=== PATIENT | male | born 1975 | race Caucasian/White ===

== ENCOUNTER 2016-12-13 15:08 | Emergency (ER) | payer OTHER ==
[~2016-12-13] VITALS: Ht 190.5 cm; Wt 86.2 kg
[~2016-12-13 15:08] MED LIST: ABILIFY20 MG; ADVIL200 MG PO; ALLOPURINOL100 MG PO; AMOXICILLIN 50500 MG PO; BACTRIM DS 8001 TA1 PO; COLCHICINE 0.60.6 MG PO; DOXYCYCLINE HY100 M4 PO; FIORICET1 CAP PO; FLEXERIL10 MG PO; GABAPENTIN 600600 MG PO; IBUPROFEN400 MG PO; INDOMETHACIN50 MG PO; KEFLEX 500MG.500 MG PO; LORTAB 5/500 501 TAB PO; MINOCYCLINE 10100 MG PO; MOTRIN400 MG PO; Mobic7.5 MG PO; NAPROSYN 500MG500 MG PO; NOMEDS; NOMEDS XX; NORCO 325 MG-51 TAB PO; PHENERGAN25 M3 PO; PREDNISONE 20MG20 MG PO; PREDNISONE20 MG PO; ROBAXIN-750750 MG PO; ULTRAM50 MG PO; ZITHROMAX TRI-500 M1 PO; ZOFRAN ODT4 MG PO; ZOFRAN4 MG PO
--- NOTE | 2016-12-13 15:54 | RADIOLOGY REPORT PS360 ---
KNEE-3 VIEWS-LT COMPARISON: Left knee 10/29/2012 HISTORY: Left knee pain and swelling TECHNIQUE: AP lateral and oblique views FINDINGS: The medial lateral joint space appear normal. There is minimal spurring the tibial spines. There is no fracture or loose body. There is no definite effusion. IMPRESSION: Negative for acute fracture
[2016-12-13] MEDS ORDERED: IBUPROFEN800 MG PO (16:04)
--- NOTE | 2016-12-13 16:04 | Urgent Treatment Center Report ---
History of Present Issue Date/Time Seen by Provider 12/13/16 1530 Visit Reason Pt arrived:Walked Presenting Problem:LT KNEE PAIN THATS BEEN ONGOING AND TODAY HAS SWELLING TODAY. DENIES INJURY. PT STATES HIS BP IS ALWAYS ELEVATED. Location if Accident: Onset of symptoms date/time:/ or onset unknown for:MEDICAL HX UNKNOWN Have you (or family members/close friends) recently traveled outside the [place]? N If Yes, where/when: Have you had exposure to infectious disease within the past month? TB? Other? Specify: Patient states that he has been having pain and swelling in his left knee now for several days. State that today he woke up and it was swollen again. States that he decided to come in and get it checked out and try to get an xray to see if something may have been broken ALLERGIES Coded Allergies: No Known Allergies (08/24/16) History Medical History General CAD? No Angina: No SC: No Hypertension? Yes Hyperlipidemia? No CHF? No DVT? No PE? No COPD? Yes Asthma? No Anemia? No GERD? No Gastric ulcers? No GI Bleed? No Hernia? No Thyroid Problems? No Hypothyroidism? No CVA? No Seizures? No Diabetes? No Renal Insuffiency? No UTI? No Stones? No BPH? No GB Disease: No Nephritic Syndrome? No Asplenia? No Hepatitis? No Sickle Cell Disease? No Arthritis? No Migraines? No Cataracts? No Glaucoma? No MRSA? No HIV? No TB? No Anxiety? No Depression? No Cancer? No Immunization HX DT/Tetanus 12/06/13 Surgical Hx Previous Surgery?Y SINUS Social History Smoking Hx Smoker: Current Every Day Smoker Tobacco: Yes Type Cigarettes Packs/day 1 1/2 - 2 Packs Alcohol Alcohol: No Review of Systems All Other Systems Reviewed and Negative Comment Pain and swelling in left knee no known injury Physical Exam Vital Signs Vital Signs Date Time Temp Pulse Resp B/P Pulse O2 O2 Flow FiO2 Ox Delivery Rate 12/13 1519 98.1 63 18 157/103 97 General Appearance normal appearance, WD/WN, no apparent distress Respiratory Status Yes: trachea midline, chest symmetrical, non tender chest. No: respiratory distress. Cardiovascular normal exam, regular rate/rhythm, no peripheral edema Extremities swelling, Pain and mild swelling in left knee with no known injury Neurologic alert, normal exam, oriented x 3 Medical Decision Making LABS/Meds/Orders Pt receiving controlled substance in ED? No Departure Departure Time of Disposition 1602 Disposition DC Home or Self Care(routine) Clinical Impression Primary Impression: Knee sprain Qualifiers: Encounter type: initial encounter Involved ligament of knee: unspecified ligament Laterality: left Qualified Code: S83.92XA - Sprain of unspecified site of left knee, initial encounter Condition STABLE Referrals LAURENCE MEJIA, GUSTAVO YANEZ if pain and swelling persists Patient Instructions DI for Knee Sprain, How To Perform RICE (Rest, Ice, Compress, Elevate), Knee Sprain Additional Instructions *weight bearing as tolerated *RICE, Rest the extremity, Ice 15-20 minutes 3-4 times daily, Compress- wear the eladio wrap as discussed as much as possible to help reduce swelling and pain, Elevate the extremity when at rest *Eladio wrap is for support and help control swelling, use it except in the shower. Be sure that is not to tight but not to loose either *Elevate when resting *Ibuprofen 600-800mg every 6-8 hours as needed for pain an inflammation. If need something more can take Tylenol in between doses of Ibuprofen to help Immediately follow up for new or worsening of symptoms, or no noticeable improvement over the next 3-5 days Discharge Counseling Counseled pt/family regarding diagnosis, test results, medications/RX, home care, follow up needs Prescriptions Current Visit Scripts Ibuprofen (Ibuprofen 800MG) 800 MG PO QIDP PRN pAIN #30 TAB at 1617
[2016-12-13 16:11] VITALS: BP 157/103
--- OUTSIDE RECORDS SUMMARY | 2016-12-16 12:26 | External Medical Summary Rpt | CCD ---
Author Author , ASHWIN Organization ASHWIN Address Unknown Phone [email or web address] Providers Care Microfilmer Name Role Phone AYOS, EMELITA A, Unavailable Unavailable AYOS, EMELITA A Rick Villaseñor MD, Unavailable Unavailable AL Freeman MD Unavailable Unavailable BEINEKE FANNIE, BEINEKE Unavailable Unavailable FANNIE KESHIA TRINIDAD, KESHIA Unavailable Unavailable TRINIDAD GIMENEZ WENDY, GIMENEZ Unavailable Unavailable WENDY NANCIE G, NANCIE Unavailable Unavailable G NANCIE G, NANCIE Unavailable Unavailable G NANCIE, G E, Unavailable Unavailable NANCIE, G E CHANDARANA JYO, Unavailable Unavailable CHANDARANA JYO [facility], Unavailable Unavailable [facility] MAURILIO PINA, Unavailable Unavailable MAURILIO PINA, Unavailable Unavailable [facility] Unavailable Unavailable [facility] [place] GRANT NASSAR Unavailable Unavailable LEO PABLO SRIRAM, PABLO Unavailable Unavailable SRIRAM JIMENEZ III VALERIE, JIMENEZ Unavailable Unavailable III [facility] Un[facility] Un[facility], [facility] Unavailable Unavailable SRV AR, [facility] SRV AR [facility], Unavailable [facility]available [facility] Unavailable Unavailable [place], [facility] # Unavailable [facility]available 007, [facility] # 007 [facility] Unavailable Unavailable [facility], [facility] MAURILIO I JIMENEZ III [facility] Unavailable Unavailable N0 3, MAURILIO I JIMENEZ III [facility] N0 3 PETRONA LUNA Unavailable Unavailable KAMALA MADRIGAL, Unavailable Unavailable KAMALA RUSS [facility] Unavailable Unavailable IM[facility]ING [facility], [facility] Unavailable Unavailable LLC, [facility] Ivis Parra MD, Unavailable Unavailable Ivis Parra MD [place] [facility] [place] [facility] [facility], Unavailable Unavailable ATTN: [place], [facility] [facility], ATTN: [place] NATHEN PAB, NATHEN Unavailable Unavailable PAB [facility] Unavailable Unavailable ACTION P, [facility] MURAD ASM, MURAD ASM Unavailable Unavailable MURAD LORENA, MURAD LORENA Unavailable Unavailable [facility], [facility] RICH NATALIIA, RICH NATALIIA Unavailable Unavailable RICH, ARIF M, RICH, Unavailable Unavailable ARIF M MARLEN ABDULLAHI, Unavailable Unavailable MARLEN ABDULLAHI [facility], Unavailable Unavailable [facility], [facility] JOHNSON A, JOHNSON A Unavailable Unavailable [facility], Unavailable [facility]available [facility] REFFLIANNE JEAN BAPTISTE, Unavailable Unavailable REFFNERLIANNE [facility] Unavailable Unavailable [id number] # [id number], [facility] [id number] # [id number] SAKOW NOL, SAKOW NOL Unavailable Unavailable SARTAWI TAR, SARTAWI Unavailable Unavailable TAR RENO COTE, Unavailable Unavailable RENO COTE MARINELLI, III ROSA MARIA, Unavailable Unavailable MARINELLI, III ROSA MARIA SOTINGEANU FANNIE, Unavailable Unavailable SOTINGEANU FANNIE [facility] Unavailable Unavailable [facility] Unavailable Unavailable [facility] MARA SHARMA, Unavailable Unavailable MARA SHARMA [facility] # Unavailable Unavailable [id number], [facility] # [id number] NISHI COCHRAN, NISHI Unavailable Unavailable LAR KING[place]ON JAYESH, Unavailable Unavailable [place] JAYESH Purpose Continuity of Care Document - 05-25-2009 through 2016 Problems Code Diagnosis DOS Provider Status K922 GASTROINTES 04-02-2015 [facility] HEMORRHAGE GROUP UNSPECIFIED I10 ESSENTIAL 03-09-2015 [facility] HYPERTENSIO INC N J0100 ACUTE 03-09-2015 [facility] SINUSITIS PLLC UNSPECIFIED J449 CHRONIC 03-09-2015 [facility] PULMONARY INC DISEASE UNS K5289 OTH SPEC 03-09-2015 [facility] NONINFECTIV [facility], E PLLC GASTROENTER ITIS & COLITIS K529 NONINFECTIV 03-09-2015 [facility] GASTROENTER INC ITIS & COLITIS UNS Z720 TOBACCO USE 03-09-2015 [facility] B349 VIRAL 02-21-2015 [facility] INFECTION [facility], UNSPECIFIED [facility] R1111 VOMITING 02-21-2015 [facility] WITHOUT [facility]YS[facility], NAUSEA [facility] R197 DIARRHEA 02-21-2015 [facility] UNSPECIFIED PH[facility]ICIANS, [facility] 7231 CERVICALGIA 09-20-2014 [facility] 16565 INJURY OF 09-20-2014 [facility] OTHER [facility] AND UNSPECIFIED 7245 UNSPECIFIED 07-04-2014 [facility] 74051 OSTEOARTHRO 07-01-2014 [place] [facility] UNSPEC MEDICAL WHETHER IMAGING ASS GEN/LOC SHLDR REGION 34366 PAIN IN 07-01-2014 [place] [facility], MEDICAL SHOULDER IMAGING ASS REGION 7241 PAIN IN 07-01-2014 [facility] THORACIC PHYSICIANS SPINE GROUP 7248 OTHER 07-01-2014 [facility] SYMPTOMS PHYSICIANS REFERABLE GROUP TO BACK 4739 UNSPECIFIED 03-30-2014 [facility] SINUSITIS PHYSICIANS GROUP 4659 ACUTE URIS 02-27-2014 [place] [facility] SITE 4871 INFLUENZA 02-27-2014 [place] [facility] MANIFESTATI ONS 496 CHRONIC 02-27-2014 [facility] [facility] OBSTRUCTION [facility] NEC 12844 SHORTNESS 02-27-2014 [place] [facility] 7862 COUGH 02-27-2014 [facility] 305.1 305.1 10-29-2012 [place] TOBACCO USE [facility] DISORDER Hospital 401.9 401.9 [facility]-29[facility]2012 [facility] N NOS [facility] 719.46 719.46 10-29-2012 [place] JOINT [facility] PAIN-L/LEG Hospital 465.9 465.9 ACUTE 09-08-2012 [place] URI NOS [facility] 14729 CIRCADIAN 02-12-2011 NANCIE G RHYTHM SLEEP DISORDER UNSPECIFIED 21013 UNSPECIFIED 02-12-2011 [facility], CONJUNCTIVI ATTN: DENE TIS 4019 UNSPECIFIED 02-12-2011 [place] [facility], HYPERTENSIO ATTN: [place] N 22349 LOC 02-07-2011 [place] [facility] OSTEOARTHRO [facility], S NOT SPEC ATTN: [facility] PRIM/SEC SHLDR REGION 8409 SPRAIN&STRA 02-07-2011 [place] [facility] UNSPEC [facility], SITE ATTN: [facility]E SHOULDER&UP PER ARM 35995 UNSPECIFIED 01-26-2011 [place] [facility] CELLULITIS [facility], AND ATTN: [facility]E ABSCESS OF FINGER 6824 CELLULITIS& 01-26-2011 N[place]CIE G ABSCESS [place] [address] OTHER 01-10-2011 [facility] CHRONIC MED CTR, PAIN ATTN: DENE 7242 LUMBAGO 01-10-2011 [facility] MED [facility], ATTN: DENE 2724 OTHER AND 12-26-2010 [place] UNSPECIFIED [facility]IN[facility] HYPERLIPIDE MARCOS 4011 ESSENTIAL 12-26-2010 [facility] HYPERTENSIO [facility]INIC N, BENIGN 60200 PAIN IN 11-24-2010 [place] JOINT, CLINIC ANKLE AND FOOT V5869 LONG-TERM 11-24-2010 [facility] (CURRENT) CLINIC USE OF OTHER MEDICATIONS 60673 SPRAIN AND 11-19-2010 [place] [facility] STR[facility] OF [facility], UNSPECIFIED ATTN: [facility]E SITE OF FOOT V1581 PERS HX 11-19-2010 [facility] NONCOMPLIAN MED CTR, CE W/MED TX ATTN: [facility] PRS HAZARDS HLTH 7295 PAIN IN 11-16-2010 [place] [facility] TISSUES OF [facility] LIMB 9597 INJURY 11-16-2010 [place] OTHER&UNSPE [facility] CIFIED [facility] LEG ANKLE&FOOT 12018 PAIN IN 10-30-2010 [facility] JOINT MED CTR, PELVIC ATTN: [facility]E REGION AND THIGH 8439 SPRAIN&STRA 10-22-2010 [facility] IN OF MED CTR, UNSPECIFIED ATTN: [facility]E SITE OF HIP&THIGH 5259 UNSPECIFIED 10-17-2010 [facility] DISORDER MED CTR, TEETH&SUPPO ATTN: [facility]E RTING STRUCTURES 3551 MERALGIA 10-13-2010 [facility] [place] 8488 OTHER 10-09-2010 [facility] SPECIFIED MED CTR, SITES OF ATTN: DENE SPRAINS AND STRAINS 7831 ABNORMAL 10-07-2010 [facility] 10891 OTHER ACUTE 10-02-2010 [facility] MED CTR, POSTOPERATI ATTN: DENE VE PAIN 08274 HYPOCALCEMI 09-23-2010 [facility] 59104 UNSPECIFIED 09-17-2010 [facility] INFECTIVE MED CTR, OTITIS ATTN: DENE EXTERNA 3829 UNSPECIFIED 09-17-2010 [facility] OTITIS MED CTR, MEDIA ATTN: DENE 2749 GOUT, 08-27-2010 [facility] UNSPECIFIED MED CTR, ATTN: DENE 81766 ASTHMA, 08-27-2010 [facility] UNSPECIFIED MED CTR, , ATTN: [facility] UNSPECIFIED STATUS 54335 OTHER ACUTE 08-24-2010 [facility] EXTERNA 3804 IMPACTED 08-24-2010 [facility] 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 5220 PULPITIS 08-05-2010 MAURILIO I JIMENEZ III P[facility] N0 3 490 BRONCHITIS 07-27-2010 [facility] NOT MED CTR, SPECIFIED ATTN: DENE ACUTE OR CHRONIC 92213 PAINFUL 07-27-2010 [facility] RESPIRATION MED CTR, ATTN: DENEber 2761 HYPOSMOLALI 07-05-2010 [facility] AND/OR [facility]INIC HYPONATREMI A 99256 OSTEOARTHRO 07-02-2010 [facility] S UNSPEC MED CTR, WHETHER ATTN: DENEber GEN/LOC UNSPEC SITE 90521 UNSPECIFIED 07-02-2010 [facility] MED CTR, ARTHROPATHY ATTN: DENE SITE UNSPECIFIED 23859 OTHER 07-02-2010 [facility] MALAISE AND MED CTR, FATIGUE ATTN: DOUGIE 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 LUMBOSACRAL 06-06-2010 [facility] SPONDYLOSIS WITHOUT MYELOPATHY 94787 SPINAL STEN 06-06-2010 [facility]B 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 N 49298 OTHER 05-28-2010 [facility] INJURY OF MED CTR, OTHER SITES ATTN: DENE OF TRUNK 8472 LUMBAR 05-21-2010 [facility] SPRAIN AND MED CTR, STRAIN ATTN: DENEber 514 PULMONARY 03-13-2010 [facility] [facility] HYPOSTASIS 90449 CHEST PAIN 02-22-2010 [place] [facility]PEC[facility]IED [facility] 96368 ABDOMINAL 02-22-2010 [place] PAIN, [facility] SITE 9592 INJURY 02-22-2010 [facility] OTHER&UNSPE AMBULANCESV CIFIED C SHOULDER&UP PER ARM 9598 INJURY 02-22-2010 [place] [facility] OTH&UNSPEC [facility], OTH SPEC ATTN: DENEber SITES INCL MULTIPLE 9599 INJURY 02-22-2010 [place] OTHER [facility] UNSPECIFIED SITE E8889 UNSPECIFIED 02-22-2010 [place] [facility] 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 44366 UNSPECIFIED 01-01-2010 [facility] INFECTION IN CCE & UNS SITE 9983 DISRUPTION 12-14-2009 MAURILIO JIMENEZ OF WOUND III PSC N0 3 462 ACUTE 10-10-2009 [facility] PHARYNGITIS [facility] 8471 THORACIC 07-19-2009 [facility] E9278 OTH 07-19-2009 [facility] OVEREXERT&S MEDICAL TRENUOUS&RE PARTNERS PETITIVE LLC MVMNTS/LOAD S 5210 DENTAL 05-28-2009 MAURILIO JIMENEZ CARIES III [facility] N0 3 Allergies, Adverse Reactions, Alerts Type Drug Allergy Adverse Reaction to Substance Substance Reaction Severity NO KNOWN DRUG Unknown Unknown ALLERGIES Medications Na ND Rx Da Fi Fi Am Da Di Ph RX Ph St me C No te ll ll ou ys ag ar # ys at rm s nt no ma ic us Or Da si cy ia de te s n re d BU 10 01 01 0 30 30 HO 60 GH Ac CA 37 -1 -1 0. ME 35 AN ti OP 00 3- 3- 00 TO 17 TA ve IO 10 20 20 0 WN 6 N 10 15 15 RA HC 3 PH ME L AR SH XL MA CY 15 0 OF MG CY TA NT BL HI ET AN A BU 00 01 01 0 90 30 HO 60 GH Ac SP 59 -1 -1 0. ME 35 AN ti IR 10 3- 3- 00 TO 17 TA ve ON 65 20 20 0 WN 5 E 81 15 15 RA HC 0 PH ME L AR SH 10 MA CY MG OF TA BL CY ET NT HI AN A GA 53 01 01 0 90 30 HO 60 GH Ac BA 74 -1 -1 0. ME 35 AN ti PE 60 3- 3- 00 TO 17 TA ve NT 10 20 20 0 WN 2 IN 20 15 15 RA 5 PH ME 30 AR SH 0 MA MG CY CA OF PS UL CY E NT HI AN A PA 00 01 01 0 30 30 HO 60 GH Ac NT 00 -1 -1 0. ME 35 AN ti OP 80 3- 3- 00 TO 17 TA ve RA 60 20 20 0 WN 8 ZO 70 15 15 RA LE 1 PH ME AR SH SO MA D CY DR OF 40 CY MG NT HI TA AN B A HY [address] 40 -2 OM 91 7- Lo OR 31 20 ng PH 23 13 er ON 0 E Ac 2 ti MG ve /M L CA RP UJ CT CA 00 08 0 No OM 64 -2 ET 11 7- Lo RESENDIZ 49 20 ng ZI 53 13 er NE 5 Ac 25 ti ve MG /M L AM PU L IP 00 07 0 No RA 48 -0 T- 70 7- Lo AL 20 20 ng BU 10 13 er T 1 0. Ac 5- ti 3( ve 2. 5) MG /3 ML CA 00 07 0 No ED 05 -0 NI 40 7- Lo SO 01 20 ng NE 82 13 er 0 20 Ac ti MG ve TA BL ET VE 00 07 0 No NT 17 -0 OL 30 7- Lo IN 68 20 ng 22 13 er HF 4 A Ac 90 ti ve MC G IN RESENDIZ LE R ME 00 10 10 0 60 30 JA 57 MU Ac TO 09 -2 -2 .0 CK 68 RA ti CA 30 4- 4- 00 SO 54 D ve OL 73 20 20 N UM OL 31 11 11 AP AR 0 OT M TA HE RT CA RA RY TE # 50 00 7 MG TA B VE 00 10 10 0 36 30 JA 57 MU Ac NT 17 -2 -2 .0 CK 68 RA ti OL 30 4- 4- 00 SO 55 D ve IN 68 20 20 N UM 22 11 11 AP AR HF 0 OT M A HE 90 CA RY MC # G IN 00 RESENDIZ 7 LE R AM 65 10 10 0 30 30 JA 57 MU Ac LO 16 -2 -2 .0 CK 68 RA ti DI 20 4- 4- 00 SO 56 D ve PI 00 20 20 N UM NE 85 11 11 AP AR 0 OT M BE HE SY CA LA RY TE # 10 00 7 MG TA B CL 00 10 10 0 90 30 JA 57 MU Ac ON 37 -2 -2 .0 CK 68 RA ti ID 80 4- 4- 00 SO 57 D ve IN 15 20 20 N UM E 21 11 11 AP AR HC 0 OT M L HE 0. CA 1 RY MG # TA 00 BL 7 ET LI 00 10 10 0 30 30 JA 57 MU Ac SI 17 -2 -2 .0 CK 68 RA ti NO 23 4- 4- 00 SO 58 D ve CA 76 20 20 N UM IL 17 11 11 AP AR 0 OT M 40 HE CA MG RY # TA BL 00 ET 7 00 09 09 10 3 RI 89 NHAN Ac 40 -1 -1 .0 TE 78 HN ti 60 4- 4- 00 04 SO ve 35 20 20 AI N 80 11 11 D AA 1 PH RO AR N MA W CY 03 21 6 # 03 21 LI 00 07 09 0 30 30 JA 56 MU Ac SI 17 -0 -1 .0 CK 92 RA ti NO 23 8- 3- 00 SO 20 D ve CA 76 20 20 N UM IL 17 11 11 AP AR 0 OT M 40 HE CA MG RY # TA BL 00 ET 7 CY 00 08 08 15 5 RI 89 MARIAELENA Ac CL 37 -2 -2 .0 TE 58 WM ti OB 80 9- 9- 00 97 AN ve EN 75 20 20 AI ZA 11 11 11 D KE CA 0 PH NN IN AR Y E MA L 10 CY MG 03 21 TA 6 BL # ET 03 21 00 08 08 0 10 3 FA 41 NHAN Ac 40 -1 -1 .0 FL 83 HN ti 60 5- 5- 00 LY 12 SO ve 35 20 20 1 N 80 11 11 PH AA 5 AR RO MA N CY W OF JA CK SO N CL 53 08 08 60 30 RI 89 MU Ac ON 48 -0 -0 .0 TE 33 RA ti ID 90 5- 8- 00 62 D ve IN 21 20 20 AI E 51 11 11 D MA HC 0 PH H L AR 0. MA 1 CY MG 03 TA 21 BL 6 ET # 03 21 ME 00 08 08 0 30 5 WA 72 BU Ac TH 60 -0 -0 .0 L- 19 RN ti OC 34 7- 7- 00 MA 28 ET ve AR 48 20 20 RT 9 TE BA 62 11 11 MO 8 PH GE L AR OR 75 MA GE 0 CY E MG # TA 10 BL 06 ET 93 00 07 07 12 3 RI 89 CA Ac 60 -2 -2 .0 TE 23 MP ti 33 8- 8- 00 29 BE ve 88 20 20 AI LL 12 11 11 D 8 PH RO AR GE MA R CY D 03 21 6 # 03 21 00 07 07 12 3 RI 89 CA Ac 60 -2 -2 .0 TE 23 MP ti 33 8- 8- 00 29 BE ve 88 20 20 AI LL 12 11 11 D 8 PH RO AR GE MA R CY D 03 21 6 # 03 21 LI 00 07 07 1 30 30 RI 89 MU Ac SI 59 -2 -2 .0 TE 18 RA ti NO 10 2- 4- 00 17 D ve CA 40 20 20 AI IL 90 11 11 D MA 1 PH H 40 AR MA MG CY TA 03 BL 21 ET 6 # 03 21 AM 00 07 07 1 30 30 RI 89 MU Ac LO 05 -2 -2 .0 TE 18 RA ti DI 40 2- 4- 00 20 D ve PI 10 20 20 AI NE 12 11 11 D MA 2 PH H BE AR SY MA LA CY TE 5 03 21 MG 6 # TA 03 B 21 CI 55 07 07 0 14 7 FA 67 BU Ac CA 11 -1 -1 .0 FL 89 RN ti OF 10 6- 6- 00 LY 74 ET ve LO 12 20 20 9 TE XA 70 11 11 PH CI 1 AR GE N MA OR HC CY GE L E 50 OF 0 MG JA CK TA SO B N NE 61 07 07 0 10 10 FA 67 BU Ac OM 31 -1 -1 .0 FL 89 RN ti YC 40 6- 6- 00 LY 75 ET ve IN 64 20 20 0 TE -P 51 11 11 PH OL 1 AR GE YM MA OR YX CY GE IN E -H OF [facility] JA R CK HER[place] SO SP N ME 00 07 07 0 60 30 JA 56 MU Ac TO 09 -0 -0 .0 CK 92 RA ti CA 30 8- 8- 00 SO 19 D ve OL 73 20 20 N UM OL 31 11 11 AP AR 0 OT M TA HE RT CA RA RY TE # 50 00 7 MG TA B LO 45 07 07 0 30 30 JA 56 MU Ac RA 80 -0 -0 .0 CK 92 RA ti TA 20 8- 8- 00 SO 21 D ve DI 65 20 20 N UM NE 08 11 11 AP AR 7 OT M 10 HE CA MG RY # TA BL 00 ET 7 LI 68 06 06 1 30 30 RI 88 MU Ac SI 18 -1 -2 .0 TE 87 RA ti NO 00 7- 6- 00 95 D ve CA 51 20 20 AI IL 70 11 11 D MA 1 PH H 40 AR MA MG CY TA 03 BL 21 ET 6 # 03 21 00 06 06 0 20 5 FA 41 BU Ac 59 -2 -2 .0 FL 80 RN ti 10 5- 5- 00 LY 55 ET ve 50 20 20 4 TE 20 11 11 PH 5 AR GE MA OR CY GE E OF JA CK SO N NE 61 06 06 0 10 3 FA 67 BU Ac OM 31 -2 -2 .0 FL 85 RN ti YC 40 5- 5- 00 LY 88 ET ve IN 64 20 20 5 TE -P 51 11 11 PH OL 1 AR GE YM MA OR YX CY GE IN E -H OF [facility] JA R CK HER[place] SO SP N CI 55 06 06 0 10 5 FA 67 BU Ac CA 11 -2 -2 .0 FL 85 RN ti OF 10 5- 5- 00 LY 88 ET ve LO 12 20 20 6 TE XA 70 11 11 PH CI 1 AR GE N MA OR HC CY GE L E 50 OF 0 MG JA CK TA SO B N IB 53 06 06 30 7 RI 88 GR Ac UP 74 -1 -1 .0 TE 75 AY ti RO 60 4- 4- 00 78 , ve FE 46 20 20 AI II N 40 11 11 D I 40 5 PH NHAN 0 AR HN MG MA I CY TA BL 03 ET 21 6 # 03 21 CE 00 06 06 28 7 RI 88 GR Ac PH 14 -1 -1 .0 TE 77 AY ti AL 39 4- 4- 00 11 , ve EX 89 20 20 AI II IN 70 11 11 D I 1 PH NHAN 50 AR HN 0 MA I MG CY CA 03 PS 21 UL 6 E # 03 21 LI 68 06 06 30 30 RI 88 MU Ac SI 18 -0 -0 .0 TE 69 RA ti NO 00 60 D ve CA 51 20 20 AI IL 50 11 11 D MA 1 PH H 20 AR MA MG CY TA 03 BL 21 ET 6 # 03 21 00 06 06 0 24 5 FA 41 GR Ac 59 -0 -0 .0 FL 79 AY ti 10 3- 3- 00 LY 39 , ve 54 20 20 0 II 00 11 11 PH I 5 AR NHAN MA HN CY I OF JA CK SO N 00 06 06 0 24 5 FA 41 GR Ac 59 -0 -0 .0 FL 79 AY ti 10 3- 3- 00 LY 39 ve 54 20 20 0 II 00 11 11 PH I 5 AR NHAN MA HN CY I OF JA CK SO N IB 55 06 06 0 30 6 FA 67 GR Ac UP 11 -0 -0 .0 FL 81 AY ti RO 10 3- 3- 00 LY 44 , ve FE 68 20 20 0 II N 20 11 11 PH I 40 5 AR NHAN 0 MA HN MG CY I TA OF BL ET JA CK SO N LI 00 05 05 0 30 30 JA 56 MU Ac SI 59 -3 -3 .0 CK 68 RA ti NO 10 1- - 00 SO 08 D ve CA 40 20 20 N UM IL 71 11 11 AP AR 0 OT M 10 HE CA MG RY # TA BL 00 ET 7 00 05 05 0 12 4 FA 41 CA Ac 59 -2 -2 .0 FL 79 MP ti 10 LY 09 BE ve 34 20 20 6 LL 90 11 11 PH 5 AR RO MA GE CY R D OF JA CK SO N 00 05 05 0 12 4 FA 41 CA Ac 59 -2 -2 .0 FL 79 MP ti 10 LY 09 BE ve 34 20 20 6 LL 90 11 11 PH 5 AR RO MA GE CY R D OF JA CK SO N AM 00 05 05 0 30 10 FA 67 CA Ac OX 78 -2 -2 .0 FL 80 MP ti IC 12 LY 30 BE ve IL 61 20 20 6 LL LI 30 11 11 PH N 5 AR RO 50 MA GE 0 CY R MG D OF CA PS JA UL CK E SO N BE 57 05 05 0 30 10 FA 67 WA Ac NZ 66 -2 -2 .0 FL 80 RR ti ON 40 LY 13 EN ve AT 13 20 20 4 AT 48 11 11 PH LA E 8 AR RR 20 MA Y 0 CY E MG OF CA PS JA UL CK E SO N AZ 00 05 05 0 6. 5 FA 67 WA Ac IT 78 -2 -2 00 FL 80 RR ti HR 11 6- 6- 0 LY 13 EN ve OM 49 20 20 5 YC 66 11 11 PH LA IN 8 AR RR MA Y 25 CY E 0 MG OF TA JA BL CK ET SO N LO 45 05 05 12 30 30 FA 67 MU Ac RA 80 -0 -0 .0 FL 75 RA ti TA 20 3- 3- 00 LY 02 D ve DI 65 20 20 4 NE 08 11 11 PH MA 7 AR H 10 MA CY MG OF TA BL JA ET CK SO N LI 00 04 04 0 30 30 FA 67 MU Ac SI 18 -1 -1 .0 FL 71 RA ti NO 55 9- 9 LY 92 D ve CA 40 20 20 7 UM IL 00 11 11 PH AR 5 1 AR M MA MG CY TA OF BL ET JA CK SO N TI 00 03 03 0 60 30 JA 56 MU Ac ZA 18 -2 -2 .0 CK 23 RA ti NI 54 8- 8- 00 SO 80 D ve DI 40 20 20 N UM NE 01 11 11 AP AR 0 OT M HC HE L CA 4 RY MG # TA 00 BL 7 ET OX 00 03 03 16 4 RI 87 PA Ac YC 60 -2 -2 .0 TE 80 LL ti OD 34 0- 0- 00 01 AD ve ON 99 20 20 AI IN E- 82 11 11 D O AC 1 PH DA ET AR RR AM MA EL IN CY L OP HE 03 N 21 5- 6 32 # 5 03 21 CY 00 02 02 30 10 RI 87 NHAN Ac CL 37 -2 -2 .0 TE 55 HN ti OB 80 8- 8- 00 89 SO ve EN 75 20 20 AI N ZA 11 11 11 D AA CA 0 PH RO IN AR N E MA W 10 CY MG 03 21 TA 6 BL # ET 03 21 NA 00 02 02 30 15 RI 87 NHAN Ac CA 09 -2 -2 .0 TE 55 HN ti OX 30 8- 8- 00 90 SO ve EN 14 20 20 AI N 90 11 11 D AA 50 1 PH RO 0 AR N MG MA W CY TA BL 03 ET 21 6 # 03 21 CI 00 01 01 1 7. 10 FA 67 SA Ac CA 06 -2 -2 50 FL 51 RT ti OD 58 8- 8- 0 LY 78 AW ve EX 53 20 20 9 I 30 11 11 PH TA OT 2 AR RI IC MA Q CY HERNDON SP OF EN SI JA ON CK SO N AZ 00 01 01 6. 5 RI 86 BU Ac IT 78 -0 -0 00 TE 98 RN ti HR 11 9- 9- 0 80 ET ve OM 49 20 20 AI TE YC 66 11 11 D IN 8 PH GE AR OR 25 MA GE 0 CY E MG 03 TA 21 BL 6 ET # 03 21 66 01 01 14 7 RI 86 BU Ac 99 -0 -0 .0 TE 98 RN ti 30 9- 9- 00 81 ET ve 53 20 20 AI TE 40 11 11 D 2 PH GE AR OR MA GE CY E 03 21 6 # 03 21 IB 53 01 01 30 10 RI 86 BU Ac UP 74 -0 -0 .0 TE 98 RN ti RO 60 9- 9- 00 83 ET ve FE 46 20 20 AI TE N 60 11 11 D 80 5 PH GE 0 AR OR MG MA GE CY E TA BL 03 ET 21 6 # 03 21 ME 00 12 12 0 30 10 FA 67 BU Ac TH 60 -2 -2 .0 FL 43 RN ti OC 34 1- 1- 00 LY 54 ET ve AR 48 20 20 3 TE BA 62 10 10 PH MO 8 AR GE L MA OR 75 CY GE 0 E MG OF TA JA BL CK ET SO N AZ 59 12 12 0 6. 5 FA 67 SA Ac IT 76 -0 -0 00 FL 40 RT ti HR 23 8- 8- 0 LY 79 AW ve OM 06 20 20 0 I YC 00 10 10 PH TA IN 1 AR RI MA Q 25 CY 0 MG OF TA JA BL CK ET SO N MU 45 11 11 0 22 14 FA 67 SA Ac PI 80 -0 -0 .0 FL 32 RT ti RO 20 2- 2- 00 LY 33 AW ve CI 11 20 20 6 I N 22 10 10 PH TA 2% 2 AR RI MA Q OI CY NT ME OF NT JA CK SO N 59 11 11 0 14 7 FA 67 SA Ac 76 -0 -0 .0 FL 32 RT ti 22 2- 2- 00 LY 33 AW ve 18 20 20 7 I 00 10 10 PH TA 1 AR RI MA Q CY OF JA CK SO N CI 16 10 10 0 10 5 FA 67 BU Ac CA 25 -3 -3 .0 FL 31 RN ti OF 20 0- 0- 00 LY 71 ET ve LO 51 20 20 7 TE XA 50 10 10 PH CI 1 AR GE N MA OR HC CY GE L E 50 OF 0 MG JA CK TA SO B N CA 10 10 10 0 10 2 FA 67 BU Ac OM 70 -3 -3 .0 FL 31 RN ti ET 20 0- 0- 00 LY 71 ET ve RESENDIZ 00 20 20 8 TE ZI 31 10 10 PH NE 0 AR GE MA OR 25 CY GE E MG OF TA JA BL CK ET SO N CI 65 10 10 14 7 RI 86 BU Ac CA 86 -1 -1 .0 TE 15 RN ti OF 20 7- 7- 00 09 ET ve LO 07 20 20 AI TE XA 70 10 10 D CI 1 PH GE N AR OR HC MA GE L CY E 50 0 03 MG 21 6 TA # B 03 21 CI 00 09 09 0 14 7 WA 71 BU Ac CA 37 -2 -2 .0 L- 67 RN ti OF 87 5- 5- 00 MA 63 ET ve LO 09 20 20 RT 7 TE XA 80 10 10 CI 1 PH GE N AR OR HC MA GE L CY E 50 # 0 MG 10 06 TA 93 B GE 61 09 09 0 5. 12 WA 71 BU Ac NT 31 -2 -2 00 L- 67 RN ti AM 40 5- 5- 0 MA 63 ET ve IC 63 20 20 RT 8 TE IN 30 10 10 3 5 PH GE AR OR MG MA GE /M CY E L # EY E 10 DR 06 OP 93 S 00 09 09 0 24 5 FA 41 GR Ac 59 -1 -1 .0 FL 65 AY ti 10 7- 7 00 LY 56 , ve 54 20 20 8 II 00 10 10 PH I 5 AR NHAN MA HN CY I OF CK SO N 00 09 09 0 24 5 FA 41 GR Ac 59 -1 -1 .0 FL 65 AY ti 10 7- 7- 00 LY 56 ve 54 20 20 8 II 00 10 10 PH I 5 AR NHAN MA HN CY I OF [facility] SO N IB 55 09 09 0 30 6 FA 67 GR Ac UP 11 -1 -1 .0 FL 22 AY ti RO 10 7- 00 LY 08 , ve FE 68 20 20 9 II N 20 10 10 PH I 40 5 AR NHAN 0 MA HN MG CY I TA OF BL ET CK SO N 00 09 09 0 10 2 FA 41 CA Ac 59 -1 -1 .0 FL 65 MP ti 10 4- 4- 00 LY 38 BE ve 34 20 20 1 LL 90 10 10 PH 5 AR RO MA GE CY R D OF [facility] SO N 00 09 09 0 10 2 FA 41 CA Ac 59 -1 -1 .0 FL 65 MP ti 10 4- 4- 00 LY 38 BE ve 34 20 20 1 LL 90 10 10 PH 5 AR RO MA GE CY R D OF [facility] SO N 00 09 09 20 3 RI 85 BU Ac 60 -0 -0 .0 TE 71 RN ti 33 5- 5- 00 50 ET ve 88 20 20 AI TE 42 10 10 D 1 PH GE AR OR MA GE CY E 03 21 6 # 03 21 CI 65 09 09 14 7 RI 85 BU Ac CA 86 -0 -0 .0 TE 71 RN ti OF 20 5- 5- 00 52 ET ve LO 07 20 20 AI TE XA 70 10 10 D CI 1 PH GE N AR OR HC MA GE L CY E 50 0 03 MG 21 6 TA # B 03 21 00 08 08 0 21 3 WA 44 BU Ac 40 -0 -0 .0 L- 84 RN ti 60 8- 8- 00 MA 61 ET ve 35 20 20 RT 0 TE 90 10 10 1 PH GE AR OR MA GE CY E # 10 06 93 NE 61 08 08 0 10 24 WA 71 BU Ac OM 31 -0 -0 .0 L- 60 RN ti YC 40 8- 8- 00 MA 23 ET ve IN 64 20 20 RT 7 TE -P 51 10 10 OL 1 PH GE YM AR OR YX MA GE IN CY E -H # C EA 10 R 06 [place] 93 SP CI 00 08 08 0 14 7 WA 71 BU Ac CA 37 -0 -0 .0 L- 60 RN ti OF 87 00 MA 23 ET ve LO 09 20 20 RT 8 TE XA 80 10 10 CI 1 PH GE N AR OR HC MA GE L CY E 50 # 0 MG 10 06 TA 93 B 00 05 05 20 5 RI 84 BU Ac 40 -2 -2 .0 TE 79 RN ti 60 9 9 00 08 ET ve 35 20 20 AI TE 90 10 10 D 1 PH GE AR OR MA GE CY E 03 21 6 # 03 21 00 04 04 0 10 2 JA 53 CR Ac 59 -0 -0 .0 CK 77 AM ti 10 SO 34 ER ve 38 20 20 N 50 10 10 AP NHAN 5 OT HN HE R CA RY # 00 7 00 04 04 0 10 2 JA 53 CR Ac 59 -0 -0 .0 CK 77 AM ti 10 SO 34 ER ve 38 20 20 N 50 10 10 AP NHAN 5 OT HN HE R CA RY # 00 7 00 03 03 0 24 6 JA 53 GR Ac 59 -2 -2 .0 CK 73 AY ti 10 6- 6- 00 SO 69 , ve 54 20 20 N II 00 10 10 AP I 5 OT NHAN HE HN CA I RY # 00 7 00 03 03 0 24 6 JA 53 GR Ac 59 -2 -2 .0 CK 73 AY ti 10 6- 6- 00 SO 69 ve 54 20 20 N II 00 10 10 AP I 5 OT NHAN HE HN CA I RY # 00 7 49 03 03 0 30 8 JA 53 GR Ac 88 -2 -2 .0 CK 73 AY ti 40 6- 6- 00 SO 70 , ve 77 20 20 N II 70 10 10 AP I 5 OT NHAN HE HN CA I RY # 00 7 49 03 03 0 30 8 JA 53 GR Ac 88 -2 -2 .0 CK 73 AY ti 40 6- 6- 00 SO 70 ve 77 20 20 N II 70 10 10 AP I 5 OT NHAN HE HN CA I RY # 00 7 CY 00 03 03 9. 3 RI 84 LE Ac CL 37 -2 -2 00 TE 10 E ti OB 80 3- 3- 0 45 GR ve EN 75 20 20 AI EG ZA 11 10 10 D OR CA 0 PH Y IN AR J E MA 10 CY MG 03 21 TA 6 BL # ET 03 21 00 03 03 10 3 RI 84 LE Ac 40 -2 -2 .0 TE 10 E ti 60 3- 3- 00 46 GR ve 35 20 20 AI EG 70 10 10 D OR 5 PH Y AR J MA CY 03 21 6 # 03 21 Vital Signs 10-29-2012 14:45 Name Value Interpretat Reference Comment ion Range Body 98.4 [degF] Temperature BP 87 mm[Hg] Diastolic BP Systolic 150 mm[Hg] Heart 64 /min Rate/Pulse O2% 99 % Respiratory 20 /min Rate 10-29-2012 14:43 Name Value Interpretat Reference Comment ion Range BP 87 mm[Hg] Diastolic BP Systolic 150 mm[Hg] Heart 64 /min Rate/Pulse O2% 99 % Respiratory 20 /min Rate 09-08-2012 12:10 Name Value Interpretat Reference Comment ion Range Body 98.0 [degF] Temperature BP 96 mm[Hg] Diastolic BP Systolic 146 mm[Hg] Heart 67 /min Rate/Pulse O2% 95 % Respiratory 20 /min Rate 09-08-2012 12:07 Name Value Interpretat Reference Comment ion Range Body 98.0 [degF] Temperature BP 96 mm[Hg] Diastolic BP Systolic 146 mm[Hg] Heart 67 /min Rate/Pulse Respiratory 20 /min Rate 09-08-2012 10:38 Name Value Interpretat Reference Comment ion Range O2% 97 % Results Labs Lab Lab Date Result Refere Interp Status Commen Order Detail nces retati t Range on URIC ACID (10-29-2012 14:50) URIC 10.1 2.6-7.2 complet ACID 013 mg/dL ed 14:50 Procedures Procedure DOS Code Location Performer Comment THERAPEUT 40165 [facility] IC [facility] PROPHYLAC INC INC TIC/DX INJECTION SUBQ/[place] [address] [facility] SPINE W/O IMAGING CONTRAST ASS MATERIAL RADEX 42752 [facility] SPINE 5 MEDICAL FANNIE CERVICAL IMAGING 4 OR 5 ASS VIEWS RADEX 41993 [facility] SPINE 5 MEDICAL FANNIE THORACIC IMAGING 2 VIEWS ASS RADEX 34026 [facility] SPINE 5 MEDICAL [place] LUMBOSACR IMAGING AL ASS MINIMUM 4 VIEWS RADEX 15233 [place] DEXTER SHOULDER 5 MEDICAL [place] COMPLETE IMAGING MINIMUM 2 ASS VIEWS RADIOLOGI 87497 [place] KESHIA C 4 RIVER HBP TRINIDAD EXAMINATI LLC ON CHEST SINGLE VIEW FRONTAL RADEX 58602 [facility] SHOULDER 1 MED CTR, MED CTR, COMPLETE ATTN: ATTN: MINIMUM 2 DENE DENE VIEWS IM ADM 16886 [facility] PRQ ID 1 MED CTR, MED CTR, SUBQ/IM ATTN: ATTN: NJXS 1 DENE DENE VACCINE NONEMERG A0120 [facility] TRNSPRT: 1 [facility] Trigemina [facility] MTN ACTION P AREA/OTH SYS THERAPEUT 24542 [facility] IC 1 MED CTR, MED CTR, PROPHYLAC ATTN: ATTN: TIC/DX DENE DENE INJECTION SUBQ/IM RADIOLOGI 03730 [facility] C 1 MED CTR, MED CTR, EXAMINATI ATTN: ATTN: ON FOOT 2 DENE DENE VIEWS RADEX HIP 94138 [facility] 1 MED CTR, MED CTR, UNILATERA ATTN: ATTN: L DENE DENE COMPLETE MINIMUM 2 VIEWS NONEMERG A0120 [facility] TRNSPRT: 1 [facility] Trigemina [facility] MTN ACTION P AREA/OTH SYS NONEMERG A0120 [facility] TRNSPRT: 1 [facility] Club [employer] [facility] MTN ACTION P AREA/OTH SYS INJECTION J0735 CHRISTOPHERLENARDRossy DAPHNEYERNESTO ASM 1 CLINIC CLONIDINE HYDROCHLO RIDE 1 MG NONEMERG A0120 [facility] TRNSPRT: 1 [facility] [employer] [facility] MTN ACTION P AREA/OTH SYS NONEMERG A0120 [facility] TRNSPRT: 1 [facility] MTN ACTION P AREA/OTH SYS NONEMERG A0120 [facility] TRNSPRT: 1 [facility] [employer] [facility] MTN ACTION P AREA/OTH SYS NONEMERG A0120 [facility] TRNSPRT: 1 [employer] MTN ACTION P AREA/OTH SYS RADEX 98799 MEDICAL JOHNSON A HIPS 1 MALL BILATERAL IMAGING 2 VIEWS CENTER ANTEROPOS T PELVIS NONEMERG A0120 [facility] TRNSPRT: 1 [facility] [employer] [facility] MTN ACTION P AREA/OTH SYS NONEMERG A0120 [facility] TRNSPRT: 1 [facility] [employer] [facility] MTN ACTION P AREA/OTH SYS NONEMERG A0120 [facility] TRNSPRT: 1 [employer]! [facility] MTN ACTION P AREA/OTH SYS NONEMERG A0120 [facility] TRNSPRT: 1 [employer] MTN ACTION P AREA/OTH SYS COLLECTIO 13971 [place] N VENOUS 1 MED CTR, MED CTR, BLOOD ATTN: ATTN: VENIPUNCT DOUGIE CONSTANTINO URE CREATINE 02248 [place] KINASE MB 1 MED CTR, MED CTR, FRACTION ATTN: ATTN: ONLY PATRICIAE DENE BASIC 80172 [place] METABOLIC 1 MED CTR, MED CTR, PANEL ATTN: ATTN: CALCIUM PATRICIAE DENE TOTAL NATRIURET 29933 [place] IC 1 MED CTR, MED CTR, PEPTIDE ATTN: ATTN: [place] [address] [place] TROPONIN 1 MED CTR, MED CTR, QUANTITAT ATTN: ATTN: BLANQUITA DENE DENE BLOOD 43795 [place] COUNT 1 MED CTR, MED CTR, COMPLETE ATTN: ATTN: AUTO&AUTO DENE DENE DIFRNTL WBC CREATINE 61154 [place] KINASE 1 MED CTR, MED CTR, TOTAL ATTN: ATTN: [place] [address] [place] MAGNESIUM 1 MED CTR, MED CTR, ATTN: ATTN: DENE DENE CULTURE 36285 [place] BACTERIAL 1 MED CTR, MED CTR, BLOOD ATTN: ATTN: AEROBIC DENE DENE W/ID ISOLATES RADIOLOGI 48954 [place] C EXAM 1 MED CTR, MED CTR, CHEST 2 ATTN: ATTN: VIEWS DENE DENE FRONTAL&L ATERAL ECG 75784 [place] ROUTINE 1 MED CTR, MED CTR, ECG ATTN: ATTN: W/LEAST DENE DENE 12 LDS TRCG ONLY W/O I&R NONEMERG A0120 [facility] [place] TRNSPRT: 1 [facility] MTN ACTION P AREA/OTH SYS BASIC 00312 [place] METABOLIC 1 MED CTR, MED CTR, PANEL ATTN: ATTN: CALCIUM DENE DENE TOTAL ANTINUCLE 66205 [place] AR 1 MED CTR, MED CTR, ANTIBODIE ATTN: ATTN: S YOHAN DENE DENE RHEUMATOI 32817 [place] FACTOR 1 MED CTR, MED CTR, QUALITATI ATTN: ATTN: VE DENE DENE LIPID 04447 [place] PANEL 1 MED CTR, MED CTR, ATTN: ATTN: [place] [address] [place] THYROID 1 MED CTR, MED CTR, STIMULATI ATTN: ATTN: [place] [address] [place] BLOOD/URI 1 MED CTR, MED CTR, C ACID ATTN: ATTN: DENE DENE COLLECTIO 72958 [place] N VENOUS 1 MED CTR, MED CTR, BLOOD ATTN: ATTN: VENIPUNCT DENE DENE URE C-REACTIV 69663 [place] E PROTEIN 1 MED CTR, MED CTR, ATTN: ATTN: DENE DENE HLA 05004 [place] TYPING 1 MED CTR, MED CTR, A/B/C ATTN: ATTN: SINGLE DENE DENE ANTIGEN SEDIMENTA 38327 [place] TION RATE 1 MED CTR, MED CTR, RBC ATTN: ATTN: NON-AUTOM DENE DENE ATED COMPLEMEN 87028 [place] T ANTIGEN 1 MED CTR, MED CTR, EACH ATTN: ATTN: COMPONENT DENE DENE CYCLIC 61431 [place] CITRULLIN 1 MED CTR, MED CTR, ATED ATTN: ATTN: PEPTIDE DENE DENE ANTIBODY BLOOD 12818 [place] COUNT 1 MED CTR, MED CTR, COMPLETE ATTN: ATTN: AUTO&AUTO DENE DENE DIFRNTL WBC NONEMERG A0120 [facility] [place] TRNSPRT: 1 [facility] Trigemina [facility] MTN ACTION P AREA/OTH SYS MRI 56788 MEDICAL JOHNSON A SPINAL 1 MALL CANAL IMAGING LUMBAR CENTER W/O CONTRAST MATERIAL NONEMERG A0120 [facility] TRNSPRT: 1 [facility] Trigemina [facility] MTN ACTION P AREA/OTH SYS RADEX 70571 [place] SPINE 1 MED CTR, MED CTR, LUMBOSACR ATTN: ATTN: AL 2/3 DENE DENEber VIEWS REMOVAL 22297 [facility] 1 ENT TAR CERUMEN CLINIC INSTRUMEN PSC TATION UNILAT RADIOLOGI 35423 [facility] NOL C EXAM 1 RIVER HBP CHEST 2 LLC VIEWS FRONTAL&L ATERAL [place]ADI [place] [address] [place] 1 MED CTR, MED CTR, OTHERWISE ATTN: ATTN: DENE DENE SPECIFIED EACH ORGANISM IAADIADOO 18867 [place] 1 MED CTR, MED CTR, STREPTOCO ATTN: ATTN: CCUS DENE DENE GROUP A BLOOD 00846 [place] COUNT 1 MED CTR, MED CTR, COMPLETE ATTN: ATTN: AUTO&AUTO DENE DENE DIFRNTL WBC COLLECTIO 29878 [place] N 1 MED CTR, MED CTR, CAPILLARY ATTN: ATTN: BLOOD DENE DENE SPECIMEN GROUND A0425 TRANS TRANS MILEAGE 0 STAR STAR PER AMBULANCE AMBULANCE STATUTE [facility] MILE AMB A0427 TRANS TRANS SERVICE 0 STAR STAR ALS AMBULANCE AMBULANCE EMERGENCY [facility] TRANSPORT LEVEL 1 RADEX 46804 [facility] SHOULDER 0 MED CTR, MED CTR, COMPLETE ATTN: ATTN: MINIMUM 2 DENE DENE VIEWS RADIOLOGI 73116 [facility] C EXAM 0 MED CTR, MED CTR, CHEST 2 ATTN: ATTN: VIEWS DENE DENE FRONTAL&L ATERAL RADIOLOGI 00047 [facility] C 0 MED CTR, MED CTR, EXAMINATI ATTN: ATTN: ON PELVIS DENE DENE 1/2 VIEWS REMOVAL 07325 KJ MARIN IMPACTED 0 ENT TAR CERUMEN CLINIC INSTRUMEN PSC TATION UNILAT INCISION 17992 MAURILIO I JIMENEZ III & 0 JIMENEZ III VALERIE DRAINAGE PSC N0 3 COMPLEX PO WOUND INFECTION NONEMERG A0120 [facility] TRNSPRT: 0 [facility] [employer] [facility] MTN ACTION P AREA/OTH SYS NONEMERG A0120 [facility] TRNSPRT: 0 [facility] [employer] [facility] MTN ACTION P AREA/OTH SYS NONEMERG A0120 [facility] TRNSPRT: 0 [facility] Trigemina [facility] MTN ACTION P AREA/OTH SYS DEEP D9220 MAURILIO I JIMENEZ III SEDATION/ 0 JIMENEZ III VALERIE GENERAL PSC N0 3 ANESTHESI A-1ST 30 MINUTES COLLECTIO 85901 [facility] N VENOUS 0 MED CTR MED CTR BLOOD VENIPUNCT URE IAADIADOO 85825 [facility] 0 MED CTR MED CTR STREPTOCO CCUS GROUP A BLOOD 11175 [facility] R[facility] COUNT 0 MED CTR MED CTR COMPLETE AUTO&AUTO DIFRNTL WBC RADEX 26294 BREATHIT AYOS, SPINE 0 [facility] L[facility] CENTER MINIMUM 4 VIEWS RADEX 05076 RADIOLOGY ZACHARY, SPINE 0 SERVICES MARA C LUMBOSACR AL MINIMUM 4 VIEWS RADEX 02197 RADIOLOGY ZACHARY, SPINE 0 SERVICES MARA C THORACIC 3 VIEWS RADEX 41888 [facility] SPINE 0 MED CTR MED CTR THORACIC 3 VIEWS ORTHOPANT 40983 MAURILIO PINA OGAMINTA 0 JIMENEZ III MAURILIO R PSC N0 3 DEEP D9220 MAURILIO PINA, SEDATION/ 0 JIMENEZ III MAURILIO Hough GENERAL PSC N0 3 ANESTHESI A-1ST 30 MINUTES Encounters Encounter Start End Date Code Location Performer Type Date OFFICE 62958 [facility] PABLO OUTPATIEN 6 6 PHYSICIAN SRIRAM T VISIT S GROUP 15 MINUTES HOSPITAL STEVEN - 6 6 [facility] OUTPATIEN INC T EMERGENCY 44533 ADELA COLLADO 6 6 PHYSICIAN U FANNIE [facility] T VISIT HIGH/URGE NT SEVERITY EMERGENCY 37700 STEVEN 6 6 [facility] T VISIT LOW/MODER SEVERITY EMERGENCY 25388 STEVEN 5 5 [facility] T VISIT LOW/MODER SEVERITY [facility]OSPITAL STEVEN - 5 5 [facility] OUTPATIEN INC T EMERGENCY 21179 ADELA ONOFRE 5 5 PHYSICIAN JAYESH [facility] T VISIT MODERATE SEVERITY EMERGENCY 65472 GRANT BURNS 5 5 LEO LEO DEPARTMEN T VISIT HIGH/URGE NT SEVERITY OFFICE 76136 [facility] PABLO OUTPATIEN 5 5 PHYSICIAN SRIRAM T VISIT S GROUP 25 MINUTES OFFICE 88095 [facility] PABLO OUTPATIEN 5 5 PHYSICIAN SRIRAM T VISIT S GROUP 15 MINUTES EMERGENCY 55366 KASIE MARINELLI, 4 4 RIVER HBP III ROSA MARIA [facility] T VISIT MODERATE SEVERITY Emergency JENNIFER Villaseñor MD (ER) 3 14:19 3 14:45 [facility] Emergency JENNIFER Parra MD (ER) 3 10:46 3 12:10 [facility] EMERGENCY 31052 NANCIE NANCIE 1 1 G G DEPARTMEN T VISIT MODERATE SEVERITY [facility]OSP[facility] [place] - 1 1 MED CTR, OUTPATIEN ATTN: T DENE EMERGENCY 93658 [place] 1 1 MED CTR, DEPARTMEN ATTN: T VISIT DENE LOW/MODER SEVERITY EMERGENCY 72593 [place] 1 1 MED CTR, DEPARTMEN ATTN: T VISIT DENE MODERATE SEVERITY HOSPITAL [place] - 1 1 MED CTR, OUTPATIEN ATTN: T DENE EMERGENCY 87442 [place] 1 1 MED CTR, DEPARTMEN ATTN: T VISIT DENE MODERATE SEVERITY EMERGENCY 68806 NANCIE NANCIE 1 1 G G DEPARTMEN T VISIT LIMITED/M INOR PROB [facility]OSPITAL [place] - 1 1 MED CTR, OUTPATIEN ATTN: T DENE EMERGENCY 83050 NANCIE NANCIE 1 1 G G DEPARTMEN T VISIT LOW/MODER SEVERITY [facility]OSPITAL [place] - 1 1 MED CTR, OUTPATIEN ATTN: T DENE EMERGENCY 67344 [place] 1 1 MED CTR, DEPARTMEN ATTN: T VISIT DENE MODERATE SEVERITY EMERGENCY 68268 NANCIE NANCIE 1 1 G G DEPARTMEN T VISIT MODERATE SEVERITY [facility]OSPITAL [place] - 1 1 MED CTR, OUTPATIEN ATTN: T DENE OFFICE 77380 CHRISTOPHERKERLINE PEREZ LORENA OUTPATIEN 1 1 CLINIC T VISIT 25 MINUTES OFFICE 14459 CHRISTOPHERLENARDS MURAD ASM OUTPATIEN 1 1 CLINIC T VISIT 15 MINUTES [facility]ITAL [facility] - 1 1 MED CTR, OUTPATIEN ATTN: T DENE EMERGENCY 50437 [facility] 1 1 RIVER HBP III ROSA MARIA [facility] T VISIT LOW/MODER SEVERITY EMERGENCY 56120 [facility] 1 1 MED CTR, DEPARTMEN ATTN: T VISIT DENE MODERATE SEVERITY EMERGENCY 29806 KASIE RUSS 1 1 RIVER HBP AAR [facility] T VISIT HIGH/URGE NT SEVERITY EMERGENCY 51046 [facility] 1 1 MED CTR, DEPARTMEN ATTN: T VISIT DENE MODERATE SEVERITY HOSPITAL [place] - 1 1 MED CTR, OUTPATIEN ATTN: T DENE EMERGENCY 41512 KASIE GIMENEZ 1 1 RIVER HBP WENDY [facility] T VISIT LOW/MODER SEVERITY [facility]OSPITAL [place] - 1 1 MED CTR, OUTPATIEN ATTN: T DENE EMERGENCY 87361 [facility] 1 1 MED CTR, DEPARTMEN ATTN: T VISIT DENE MODERATE SEVERITY EMERGENCY 81285 [facility] 1 1 MED CTR, DEPARTMEN ATTN: T VISIT DENE MODERATE SEVERITY HOSPITAL [facility] - 1 1 MED CTR, OUTPATIEN ATTN: T DENE OFFICE 76988 CHAVIES MURAD ASM OUTPATIEN 1 1 CLINIC T VISIT 15 MINUTES [facility] 80522 [facility] 1 1 RIVER HBP AAR [facility] T VISIT MODERATE SEVERITY HOSPITAL [facility] - 1 1 MED CTR, OUTPATIEN ATTN: T DENE OFFICE 31606 [facility] CONSULTAT 1 1 FAMILY A [facility] NEW/ESTAB SRV AR PATIENT 40 MIN [facility]OSPITAL [place] - 1 1 MED CTR, OUTPATIEN ATTN: T DENE EMERGENCY 88765 [place] 1 1 MED CTR, DEPARTMEN ATTN: T VISIT DENE MODERATE SEVERITY OFFICE 47177 CHAVIES [facility]URAD ASM OUTPATIEN 1 1 CLINIC T VISIT 15 MINUTES EMERGENCY 42911 KASIE CANADA 1 1 RIVER HBP G [facility] T VISIT LOW/MODER SEVERITY EMERGENCY 83347 [place] 1 1 MED CTR, DEPARTMEN ATTN: T VISIT DENE MODERATE SEVERITY [facility]OSPITAL [place] - 1 1 MED CTR, OUTPATIEN ATTN: T DENE OFFICE 27665 CAS PEREZ ASM OUTPATIEN 1 1 CLINIC T VISIT 15 MINUTES OFFICE 26288 CAS PEREZ ASM OUTPATIEN 1 1 CLINIC T VISIT 15 MINUTES [facility]OSPITAL [place] - 1 1 MED CTR, OUTPATIEN ATTN: T DENE EMERGENCY 38502 [facility] 1 1 RIVER HBP LAR [facility] T VISIT LOW/MODER SEVERITY EMERGENCY 13350 [place] 1 1 MED CTR, DEPARTMEN ATTN: T VISIT DENE MODERATE SEVERITY EMERGENCY 49117 [place] 1 1 MED CTR, DEPARTMEN ATTN: T VISIT DENE MODERATE SEVERITY [facility]OSPITAL [place] - 1 1 MED CTR, OUTPATIEN ATTN: T DENE OFFICE 46769 CAS PEREZ LORENA OUTPATIEN 1 1 CLINIC T VISIT 15 MINUTES [facility]OSPITAL [place] - 1 1 MED CTR, OUTPATIEN ATTN: T DENE EMERGENCY 45439 [place] 1 1 MED CTR, DEPARTMEN ATTN: T VISIT DENE MODERATE SEVERITY EMERGENCY 14726 [facility] 1 1 RIVER HBP G [facility] T VISIT LOW/MODER SEVERITY OFFICE 64131 KJ LEIVATARI OUTPATIEN 1 1 ENT TAR T VISIT CLINIC 25 PSC MINUTES EMERGENCY 94103 [place] NATALIIA 1 1 RIVER HBP [facility] T VISIT LOW/MODER SEVERITY [facility]OSPITAL [place] - 1 1 MED CTR, OUTPATIEN ATTN: T DENE EMERGENCY 68452 [place] 1 1 MED CTR, DEPARTMEN ATTN: T VISIT DENE MODERATE SEVERITY OFFICE 90492 MAURILIO I JIMENEZ III OUTPATIEN 1 1 JIMENEZ III VALERIE T VISIT PSC N0 3 10 MINUTES [facility]OSPITAL [place] - 1 1 MED CTR, OUTPATIEN ATTN: T DENE EMERGENCY 09700 KASIE GIMENEZ 1 1 RIVER HBP [facility] T VISIT MODERATE SEVERITY EMERGENCY 83781 [place] 1 1 MED CTR, DEPARTMEN ATTN: T VISIT DENE HIGH/URGE NT SEVERITY OFFICE 77014 CHAVIES MURAD LORENA OUTPATIEN 1 1 CLINIC T VISIT 25 MINUTES [facility]OSPITAL [place] - 1 1 MED CTR, OUTPATIEN ATTN: T DENE [facility] [place] - 1 1 MED CTR, OUTPATIEN ATTN: T DENE EMERGENCY 12672 [place] 1 1 MED CTR, DEPARTMEN ATTN: T VISIT DENE LIMITED/M INOR PROB OFFICE 39746 [facility] MELENDEZ J CONSULTAT 1 1 ICAL ION ASSOCIATE NEW/ESTAB S PATIENT 40 MIN OFFICE 42859 CHALENARDS MURAD LORENA OUTPATIEN 1 1 CLINIC T VISIT 15 MINUTES OFFICE 93938 CHALENARDS [facility]URAD LORENA OUTPATIEN 1 1 CLINIC T VISIT 15 MINUTES [facility]OSPITAL [place] 1 1 MED CTR, OUTPATIEN ATTN: T DENE OFFICE 37481 CHALENARDS MURAD LORENA OUTPATIEN 1 1 CLINIC T NEW 45 MINUTES EMERGENCY 77406 [place] 1 1 MED CTR, DEPARTMEN ATTN: T VISIT DENE MODERATE SEVERITY [facility]OSP[facility] [place] - 1 1 MED CTR, OUTPATIEN ATTN: T DENE EMERGENCY 77993 KASIE HAINESADINO 1 1 RIVER HBP ABDULLAHI [facility] T VISIT LOW/MODER SEVERITY [facility] [place] - 1 1 MED CTR, OUTPATIEN ATTN: T DENE EMERGENCY 71844 [place] 1 1 MED CTR, DEPARTMEN ATTN: T VISIT DENE MODERATE SEVERITY OFFICE 85449 KJ MARIN OUTPATIEN 1 1 ENT TAR T VISIT CLINIC 15 PSC MINUTES OFFICE 37035 KJ LEIVATARI OUTPATIEN 1 1 ENT TAR T VISIT CLINIC 25 PSC MINUTES [facility]OSPITAL [place] - 1 1 MED CTR, OUTPATIEN ATTN: T DENE EMERGENCY 17092 [place] 1 1 RIVER HBP G [facility] T VISIT LOW/MODER SEVERITY EMERGENCY 69526 [place] 1 1 MED CTR, DEPARTMEN ATTN: T VISIT DENE MODERATE SEVERITY EMERGENCY 61079 [place] 0 0 RIVER HBP G [facility] T VISIT LOW/MODER SEVERITY EMERGENCY 22937 [place] 0 0 MED CTR, DEPARTMEN ATTN: T VISIT DENE MODERATE SEVERITY [facility] [place] - 0 0 MED CTR, OUTPATIEN ATTN: T DENE OFFICE 95149 KJ MARIN OUTPATIEN 0 0 ENT TAR T VISIT CLINIC 25 PSC MINUTES OFFICE 57354 KJ MARIN CONSULTAT 0 0 ENT TAR ION CLINIC NEW/ESTAB PSC PATIENT 60 MIN EMERGENCY 35778 [place] 0 0 MED CTR DEPARTMEN T VISIT HIGH/URGE NT SEVERITY EMERGENCY 15199 [place] 0 0 RIVER HBP G [facility] T VISIT LOW/MODER SEVERITY [facility]OSPITAL [place] - 0 0 MED CTR OUTPATIEN T EMERGENCY 01339 [place] 0 0 RIVER HBP G [facility] T VISIT LOW/MODER SEVERITY EMERGENCY 25522 [place] 0 0 MED CTR DEPARTMEN T VISIT MODERATE SEVERITY [facility]OSP[facility] [place] 0 0 MED CTR OUTPATIEN T [facility] [place] - 0 0 MED CTR OUTPATIEN T EMERGENCY 94567 [place] 0 0 MED CTR DEPARTMEN T VISIT MODERATE SEVERITY [facility] [place] 0 0 MED CTR OUTPATIEN T EMERGENCY 67425 [facility] NANCIE 0 0 RIVER HBP G [facility] T VISIT LOW/MODER SEVERITY EMERGENCY 03178 [place] 0 0 MED CTR DEPARTMEN T VISIT MODERATE SEVERITY [facility] [place] - 0 0 MED CTR OUTPATIEN T EMERGENCY 25741 [facility] NANCIE 0 0 RIVER HBP G [facility] T VISIT LOW/MODER SEVERITY EMERGENCY 21953 [place] 0 0 MED CTR DEPARTMEN T VISIT MODERATE SEVERITY EMERGENCY 92968 [place] 0 0 MED CTR DEPARTMEN T VISIT MODERATE SEVERITY EMERGENCY 91157 [facility] HBP ARIF M [facility] T VISIT LOW/MODER SEVERITY [facility] [place] - 0 0 MED CTR OUTPATIEN T EMERGENCY 73341 [place] 0 0 MED CTR DEPARTMEN T VISIT MODERATE SEVERITY [facility] [place] - 0 0 MED CTR OUTPATIEN T EMERGENCY 72454 [facility] RUSS, 0 0 RIVER HBP KAMALA W [facility] T VISIT LOW/MODER SEVERITY EMERGENCY 66276 [facility] NANCIE, 0 0 RIVER HBP G E [facility] T VISIT LOW/MODER SEVERITY EMERGENCY 28966 [place] 0 0 MED CTR DEPARTMEN T VISIT MODERATE SEVERITY [facility]OSP[facility] [place] 0 0 MED CTR OUTPATIEN T EMERGENCY 92836 [facility], 0 0 MEDICAL SUNILELENIT DEPARTMEN PARTNERS T VISIT LLC HIGH/URGE NT SEVERITY OFFICE 53000 [facility]. MAURILIO SENA OUTPATIEN 0 0 ANTONY PAB T VISIT EXTENDED 15 H MINUTES EMERGENCY 91720 [place] REFFNER, 0 0 RIVER HBP LIANNE S [facility] T VISIT LOW/MODER SEVERITY [facility]OSP[facility] [place] - 0 0 MED CTR OUTPATIEN T EMERGENCY 66748 [place] 0 0 MED CTR DEPARTMEN T VISIT MODERATE SEVERITY OFFICE 16689 MAURILIO PINA, OUTPATIEN 0 0 JIMENEZ III MAURILIO Hough T VISIT PSC N0 3 10 MINUTES [facility]OSPITAL [place] - 0 0 MED CTR OUTPATIEN T EMERGENCY 32379 [place] 0 0 MED CTR DEPARTMEN T VISIT MODERATE SEVERITY
--- OUTSIDE RECORDS SUMMARY | 2016-12-16 12:26 | External Medical Summary Rpt | CCD ---
Author Author , ASHWIN Organization ASHWIN Address Unknown Phone [email or web address] Care Team Providers Care Recreational Specialist Name Role Phone AYOS, EMELITA A, Unavailable [...] E CHANDARANA JYO, Unavailable Unavailable CHANDARANA JYO [facility], Unavailable Unavailable [facility] MAURILIO PINA, Unavailable Unavailable MAURILIO PINA, Unavailable Unavailable [facility] Unavailable Unavailable [facility] [place] GRANT NASSAR Unavailable Unavailable LEO PABLO SRIRAM, PABLO Unavailable Unavailable SRIRAM JIMENEZ III VALERIE, JIMENEZ Unavailable Unavailable III VALER[facility] Un[facility] Un[facility], [facility] Unavailable Unavailable [facility] [place], [facility], Unavailable Unavailable [facility] Unavailable Unavailable [place], [facility] [facility] # Unavailable Unavailable 007, [facility] 007 [facility] Unavailable Unavailable [facility], [facility] MAURILIO I JIMENEZ III [facility] Unavailable Unavailable N0 3, MAURILIO I JIMENEZ III [facility] N0 3 PETRONA LUNA Unavailable Unavailable KAMALA MADRIGAL, Unavailable Unavailable KAMALA RUSS [facility] Unavailable Unavailable IMAGING [facility], [facility], [facility] Ivis Parra MD, Unavailable Unavailable Ivis Parra MD [facility] [place] [facility], Unavailable Unavailable ATTN: [place], [place] [facility], ATTN: [facility]IE NATHEN PAB, NATHEN Unavailable Unavailable PAB [facility] Unavailable Unavailable ACTION P, [facility] MURAD ASM, MURAD ASM [...] Unavailable REFFNERLIANNE [facility] Unavailable Unavailable [id number] # [id number], [facility] [id number] # [id number] SAKOW NOL, SAKOW NOL Unavailable Unavailable SARTAWI TAR, SARTAWI Unavailable Unavailable TAR RENO COTE, Unavailable Unavailable RENO COTE MARINELLI, III ROSA MARIA, Unavailable Unavailable MARINELLI, III ROSA MARIA SOTINGEANU FANNIE, Unavailable Unavailable SOTINGEANU FANNIE [facility] Unavailable Unavailable [facility] Unavailable [facility]available [facility] MARA SHARMA, Unavailable Unavailable MARA SHARMA [facility] # Unavailable Unavailable [id number], [facility] # [id number] NISHI OCCHRAN, NISHI Unavailable Unavailable LAR [place] JAYESH, Unavailable Unavailable [place] JAYESH Purpose Continuity of Care Document - 05-25-2009 through 2016 Problems Code Diagnosis DOS Provider Status K922 GASTROINTES 04-02-2015 [facility] TINAL [facility]YSICIANS HEMORRHAGE GROUP UNSPECIFIED I10 ESSENTIAL 03-09-2015 [facility] HYPERTENSIO INC N J0100 ACUTE 03-09-2015 [facility]ARY [facility], SINUSITIS PLLC UNSPECIFIED 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 CHRONIC 03-09-2015 [facility]CTIVE [facility] PULMONARY INC DISEASE UNS K5289 OTH SPEC 03-09-2015 [facility] NONINFECTIV PHYSICIANS, E PLLC GASTROENTER ITIS & COLITIS K529 NONINFECTIV 03-09-2015 [facility] GASTROENTER INC ITIS & COLITIS UNS Z720 TOBACCO USE 03-09-2015 [facility] INC B349 VIRAL 02-21-2015 [facility] INFECTION PHYSICIANS, UNSPECIFIED [facility] R1111 VOMITING 02-21-2015 [facility] WITHOUT PHYSICIANS, NAUSEA [facility] R197 DIARRHEA 02-21-2015 [facility] UNSPECIFIED PHYSICIANS, [facility] 7231 CERVICALGIA 09-20-2014 [facility] 86382 INJURY OF 09-20-2014 [place] [facility] OTHER IMAGING ASS AND UNSPECIFIED 7245 UNSPECIFIED 07-04-2014 [place] [facility]HE [facility] 72616 OSTEOARTHRO 07-01-2014 [place] S UNSPEC MEDICAL WHETHER IMAGING ASS GEN/LOC SHLDR REGION 38373 PAIN IN 07-01-2014 [place] JOINT, MEDICAL SHOULDER IMAGING ASS REGION 7241 PAIN IN 07-01-2014 [facility] THORACIC PHYSICIANS SPINE GROUP 7248 OTHER 07-01-2014 [facility] SYMPTOMS PHYSICIANS REFERABLE GROUP TO BACK 4739 UNSPECIFIED 03-30-2014 [facility] SINUSITIS PHYSICIANS GROUP 4659 ACUTE URIS 02-27-2014 [place] [facility] UNSPECIFIED LLC SITE 4871 INFLUENZA 02-27-2014 [place] WITH OTHER [facility] RESPIRATORY LLC MANIFESTATI ONS 496 CHRONIC 02-27-2014 [place] [facility]AY [facility] OBSTRUCTION LLC NEC 56924 SHORTNESS 02-27-2014 [place] OF [facility] 7862 COUGH 02-27-2014 [place] [facility] 305.1 305.1 10-29-2012 [place] TOBACCO USE [facility] DISORDER Hospital 401.9 401.9 10-29-2012 [facility] N NOS [facility] 719.46 719.46 10-29-2012 [place] JOINT [facility] PAIN-L/LEG Hospital 465.9 465.9 ACUTE 09-08-2012 [place] URI NOS [facility] 81243 CIRCADIAN 02-12-2011 N[facility] G RHYTHM SLEEP DISORDER UNSPECIFIED 39507 UNSPECIFIED 02-12-2011 [facility], CONJUNCTIVI ATTN: DENE TIS 4019 UNSPECIFIED 02-12-2011 [place] [facility], HYPERTENSIO ATTN: DOUGIE N 66930 LOC 02-07-2011 [place] [facility] OSTEO[facility], S NOT SPEC ATTN: DENE PRIM/SEC SHLDR REGION 8409 SPRAIN&STRA 02-07-2011 [place] [facility] [place] UNSPEC MED [facility], SITE ATTN: DENE SHOULDER&UP PER ARM 44452 UNSPECIFIED 01-26-2011 [place] [facility] CELLULITIS [facility], AND ATTN: DENE ABSCESS OF FINGER 6824 CELLULITIS& 01-26-2011 [facility] [place] ABSCESS [place] HAND EX[place] FING[place] [address] OTHER 01-10-2011 [facility] CHRONIC MED CTR, PAIN ATTN: DENE 7242 LUMBAGO 01-10-2011 [facility] MED CTR, ATTN: DENE 2724 OTHER AND 12-26-2010 [place] UNSPECIFIED CLINIC HYPERLIPIDE MARCOS 4011 ESSENTIAL 12-26-2010 [place] HYPERTENSIO CLINIC N, BENIGN 64542 PAIN IN 11-24-2010 [place] JOINT, CLINIC ANKLE AND FOOT V5869 LONG-TERM 11-24-2010 [place] (CURRENT) CLINIC USE OF OTHER MEDICATIONS 19963 SPRAIN AND 11-19-2010 [place] [facility] STRAIN OF MED CTR, UNSPECIFIED ATTN: DENE SITE OF FOOT V1581 PERS HX 11-19-2010 [facility] NONCOMPLIAN MED CTR, CE W/MED TX ATTN: DENE PRS HAZARDS HLTH 7295 PAIN IN 11-16-2010 [place] [facility] TISSUES OF LLC LIMB 9597 INJURY 11-16-2010 [place] OTHER&UNSPE [facility] CIFIED [employer] LEG ANKLE&FOOT 34591 PAIN IN 10-30-2010 [facility] JOINT MED CTR, PELVIC ATTN: DENE REGION AND THIGH 8439 SPRAIN&STRA 10-22-2010 [facility] IN OF MED CTR, UNSPECIFIED ATTN: DENE SITE OF HIP&THIGH 5259 UNSPECIFIED 10-17-2010 [facility] DISORDER MED CTR, TEETH&SUPPO ATTN: DENE RTING STRUCTURES 3551 MERALGIA 10-13-2010 [facility] [place] 8488 OTHER 10-09-2010 [facility] SPECIFIED MED CTR, SITES OF ATTN: DENE SPRAINS AND STRAINS 7831 ABNORMAL 10-07-2010 [facility] 24189 OTHER ACUTE 10-02-2010 [facility] MED CTR, POSTOPERATI ATTN: DENE VE PAIN 04911 HYPOCALCEMI 09-23-2010 [facility] 75341 UNSPECIFIED 09-17-2010 [facility] INFECTIVE MED CTR, OTITIS ATTN: DENE EXTERNA 3829 UNSPECIFIED 09-17-2010 [facility] OTITIS MED CTR, MEDIA ATTN: DENE 2749 GOUT, 08-27-2010 [facility] UNSPECIFIED MED CTR, ATTN: DENE 87298 ASTHMA, 08-27-2010 [facility] UNSPECIFIED MED CTR, , ATTN: DENE UNSPECIFIED STATUS 91180 OTHER ACUTE 08-24-2010 [facility] EXTERNA 3804 IMPACTED 08-24-2010 [facility] 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 [facility] 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 5220 PULPITIS 08-05-2010 MAURILIO I JIMENEZ III PSC N0 3 490 BRONCHITIS 07-27-2010 [facility] NOT MED CTR, SPECIFIED ATTN: DENE ACUTE OR CHRONIC 77731 PAINFUL 07-27-2010 [facility] RESPIRATION MED CTR, ATTN: DENEber 2761 HYPOSMOLALI 07-05-2010 [facility] AND/OR CLINIC HYPONATREMI A 00490 OSTEOARTHRO 07-02-2010 [facility] S UNSPEC MED CTR, WHETHER ATTN: DENEber GEN/LOC UNSPEC SITE 63098 UNSPECIFIED 07-02-2010 [facility] MED CTR, ARTHROPATHY ATTN: DENE SITE UNSPECIFIED 19388 OTHER 07-02-2010 [facility] MALAISE AND MED CTR, FATIGUE ATTN: DOUGIE 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 61471 SPINAL STEN 06-06-2010 [facility] 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 N 56395 OTHER 05-28-2010 [facility] INJURY OF MED CTR, OTHER SITES ATTN: DENE OF TRUNK 8472 LUMBAR 05-21-2010 [facility] SPRAIN AND MED CTR, STRAIN ATTN: DENEber 514 PULMONARY 03-13-2010 [place] [facility] HYPOSTASIS 93809 CHEST PAIN 02-22-2010 [place] [facility]PEC[facility]IED [facility] 17915 ABDOMINAL 02-22-2010 [place] PAIN, [facility] UNSPECIFIED LLC SITE 9592 INJURY 02-22-2010 [facility] OTHER&UNSPE AMBULANCESV CIFIED C SHOULDER&UP PER ARM 9598 INJURY 02-22-2010 [facility] OTH&UNSPEC MED CTR, OTH SPEC ATTN: DENEber SITES INCL MULTIPLE 9599 INJURY 02-22-2010 [place] OTHER AND [facility] UNSPECIFIED LLC UNSPECIFIED SITE E8889 UNSPECIFIED 02-22-2010 [place] [facility] 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 ME 35 AN [...] ve /M L CA RP UJ CT [place] 00 08 0 No OM 64 -2 [...] 3( ve 2. 5) MG /3 ML [place] 00 07 0 No ED 05 -0 [...] -2 -2 .0 CK 68 RA ti AZ 30 4- 4- 00 SO 54 D [...] 4- 4- 00 SO 58 D ve AZ 76 20 20 N UM IL 17 [...] 8- 3- 00 SO 20 D ve AZ 76 20 20 N UM IL 17 11 11 AP AR 0 OT M 40 HE CA MG RY # TA BL 00 ET 7 CY 00 08 08 15 5 RI 89 MARIAELENA Ac CL 37 -2 -2 .0 TE 58 WM ti OB 80 9- 9- 00 97 AN ve EN 75 20 20 AI ZA 11 11 11 D KE AZ 0 PH NN IN AR Y E MA L 10 CY MG 03 21 TA 6 BL # ET 03 21 00 08 08 0 10 3 FA 41 NHAN Ac 40 -1 -1 .0 AR 83 HN ti 60 5- 5- 00 [...] 10 2- 4- 00 17 D ve AZ 40 20 20 AI IL 90 11 [...] 0 14 7 FA 67 BU Ac AZ 11 -1 -1 .0 AR 89 RN ti OF 10 6- 6- 00 LY 74 ET ve LO 12 20 20 9 TE XA 70 11 11 PH CI 1 AR GE N MA OR HC CY GE L E 50 OF 0 MG JA CK TA SO B N NE 61 07 07 0 10 10 FA 67 BU Ac OM 31 -1 -1 .0 AR 89 RN ti YC 40 6- 6- 00 LY 75 ET ve IN 64 20 20 0 TE -P 51 11 11 PH OL 1 AR GE YM MA OR YX CY GE IN E -H OF [facility] JA R CK HER[place] SO SP N ME 00 07 07 0 60 30 JA 56 MU Ac TO 09 -0 -0 .0 CK 92 RA ti AZ 30 8- 8- 00 SO 19 D [...] 00 7- 6- 00 95 D ve AZ 51 20 20 AI IL 70 11 11 D MA 1 PH H 40 AR MA MG CY TA 03 BL 21 ET 6 # 03 21 00 06 06 0 20 5 FA 41 BU Ac 59 -2 -2 .0 AR 80 RN ti 10 5- 5- 00 LY 55 ET ve 50 20 20 4 TE 20 11 11 PH 5 AR GE MA OR CY GE E OF JA CK SO N NE 61 06 06 0 10 3 FA 67 BU Ac OM 31 -2 -2 .0 AR 85 RN ti YC 40 5- 5- 00 LY 88 ET ve IN 64 20 20 5 TE -P 51 11 11 PH OL 1 AR GE YM MA OR YX CY GE IN E -H OF [facility] JA R CK [place] SO SP N CI 55 06 06 0 10 5 FA 67 BU Ac AZ 11 -2 -2 .0 AR 85 RN ti OF 10 5- 5- [...] RA ti NO 00 60 D ve AZ 51 20 20 AI IL 50 11 11 D MA 1 PH H 20 AR MA MG CY TA 03 BL 21 ET 6 # 03 21 00 06 06 0 24 5 FA 41 GR Ac 59 -0 -0 .0 AR 79 AY ti 10 3- 3- 00 LY 39 , ve 54 20 20 0 II 00 11 11 PH I 5 AR NHAN MA HN CY I OF JA CK SO N 00 06 06 0 24 5 FA 41 GR Ac 59 -0 -0 .0 AR 79 AY ti 10 3- 3- 00 LY 39 ve 54 20 20 0 II 00 11 11 PH I 5 AR NHAN MA HN CY I OF JA CK SO N IB 55 06 06 0 30 6 FA 67 GR Ac UP 11 -0 -0 .0 AR 81 AY ti RO 10 3- 3- [...] 1- - 00 SO 08 D ve AZ 40 20 20 N UM IL 71 11 11 AP AR 0 OT M 10 HE CA MG RY # TA BL 00 ET 7 00 05 05 0 12 4 FA 41 CA Ac 59 -2 -2 .0 AR 79 MP ti 10 LY 09 BE ve 34 20 20 6 LL 90 11 11 PH 5 AR RO MA GE CY R D OF JA CK SO N 00 05 05 0 12 4 FA 41 CA Ac 59 -2 -2 .0 AR 79 MP ti 10 LY 09 BE ve 34 20 20 6 LL 90 11 11 PH 5 AR RO MA GE CY R D OF JA CK SO N AM 00 05 05 0 30 10 FA 67 CA Ac OX 78 -2 -2 .0 AR 80 MP ti IC 12 LY 30 BE ve IL 61 20 20 6 LL LI 30 11 11 PH N 5 AR RO 50 MA GE 0 CY R MG D OF CA PS JA UL CK E SO N BE 57 05 05 0 30 10 FA 67 WA Ac NZ 66 -2 -2 .0 AR 80 RR ti ON 40 LY 13 EN ve AT 13 20 20 4 AT 48 11 11 PH LA E 8 AR RR 20 MA Y 0 CY E MG OF CA PS JA UL CK E SO N AZ 00 05 05 0 6. 5 FA 67 WA Ac IT 78 -2 -2 00 AR 80 RR ti HR 11 6- 6- 0 LY 13 EN ve OM 49 20 20 5 YC 66 11 11 PH LA IN 8 AR RR MA Y 25 CY E 0 MG OF TA JA BL CK ET SO N LO 45 05 05 12 30 30 FA 67 MU Ac RA 80 -0 -0 .0 AR 75 RA ti TA 20 3- 3- 00 LY 02 D ve DI 65 20 20 4 NE 08 11 11 PH MA 7 AR H 10 MA CY MG OF TA BL JA ET CK SO N LI 00 04 04 0 30 30 FA 67 MU Ac SI 18 -1 -1 .0 AR 71 RA ti NO 55 9- 9 LY 92 D ve AZ 40 20 20 7 UM IL 00 [...] N ZA 11 11 11 D AA AZ 0 PH RO IN AR N E MA W 10 CY MG 03 21 TA 6 BL # ET 03 21 NA 00 02 02 30 15 RI 87 NHAN Ac AZ 09 -2 -2 .0 TE 55 HN ti OX 30 8- 8- 00 90 SO ve EN 14 20 20 AI N 90 11 11 D AA 50 1 PH RO 0 AR N MG MA W CY TA BL 03 ET 21 6 # 03 21 CI 00 01 01 1 7. 10 FA 67 SA Ac AZ 06 -2 -2 50 AR 51 RT ti OD 58 8- 8- [...] BU Ac TH 60 -2 -2 .0 AR 43 RN ti OC 34 1- 1- 00 LY 54 ET ve AR 48 20 20 3 TE BA 62 10 10 PH MO 8 AR GE L MA OR 75 CY GE 0 E MG OF TA JA BL CK ET SO N AZ 59 12 12 0 6. 5 FA 67 SA Ac IT 76 -0 -0 00 AR 40 RT ti HR 23 8- 8- 0 LY 79 AW ve OM 06 20 20 0 I YC 00 10 10 PH TA IN 1 AR RI MA Q 25 CY 0 MG OF TA JA BL CK ET SO N MU 45 11 11 0 22 14 FA 67 SA Ac PI 80 -0 -0 .0 AR 32 RT ti RO 20 2- 2- 00 LY 33 AW ve CI 11 20 20 6 I N 22 10 10 PH TA 2% 2 AR RI MA Q OI CY NT ME OF NT JA CK SO N 59 11 11 0 14 7 FA 67 SA Ac 76 -0 -0 .0 AR 32 RT ti 22 2- 2- 00 LY 33 AW ve 18 20 20 7 I 00 10 10 PH TA 1 AR RI MA Q CY OF JA CK SO N CI 16 10 10 0 10 5 FA 67 BU Ac AZ 25 -3 -3 .0 AR 31 RN ti OF 20 0- 0- 00 LY 71 ET ve LO 51 20 20 7 TE XA 50 10 10 PH CI 1 AR GE N MA OR HC CY GE L E 50 OF 0 MG JA CK TA SO B N AZ 10 10 10 0 10 2 FA 67 BU Ac OM 70 -3 -3 .0 AR 31 RN ti ET 20 0- 0- 00 LY 71 ET ve RESENDIZ 00 20 20 8 TE ZI 31 10 10 PH NE 0 AR GE MA OR 25 CY GE E MG OF TA JA BL CK ET SO N CI 65 10 10 14 7 RI 86 BU Ac AZ 86 -1 -1 .0 TE 15 RN ti OF 20 7- 7- 00 09 ET ve LO 07 20 20 AI TE XA 70 10 10 D CI 1 PH GE N AR OR HC MA GE L CY E 50 0 03 MG 21 6 TA # B 03 21 CI 00 09 09 0 14 7 WA 71 BU Ac AZ 37 -2 -2 .0 L- 67 RN [...] 41 GR Ac 59 -1 -1 .0 AR 65 AY ti 10 7- 7 00 LY 56 , ve 54 20 20 8 II 00 10 10 PH I 5 AR NHAN MA HN CY I OF CK SO N 00 09 09 0 24 5 FA 41 GR Ac 59 -1 -1 .0 AR 65 AY ti 10 7- 7- 00 LY 56 ve 54 20 20 8 II 00 10 10 PH I 5 AR NHAN MA HN CY I OF [facility] SO N IB 55 09 09 0 30 6 FA 67 GR Ac UP 11 -1 -1 .0 AR 22 AY ti RO 10 7- 00 LY 08 , ve FE 68 20 20 9 II N 20 10 10 PH I 40 5 AR NHAN 0 MA HN MG CY I TA OF BL ET CK SO N 00 09 09 0 10 2 FA 41 CA Ac 59 -1 -1 .0 AR 65 MP ti 10 4- 4- 00 LY 38 BE ve 34 20 20 1 LL 90 10 10 PH 5 AR RO MA GE CY R D OF [facility] SO N 00 09 09 0 10 2 FA 41 CA Ac 59 -1 -1 .0 AR 65 MP ti 10 4- 4- 00 LY 38 BE ve 34 20 20 1 LL 90 10 10 PH 5 AR RO MA GE CY R D OF [facility] SO N 00 09 09 20 3 RI 85 BU Ac 60 -0 -0 .0 TE 71 RN ti 33 5- 5- 00 50 ET ve 88 20 20 AI TE 42 10 10 D 1 PH GE AR OR MA GE CY E 03 21 6 # 03 21 CI 65 09 09 14 7 RI 85 BU Ac AZ 86 -0 -0 .0 TE 71 RN [...] 0 14 7 WA 71 BU Ac AZ 37 -0 -0 .0 L- 60 RN [...] EG ZA 11 10 10 D OR AZ 0 PH Y IN AR J E [...] Procedure DOS Code Location Performer Comment THERAPEUT 43887 [facility] IC 6 [facility] PROPHYLAC INC INC TIC/DX INJECTION SUBQ/[place] [address] [facility] 5 MEDICAL [place] SPINE W/O IMAGING CONTRAST ASS MATERIAL RADEX 46673 [facility] SPINE 5 MEDICAL FANNIE CERVICAL IMAGING 4 OR 5 ASS VIEWS RADEX 17438 [facility] SPINE 5 MEDICAL FANNIE THORACIC IMAGING 2 VIEWS ASS RADEX 42942 [facility] SPINE 5 MEDICAL ALVINA LUMBOSACR IMAGING AL ASS MINIMUM 4 VIEWS RADEX 44843 [place] [facility] SH[facility]ER 5 MEDICAL [place] COMPLETE IMAGING MINIMUM 2 ASS VIEWS RADIOLOGI 89902 [place] [facility] C 4 [facility] ON CHEST SINGLE VIEW FRONTAL RADEX 65174 [facility] SHOULDER 1 MED CTR, MED CTR, COMPLETE ATTN: ATTN: MINIMUM 2 DENE DENE VIEWS IM ADM 14368 [facility] PRQ ID 1 MED CTR, MED CTR, SUBQ/IM ATTN: ATTN: NJXS 1 DENE DENE VACCINE NONEMERG A0120 [facility] TRNSPRT: 1 REPLACED BY [facility] RF Code [facility] MTN ACTION P AREA/OTH SYS THERAPEUT 72924 [facility] RIVER IC 1 MED CTR, MED CTR, PROPHYLAC ATTN: ATTN: TIC/DX DENE DENE INJECTION SUBQ/IM RADIOLOGI 69321 [facility] RIVER C 1 MED CTR, MED CTR, EXAMINATI ATTN: ATTN: ON FOOT 2 DENE DENE VIEWS RADEX HIP 46929 [facility] RIVER 1 MED CTR, MED CTR, UNILATERA ATTN: ATTN: L DENE DENE COMPLETE MINIMUM 2 VIEWS NONEMERG A0120 [facility] TRNSPRT: 1 REPLACED BY [facility] RF Code [facility] MTN ACTION P AREA/OTH SYS NONEMERG A0120 [facility] TRNSPRT: 1 REPLACED BY [facility] [employer] [facility] MTN ACTION P AREA/OTH SYS INJECTION J0735 CHRISTOPHERLENARDRossy DAPHNEYERNESTO ASM 1 CLINIC CLONIDINE HYDROCHLO RIDE 1 MG NONEMERG A0120 [facility] TRNSPRT: 1 REPLACED BY [facility] [employer] [facility] MTN ACTION P AREA/OTH SYS NONEMERG A0120 [facility] TRNSPRT: 1 [facility] MTN ACTION P AREA/OTH SYS NONEMERG A0120 [facility] TRNSPRT: 1 REPLACED BY [facility] [employer] [facility] MTN ACTION P AREA/OTH SYS NONEMERG A0120 [facility] TRNSPRT: 1 [employer] MTN ACTION P AREA/OTH SYS RADEX 59213 [facility] [place] A HIPS 1 MALL BILATERAL IMAGING 2 VIEWS CENTER ANTEROPOS T PELVIS NONEMERG A0120 [facility] TRNSPRT: 1 REPLACED BY [facility] [employer] Work Study REPLACED BY [facility] MTN ACTION P AREA/OTH SYS NONEMERG A0120 [facility] TRNSPRT: 1 REPLACED BY [facility] [employer] Work Study REPLACED BY [facility] MTN ACTION P AREA/OTH SYS NONEMERG A0120 [facility] TRNSPRT: 1 [employer] REPLACED BY [facility] MTN ACTION P AREA/OTH SYS NONEMERG A0120 [facility] TRNSPRT: 1 [employer]. MTN ACTION P AREA/OTH SYS COLLECTIO 42206 [place] VENOUS 1 MED CTR, MED CTR, BLOOD ATTN: ATTN: VENIPUNCT DOUGIE CONSTANTINO URE CREATINE 22821 [place] KINASE MB 1 MED CTR, MED CTR, FRACTION ATTN: ATTN: ONLY PATRICIAE [place] BASIC 60138 [place] METABOLIC 1 MED CTR, MED CTR, PANEL ATTN: ATTN: CALCIUM PATRICIAE DEN[place] TOTAL NATRIURET 62352 [place] [place] IC 1 MED CTR, MED CTR, PEPTIDE ATTN: ATTN: [place] [address] [place] TROPONIN 1 MED CTR, MED CTR, QUANTITAT ATTN: ATTN: BLANQUITA [place] BLOOD 72939 [place] COUNT 1 MED CTR, MED CTR, COMPLETE ATTN: ATTN: AUTO&AUTO DENE DENE DIFRNTL WBC CREATINE 86691 [place] KINASE 1 MED CTR, MED CTR, TOTAL ATTN: ATTN: [place] [address] [place] MAGNESIUM 1 MED CTR, MED CTR, ATTN: ATTN: [place]E [place] CULTURE 87372 [place] BACTERIAL 1 MED CTR, MED CTR, BLOOD ATTN: ATTN: AEROBIC DENE DENE W/ID ISOLATES RADIOLOGI 55020 [place] C EXAM 1 MED CTR, MED CTR, CHEST 2 ATTN: ATTN: VIEWS DENE DENE FRONTAL&L ATERAL ECG 12313 [place] ROUTINE 1 MED CTR, MED CTR, ECG ATTN: ATTN: W/LEAST DENE DENE 12 LDS TRCG ONLY W/O I&R NONEMERG A0120 [facility] [place] TRNSPRT: 1 COMMUNITY [facility]I-[facility] ACTION COMMUNITY MTN ACTION P AREA/OTH SYS BASIC 24973 [place] METABOLIC 1 MED CTR, MED CTR, PANEL ATTN: ATTN: CALCIUM [place]E DEN[place] TOTAL ANTINUCLE 84804 [place] AR 1 MED CTR, MED CTR, ANTIBODIE ATTN: ATTN: S YOHAN [place]E [place] RHEUMATOI 48738 [place] D FACTOR 1 MED CTR, MED CTR, QUALITATI ATTN: ATTN: VE [place] LIPID 56701 [place] PANEL 1 MED CTR, MED CTR, ATTN: ATTN: [place] [address] [place] THYROID 1 MED CTR, MED CTR, STIMULATI ATTN: ATTN: [place] [address] [place] BLOOD/URI 1 MED CTR, MED CTR, C ACID ATTN: ATTN: [place]E [place] COLLECTIO 55842 [place] VENOUS 1 MED CTR, MED CTR, BLOOD ATTN: ATTN: VENIPUNCT DENE DENE URE C-REACTIV 65473 [place] E PROTEIN 1 [facility], MED CTR, ATTN: ATTN: [place] HLA [address] [place] TYPING 1 [facility], MED CTR, A/B/C ATTN: ATTN: SINGLE DENE DEN[place] ANTIGEN SEDIMENTA 27302 [place] TION RATE 1 MED CTR, MED CTR, RBC ATTN: ATTN: NON-AUTOM [place]E [place] ATED COMPLEMEN 29355 [place] T ANTIGEN 1 MED CTR, MED CTR, EACH ATTN: ATTN: COMPONENT DENE [place] CYCLIC 84764 [place] CITRULLIN 1 MED CTR, MED CTR, ATED ATTN: ATTN: PEPTIDE DENE [place] ANTIBODY BLOOD 58990 [place] COUNT 1 [facility], MED CTR, COMPLETE ATTN: ATTN: AUTO&AUTO DENE DENE DIFRNTL WBC NONEMERG A0120 [facility] [place] TRNSPRT: 1 REPLACED BY [facility] RF Code [facility] MTN ACTION P AREA/OTH SYS MRI 23457 MEDICAL [place] A SPINAL 1 MALL CANAL IMAGING LUMBAR CENTER W/O CONTRAST MATERIAL NONEMERG A0120 [facility] TRNSPRT: 1 REPLACED BY [facility] RF Code [facility] MTN ACTION P AREA/OTH SYS RADEX 56247 [place] SPINE 1 MED CTR, MED CTR, LUMBOSACR ATTN: ATTN: AL 2/3 DENE DENEber VIEWS REMOVAL 61319 [facility] 1 ENT TAR CERUMEN CLINIC INSTRUMEN PSC TATION UNILAT RADIOLOGI 77938 [facility] NOL C EXAM 1 RIVER HBP CHEST 2 LLC VIEWS FRONTAL&L [place]TERAL [place]ADI [place] [address] [place] 1 MED CTR, MED CTR, OTHERWISE ATTN: ATTN: DENE DENE SPECIFIED EACH ORGANISM IAADIADOO 34669 [place] 1 MED CTR, MED CTR, STREPTOCO ATTN: ATTN: CCUS DENE DENE GROUP A BLOOD 80074 [place] COUNT 1 [facility] CTR, MED CTR, COMPLETE ATTN: ATTN: AUTO&AUTO DENE DENE DIFRNTL WBC COLLECTIO 14138 [place] N 1 MED CTR, MED CTR, CAPILLARY ATTN: ATTN: BLOOD DENE DENE SPECIMEN GROUND A0425 TRANS TRANS MILEAGE 0 STAR STAR PER AMBULANCE AMBULANCE STATUTE [facility] MILE AMB A0427 TRANS TRANS SERVICE 0 STAR STAR ALS AMBULANCE AMBULANCE EMERGENCY [facility] TRANSPORT LEVEL 1 RADEX 67984 [facility] SHOULDER 0 MED CTR, MED CTR, COMPLETE ATTN: ATTN: MINIMUM 2 DENE DENE VIEWS RADIOLOGI 57036 [facility] C EXAM 0 MED CTR, MED CTR, CHEST 2 ATTN: ATTN: VIEWS DENE DENE FRONTAL&L ATERAL RADIOLOGI 58033 [facility] C 0 MED CTR, MED CTR, EXAMINATI ATTN: ATTN: ON PELVIS DENE DENE 1/2 VIEWS REMOVAL 15544 KJ MARIN IMPACTED 0 ENT TAR CERUMEN CLINIC INSTRUMEN PSC TATION UNILAT INCISION 64600 MAURILIO I JIMENEZ III & 0 JIMENEZ III VALERIE DRAINAGE PSC N0 3 COMPLEX PO WOUND INFECTION NONEMERG A0120 [facility] TRNSPRT: 0 REPLACED BY [facility] [place] Work Study REPLACED BY [facility] MTN ACTION P AREA/OTH SYS NONEMERG A0120 [facility] TRNSPRT: 0 REPLACED BY [facility] [place] Work Study REPLACED BY [facility] MTN ACTION P AREA/OTH SYS NONEMERG [id number] [facility] TRNSPRT: 0 REPLACED BY [facility] RF Code [facility] MTN ACTION P AREA/OTH SYS DEEP [id number] MAURILIO I JIMENEZ III SEDATION/ 0 JIMENEZ III VALERIE GENERAL PSC N0 3 ANESTHESI A-1ST 30 MINUTES COLLECTIO 43477 [facility] N VENOUS 0 MED CTR MED CTR BLOOD VENIPUNCT URE IAADIADOO 21621 [facility] 0 MED CTR MED CTR STREPTOCO CCUS GROUP A BLOOD 12139 [facility] RIVER COUNT 0 MED CTR MED CTR COMPLETE AUTO&AUTO DIFRNTL WBC RADEX 00380 BREATHIT AYOS, SPINE 0 [facility] A [facility]OS[facility]CR [facility] MINIMUM 4 VIEWS RADEX 81292 RADIOLOGY ZACHARY, SPINE 0 SERVICES MARA C LUMBOSACR AL MINIMUM 4 VIEWS RADEX 70098 RADIOLOGY ZACHARY, SPINE 0 SERVICES MARA C THORACIC 3 VIEWS RADEX 41901 [facility] RIVER SPINE 0 MED CTR MED CTR THORACIC 3 VIEWS ORTHOPANT 99146 MAURILIO PINA OGAMINTA 0 JIMENEZ III MAURILIO R PSC N0 3 DEEP D9220 MAURILIO PINA, SEDATION/ 0 JIMENEZ III MAURILIO Hough GENERAL PSC N0 3 ANESTHESI A-1ST 30 MINUTES Encounters Encounter Start End Date Code Location Performer Type Date OFFICE 01496 [facility] PABLO OUTPATIEN 6 6 PHYSICIAN SRIRAM T VISIT S GROUP 15 MINUTES HOSPITAL STEVEN - 6 6 [facility] INC T EMERGENCY 54582 ADELA COLLADO 6 6 PHYSICIAN U FANNIE [facility] T VISIT HIGH/URGE NT SEVERITY EMERGENCY 86770 STEVEN 6 6 [facility] T VISIT LOW/MODER SEVERITY EMERGENCY 09183 STEVEN 5 5 [facility] T VISIT LOW/MODER SEVERITY HOSPITAL STEVEN - 5 5 [facility] OUT[facility]EN INC T EMERGENCY 70695 ADELA ONOFRE 5 5 PHYSICIAN JAYESH [facility] T VISIT MODERATE SEVERITY EMERGENCY 15458 GRANT BURNS 5 5 LEO LEO DEPARTMEN T VISIT HIGH/URGE NT SEVERITY OFFICE 06277 [facility] PABLO OUTPATIEN 5 5 PHYSICIAN SRIRAM T VISIT S GROUP 25 MINUTES OFFICE 74099 [facility] PABLO OUTPATIEN 5 5 PHYSICIAN SRIRAM T VISIT S GROUP 15 MINUTES EMERGENCY 10550 KASIE MARINELLI, 4 4 RIVER HBP III [facility] T VISIT MODERATE SEVERITY Emergency JENNIFER Villaseñor MD (ER) 3 14:19 3 14:45 [facility] Emergency JENNIFER Parra MD (ER) 3 10:46 3 12:10 [facility] EMERGENCY 74044 NANCIE NANCIE 1 1 G G DEPARTMEN T VISIT MODERATE SEVERITY [facility] [place] [facility] 1 [facility] CTR, OUTPATIEN ATTN: T [place] EMERGENCY 37080 [place] 1 1 [facility] CTR, DEPARTMEN ATTN: T VISIT DENE LOW/MODER SEVERITY EMERGENCY 96168 [place] 1 1 [facility] CTR, DEPARTMEN ATTN: T VISIT DEN[place] MODERATE SEVERITY [facility]PITAL [place] - 1 1 [facility] CTR, OUTPATIEN ATTN: T [place] EM[place]ENCY 54546 [place] 1 1 [facility], DEPARTMEN ATTN: T VISIT DENE MODERATE SEVERITY EMERGENCY 56422 NANCIE NANCIE 1 1 G G DEPARTMEN T VISIT LIMITED/M INOR PROB [facility]OSPITAL [place] - 1 1 MED CTR, OUTPATIEN ATTN: T DENE EMERGENCY 56870 NANCIE NANCIE 1 1 G G DEPARTMEN T VISIT LOW/MODER SEVERITY [facility]OSPITAL [place] - 1 1 MED CTR, OUTPATIEN ATTN: T [place]E EMERGENCY 31388 [place] 1 1 [facility] CTR, DEPARTMEN ATTN: T VISIT DENE MODERATE SEVERITY EMERGENCY 34599 NANCIE NANCIE 1 1 G G DEPARTMEN T VISIT MODERATE SEVERITY [facility]OSPITAL [place] - 1 1 [facility] CTR, OUTPATIEN ATTN: T DENE OFFICE 39673 CHRISTOPHERKERLINE PEREZ LORENA OUTPATIEN 1 1 CLINIC T VISIT 25 MINUTES OFFICE 71503 CHRISTOPHERLENARDS [facility] OUTPATIEN 1 1 CLINIC T VISIT 15 MINUTES [facility]OS[facility] - 1 1 MED CTR, OUTPATIEN ATTN: T DENE EMERGENCY 43347 [facility] 1 R[facility] HBP III [facility] T VISIT LOW/MODER SEVERITY EMERGENCY 84456 [facility] 1 1 MED CTR, DEPARTMEN ATTN: T VISIT DENE MODERATE SEVERITY EMERGENCY 59261 KASIE RUSS 1 1 RIVER HBP A[facility] T VISIT HIGH/URGE NT SEVERITY EMERGENCY 77554 [facility] 1 1 MED CTR, DEPARTMEN ATTN: T VISIT DENE MODERATE SEVERITY [facility]PITAL [place] 1 1 MED CTR, OUTPATIEN ATTN: T DENE EMERGENCY 78758 KASIE GIMENEZ 1 1 RIVER HBP WENDY [facility] T VISIT LOW/MODER SEVERITY [facility]OSPITAL [place] - 1 1 MED CTR, OUTPATIEN ATTN: T DENE EMERGENCY 21935 [facility] 1 1 MED CTR, DEPARTMEN ATTN: T VISIT DENE MODERATE SEVERITY EMERGENCY 47042 [facility] 1 1 MED CTR, DEPARTMEN ATTN: T VISIT DENE MODERATE SEVERITY HOSPITAL [facility] - 1 1 MED CTR, OUTPATIEN ATTN: T DENE OFFICE 16088 CHAVIES [facility] OUTPATIEN 1 1 CLINIC T VISIT 15 MINUTES EMERGENCY 43066 [facility] 1 [facility] T VISIT MODERATE SEVERITY HOSPITAL [facility] - 1 1 MED CTR, OUTPATIEN ATTN: T DENE OFFICE 79658 [facility] CONSULTAT 1 1 FAMILY [address] [facility] NEW/ESTAB SRV AR PATIENT 40 MIN HOSPITAL [place] - 1 1 MED CTR, OUTPATIEN ATTN: T DENE EMERGENCY 66182 [place] 1 1 MED CTR, DEPARTMEN ATTN: T VISIT DENE MODERATE SEVERITY OFFICE 63011 CHAVIES [facility] OUTPATIEN 1 1 CLINIC T VISIT 15 MINUTES EMERGENCY 04206 KASIE CANADA 1 1 RIVER HBP G [facility] T VISIT LOW/MODER SEVERITY EMERGENCY 41383 [place] 1 1 [place] CTR, DEPARTMEN ATTN: T VISIT DENE MODERATE SEVERITY [facility] [place] [facility] 1 [facility] CTR, OUTPATIEN ATTN: T DENE OFFICE 34705 CAS PEREZ ASM OUTPATIEN 1 1 CLINIC T VISIT 15 MINUTES OFFICE 58655 CAS PEREZ ASM OUTPATIEN 1 1 CLINIC T VISIT 15 MINUTES [facility] [place] [facility] 1 [facility] CTR, OUTPATIEN ATTN: T DENE EMERGENCY 50513 [facility] 1 R[facility] H[facility] LAR [facility] T VISIT LOW/MODER SEVERITY EMERGENCY 43104 [place] 1 1 [facility] CTR, DEPARTMEN ATTN: T VISIT DENE MODERATE SEVERITY EMERGENCY 40271 [place] 1 1 [facility], DEPARTMEN ATTN: T VISIT DENE MODERATE SEVERITY [facility] [place] [facility] 1 [facility] CTR, OUTPATIEN ATTN: T DENE OFFICE 97138 CAS PEREZ LORENA OUTPATIEN 1 1 CLINIC T VISIT 15 MINUTES [facility] [place] [facility] 1 [facility] CTR, OUTPATIEN ATTN: T DENE EMERGENCY 83423 [place] 1 1 [facility], DEPARTMEN ATTN: T VISIT DENE MODERATE SEVERITY EMERGENCY 51452 [facility] 1 1 RIVER HBP G [facility] T VISIT LOW/MODER SEVERITY OFFICE 27199 KJ LEIVATAIN OUTPATIEN 1 1 ENT TAR T VISIT CLINIC 25 PSC MINUTES EMERGENCY 27994 [place] R[place] NATALIIA 1 1 RIVER HBP [facility] T VISIT LOW/MODER SEVERITY [facility] [place] [facility] 1 [facility] CTR, OUTPATIEN ATTN: T DENE EMERGENCY 74740 [place] 1 1 [facility], DEPARTMEN ATTN: T VISIT DENE MODERATE SEVERITY OFFICE 61776 MAURILIO I JIMENEZ III OUTPATIEN 1 1 JIMENEZ III VALERIE T VISIT PSC N0 3 10 MINUTES [facility]OSP[facility] [place] [facility] 1 [facility], OUTPATIEN ATTN: T DENE EMERGENCY 32896 KASIE GIMENEZ 1 1 RIVER HBP [facility]ENDY [facility] T VISIT MODERATE SEVERITY EMERGENCY 10653 [place] 1 1 [facility] CTR, DEPARTMEN ATTN: T VISIT DENE HIGH/URGE NT SEVERITY OFFICE 00346 CHAVIES [facility] LORENA OUTPATIEN 1 1 CLINIC T VISIT 25 MINUTES [facility] [place] 1 1 [facility] CTR, OUTPATIEN ATTN: T DENE [facility] [place] - 1 1 [facility] CTR, OUTPATIEN ATTN: T DENE EMERGENCY 63118 [place] 1 1 [facility] CTR, DEPARTMEN ATTN: T VISIT DENE LIMITED/M INOR PROB OFFICE 45210 [facility] MELENDE[facility] J CONSULTAT 1 1 ICAL ION ASSOCIATE NEW/ESTAB S PATIENT 40 MIN OFFICE 65594 CHALENARDS [facility] [place] OUTPATIEN 1 1 CLINIC T VISIT 15 MINUTES OFFICE 42341 CHALENARDS [facility] [place] OUTPATIEN 1 1 CLINIC T VISIT 15 MINUTES [facility] [place] 1 1 [facility] CTR, OUTPATIEN ATTN: T DENE OFFICE 62157 CHALENARDS [facility] [place]ORENA OUTPATIEN 1 1 CLINIC T NEW 45 MINUTES EMERGENCY 04244 [place] 1 1 [facility], DEPARTMEN ATTN: T VISIT DENE MODERATE SEVERITY [facility] [place] [facility] 1 [facility], OUTPATIEN ATTN: T DENE EMERGENCY 94155 KASIE HAINESADINO 1 1 RIVER HBP ABDULLAHI [facility] T VISIT LOW/MODER SEVERITY [facility] [place] [facility] 1 [facility], OUTPATIEN ATTN: T DENE EMERGENCY 05978 [place] 1 1 [facility], DEPARTMEN ATTN: T VISIT DENE MODERATE SEVERITY OFFICE 93503 KJ MARIN OUTPATIEN 1 1 ENT TAR T VISIT CLINIC 15 PSC MINUTES OFFICE 13592 KJ LEIVATAIN OUTPATIEN 1 1 ENT TAR T VISIT CLINIC 25 PSC MINUTES [facility]OSP[facility] [place] [facility] 1 [facility] CTR, OUTPATIEN ATTN: T DENE EMERGENCY 07539 [place] NANCI[place] 1 1 RIVER HBP G [facility] T VISIT LOW/MODER SEVERITY EMERGENCY 77877 [place] 1 1 [facility] CTR, DEPARTMEN ATTN: T VISIT DENE MODERATE SEVERITY EMERGENCY 88494 [place] N[place]CI[place] 0 0 RIVER HBP G [facility] T VISIT LOW/MODER SEVERITY EMERGENCY 93499 [place] 0 0 [facility], DEPARTMEN ATTN: T VISIT DENE MODERATE SEVERITY [facility] [place] [facility], OUTPATIEN ATTN: T DENE OFFICE 81976 KJ MARIN OUTPATIEN 0 0 ENT TAR T VISIT CLINIC 25 PSC MINUTES OFFICE 84317 KJ MARIN CONSULTAT 0 0 ENT TAR ION CLINIC NEW/ESTAB PSC PATIENT 60 MIN EMERGENCY 08914 [place] 0 0 [facility] CTR DEPARTMEN T VISIT HIGH/URGE NT SEVERITY EMERGENCY 23711 [place] 0 0 RIVER HBP G [facility] T VISIT LOW/MODER SEVERITY [facility] [place] 0 0 MED CTR OUTPATIEN T EMERGENCY 08524 [place] 0 0 RIVER HBP G [facility] T VISIT LOW/MODER SEVERITY EMERGENCY 87439 [place] 0 0 MED CTR DEPARTMEN T VISIT MODERATE SEVERITY [facility] [place] [facility] CTR OUTPATIEN T [facility] [place] [facility] 0 [facility] CTR OUTPATIEN T EMERGENCY 03271 [place] 0 0 [facility] CTR DEPARTMEN T VISIT MODERATE SEVERITY [facility] [place] [facility] CTR OUTPATIEN T EMERGENCY 71829 [facility] 0 0 RIVER HBP G [facility] T VISIT LOW/MODER SEVERITY EMERGENCY 83093 [place] 0 0 MED CTR DEPARTMEN T VISIT MODERATE SEVERITY [facility] [place] [facility] 0 [facility] CTR OUTPATIEN T EMERGENCY 09980 [facility] 0 0 R[facility] HBP G [facility] T VISIT LOW/MODER SEVERITY EMERGENCY 23291 [place] 0 0 MED CTR DEPARTMEN T VISIT MODERATE SEVERITY EMERGENCY 16918 [place] 0 0 [facility] CTR DEPARTMEN T VISIT MODERATE SEVERITY EMERGENCY 52899 [facility] 0 0 RIVER HBP ARIF M [facility] T VISIT LOW/MODER SEVERITY [facility] [place] 0 0 MED CTR OUTPATIEN T EMERGENCY 17141 [place] 0 0 MED CTR DEPARTMEN T VISIT MODERATE SEVERITY [facility] [place] [facility] 0 [facility] CTR OUTPATIEN T EMERGENCY 12133 [facility], 0 0 RIVER HBP KAMALA W [facility] T VISIT LOW/MODER SEVERITY EMERGENCY 65970 [facility] [place], 0 0 RIVER HBP G E [facility] T VISIT LOW/MODER SEVERITY EMERGENCY 92508 [place] 0 0 MED CTR DEPARTMEN T VISIT MODERATE SEVERITY [facility] [place] 0 0 MED CTR OUTPATIEN T EMERGENCY 73503 ASTON COTE, 0 0 MEDICAL SUNILELENIT [facility]PART[facility] PART[facility]ERS T VISIT LLC HIGH/URGE NT SEVERITY OFFICE 67248 [facility]. MAURILIO SENA OUTPATIEN 0 0 ANTONY PAB T VISIT EXTENDED 15 H MINUTES EMERGENCY 17373 [place] REFFNER, 0 0 RIVER HBP LIANNE S [facility] T VISIT LOW/MODER SEVERITY [facility] [place] 0 0 MED CTR OUTPATIEN T EMERGENCY 99311 [place] 0 0 MED CTR DEPARTMEN T VISIT MODERATE SEVERITY OFFICE 99360 MAURILIO PINA, OUTPATIEN 0 0 JIMENEZ III MAURILIO Hough T VISIT PSC N0 3 10 MINUTES [facility] [place] [facility] 0 [facility] CTR OUTPATIEN T EMERGENCY 04337 [place] 0 0 [facility] CTR DEPARTMEN T VISIT MODERATE SEVERITY
--- OUTSIDE RECORDS SUMMARY | 2016-12-16 12:31 | External Medical Summary Rpt | CCD ---
Author Author , ASHWIN Organization ASHWIN Address Unknown Phone [email or web address] Team Providers Care Players Assistant Name Role Phone AYOS, EMELITA A, Unavailable Unavailable AYOS, EMELITA A MELENDEZ J, MELENDEZ J Unavailable Unavailable BEINEKE FANNIE, BEINEKE Unavailable Unavailable FANNIE KESHIA TRINIDAD, KESHIA Unavailable Unavailable TRINIDAD GIMENEZ WENDY, GIMENEZ Unavailable Unavailable WENDY NANCIE G, NANCIE Unavailable Unavailable G NANCIE G, NANCIE Unavailable Unavailable G NANCIE, G E, Unavailable Unavailable NANCIE, G E CHANDARANA JYO, Unavailable Unavailable CHANDARANA JYO [facility], Unavailable Unavailable [facility] MAURILIO PINA, Unavailable Unavailable MAURILIO PINA DOU, Unavailable Unavailable [facility] Unavailable Unavailable [facility] Unavailable Unavailable LEO PABLO SRIRAM, PABLO Unavailable Unavailable SRIRAM JIMENEZ III VALERIE, JIMENEZ Unavailable Unavailable III VALERIE [facility] Un[facility] Un[facility], [facility] Unavailable Unavailable SRV AR, [facility] SRV AR [facility], Unavailable Unavailable [facility] Unavailable Unavailable [place], [facility] # Unavailable Unavailable 007, [facility] Unavailable Unavailable [facility], [facility] MAURILIO I TONY III [facility] Unavailable Unavailable N0 3, MAURILIO I JIMENEZ III [facility] N0 3 PETRONA GAR, PETRONA Unavailable Unavailable KAMALA MADRIGAL, Unavailable Unavailable KAMALA [facility] Unavailable Unavailable IMAGING ASS, [facility] Unavailable Unavailable LLC, [facility] [place] Un[facility] Un[facility], Unavailable Unavailable ATTN: DOUGIE, IRINEO [facility], ATTN: SAMANTHA ANTONIO LEE, Unavailable Unavailable SAMANTHA SENA PAB, NATHEN Unavailable Unavailable PAB [facility] Unavailable Unavailable ACTION P, [facility] MURAD ASM, MURAD ASM Unavailable Unavailable MURAD LORENA, MURAD LORENA Unavailable Unavailable [facility]available [facility], [facility] RICH NATALIIA, RICH NATALIIA Unavailable Unavailable RICH, ARIF M, RICH, Unavailable Unavailable ARIF M MARLEN ABDULLAHI, Unavailable Unavailable MARLEN ABDULLAHI [facility], Unavailable Unavailable [facility], [facility] JOHNSON A, JOHNSON A Unavailable Unavailable [facility], Unavailable Unavailable [facility], Unavailable Unavailable [facility] REFFNER, LIANNE S, Unavailable Unavailable REFFNER, LIANNE S [facility] Unavailable Unavailable [id number] # [id number], [facility] [id number] # [id number] SAKOW NOL, SAKOW NOL Unavailable Unavailable SAKOW, YANETH K, Unavailable Unavailable SAKOW, YANETH K SARTAWI TAR, SARTAWI Unavailable Unavailable TAR [facility], Unavailable Unavailable [facility] MARINELLI, III ROSA MARIA, Unavailable Unavailable MARINELLI, III ROSA MARIA SOTINGEANU FANNIE, Unavailable Unavailable SOTINGEANU FANNIE [facility] Unavailable [facility]available [facility] Unavailable Unavailable [facility] ZACHARY MARA C, Unavailable Unavailable ZACHARY MARA C [facility] # Unavailable Unavailable [id number], [facility] # [id number] NISHI COCHRAN, NISHI Unavailable Unavailable LAR KINGSTON MCCONNELL, Unavailable Unavailable KINGSTON JAYESH Purpose Continuity of Care Document - 05-25-2009 through 2016 Problems Code Diagnosis DOS Provider Status K922 GASTROINTES 04-02-2015 [facility] HEMORRHAGE GROUP UNSPECIFIED I10 ESSENTIAL 03-09-2015 [facility] HYPERTENSIO INC N J0100 ACUTE 03-09-2015 [facility]ARY [facility] SINUSITIS PLLC UNSPECIFIED J449 CHRONIC 03-09-2015 [facility] PULMONARY INC DISEASE UNS K5289 OTH SPEC 03-09-2015 [facility] NONINFECTIV PHYSICIANS, E PLLC GASTROENTER ITIS & COLITIS K529 NONINFECTIV 03-09-2015 [place] GASTROENTER INC ITIS & COLITIS UNS Z720 TOBACCO USE 03-09-2015 [facility] B349 VIRAL 02-21-2015 [facility] INFECTION PHYSIC[facility]ANS, UNSPECIFIED PLLC R1111 VOMITING 02-21-2015 [facility] WITHOUT PHYSICIANS, NAUSEA PLLC R197 DIARRHEA 02-21-2015 [facility] UNSPECIFIED PHYSICIANS, PLLC 7231 CERVICALGIA 07-19-2015 [place] [facility] 94089 INJURY OF 09-20-2014 [place] FACE AND MEDICAL NECK OTHER IMAGING ASS AND UNSPECIFIED 7245 UNSPECIFIED 07-04-2014 [place] BACKACHE [facility] 90269 OSTEOARTHRO 07-01-2014 [place] S UNSPEC MEDICAL WHETHER IMAGING ASS GEN/LOC SHLDR REGION 66561 PAIN IN 07-01-2014 [place] JOINT, MEDICAL SHOULDER IMAGING ASS REGION 7241 PAIN IN 07-01-2014 [facility] THORACIC PHYSICIANS SPINE GROUP 7248 OTHER 07-01-2014 [facility] SYMPTOMS PHYSICIANS REFERABLE GROUP TO BACK 6712 UNSPECIFIED 03-30-2014 [facility] SINUSITIS PHYSICIANS GROUP 4659 ACUTE URIS 02-27-2014 [place] [facility] UNSPECIFIED LLC SITE 4871 INFLUENZA 02-27-2014 [place] WITH OTHER [facility] RESPIRATORY LLC MANIFESTATI ONS 496 CHRONIC 02-27-2014 [place] AIRWAY [facility] OBSTRUCTION LLC NEC 54469 SHORTNESS 02-27-2014 [place] OF BREATH [facility] 7862 COUGH 02-27-2014 [facility] 23422 CIRCADIAN 02-12-2011 NANCIE G RHYTHM SLEEP DISORDER UNSPECIFIED 96685 UNSPECIFIED 02-12-2011 [facility], CONJUNCTIVI ATTN: DOUGIE TIS 4019 UNSPECIFIED 02-12-2011 [place] [facility]ENTIAL [facility], HYPERTENSIO ATTN: DOUGIE N 39585 LOC 02-07-2011 [place] [facility] OSTEOARTHRO [facility], S NOT SPEC ATTN: DENE PRIM/SEC SHLDR REGION 8409 SPRAIN&STRA 02-07-2011 [facility] UNSPEC [facility], SITE ATTN: DOUGIE SHOULDER&UP PER ARM 97690 UNSPECIFIED 01-26-2011 [place] [facility] CELLULITIS [facility], AND ATTN: DOUGIE ABSCESS OF FINGER 6824 CELLULITIS& 01-26-2011 NANCIE G ABSCESS OF HAND EXCEPT FINGERS&[place] [address] OTHER 01-10-2011 [facility] CH[facility], PAIN ATTN: PATRICIAE 7242 LUMBAGO 01-10-2011 [place] [facility], ATTN: DOUGIE 2724 OTHER AND 12-26-2010 [facility] UNSPECIFIED CLINIC HYPERLIPIDE MARCOS 4011 ESSENTIAL 12-26-2010 [facility] HYPERTENSIO CLINIC N, BENIGN 03354 PAIN IN 11-24-2010 [facility] JOINT, CLINIC ANKLE AND FOOT V5869 LONG-TERM 11-24-2010 [facility] (CURRENT) CLINIC USE OF OTHER MEDICATIONS 67036 SPRAIN AND 11-19-2010 [place] [facility] STRAIN OF [facility], UNSPECIFIED ATTN: DENE SITE OF FOOT V1581 PERS HX 11-19-2010 [facility] NONCOMPLIAN MED CTR, CE W/MED TX ATTN: DENE PRS HAZARDS HLTH 7295 PAIN IN 11-16-2010 [place] SOFT [facility] TISSUES OF LLC LIMB 9597 INJURY 11-16-2010 [place] OTHER&UNSPE [facility] CIFIED [facility] LLC LEG ANKLE&FOOT 85877 PAIN IN 10-30-2010 [facility] JOINT MED CTR, PELVIC ATTN: DENE REGION AND THIGH 8439 SPRAIN&STRA 10-22-2010 [place] [facility] IN OF MED CTR, UNSPECIFIED ATTN: DENE SITE OF HIP&THIGH 5259 UNSPECIFIED 10-17-2010 [facility] DISORDER MED CTR, TEETH&SUPPO ATTN: DENE RTING STRUCTURES 3551 MERALGIA 10-13-2010 [facility] [place] [place] 8488 OTHER 10-09-2010 [facility] SPECIFIED MED CTR, SITES OF ATTN: DENE SPRAINS AND STRAINS 7831 ABNORMAL 10-07-2010 [facility] 26155 OTHER ACUTE 10-02-2010 [facility] MED CTR, POSTOPERATI ATTN: DENE VE PAIN 80187 HYPOCALCEMI 09-23-2010 [facility] 49325 UNSPECIFIED 09-17-2010 [facility] INFECTIVE MED CTR, OTITIS ATTN: DENE EXTERNA 3829 UNSPECIFIED 09-17-2010 [facility] OTITIS MED CTR, MEDIA ATTN: DENE 2749 GOUT, 08-27-2010 [facility] UNSPECIFIED MED CTR, ATTN: DENE 31850 ASTHMA, 08-27-2010 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 12618 SPINAL STEN 06-06-2010 [facility] L[facility]B 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 N 33229 OTHER 05-28-2010 [place] [facility] INJURY OF [facility], OTHER SITES ATTN: DENE OF TRUNK 8472 LUMBAR 05-21-2010 [place] [facility], STRAIN ATTN: DENEber 514 PULMONARY 03-13-2010 [place] [facility] HYPOSTASIS 57521 CHEST PAIN 02-22-2010 [place] UNSPECIFIED [facility] 85602 ABDOMINAL 02-22-2010 [place] PAIN, [facility] UNSPECIFIED LLC SITE 9592 INJURY 02-22-2010 [facility] OTHER&UNSPE AMBULANCESV CIFIED C SHOULDER&UP PER ARM 9598 INJURY 02-22-2010 [place] [facility] OTH&UNSPEC [facility], OTH SPEC ATTN: DENE SITES INCL MULTIPLE 9599 INJURY 02-22-2010 [place] OTHER AND [facility] UNSPECIFIED LLC UNSPECIFIED SITE E8889 UNSPECIFIED 02-22-2010 [place] FALL [facility] 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 30483 UNSPECIFIED 01-01-2010 [place] [facility] VIRAL [facility] INFECTION IN CCE & UNS SITE 9983 DISRUPTION 12-14-2009 MAURILIO JIMENEZ OF WOUND III PSC N0 3 462 ACUTE 10-10-2009 [place] [facility] PHARYNGITIS [facility] 8471 THORACIC 07-19-2009 [facility] E9278 OTH 07-19-2009 [facility] OVEREXERT&S MEDICAL TRENUOUS&RE PARTNERS PETITIVE LLC MVMNTS/LOAD S 5210 DENTAL 05-28-2009 MAURILIO I JIMENEZ CARIES III PSC N0 3 Medications Na ND Rx Da Fi Fi Am Da Di Ph RX Ph St me C No te ll ll ou ys ag ar # ys at rm s nt no ma ic us Or Da si cy ia de te s n re d BU 10 01 01 0 30 30 HO 60 GH Ac DE 37 -1 -1 0. ME 35 AN [...] MG NT HI TA AN B A ME 00 10 10 0 60 30 JA 57 MU Ac TO 09 -2 -2 .0 CK 68 RA ti DE 30 4- 4- 00 SO 54 D [...] 4- 4- 00 SO 58 D ve DE 76 20 20 N UM IL 17 [...] 8- 3- 00 SO 20 D ve DE 76 20 20 N UM IL 17 11 11 AP AR 0 OT M 40 HE CA MG RY # TA BL 00 ET 7 CY 00 08 08 15 5 RI 89 MARIAELENA Ac CL 37 -2 -2 .0 TE 58 WM ti OB 80 9- 9- 00 97 AN ve EN 75 20 20 AI ZA 11 11 11 D KE DE 0 PH NN IN AR Y E MA L 10 CY MG 03 21 TA 6 BL # ET 03 21 00 08 08 0 10 3 FA 41 NHAN Ac 40 -1 -1 .0 ND 83 HN ti 60 5- 5- 00 [...] 10 2- 4- 00 17 D ve DE 40 20 20 AI IL 90 11 [...] 0 14 7 FA 67 BU Ac DE 11 -1 -1 .0 ND 89 RN ti OF 10 6- 6- 00 LY 74 ET ve LO 12 20 20 9 TE XA 70 11 11 PH CI 1 AR GE N MA OR HC CY GE L E 50 OF 0 MG JA CK TA SO B N NE 61 07 07 0 10 10 FA 67 BU Ac OM 31 -1 -1 .0 ND 89 RN ti YC 40 6- 6- 00 LY 75 ET ve IN 64 20 20 0 TE -P 51 11 11 PH OL 1 AR GE YM MA OR YX CY GE IN E -H OF C EA JA R CK HERNDON SO SP N ME 00 07 07 0 60 30 JA 56 MU Ac TO 09 -0 -0 .0 CK 92 RA ti DE 30 8- 8- 00 SO 19 D [...] 00 7- 6- 00 95 D ve DE 51 20 20 AI IL 70 11 11 D MA 1 PH H 40 AR MA MG CY TA 03 BL 21 ET 6 # 03 21 00 06 06 0 20 5 FA 41 BU Ac 59 -2 -2 .0 ND 80 RN ti 10 5- 5- 00 LY 55 ET ve 50 20 20 4 TE 20 11 11 PH 5 AR GE MA OR CY GE E OF JA CK SO N NE 61 06 06 0 10 3 FA 67 BU Ac OM 31 -2 -2 .0 ND 85 RN ti YC 40 5- 5- 00 LY 88 ET ve IN 64 20 20 5 TE -P 51 11 11 PH OL 1 AR GE YM MA OR YX CY GE IN E -H OF C EA JA R CK HERNDON SO SP N CI 55 06 06 0 10 5 FA 67 BU Ac DE 11 -2 -2 .0 ND 85 RN ti OF 10 5- 5- [...] .0 TE 69 RA ti NO 00 9- 9- 00 60 D ve DE 51 20 20 AI IL 50 11 11 D MA 1 PH H 20 AR MA MG CY TA 03 BL 21 ET 6 # 03 21 00 06 06 0 24 5 FA 41 GR Ac 59 -0 -0 .0 ND 79 AY ti 10 3- 3- 00 LY 39 , ve 54 20 20 0 II 00 11 11 PH I 5 AR NHAN MA HN CY I OF JA CK SO N 00 06 06 0 24 5 FA 41 GR Ac 59 -0 -0 .0 ND 79 AY ti 10 3- 3- 00 LY 39 ve 54 20 20 0 II 00 11 11 PH I 5 AR NHAN MA HN CY I OF JA CK SO N IB 55 06 06 0 30 6 FA 67 GR Ac UP 11 -0 -0 .0 ND 81 AY ti RO 10 3- 3- [...] .0 CK 68 RA ti NO 10 SO 08 D ve DE 40 20 20 N UM IL 71 11 11 AP AR 0 OT M 10 HE CA MG RY # TA BL 00 ET 7 00 05 05 0 12 4 FA 41 CA Ac 59 -2 -2 .0 ND 79 MP ti 10 7- 7- 00 LY 09 BE ve 34 20 20 6 LL 90 11 11 PH 5 AR RO MA GE CY R D OF JA CK SO N 00 05 05 0 12 4 FA 41 CA Ac 59 -2 -2 .0 ND 79 MP ti 10 7 7- 00 LY 09 BE ve 34 20 20 6 LL 90 11 11 PH 5 AR RO MA GE CY R D OF JA CK SO N AM 00 05 05 0 30 10 FA 67 CA Ac OX 78 -2 -2 .0 ND 80 MP ti IC 12 7- 7- 00 LY 30 BE ve IL 61 20 20 6 LL LI 30 11 11 PH N 5 AR RO 50 MA GE 0 CY R MG D OF CA PS JA UL CK E SO N BE 57 05 05 0 30 10 FA 67 WA Ac NZ 66 -2 -2 .0 ND 80 RR ti ON 40 6- 6- 00 LY 13 EN ve AT 13 20 20 4 AT 48 11 11 PH LA E 8 AR RR 20 MA Y 0 CY E MG OF CA PS JA UL CK E SO N AZ 00 05 05 0 6. 5 FA 67 WA Ac IT 78 -2 -2 00 ND 80 RR ti HR 11 6- 6- 0 LY 13 EN ve OM 49 20 20 5 YC 66 11 11 PH LA IN 8 AR RR MA Y 25 CY E 0 MG OF TA JA BL CK ET SO N LO 45 05 05 12 30 30 FA 67 MU Ac RA 80 -0 -0 .0 ND 75 RA ti TA 20 3- 3- 00 LY 02 D ve DI 65 20 20 4 NE 08 11 11 PH MA 7 AR H 10 MA CY MG OF TA BL JA ET CK SO N LI 00 04 04 0 30 30 FA 67 MU Ac SI 18 -1 -1 .0 ND 71 RA ti NO 55 9- 9- 00 LY 92 D ve DE 40 20 20 7 UM IL 00 [...] N ZA 11 11 11 D AA DE 0 PH RO IN AR N E MA W 10 CY MG 03 21 TA 6 BL # ET 03 21 NA 00 02 02 30 15 RI 87 NHAN Ac DE 09 -2 -2 .0 TE 55 HN ti OX 30 8- 8- 00 90 SO ve EN 14 20 20 AI N 90 11 11 D AA 50 1 PH RO 0 AR N MG MA W CY TA BL 03 ET 21 6 # 03 21 CI 00 01 01 1 7. 10 FA 67 SA Ac DE 06 -2 -2 50 ND 51 RT ti OD 58 8- 8- [...] BU Ac TH 60 -2 -2 .0 ND 43 RN ti OC 34 1- 1- 00 LY 54 ET ve AR 48 20 20 3 TE BA 62 10 10 PH MO 8 AR GE L MA OR 75 CY GE 0 E MG OF TA JA BL CK ET SO N AZ 59 12 12 0 6. 5 FA 67 SA Ac IT 76 -0 -0 00 ND 40 RT ti HR 23 8- 8- 0 LY 79 AW ve OM 06 20 20 0 I YC 00 10 10 PH TA IN 1 AR RI MA Q 25 CY 0 MG OF TA JA BL CK ET SO N MU 45 11 11 0 22 14 FA 67 SA Ac PI 80 -0 -0 .0 ND 32 RT ti RO 20 2- 2- 00 LY 33 AW ve CI 11 20 20 6 I N 22 10 10 PH TA 2% 2 AR RI MA Q OI CY NT ME OF NT JA CK SO N 59 11 11 0 14 7 FA 67 SA Ac 76 -0 -0 .0 ND 32 RT ti 22 2- 2- 00 LY 33 AW ve 18 20 20 7 I 00 10 10 PH TA 1 AR RI MA Q CY OF JA CK SO N CI 16 10 10 0 10 5 FA 67 BU Ac DE 25 -3 -3 .0 ND 31 RN ti OF 20 0- 0- 00 LY 71 ET ve LO 51 20 20 7 TE XA 50 10 10 PH CI 1 AR GE N MA OR HC CY GE L E 50 OF 0 MG JA CK TA SO B N DE 10 10 10 0 10 2 FA 67 BU Ac OM 70 -3 -3 .0 ND 31 RN ti ET 20 0- 0- 00 LY 71 ET ve RESENDIZ 00 20 20 8 TE ZI 31 10 10 PH NE 0 AR GE MA OR 25 CY GE E MG OF TA JA BL CK ET SO N CI 65 10 10 14 7 RI 86 BU Ac DE 86 -1 -1 .0 TE 15 RN ti OF 20 7- 7- 00 09 ET ve LO 07 20 20 AI TE XA 70 10 10 D CI 1 PH GE N AR OR HC MA GE L CY E 50 0 03 MG 21 6 TA # B 03 21 CI 00 09 09 0 14 7 WA 71 BU Ac DE 37 -2 -2 .0 L- 67 RN [...] E 10 DR 06 OP 93 S IB 55 09 09 0 30 6 FA 67 GR Ac UP 11 -1 -1 .0 ND 22 AY ti RO 10 7- 7- 00 LY 08 , ve FE 68 20 20 9 II N 20 10 10 PH I 40 5 AR NHAN 0 MA HN MG CY I TA OF BL ET CK SO N 00 09 09 0 24 5 FA 41 GR Ac 59 -1 -1 .0 ND 65 AY ti 10 7- 7- 00 LY 56 , ve 54 20 20 8 II 00 10 10 PH I 5 AR NHAN MA HN CY I OF CK SO N 00 09 09 0 24 5 FA 41 GR Ac 59 -1 -1 .0 ND 65 AY ti 10 7- 7- 00 LY 56 ve 54 20 20 8 II 00 10 10 PH I 5 AR NHAN MA HN CY I OF CK SO N 00 09 09 0 10 2 FA 41 CA Ac 59 -1 -1 .0 ND 65 MP ti 10 4- 4- 00 LY 38 BE ve 34 20 20 1 LL 90 10 10 PH 5 AR RO MA GE CY R D OF CK SO N 00 09 09 0 10 2 FA 41 CA Ac 59 -1 -1 .0 ND 65 MP ti 10 4- 4- 00 LY 38 BE ve 34 20 20 1 LL 90 10 10 PH 5 AR RO MA GE CY R D OF CK SO N 00 09 09 20 3 RI 85 BU Ac 60 -0 -0 .0 TE 71 RN ti 33 5- 5- 00 50 ET ve 88 20 20 AI TE 42 10 10 D 1 PH GE AR OR MA GE CY E 03 21 6 # 03 21 CI 65 09 09 14 7 RI 85 BU Ac DE 86 -0 -0 .0 TE 71 RN [...] 0 14 7 WA 71 BU Ac DE 37 -0 -0 .0 L- 60 RN ti OF 87 8- 8- 00 MA 23 ET ve LO 09 20 20 RT 8 TE XA 80 10 10 CI 1 PH GE N AR OR HC MA GE L CY E 50 # 0 MG 10 06 TA 93 B 00 05 05 20 5 RI 84 BU Ac 40 -2 -2 .0 TE 79 RN ti 60 9 9- 00 08 ET ve 35 20 20 [...] -2 .0 CK 73 AY ti 10 SO 69 , ve 54 20 20 [...] EG ZA 11 10 10 D OR DE 0 PH Y IN AR J E [...] CY 03 21 6 # 03 21 Procedures Procedure DOS Code Location Performer Comment THERAPEUT 53033 [facility] PROPHYLAC INC INC TIC/DX INJECTION SUBQ/[place] [address] [place] [facility]TER CERVICAL 5 MEDICAL ALVINA SPINE W/O IMAGING CONTRAST ASS MATERIAL RADEX 09086 [facility] SPINE 5 MEDICAL FANNIE THORACIC IMAGING 2 VIEWS ASS RADEX 21793 [facility] SPINE 5 MEDICAL FANNIE CERVICAL IMAGING 4 OR 5 ASS VIEWS RADEX 14435 [place] D[facility] SHOULDER 5 MEDICAL [place] COMPLETE IMAGING MINIMUM 2 ASS VIEWS RADEX 19639 [place] DEXTER SPINE 5 MEDICAL ALVINA LUMBOSACR IMAGING AL ASS MINIMUM 4 VIEWS RADIOLOGI 39320 [place] [facility] C 4 [facility] TRINIDAD EXAMINATI LLC ON CHEST SINGLE VIEW FRONTAL RADEX 43606 [facility] SHOULDER 1 TRINIDAD TRINIDAD COMPLETE MINIMUM 2 VIEWS IM ADM 04725 [place] [facility] [place] [facility] PRQ ID 1 [facility] CTR, MED CTR, SUBQ/IM ATTN: ATTN: NJXS 1 [facility] VACCINE NONEMERG A0120 [facility] TRNSPRT: 1 [facility] [employer] [facility] ACTION P AREA/OTH SYS THERAPEUT 73072 [facility] IC 1 MED CTR, MED CTR, PROPHYLAC ATTN: ATTN: TIC/DX [facility]E [facility] INJECTION SUBQ/IM RADIOLOGI 40044 [facility] C 1 [facility] N NOR EXAMINATI LLC ON FOOT 2 VIEWS RADEX HIP 12401 [place] 1 MED CTR, MED CTR, UNILATERA ATTN: ATTN: L DENE [facility] COMPLETE MINIMUM 2 VIEWS NONEMERG A0120 [facility] TRNSPRT: 1 [facility] [employer] [facility] MTN ACTION P AREA/OTH SYS NONEMERG A0120 [facility] TRNSPRT: 1 [facility] [employer] [facility] MTN ACTION P AREA/OTH SYS NONEMERG A0120 [facility] TRNSPRT: 1 [facility] [employer] [facility] ACTION P AREA/OTH SYS INJECTION J0735 [facility]EREZ ASM 1 CLINIC CLONIDINE HYDROCHLO RIDE 1 MG NONEMERG A0120 [facility] TRNSPRT: 1 [facility] [employer] [facility] ACTION P AREA/OTH SYS NONEMERG A0120 [facility] TRNSPRT: 1 [facility] [employer] [facility] ACTION P AREA/OTH SYS NONEMERG A0120 [facility] TRNSPRT: 1 [facility] [employer] [facility] MTN ACTION P AREA/OTH SYS RADEX 93357 [facility] [place] A HIPS 1 MALL BILATERAL IMAGING 2 VIEWS CENTER ANTEROPOS T PELVIS NONEMERG A0120 [facility] TRNSPRT: 1 [facility] [employer] [facility] MTN ACTION P AREA/OTH SYS NONEMERG A0120 [facility] TRNSPRT: 1 [facility] [employer] [facility] MTN ACTION P AREA/OTH SYS NONEMERG A0120 [facility] TRNSPRT: 1 [facility] [employer] [facility]OTH SYS NONEMERG A0120 [facility] TRNSPRT: 1 [facility] Stream Pay[facility] AREA/OTH SYS CULTURE 99546 [place] BACTERIAL 1 MED CTR, MED CTR, BLOOD ATTN: ATTN: AEROBIC PATRICIAE PATRICIAE W/ID ISOLATES COLLECTIO 60210 [place] N VENOUS 1 MED CTR, MED CTR, BLOOD ATTN: ATTN: VENIPUNCT DOUGIE CONSTANTINO URE CREATINE 32020 [place] KINASE MB 1 MED CTR, MED CTR, FRACTION ATTN: ATTN: ONLY PATRICIAE PATRICIAE BASIC 33001 [place] METABOLIC 1 MED CTR, MED CTR, PANEL ATTN: ATTN: CALCIUM [place] TOTAL NATRIURET 28922 [place] IC 1 [facility] CTR, MED CTR, PEPTIDE ATTN: ATTN: [place] [address] [place] TROPONIN 1 MED CTR, MED CTR, QUANTITAT ATTN: ATTN: BLANQUITA PATRICIAE [place] BLOOD 64602 [place] COUNT 1 [facility] CTR, MED CTR, COMPLETE ATTN: ATTN: AUTO&AUTO [place] DIFRNTL WBC CREATINE 80223 [place] KINASE 1 MED CTR, MED CTR, TOTAL ATTN: ATTN: [place] [address] [place] MAGNESIUM 1 MED CTR, MED CTR, ATTN: ATTN: [place]E [place] ECG 05950 [place] ROUTINE 1 MED CTR, MED CTR, ECG ATTN: ATTN: W/LEAST [place] DENE 12 LDS TRCG ONLY W/O I&R RADIOLOGI 19917 [place] KESHIA C EXAM 1 [facility] TRINIDAD CHEST 2 LLC VIEWS FRONTAL&L ATERAL NONEMERG A0120 [facility] TRNSPRT: 1 [facility] [employer] [facility] AREA/OTH SYS HLA 25073 [place] TYPING 1 MED CTR, MED CTR, A/B/C ATTN: ATTN: [place] [address] [place] THYROID 1 [facility], MED CTR, STIMULATI ATTN: ATTN: NG DENE DENE HORMONE TSH C-REACTIV 66301 [place] E PROTEIN 1 MED CTR, MED CTR, ATTN: ATTN: DENE DENE RHEUMATOI 71754 [place] D FACTOR 1 MED CTR, MED CTR, QUALITATI ATTN: ATTN: VE DENE DENE SEDIMENTA [address]16 [place] TION RATE 1 MED CTR, MED CTR, RBC ATTN: ATTN: NON-AUTOM DENE DENE ATED COMPLEMEN [address]777 [place] T ANTIGEN 1 MED CTR, MED CTR, EACH ATTN: ATTN: COMPONENT DENE [place] CYCLIC [address] [place] CITRULLIN 1 MED CTR, MED CTR, ATED ATTN: ATTN: PEPTIDE DENE DENE ANTIBODY BASIC 55899 [place] METABOLIC 1 MED CTR, MED CTR, PANEL ATTN: ATTN: [place] [address] [place] BLOOD/URI 1 MED CTR, MED CTR, C ACID ATTN: ATTN: DENE DEN[place] COLLECTIO 54925 [place] N VENOUS 1 MED CTR, MED CTR, BLOOD ATTN: ATTN: VENIPUNCT DENE DENE URE ANTINUCLE 57015 [place] 1 [facility] CTR, MED CTR, ANTIBODIE ATTN: ATTN: S YOHAN DENE DEN[place] LIPID 59160 [place] PANEL 1 [facility] CTR, MED CTR, ATTN: ATTN: DENE DENE BLOOD 59751 [place] COUNT 1 [facility] CTR, MED CTR, COMPLETE ATTN: ATTN: AUTO&AUTO DENE DENE DIFRNTL WBC NONEMERG A0120 [facility] [place] TRNSPRT: 1 [facility] [employer] ACTION [facility] MTN ACTION P AREA/OTH SYS MRI 85670 RADIOLOGY [place] A SPINAL 1 SERVICES CANAL LUMBAR W/O CONTRAST MATERIAL NONEMERG A0120 [facility] TRNSPRT: 1 [employer] ACTION [facility] MTN ACTION P AREA/OTH SYS [facility]EX 23582 [facility] [place] SPINE 1 RIVER HBP TRINID[facility] LUMBOSACR LLC AL 2/3 VIEWS REMOVAL 58628 KJ LEIVATAWI IMPACTED 1 ENT TAR CERUMEN CLINIC INSTRUMEN PSC TATION UNILAT RADIOLOGI 06754 [facility] [place] NOL C EXAM 1 RIVER HBP CHEST 2 LLC VIEWS FRONTAL&L ATERAL BLOOD 29165 IRINE[facility] [place] R[place] COUNT 1 MED CTR, MED CTR, COMPLETE ATTN: ATTN: AUTO&AUTO DENE DENE DIFRNTL WBC IAADI NOT 52696 [facility] [place] RIVER 1 MED CTR, MED CTR, OTHERWISE ATTN: ATTN: DENE DENE SPECIFIED EACH ORGANISM COLLECTIO 85746 IR[facility] [place] RIVER N 1 MED CTR, MED CTR, CAPILLARY ATTN: ATTN: BLOOD DENE DENE SPECIMEN IAADIADOO 70319 IRINEO T[place] RIVER 1 MED CTR, MED CTR, STREPTOCO ATTN: ATTN: CCUS DOUGIE DENE GROUP A GROUND A0425 TRANS TRANS MILEAGE 0 STAR STAR PER AMBULANCE AMBULANCE STATUTE SVC SVC MILE AMB A0427 TRANS TRANS SERVICE 0 STAR STAR ALS AMBULANCE AMBULANCE EMERGENCY SVC SVC TRANSPORT LEVEL 1 [facility] 08959 [facility] C EXAM 0 RIVER HBP TRINID[facility] CHEST 2 LLC VIEWS FRONTAL&L ATERAL RADIOLOGI 32505 [facility] [place] C 0 RIVER HBP TRIN[facility] EXAMINATI LLC ON PELVIS 1/2 VIEWS RADEX 20364 [facility] [place] SHOULDER 0 RIVER HBP TRINID[facility] COMPLETE LLC MINIMUM 2 VIEWS REMOVAL 76635 KJ MARIN IMPACTED 0 ENT TAR CERUMEN CLINIC INSTRUMEN PSC TATION UNILAT INCISION 66570 MAURILIO I JIMENEZ III & 0 JIMENEZ III VALERIE DRAINAGE PSC N0 3 COMPLEX PO WOUND INFECTION NONEMERG A0120 [facility] TRNSPRT: 0 [employer] ACTION [facility] MTN ACTION P AREA/OTH SYS NONEMERG A0120 [facility] [place] TRNSPRT[facility] 0 [facility] [place] ACTION [facility] MT[facility] ACTION P AREA/OTH SYS NONEMERG A0120 [facility] [place] TRNSPRT: 0 [facility] ACTION [facility] MTN ACTION P AREA/OTH SYS DEEP D9220 MAURILIO JIMENEZ III SEDATION/ 0 JIMENEZ III VALERIE GENERAL PSC N0 3 ANESTHESI A- 30 MINUTES IAADIADOO 54616 [facility] 0 [facility] CTR MED CTR STREPTOCO CCUS GROUP A COLLECTIO 59184 [facility] N VENOUS 0 MED CTR MED CTR BLOOD VENIPUNCT URE BLOOD 83293 [facility] COUNT 0 MED CTR MED CTR COMPLETE AUTO&AUTO DIFRNTL WBC RADEX 99248 BREATHIT AYOS, SPINE 0 [facility] A [facility] MINIMUM 4 VIEWS RADEX 26681 RADIOLOGY ZACHARY, SPINE 0 SERVICES MARA C LUMBOSACR AL MINIMUM 4 VIEWS RADEX 91053 RADIOLOGY ZACHARY, SPINE 0 SERVICES MARA C THORACIC 3 VIEWS RADEX 86331 [facility], SPINE 0 [facility]IVER [facility] YANETH [facility] 3 VIEWS DEEP D9220 MAURILIO PINA SEDATION/ 0 JIMENEZ III MAURILIO Hough GENERAL PSC N0 3 ANESTHESI A- 30 MINUTES ORTHOPANT 68850 MAURILIO PINA OGRAM 0 JIMENEZ III MAURILIO Hough PSC N0 3 Encounters Encounter Start End Date Code Location Performer Type Date OFFICE 60083 [facility] PABLO OUTPATIEN 6 6 PHYSICIAN SRIRAM T VISIT S GROUP 15 MINUTES HOSPITAL STEVEN - 6 6 [facility] T EMERGENCY 27003 STEVEN 6 6 [facility] T VISIT LOW/MODER SEVERITY EMERGENCY 97184 ADELA COLLADO 6 6 PHYSICIAN U FANNIE [facility] PLL[facility] T VISIT HIGH/URGE NT SEVERITY HOSPITAL STEVEN - 5 5 [facility] OUT[facility]EN INC T EMERGENCY 65323 STEVEN 5 5 [facility] T VISIT LOW/MODER SEVERITY EMERGENCY 39807 ADELA ONOFRE 5 5 PHYSICIAN JAYESH DEPARTMEN S, [facility] T VISIT MODERATE SEVERITY EMERGENCY 72068 [facility] BURNS 5 5 LEO LEO DEPARTMEN T VISIT HIGH/URGE NT SEVERITY OFFICE 24838 [facility] PABLO OUTPATIEN 5 5 PHYSICIAN SRIRAM T VISIT S GROUP 25 MINUTES OFFICE 59536 [facility] PABLO OUTPATIEN 5 5 PHYSICIAN SRIRAM T VISIT S GROUP 15 MINUTES EMERGENCY 60243 KASIE MARINELLI, 4 4 RIVER HBP III [facility] T VISIT MODERATE SEVERITY EMERGENCY [address]141 [place] 1 1 MED CTR, DEPARTMEN ATTN: T VISIT DENE LOW/MODER SEVERITY [facility] - 1 1 MED CTR, OUTPATIEN ATTN: T DENE EMERGENCY 42739 NANCIE NANCIE 1 1 G G DEPARTMEN T VISIT MODERATE SEVERITY EMERGENCY 66962 [place] 1 1 [facility], DEPARTMEN ATTN: T VISIT DENE MODERATE SEVERITY [facility] - 1 1 MED CTR, OUTPATIEN ATTN: T [place] EM[place]ENCY 03729 [place] 1 1 [facility], DEPARTMEN ATTN: T VISIT DENE MODERATE SEVERITY EMERGENCY 47269 NANCIE NANCIE 1 1 G G DEPARTMEN T VISIT LIMITED/M INOR PROB [facility] [place] - 1 1 [facility] CTR, OUTPATIEN ATTN: T DENE EMERGENCY 84643 [place] 1 1 [facility], DEPARTMEN ATTN: T VISIT DENE MODERATE SEVERITY EMERGENCY 32351 NANCIE NANCIE 1 1 G G DEPARTMEN T VISIT LOW/MODER SEVERITY [facility] [place] [facility] 1 [facility], OUTPATIEN ATTN: T [facility] [place] [facility] 1 [facility], OUTPATIEN ATTN: T [place] EM[place]ENCY 24709 [place] 1 1 [facility], DEPARTMEN ATTN: T VISIT DENE MODERATE SEVERITY OFFICE 05001 [facility] PEREZ LORENA OUTPATIEN 1 1 CLINIC T VISIT 25 MINUTES OFFICE 33914 [facility] PEREZ ASM OUTPATIEN 1 1 CLINIC T VISIT 15 MINUTES EMERGENCY 51238 [place] 1 1 [facility], DEPARTMEN ATTN: T VISIT DENE MODERATE SEVERITY [facility] - 1 1 MED CTR, OUTPATIEN ATTN: T DENE EMERGENCY 22513 [facility] 1 1 [facility] III [facility] LOW/MODER SEVERITY [facility] - 1 1 MED CTR, OUTPATIEN ATTN: T DENE EMERGENCY 23056 [facility] R[facility] 1 1 [facility] T VISIT HIGH/URGE NT SEVERITY EMERGENCY 19657 [facility] 1 1 MED CTR, DEPARTMEN ATTN: T VISIT DENE MODERATE SEVERITY EMERGENCY 45376 [facility] 1 1 RIVER [facility] T VISIT LOW/MODER SEVERITY [facility] [place] [facility] 1 [facility] CTR, OUTPATIEN ATTN: T DENE EMERGENCY 64174 [place] 1 1 [facility] CTR, DEPARTMEN ATTN: T VISIT DENE MODERATE SEVERITY EMERGENCY 54180 [place] 1 1 [facility], DEPARTMEN ATTN: T VISIT DENE MODERATE SEVERITY [facility] [place] 1 1 [facility] CTR, OUTPATIEN ATTN: T DENE OFFICE 07154 KARYNS MURAD ASM OUTPATIEN 1 1 CLINIC T VISIT 15 MINUTES [facility] [place] [facility], OUTPATIEN ATTN: T DENE EM[place]ENCY 41104 [place] 1 1 [facility], DEPARTMEN ATTN: T VISIT DENE MODERATE SEVERITY OFFICE 98212 [facility] CH[facility]ARAN [facility] 1 1 FAMILY A [facility] NEW/ESTAB SRV AR PATIENT 40 MIN [facility] [place] [facility] 1 [facility], OUTPATIEN ATTN: T DENE EMERGENCY 60423 [place] 1 1 [facility], DEPARTMEN ATTN: T VISIT DENE MODERATE SEVERITY OFFICE 98073 KARYNS DAPHNEYAD ASM OUTPATIEN 1 1 CLINIC T VISIT 15 MINUTES EMERGENCY 75575 [facility] N[facility] 1 1 RIVER [facility] G [facility] T VISIT LOW/MODER SEVERITY EMERGENCY 65365 [place] 1 1 [facility] CTR, DEPARTMEN ATTN: T VISIT DENE MODERATE SEVERITY [facility] [place] [facility] 1 [facility], OUTPATIEN ATTN: T DENE OFFICE 21566 CHALENARDS MURAD ASM OUTPATIEN 1 1 CLINIC T VISIT 15 MINUTES OFFICE 06545 CHAVIES MURAD ASM OUTPATIEN 1 1 CLINIC T VISIT 15 MINUTES [facility] [place] [facility], OUTPATIEN ATTN: T DENE EMER[place]ENCY 51769 [place] 1 1 [place] [facility], DEPARTMEN ATTN: T VISIT DENE MODERATE SEVERITY EMERGENCY 98015 [facility] NISHI 1 1 RIVER [facility] LAR [facility] T VISIT LOW/MODER SEVERITY EMERGENCY 86324 [facility] NANCIE 1 1 RIVER H[facility] G [facility] T VISIT MODERATE SEVERITY [facility] [place] [facility] 1 [facility], OUTPATIEN ATTN: T DENE OFFICE 27229 [facility] CARRILLO OUTPATIEN 1 1 CLINIC T VISIT [address] [facility] - 1 1 MED CTR, OUTPATIEN ATTN: T DENE EMERGENCY 00886 [facility] NANCIE 1 1 RIVER HBP G [facility] T VISIT LOW/MODER SEVERITY EMERGENCY 32874 [facility] 1 1 MED CTR, DEPARTMEN ATTN: T VISIT DENE MODERATE SEVERITY OFFICE 28788 KJ MARIN OUTPATIEN 1 1 ENT TAR T VISIT CLINIC 25 PSC MINUTES EMERGENCY 04209 [facility] 1 1 MED CTR, DEPARTMEN ATTN: T VISIT DENE MODERATE SEVERITY EMERGENCY 72134 [place] NATALIIA 1 1 RIVER HBP [facility] T VISIT LOW/MODER SEVERITY [facility] - 1 1 MED CTR, OUTPATIEN ATTN: T DENE OFFICE 26389 MAURILIO I JIMENEZ III OUTPATIEN 1 1 JIMENEZ III VALERIE T VISIT PSC N0 3 [address] [facility] 1 1 MED CTR, DEPARTMEN ATTN: T VISIT DENE HIGH/URGE NT SEVERITY [facility] - 1 1 MED CTR, OUTPATIEN ATTN: T DENE EMERGENCY 71797 [facility] GIMENEZ 1 1 RIVER HBP WENDY [facility] T VISIT MODERATE SEVERITY OFFICE 84363 [facility] CARRILLO OUTPATIEN 1 1 CLINIC T VISIT [address] [facility] - 1 1 MED CTR, OUTPATIEN ATTN: T DENE [facility] - 1 1 MED CTR, OUTPATIEN ATTN: T DENE EM[place]ENCY 95921 [place] 1 1 [facility], DEPARTMEN ATTN: T VISIT DENE LIMITED/M INOR PROB OFFICE 33017 [facility] MELENDEZ J CONSULTAT 1 1 ICAL ION ASSOCIATE NEW/ESTAB S PATIENT 40 MIN OFFICE 20128 [facility] LORENZANAA OUTPATIEN 1 1 CLINIC T VISIT 15 MINUTES OFFICE 82047 CAS LORENZANAA OUTPATIEN 1 1 CLINIC T VISIT 15 MINUTES [facility] [place] [facility], OUTPATIEN ATTN: T DENE OFFICE 94813 CAS PEREZ LORENA OUTPATIEN 1 1 CLINIC T NEW 45 MINUTES [facility] [place] [facility], OUTPATIEN ATTN: T DENE EMER[place]ENCY 00312 [place] 1 1 [facility], DEPARTMEN ATTN: T VISIT DENE MODERATE SEVERITY EMERGENCY 51802 KASIE MARLEN 1 1 RIVER HBP ABDULLAHI [facility] T VISIT LOW/MODER SEVERITY [facility] [place] [facility] 1 [facility], OUTPATIEN ATTN: T DENE EMERGENCY 30959 KASIE PETRONA 1 1 RIVER HBP AAR [facility] T VISIT MODERATE SEVERITY OFFICE 10844 KJ LEIVATAWV OUTPATIEN 1 1 ENT TAR T VISIT CLINIC 15 PSC MINUTES OFFICE 30812 KJ LEIVATAWV OUTPATIEN 1 1 ENT TAR T VISIT CLINIC 25 PSC MINUTES EMERGENCY 11841 [place] 1 1 [facility], DEPARTMEN ATTN: T VISIT DENE MODERATE SEVERITY [facility] [place] [facility], OUTPATIEN ATTN: T DENE EMERGENCY 55100 KASIE NANCIE 1 1 RIVER HBP G [facility] T VISIT LOW/MODER SEVERITY EMERGENCY 59184 [place] 0 0 [facility], DEPARTMEN ATTN: T VISIT DENE MODERATE SEVERITY [facility] [place] [facility], OUTPATIEN ATTN: T DENE EMERGENCY 27012 [place] 0 0 RIVER HBP G [facility] T VISIT LOW/MODER SEVERITY OFFICE 92843 KJ MARIN OUTPATIEN 0 0 ENT TAR T VISIT CLINIC 25 PSC MINUTES OFFICE 34597 KJ MARIN CONSULTAT 0 0 ENT TAR ION CLINIC NEW/ESTAB PSC PATIENT 60 MIN EMERGENCY 03250 [place] 0 0 [facility] CTR DEPARTMEN T VISIT HIGH/URGE NT SEVERITY [facility] [place] [facility] OUTPATIEN T EMERGENCY 98359 [place] 0 0 R[facility] G [facility] T VISIT LOW/MODER SEVERITY [facility] [place] [facility] 0 [facility] CTR OUTPATIEN T EMERGENCY 95302 [place] 0 0 R[facility] G [facility] T VISIT LOW/MODER SEVERITY EMERGENCY 06266 [place] 0 0 [facility] CTR DEPARTMEN T VISIT MODERATE SEVERITY [facility] [place] [facility] OUTPATIEN T EMERGENCY 02108 [place] 0 0 [facility] CTR DEPARTMEN T VISIT MODERATE SEVERITY EMERGENCY 32990 [place] 0 0 RIVER HBP G [facility] T VISIT LOW/MODER SEVERITY EMERGENCY 63285 [place] 0 0 [facility] DEPARTMEN T VISIT MODERATE SEVERITY [facility] [place] [facility] 0 [facility] OUT[facility]EN T [facility] [place] [facility] 0 [facility] CTR OUTPATIEN T EMERGENCY 17364 [place] 0 0 RIVER HBP G [facility] T VISIT LOW/MODER SEVERITY EMERGENCY 12446 [place] 0 0 [facility] CTR DEPARTMEN T VISIT MODERATE SEVERITY EMERGENCY 99296 [facility], 0 0 RIVER H[facility] ARIF M [facility] T VISIT LOW/MODER SEVERITY EMERGENCY 71725 [place] 0 0 [facility] CTR DEPARTMEN T VISIT MODERATE SEVERITY [facility] [place] [facility] 0 [facility] CTR OUTPATIEN T EMERGENCY 75535 [place] 0 0 [facility] DEPARTMEN T VISIT MODERATE [facility]VERITY [facility] [place] [facility] 0 [facility] CTR OUTPATIEN T EMERGENCY 46883 KASIE PETRONA, 0 0 RIVER HBP KAMALA W [facility] T VISIT LOW/MODER SEVERITY EMERGENCY 49760 [facility] [place], 0 0 RIVER HBP G E [facility] T VISIT LOW/MODER SEVERITY EMERGENCY 69024 [place] 0 0 [facility] CTR DEPARTMEN T VISIT MODERATE SEVERITY [facility] [place] [facility] 0 [facility] CTR OUTPATIEN T EMERGENCY 65996 [place], 0 0 MEDICAL SUNILJIT DEPARTMEN PARTNERS T VISIT LLC HIGH/URGE NT SEVERITY OFFICE 31112 ELENA HENDLEY OUTPATIEN 0 0 NEUMANNS PAB T VISIT EXTENDED 15 H MINUTES [facility] [place] [facility] 0 [facility] OUTPATIEN T EMERGENCY 32047 [facility] [place], 0 0 RIVER H[facility] LIANNE S [facility] T VISIT LOW/MODER SEVERITY EMERGENCY 68228 [place] 0 0 [facility] CTR DEPARTMEN T VISIT MODERATE SEVERITY OFFICE 90146 MAURILIO PINA, OUTPATIEN 0 0 JIMENEZ III MAURILIO R T VISIT PSC N0 3 10 MINUTES [facility] [place] [facility] 0 [facility] CTR OUTPATIEN T EMERGENCY 80560 KASIE TAYLER, 0 0 RIVER HBP SAMANTHA J [facility] T VISIT MODERATE SEVERITY
--- OUTSIDE RECORDS SUMMARY | 2016-12-16 12:31 | External Medical Summary Rpt | CCD ---
Author Author , ASHWIN Organization ASHWIN Address Unknown Phone [email or web address] Care Team Providers Care Electrical Accessories I Assembler Name Role Phone AYOS, EMELITA A, Unavailable Unavailable AYOS, EMELITA A MELENDEZ J, MELENDEZ J Unavailable Unavailable BEINEKE FANNIE, BEINEKE Unavailable Unavailable FANNIE KESHIA TRINIDAD, KESHIA Unavailable Unavailable TRINIDAD GIMENEZ WENDY, GIMENEZ Unavailable Unavailable WENDY NANCIE G, NANCIE Unavailable Unavailable G NANCIE G, NANCIE Unavailable Unavailable G NANCIE, G E, Unavailable Unavailable NANCIE, G E CHANDARANA JYO, Unavailable Unavailable CHANDARANA JYO [facility], Unavailable Unavailable [facility] MAURILIO PINA, Unavailable Unavailable MAURILIO PINA DOU, Unavailable Unavailable [facility] Unavailable Unavailable [facility] [place] GRANT NASSAR Unavailable Unavailable LEO PABLO SRIRAM, PABLO Unavailable Unavailable SRIRAM JIMENEZ III VALERIE, JIMENEZ Unavailable Unavailable III VALER[facility] Un[facility] Un[facility], [facility] Unavailable Unavailable [place]V [place], [facility] SR[facility] [place] [facility], Unavailable Unavailable [facility] Unavailable Unavailable [place], [facility] [place] # Unavailable Unavailable 007, [facility] Unavailable Unavailable [facility], [facility] MAURILIO I TONY III [facility] Unavailable Unavailable N0 3, MAURILIO I JIMENEZ III [facility] N0 3 PETRONA GAR, PETRONA Unavailable Unavailable KAMALA MADRIGAL, Unavailable Unavailable KAMALA [facility] Unavailable Unavailable IMAGING ASS, [facility] Unavailable Unavailable LLC, [facility] [place] Unavailable Unavailable [facility], Unavailable Unavailable ATTN: DOUGIE, IRINEO [facility], ATTN: SAMANTHA ANTONIO LEE, Unavailable Unavailable SAMANTHA SENA PAB, NATHEN Unavailable Unavailable PAB [facility] Unavailable Unavailable ACTION P, [facility] MURAD ASM, MURAD ASM [...] LIANNE S [facility] Unavailable Unavailable [id number] # [id number], [facility] [id number] # [phone] SAKOW NOL, SAKOW NOL Unavailable [...] MARA C, Unavailable Unavailable ZACHARY MARA C [facility] # Unavailable Unavailable [id number], [facility] # [id number] NISHI COCHRAN, NISHI Unavailable Unavailable LAR KINGSTON MCCONNELL, Unavailable Unavailable KINGSTON JAYESH Purpose Continuity of Care Document - 05-25-2009 through 2016 Problems Code Diagnosis DOS Provider Status K922 GASTROINTES 04-02-2015 [facility] TINAL PHYSICIANS HEMORRHAGE GROUP UNSPECIFIED I10 ESSENTIAL 03-09-2015 [facility] HYPERTENSIO INC N J0100 ACUTE 03-09-2015 [facility] MAX[facility]ARY [facility], SINUSITIS PLLC UNSPECIFIED J449 CHRONIC 03-09-2015 [facility] PULMONARY INC DISEASE UNS K5289 OTH SPEC 03-09-2015 [facility] NONINFECTIV PHYSICIANS, E PLLC GASTROENTER ITIS & COLITIS K529 NONINFECTIV 03-09-2015 [facility] GASTROENTER INC ITIS & COLITIS UNS Z720 TOBACCO USE 03-09-2015 [facility] INC B349 VIRAL 02-21-2015 [facility] INFECTION PHYSICIANS, UNSPECIFIED PLLC R1111 VOMITING 02-21-2015 [facility] WITHOUT PHYSICIANS, NAUSEA PLLC R197 DIARRHEA 02-21-2015 [facility] UNSPECIFIED PHYSICIANS, PLLC 7231 CERVICALGIA 07-19-2015 [facility] 87945 INJURY OF 09-20-2014 [place] FACE AND MEDICAL NECK OTHER IMAGING ASS AND UNSPECIFIED 7245 UNSPECIFIED 07-04-2014 [place] BACKACHE [facility]ICAL [facility] 04849 OSTEOARTHRO 07-01-2014 [place] S UNSPEC MEDICAL WHETHER IMAGING ASS GEN/LOC SHLDR REGION 07107 PAIN IN 07-01-2014 [place] JOINT, MEDICAL SHOULDER IMAGING ASS REGION 7241 PAIN IN 07-01-2014 [facility] THORACIC PHYSICIANS SPINE GROUP 7248 OTHER 07-01-2014 [facility] SYMPTOMS PHYSICIANS REFERABLE GROUP TO BACK 8885 UNSPECIFIED 03-30-2014 [facility] SINUSITIS PHYSICIANS GROUP 4659 ACUTE URIS 02-27-2014 [place] OF [facility]IVER [facility] UNSPECIFIED LLC SITE 4871 INFLUENZA 02-27-2014 [place] WITH OTHER [facility] RESPIRATORY LLC MANIFESTATI ONS 496 CHRONIC 02-27-2014 [place] AIRWAY [facility] OBSTRUCTION LLC NEC 08197 SHORTNESS 02-27-2014 [place] OF BREATH [facility] LLC 7862 COUGH 02-27-2014 [facility] 87616 CIRCADIAN 02-12-2011 NANCIE G RHYTHM SLEEP DISORDER UNSPECIFIED 58433 UNSPECIFIED 02-12-2011 [facility], CONJUNCTIVI ATTN: DOUGIE TIS 4019 UNSPECIFIED 02-12-2011 [place] E[facility]ENTIAL [facility], HYPERTENSIO ATTN: DOUGIE N 64630 LOC 02-07-2011 [place] OSTEOARTHRO [facility], S NOT SPEC ATTN: DEN[place] PRIM/SEC SHLDR REGION 8409 SPRAIN&STRA 02-07-2011 [facility] [place] IN UNSPEC MED CTR, SITE ATTN: DOUGIE SHOULDER&UP PER ARM 57086 UNSPECIFIED 01-26-2011 [place] [facility] CELLULITIS [facility], AND ATTN: DOUGIE ABSCESS OF FINGER 6824 CELLULITIS& 01-26-2011 NANCIE G ABSCESS [place] HAND [place] F[place] [address] OTHER 01-10-2011 [facility] CHRON[facility], PAIN ATTN: PARTICIAE 7242 LUMBAGO 01-10-2011 [place] [facility], ATTN: DOUGIE 2724 OTHER AND 12-26-2010 [place] UNSPECIFIED CLINIC HYPERLIPIDE MARCOS 4011 ESSENTIAL 12-26-2010 [facility] [place] HYPERTENSIO CLINIC N, BENIGN 15119 PAIN IN 11-24-2010 [place] JOINT, CLINIC ANKLE AND FOOT V5869 LONG-TERM 11-24-2010 [facility] [place] (CURRENT) CLINIC USE OF OTHER MEDICATIONS 79395 SPRAIN AND 11-19-2010 [facility] STRAIN OF MED [facility], UNSPECIFIED ATTN: DENE SITE OF FOOT V1581 PERS HX 11-19-2010 [facility] NONCOMPLIAN MED CTR, CE W/MED TX ATTN: DENE PRS HAZARDS HLTH 7295 PAIN IN 11-16-2010 [place] SOFT [facility] TISSUES OF LLC LIMB 9597 INJURY 11-16-2010 [place] OTHER&UNSPE [facility] CIFIED [facility] LEG ANKLE&FOOT 97817 PAIN IN 10-30-2010 [facility] JOINT MED CTR, PELVIC ATTN: DENE REGION AND THIGH 8439 SPRAIN&STRA 10-22-2010 [facility] IN OF MED CTR, UNSPECIFIED ATTN: DENE SITE OF HIP&THIGH 5259 UNSPECIFIED 10-17-2010 [facility] DISORDER MED CTR, TEETH&SUPPO ATTN: DENE RTING STRUCTURES 3551 MERALGIA 10-13-2010 [facility] [place] 8488 OTHER 10-09-2010 [facility] SPECIFIED MED CTR, SITES OF ATTN: DENE SPRAINS AND STRAINS 7831 ABNORMAL 10-07-2010 [facility] 00433 OTHER ACUTE 10-02-2010 [facility] MED [facility], POSTOPERATI ATTN: DENE VE PAIN 69649 HYPOCALCEMI 09-23-2010 [facility] 83273 UNSPECIFIED 09-17-2010 [facility] INFECTIVE MED CTR, OTITIS ATTN: DENE EXTERNA 3829 UNSPECIFIED 09-17-2010 [facility] OTITIS MED CTR, MEDIA ATTN: DENE 2749 GOUT, 08-27-2010 [facility] UNSPECIFIED MED CTR, ATTN: DENE 05261 ASTHMA, 08-27-2010 [facility] UNSPECIFIED MED CTR, , ATTN: DENE UNSPECIFIED STATUS 69925 OTHER ACUTE 08-24-2010 [facility] EXTERNA 3804 IMPACTED 08-24-2010 [facility] 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 08-24-2010 [facility] 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 5220 PULPITIS 08-05-2010 MAURILIO I JIMENEZ III PSC N0 3 490 BRONCHITIS 07-27-2010 [facility] NOT MED CTR, SPECIFIED ATTN: DENE ACUTE OR CHRONIC 32407 PAINFUL 07-27-2010 [place] [facility], ATTN: DENE 2761 HYPOSMOLALI 07-05-2010 [facility] AND/OR CLINIC HYPONATREMI A 58223 OSTEOARTHRO 07-02-2010 [place] [facility] [place] UNSPEC [facility], WHETHER ATTN: DOUGIE GEN/LOC UNSPEC SITE 44723 UNSPECIFIED 07-02-2010 [place] [facility], ARTHROPATHY ATTN: DENE SITE UNSPECIFIED 48195 OTHER 07-02-2010 [place] [facility] MALAISE [facility], FATIGUE ATTN: DENE 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 12990 SPINAL STEN 06-06-2010 [facility] LUMB 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 N 72563 OTHER 05-28-2010 [place] [facility] INJURY OF [facility], OTHER SITES ATTN: DENE OF TRUNK 8472 LUMBAR 05-21-2010 [place] [facility] SPR[facility], STRAIN ATTN: DENEber 514 PULMONARY 03-13-2010 [place] [facility] HYPOSTASIS 83385 CHEST PAIN 02-22-2010 [place] UNSPECIFIED [facility] 80084 ABDOMINAL 02-22-2010 [place] PAIN, [facility] UNSPECIFIED LLC SITE 9592 INJURY 02-22-2010 [facility] OTHER&UNSPE AMBULANCESV CIFIED C SHOULDER&UP PER ARM 9598 INJURY 02-22-2010 [place] [facility] OTH&UNSPEC MED CTR, OTH SPEC ATTN: DENE SITES INCL MULTIPLE 9599 INJURY 02-22-2010 [place] OTHER AND [facility] UNSPECIFIED LLC UNSPECIFIED SITE E8889 UNSPECIFIED 02-22-2010 [place] FALL [facility] 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 ME 35 AN [...] -2 -2 .0 CK 68 RA ti VT 30 4- 4- 00 SO 54 D [...] 4- 4- 00 SO 58 D ve VT 76 20 20 N UM IL 17 [...] 8- 3- 00 SO 20 D ve VT 76 20 20 N UM IL 17 11 11 AP AR 0 OT M 40 HE CA MG RY # TA BL 00 ET 7 CY 00 08 08 15 5 RI 89 MARIAELENA Ac CL 37 -2 -2 .0 TE 58 WM ti OB 80 9- 9- 00 97 AN ve EN 75 20 20 AI ZA 11 11 11 D KE VT 0 PH NN IN AR Y E MA L 10 CY MG 03 21 TA 6 BL # ET 03 21 00 08 08 0 10 3 FA 41 NHAN Ac 40 -1 -1 .0 [place] 83 HN ti 60 5- 5- 00 [...] 10 2- 4- 00 17 D ve VT 40 20 20 AI IL 90 11 [...] 0 14 7 FA 67 BU Ac VT 11 -1 -1 .0 [place] 89 RN ti OF 10 6- 6- 00 LY 74 ET ve LO 12 20 20 9 TE XA 70 11 11 PH CI 1 AR GE N MA OR HC CY GE L E 50 OF 0 MG JA CK TA SO B N NE 61 07 07 0 10 10 FA 67 BU Ac OM 31 -1 -1 .0 [place] 89 RN ti YC 40 6- 6- [...] -0 -0 .0 CK 92 RA ti VT 30 8- 8- 00 SO 19 D [...] 00 7- 6- 00 95 D ve VT 51 20 20 AI IL 70 11 11 D MA 1 PH H 40 AR MA MG CY TA 03 BL 21 ET 6 # 03 21 00 06 06 0 20 5 FA 41 BU Ac 59 -2 -2 .0 [place] 80 RN ti 10 5- 5- 00 LY 55 ET ve 50 20 20 4 TE 20 11 11 PH 5 AR GE MA OR CY GE E OF JA CK SO N NE 61 06 06 0 10 3 FA 67 BU Ac OM 31 -2 -2 .0 [place] 85 RN ti YC 40 5- 5- 00 LY 88 ET ve IN 64 20 20 5 TE -P 51 11 11 PH OL 1 AR GE YM MA OR YX CY GE IN E -H OF C EA JA R CK HERNDON SO SP N CI 55 06 06 0 10 5 FA 67 BU Ac VT 11 -2 -2 .0 [place] 85 RN ti OF 10 5- 5- [...] 00 9- 9- 00 60 D ve VT 51 20 20 AI IL 50 11 11 D MA 1 PH H 20 AR MA MG CY TA 03 BL 21 ET 6 # 03 21 00 06 06 0 24 5 FA 41 GR Ac 59 -0 -0 .0 [place] 79 AY ti 10 3- 3- 00 LY 39 , ve 54 20 20 0 II 00 11 11 PH I 5 AR NHAN MA HN CY I OF JA CK SO N 00 06 06 0 24 5 FA 41 GR Ac 59 -0 -0 .0 [place] 79 AY ti 10 3- 3- 00 LY 39 ve 54 20 20 0 II 00 11 11 PH I 5 AR NHAN MA HN CY I OF JA CK SO N IB 55 06 06 0 30 6 FA 67 GR Ac UP 11 -0 -0 .0 [place] 81 AY ti RO 10 3- 3- [...] ti NO 10 SO 08 D ve VT 40 20 20 N UM IL 71 11 11 AP AR 0 OT M 10 HE CA MG RY # TA BL 00 ET 7 00 05 05 0 12 4 FA 41 CA Ac 59 -2 -2 .0 [place] 79 MP ti 10 7- 7- 00 LY 09 BE ve 34 20 20 6 LL 90 11 11 PH 5 AR RO MA GE CY R D OF JA CK SO N 00 05 05 0 12 4 FA 41 CA Ac 59 -2 -2 .0 [place] 79 MP ti 10 7 7- 00 LY 09 BE ve 34 20 20 6 LL 90 11 11 PH 5 AR RO MA GE CY R D OF JA CK SO N AM 00 05 05 0 30 10 FA 67 CA Ac OX 78 -2 -2 .0 [place] 80 MP ti IC 12 7- 7- 00 LY 30 BE ve IL 61 20 20 6 LL LI 30 11 11 PH N 5 AR RO 50 MA GE 0 CY R MG D OF CA PS JA UL CK E SO N BE 57 05 05 0 30 10 FA 67 WA Ac NZ 66 -2 -2 .0 [place] 80 RR ti ON 40 6- 6- 00 LY 13 EN ve AT 13 20 20 4 AT 48 11 11 PH LA E 8 AR RR 20 MA Y 0 CY E MG OF CA PS JA UL CK E SO N AZ 00 05 05 0 6. 5 FA 67 WA Ac IT 78 -2 -2 00 [place] 80 RR ti HR 11 6- 6- 0 LY 13 EN ve OM 49 20 20 5 YC 66 11 11 PH LA IN 8 AR RR MA Y 25 CY E 0 MG OF TA JA BL CK ET SO N LO 45 05 05 12 30 30 FA 67 MU Ac RA 80 -0 -0 .0 [place] 75 RA ti TA 20 3- 3- 00 LY 02 D ve DI 65 20 20 4 NE 08 11 11 PH MA 7 AR H 10 MA CY MG OF TA BL JA ET CK SO N LI 00 04 04 0 30 30 FA 67 MU Ac SI 18 -1 -1 .0 [place] 71 RA ti NO 55 9- 9- 00 LY 92 D ve VT 40 20 20 7 UM IL 00 [...] N ZA 11 11 11 D AA VT 0 PH RO IN AR N E MA W 10 CY MG 03 21 TA 6 BL # ET 03 21 NA 00 02 02 30 15 RI 87 NHAN Ac VT 09 -2 -2 .0 TE 55 HN ti OX 30 8- 8- 00 90 SO ve EN 14 20 20 AI N 90 11 11 D AA 50 1 PH RO 0 AR N MG MA W CY TA BL 03 ET 21 6 # 03 21 CI 00 01 01 1 7. 10 FA 67 SA Ac VT 06 -2 -2 50 [place] 51 RT ti OD 58 8- 8- [...] BU Ac TH 60 -2 -2 .0 [place] 43 RN ti OC 34 1- 1- 00 LY 54 ET ve AR 48 20 20 3 TE BA 62 10 10 PH MO 8 AR GE L MA OR 75 CY GE 0 E MG OF TA JA BL CK ET SO N AZ 59 12 12 0 6. 5 FA 67 SA Ac IT 76 -0 -0 00 [place] 40 RT ti HR 23 8- 8- 0 LY 79 AW ve OM 06 20 20 0 I YC 00 10 10 PH TA IN 1 AR RI MA Q 25 CY 0 MG OF TA JA BL CK ET SO N MU 45 11 11 0 22 14 FA 67 SA Ac PI 80 -0 -0 .0 KY 32 RT ti RO 20 2- 2- 00 LY 33 AW ve CI 11 20 20 6 I N 22 10 10 PH TA 2% 2 AR RI MA Q OI CY NT ME OF NT JA CK SO N 59 11 11 0 14 7 FA 67 SA Ac 76 -0 -0 .0 KY 32 RT ti 22 2- 2- 00 LY 33 AW ve 18 20 20 7 I 00 10 10 PH TA 1 AR RI MA Q CY OF JA CK SO N CI 16 10 10 0 10 5 FA 67 BU Ac VT 25 -3 -3 .0 KY 31 RN ti OF 20 0- 0- 00 LY 71 ET ve LO 51 20 20 7 TE XA 50 10 10 PH CI 1 AR GE N MA OR HC CY GE L E 50 OF 0 MG JA CK TA SO B N VT 10 10 10 0 10 2 FA 67 BU Ac OM 70 -3 -3 .0 [place] 31 RN ti ET 20 0- 0- 00 LY 71 ET ve RESENDIZ 00 20 20 8 TE ZI 31 10 10 PH NE 0 AR GE MA OR 25 CY GE E MG OF TA JA BL CK ET SO N CI 65 10 10 14 7 RI 86 BU Ac VT 86 -1 -1 .0 TE 15 RN ti OF 20 7- 7- 00 09 ET ve LO 07 20 20 AI TE XA 70 10 10 D CI 1 PH GE N AR OR HC MA GE L CY E 50 0 03 MG 21 6 TA # B 03 21 CI 00 09 09 0 14 7 WA 71 BU Ac VT 37 -2 -2 .0 L- 67 RN [...] GR Ac UP 11 -1 -1 .0 [place] 22 AY ti RO 10 7- 7- 00 LY 08 , ve FE 68 20 20 9 II N 20 10 10 PH I 40 5 AR NHAN 0 MA HN MG CY I TA OF BL ET CK SO N 00 09 09 0 24 5 FA 41 GR Ac 59 -1 -1 .0 [place] 65 AY ti 10 7- 7- 00 LY 56 , ve 54 20 20 8 II 00 10 10 PH I 5 AR NHAN MA HN CY I OF CK SO N 00 09 09 0 24 5 FA 41 GR Ac 59 -1 -1 .0 [place] 65 AY ti 10 7- 7- 00 LY 56 ve 54 20 20 8 II 00 10 10 PH I 5 AR NHAN MA HN CY I OF CK SO N 00 09 09 0 10 2 FA 41 CA Ac 59 -1 -1 .0 [place] 65 MP ti 10 4- 4- 00 LY 38 BE ve 34 20 20 1 LL 90 10 10 PH 5 AR RO MA GE CY R D OF CK SO N 00 09 09 0 10 2 FA 41 CA Ac 59 -1 -1 .0 [place] 65 MP ti 10 4- 4- 00 [...] 09 14 7 RI 85 BU Ac VT 86 -0 -0 .0 TE 71 RN [...] 0 14 7 WA 71 BU Ac VT 37 -0 -0 .0 L- 60 RN [...] EG ZA 11 10 10 D OR VT 0 PH Y IN AR J E [...] Procedure DOS Code Location Performer Comment THERAPEUT 69356 [facility] IC [facility] PROPHYLAC INC INC TIC/DX INJECTION SUBQ/[place] [address] [place] DEXTER CERVICAL 5 MEDICAL ALVINA SPINE W/O IMAGING CONTRAST ASS MATERIAL RADEX 15384 [facility] SPINE 5 MEDICAL FANNIE THORACIC IMAGING 2 VIEWS ASS RADEX 94966 [facility] SPINE 5 MEDICAL FANNIE CERVICAL IMAGING 4 OR 5 ASS VIEWS RADEX 00730 [place] DEXTER SHOULDER 5 MEDICAL [place] COMPLETE IMAGING MINIMUM 2 ASS VIEWS RADEX 58332 [place] DEXTER SPINE 5 MEDICAL ALVINA LUMBOSACR IMAGING AL ASS MINIMUM 4 VIEWS RADIOLOGI 72298 [place] KESHIA C 4 RIVER [facility] TRINIDAD EXAMINATI LLC ON CHEST SINGLE VIEW FRONTAL RADEX 62483 KESHIA KESHIA SHOULDER 1 TRINIDAD TRINIDAD COMPLETE MINIMUM 2 VIEWS IM ADM 38592 [place] [facility] [place] [facility] PRQ ID 1 [facility] CTR, MED CTR, SUBQ/IM ATTN: ATTN: NJXS 1 [facility]E DEN[place] VACCINE NONEMERG A0120 [facility] TRNSPRT: 1 REPLACED BY [facility] [employer] [facility] MTN ACTION P AREA/OTH SYS THERAPEUT 30916 [facility] R[facility] IC 1 MED CTR, MED CTR, PROPHYLAC ATTN: ATTN: TIC/DX DENE DEN[place] INJECTION SUBQ/IM RADIOLOGI 08884 [facility] C 1 RIVER HBP N NOR EXAMINATI LLC ON FOOT 2 VIEWS RADEX HIP [address] [place] 1 MED CTR, MED CTR, UNILATERA ATTN: ATTN: L DENE DEN[place] COMPLETE MINIMUM 2 VIEWS NONEMERG A0120 [facility] TRNSPRT: 1 REPLACED BY [facility] [employer] REPLACED BY [facility] MTN ACTION P AREA/OTH SYS NONEMERG A0120 [facility] TRNSPRT: 1 REPLACED BY [facility] [employer] REPLACED BY [facility] MTN ACTION P AREA/OTH SYS NONEMERG A0120 [facility] TRNSPRT: 1 REPLACED BY [facility] [employer] [facility] MTN ACTION P AREA/OTH SYS INJECTION J0735 [facility] ASM 1 CLINIC CLONIDINE HYDROCHLO RIDE 1 MG NONEMERG A0120 [facility] TRNSPRT: 1 REPLACED BY [facility] [employer] [facility] MTN ACTION P AREA/OTH SYS NONEMERG A0120 [facility] TRNSPRT: 1 REPLACED BY [facility] [employer] [facility] MTN ACTION P AREA/OTH SYS NONEMERG A0120 [facility] TRNSPRT: 1 REPLACED BY [facility] [employer] REPLACED BY [facility] MTN ACTION P AREA/OTH SYS RADEX 48742 MEDICAL [facility] A HIPS 1 MALL BILATERAL IMAGING 2 VIEWS CENTER ANTEROPOS T PELVIS NONEMERG A0120 [facility] TRNSPRT: 1 REPLACED BY [facility] [employer] REPLACED BY [facility] MTN ACTION P AREA/OTH SYS NONEMERG A0120 [facility] TRNSPRT: 1 REPLACED BY [facility] [employer] REPLACED BY [facility] MTN ACTION P AREA/OTH SYS NONEMERG A0120 [facility] TRNSPRT: 1 REPLACED BY [facility] AREA/OTH SYS NONEMERG A0120 [facility] TRNSPRT: 1 [facility] [employer] ACTION P AREA/OTH SYS CULTURE 57964 [place] BACTERIAL 1 MED CTR, MED CTR, BLOOD ATTN: ATTN: AEROBIC PATRICIAE PATRICIAE W/ID ISOLATES COLLECTIO 06769 [place] VENOUS 1 MED CTR, MED CTR, BLOOD ATTN: ATTN: VENIPUNCT DOUGIE CONSTANTINO URE CREATINE 18803 [place] KINASE MB 1 MED CTR, MED CTR, FRACTION ATTN: ATTN: ONLY PATRICIAE PATRICIAE BASIC 35568 [place] METABOLIC 1 MED CTR, MED CTR, PANEL ATTN: ATTN: CALCIUM [place] DEN[place] TOTAL NATRIURET 59921 [place] IC 1 [facility] CTR, MED CTR, PEPTIDE ATTN: ATTN: [place] [address] [place] TROPONIN 1 MED CTR, MED CTR, QUANTITAT ATTN: ATTN: BLANQUITA PATRICIAE [place] BLOOD 10923 [place] COUNT 1 [facility] CTR, MED CTR, COMPLETE ATTN: ATTN: AUTO&AUTO [place] DEN[place] DIFRNTL WBC CREATINE 28653 [place] KINASE 1 MED CTR, MED CTR, TOTAL ATTN: ATTN: [place] [address] [place] MAGNESIUM 1 MED CTR, MED CTR, ATTN: ATTN: DENE [place] ECG 00654 [place] ROUTINE 1 MED CTR, MED CTR, ECG ATTN: ATTN: W/LEAST DENE DENE 12 LDS TRCG ONLY W/O I&R RADIOLOGI 76955 [place] KESHIA C EXAM 1 RIVER HBP TRINIDAD CHEST 2 LLC VIEWS FRONTAL&L ATERAL NONEMERG A0120 [facility] TRNSPRT: 1 REPLACED BY [facility] ACTION [facility] AREA/OTH SYS HLA 65677 [place] TYPING 1 MED CTR, MED CTR, A/B/C ATTN: ATTN: [place] [address] [place] THYROID 1 MED CTR, MED CTR, STIMULATI ATTN: ATTN: NG [place]E [place] HORMONE TSH C-REACTIV 46278 [place] E PROTEIN 1 MED CTR, MED CTR, ATTN: ATTN: DENE [place] RHEUMATOI 92745 [place] D FACTOR 1 MED CTR, MED CTR, QUALITATI ATTN: ATTN: VE [place] SEDIMENTA 13054 [place] TION RATE 1 MED CTR, MED CTR, RBC ATTN: ATTN: NON-AUTOM [place] ATED COMPLEMEN 11538 [place] T ANTIGEN 1 MED CTR, MED CTR, EACH ATTN: ATTN: COMPONENT [place] CYCLIC [address] [place] [address] [place] CITRULLIN 1 MED CTR, MED CTR, ATED ATTN: ATTN: PEPTIDE DENE [place] ANTIBODY BASIC 17207 [place] METABOLIC 1 MED CTR, MED CTR, PANEL ATTN: ATTN: [place] [address] [place] [address] BLOOD/URI 1 MED CTR, MED CTR, C ACID ATTN: ATTN: DENE [place] COLLECTIO 72146 [place] VENOUS 1 MED CTR, MED CTR, BLOOD ATTN: ATTN: VENIPUNCT DENE DENE URE ANTINUCLE [address] [place] [address] [address] [place] AR 1 MED CTR, MED CTR, ANTIBODIE ATTN: ATTN: S YOHAN [place] LIPID 10689 [place] PANEL 1 MED CTR, MED CTR, ATTN: ATTN: DENE [place] BLOOD 36330 [place] COUNT 1 [facility] CTR, MED CTR, COMPLETE ATTN: ATTN: AUTO&AUTO DENE DENE DIFRNTL WBC NONEMERG A0120 [facility] [place] TRNSPRT: 1 COMMUNITY [facility] ACTION COMMUNITY MTN ACTION P AREA/OTH SYS MRI 22192 RADIOLOGY JOHNSNO A SPINAL 1 SERVICES CANAL LUMBAR W/O CONTRAST MATERIAL NONEMERG A0120 [facility] TRNSPRT: 1 [employer] ACTION REPLACED BY [facility] MTN ACTION P AREA/OTH SYS RADEX 28405 [facility] SPINE 1 RIVER [facility] TRINIDAD LUMBOSACR LLC AL 2/3 VIEWS REMOVAL 34584 KJ LEIVATAWI IMPACTED 1 ENT TAR CERUMEN CLINIC INSTRUMEN PSC TATION UNILAT RADIOLOGI 99392 [facility] [place] SAKOW NOL C EXAM 1 RIVER HBP CHEST 2 LLC VIEWS FRONTAL&L ATERAL BLOOD 21301 [place] [place] COUNT 1 MED CTR, MED CTR, COMPLETE ATTN: ATTN: AUTO&AUTO DENE [place] [address] [place] [place] [facility] 1 MED CTR, MED CTR, OTHERWISE ATTN: ATTN: DENE DENE SPECIFIED EACH ORGANISM COLLECTIO 43890 [place] [place] N 1 MED CTR, MED CTR, CAPILLARY ATTN: ATTN: BLOOD DENE DENE SPECIMEN IAADIADOO 44573 [place] [facility] 1 MED CTR, MED CTR, STREPTOCO ATTN: ATTN: CCUS DOUGIE DENE GROUP A GROUND A0425 TRANS TRANS MILEAGE 0 STAR STAR PER AMBULANCE AMBULANCE STATUTE SVC SVC MILE AMB A0427 TRANS TRANS SERVICE 0 STAR STAR ALS AMBULANCE AMBULANCE EMERGENCY SVC SVC TRANSPORT LEVEL 1 RADIOLOGI 13014 [facility] [place] KESHIA C EXAM 0 RIVER HBP TRINIDAD CHEST 2 LLC VIEWS FRONTAL&L ATERAL RADIOLOGI 77565 [facility] [place] C 0 RIVER HBP TRINIDAD EXAMINATI LLC ON PELVIS 1/2 VIEWS RADEX 77164 [facility] [place] KESHIA SHOULDER 0 RIVER HBP TRINIDAD COMPLETE LLC MINIMUM 2 VIEWS REMOVAL 73548 KJ MARIN IMPACTED 0 ENT TAR CERUMEN CLINIC INSTRUMEN PSC TATION UNILAT INCISION 29420 MAURILIO I JIMENEZ III & 0 JIMENEZ III VALERIE DRAINAGE PSC N0 3 COMPLEX PO WOUND INFECTION NONEMERG A0120 [facility] TRNSPRT: 0 Car Rent[employer] Market ACTION REPLACED BY [facility] MTN ACTION P AREA/OTH SYS NONEMERG A0120 [facility] [place] TRNSPRT: 0 REPLACED BY [facility] [place] ACTION REPLACED BY [facility] MTN ACTION P AREA/OTH SYS NONEMERG A0120 [facility] [place] TRNSPRT: 0 REPLACED BY [facility] [place] ACTION REPLACED BY [facility] MTN ACTION P AREA/OTH SYS DEEP D9220 MAURILIO JIMENEZ III SEDATION/ 0 JIMENEZ III VALERIE GENERAL PSC N0 3 ANESTHESI A- 30 MINUTES IAADIADOO 46977 [facility] 0 MED CTR MED CTR STREPTOCO CCUS GROUP A COLLECTIO 26074 [facility] N VENOUS 0 MED CTR MED CTR BLOOD VENIPUNCT URE BLOOD 54138 [facility] COUNT 0 MED CTR MED CTR COMPLETE AUTO&AUTO DIFRNTL WBC RADEX 27178 [facility]OS, SPINE 0 [facility] A LUM[facility]OS[facility]CR IMAG[facility] CENTER MINIMUM 4 VIEWS RADEX 84666 [facility], SPINE 0 SERVICES MARA C LUMBOSACR AL MINIMUM 4 VIEWS RADEX 98737 RADIOLOG[facility]ACH[facility], SPINE 0 SERVICES MARA C THORACIC 3 VIEWS RADEX 93552 [facility], SPINE 0 RIVER HBP YANETH K THORACIC LLC 3 VIEWS DEEP D9220 MAURILIO PINA SEDATION/ 0 JIMENEZ III MAURILIO Houhg GENERAL PSC N0 3 ANESTHESI A- 30 MINUTES ORTHOPANT 28717 MAURILIO PINA OGRAM 0 JIMENEZ III MAURILIO Hough PSC N0 3 Encounters Encounter Start End Date Code Location Performer Type Date OFFICE [id number] [facility] PABLO OUTPATIEN 6 6 PHYSICIAN SRIRAM T VISIT S GROUP 15 MINUTES HOSPITAL STEVEN - 6 6 [facility] T EMERGENCY 43649 STEVEN 6 6 [facility] T VISIT LOW/MODER SEVERITY EMERGENCY 10492 ADELA COLLADO 6 6 PHYSICIAN U FANNIE [facility] T VISIT HIGH/URGE NT SEVERITY HOSPITAL STEVEN - 5 5 [facility] T EMERGENCY 58735 STEVEN 5 5 [facility] T VISIT LOW/MODER SEVERITY EMERGENCY 60629 ADELA ONOFRE 5 5 PHYSICIAN JAYESH DEPARTMEN S, [facility] T VISIT MODERATE SEVERITY EMERGENCY 85386 GRANT BURNS 5 5 LEO LEO DEPARTMEN T VISIT HIGH/URGE NT SEVERITY OFFICE 19811 [facility] PABLO OUTPATIEN 5 5 PHYSICIAN SRIRAM T VISIT S GROUP 25 MINUTES OFFICE 15352 [facility] PABLO OUTPATIEN 5 5 PHYSICIAN SRIRAM T VISIT S GROUP 15 MINUTES EMERGENCY 79167 KASIE MARINELLI, 4 4 [facility]IVER [facility] III [facility] T VISIT MODERATE SEVERITY EMERGENCY [address] [place] [facility], DEPARTMEN ATTN: T VISIT DENE LOW/MODER SEVERITY [facility] 1 1 MED CTR, OUTPATIEN ATTN: T DENE EMERGENCY 56088 NANCIE NANCIE 1 1 G G DEPARTMEN T VISIT MODERATE SEVERITY EMERGENCY 91373 [place] 1 1 [facility], DEPARTMEN ATTN: T VISIT DENE MODERATE SEVERITY [facility]OSPITAL [facility] - 1 1 MED CTR, OUTPATIEN ATTN: T DENE EMERGENCY [address]84 [place] 1 1 [facility], DEPARTMEN ATTN: T VISIT DENE MODERATE SEVERITY EMERGENCY 06922 NANCIE NANCIE 1 1 G G DEPARTMEN T VISIT LIMITED/M INOR PROB [facility]OSPITAL [place] 1 1 [facility], OUTPATIEN ATTN: T DENE EMERGENCY [address]015 [place] 1 1 [facility], DEPARTMEN ATTN: T VISIT DENE MODERATE SEVERITY EMERGENCY 95991 NANCIE NANCIE 1 1 G G DEPARTMEN T VISIT LOW/MODER SEVERITY [facility] [place] [facility] 1 [facility], OUTPATIEN ATTN: T [facility] [place] [facility], OUTPATIEN ATTN: T DENE EMERGENCY [address]15 [place] 1 1 [facility], DEPARTMEN ATTN: T VISIT DENE MODERATE SEVERITY OFFICE 45616 [facility] PEREZ LORENA OUTPATIEN 1 1 CLINIC T VISIT 25 MINUTES OFFICE 74480 [facility] PEREZ ASM OUTPATIEN 1 1 CLINIC T VISIT 15 MINUTES EMERGENCY [address]9310 [place] 1 1 [facility], DEPARTMEN ATTN: T VISIT DENE MODERATE SEVERITY [facility] - 1 1 MED CTR, OUTPATIEN ATTN: T DENE EMERGENCY 35050 [facility] 1 1 [facility] III [facility] LOW/MODER SEVERITY [facility] - 1 1 MED CTR, OUTPATIEN ATTN: T DENE EMERGENCY 33636 [facility] RUSS 1 1 [facility] T [facility]ISIT HIGH/URGE NT SEVERITY EMERGENCY 49927 [facility] 1 1 MED CTR, DEPARTMEN ATTN: T VISIT DENE MODERATE SEVERITY EMERGENCY 95996 [facility] 1 1 [facility] T VISIT LOW/MODER SEVERITY [facility] [place] [facility] 1 [facility], OUTPATIEN ATTN: T DENE EMERGENCY [address]1566 [place] 1 1 [facility], DEPARTMEN ATTN: T VISIT DENE MODERATE SEVERITY EMERGENCY 73357 [place] 1 1 [facility], DEPARTMEN ATTN: T VISIT DENE MODERATE SEVERITY [facility]PITAL [place] [facility] 1 [facility], OUTPATIEN ATTN: T DENE OFFICE 54067 KARYNS MURAD [facility] OUTPATIEN 1 1 CLINIC T VISIT 15 MINUTES [facility] [place] [facility], OUTPATIEN ATTN: T DENE [place]ENCY 22827 [place] 1 [place] [facility], DEPARTMEN ATTN: T VISIT DENE MODERATE SEVERITY OFFICE 55242 [facility] 1 1 FAMILY A [facility] NEW/ESTAB SRV AR PATIENT 40 MIN [facility]OSPITAL [place] [facility], OUTPATIEN ATTN: T DENE EMERGENCY 04903 [place] 1 1 [facility], DEPARTMEN ATTN: T VISIT DENE MODERATE SEVERITY OFFICE 27169 KARYNS DAPHNEYAD ASM OUTPATIEN 1 1 CLINIC T VISIT 15 MINUTES EMERGENCY 15034 [facility] 1 [facility] G [facility] T VISIT LOW/MODER SEVERITY EMERGENCY 60711 [place] 1 1 [facility], DEPARTMEN ATTN: T VISIT DENE MODERATE SEVERITY [facility] [place] [facility], OUTPATIEN ATTN: T DENE OFFICE 04001 CHALENARDS MURAD ASM OUTPATIEN 1 1 CLINIC T VISIT 15 MINUTES OFFICE 81770 CHAVIES MURAD ASM OUTPATIEN 1 1 CLINIC T VISIT 15 MINUTES [facility] [place] [facility], OUTPATIEN ATTN: T DENE EMER[place]ENCY [address]8540 [place] 1 1 [facility], DEPARTMEN ATTN: T VISIT DENE MODERATE SEVERITY EMERGENCY 09090 [facility] NISHI [facility] 1 [facility] LAR [facility] T VISIT LOW/MODER SEVERITY EMERGENCY 29190 [facility] 1 1 [facility] G [facility] T VISIT MODERATE SEVERITY [facility] [place] [facility], OUTPATIEN ATTN: T DENE OFFICE 56098 [facility] CARRILLO OUTPATIEN 1 1 CLINIC T VISIT 15 MINUTES [facility]OSPITAL [facility] - 1 1 MED CTR, OUTPATIEN ATTN: T DENE EMERGENCY 81051 [facility] NANCI[place] 1 1 [facility] G [facility] T VISIT LOW/MODER SEVERITY EMERGENCY 14182 [facility] 1 1 MED CTR, DEPARTMEN ATTN: T VISIT DENE MODERATE SEVERITY OFFICE 02916 KJ MARIN OUTPATIEN 1 1 ENT TAR T VISIT CLINIC 25 PSC MINUTES EMERGENCY 22773 [facility] 1 1 MED CTR, DEPARTMEN ATTN: T VISIT DENE MODERATE SEVERITY EMERGENCY 73548 [place] RICH NATALIIA 1 1 RIVER [facility] T VISIT LOW/MODER SEVERITY [facility] - 1 1 MED CTR, OUTPATIEN ATTN: T DENE OFFICE 42455 MAURILIO I JIMENEZ III OUTPATIEN 1 1 JIMENEZ III VALERIE T VISIT PSC N0 3 10 MINUTES EMERGENCY 04689 [facility] 1 1 MED CTR, DEPARTMEN ATTN: T VISIT DENE HIGH/URGE NT SEVERITY [facility] - 1 1 MED CTR, OUTPATIEN ATTN: T DENE [facility]ERGENCY 92282 [facility] WENDY [facility] T VISIT MODERATE SEVERITY OFFICE 30406 [facility] CARRILLO OUTPATIEN 1 1 CLINIC T VISIT 25 MINUTES [facility] - 1 1 MED CTR, OUTPATIEN ATTN: T DENE [facility] - 1 1 MED CTR, OUTPATIEN ATTN: T DENE EMERGENCY 70663 [place] 1 1 [facility], DEPARTMEN ATTN: T VISIT DENE LIMITED/M INOR PROB OFFICE 01542 [facility] MELENDEZ J CONSULTAT 1 1 ICAL ION ASSOCIATE NEW/ESTAB S PATIENT 40 MIN OFFICE 16080 [facility] LORENZANAA OUTPATIEN 1 1 CLINIC T VISIT 15 MINUTES OFFICE 14256 [facility] LORENZANAA OUTPATIEN 1 1 CLINIC T VISIT 15 MINUTES [facility] [place] [facility], OUTPATIEN ATTN: T DENE OFFICE 29042 CAS PEREZ LORENA OUTPATIEN 1 1 CLINIC T NEW 45 MINUTES [facility] [place] [facility], OUTPATIEN ATTN: T [place]E EM[place]ENCY 34304 [place] [facility] [place] [facility], DEPARTMEN ATTN: T VISIT DENE MODERATE SEVERITY EMERGENCY 63659 KASIE MARLEN 1 1 RIVER HBP ABDULLAHI [facility] T VISIT LOW/MODER SEVERITY [facility] [place] [facility], OUTPATIEN ATTN: T DENE EMERGENCY 78307 KASIE PETRONA 1 1 RIVER HBP AAR [facility] T VISIT MODERATE SEVERITY OFFICE 49053 KJ LEIVATAMO OUTPATIEN 1 1 ENT TAR T VISIT CLINIC 15 PSC MINUTES OFFICE 84107 KJ LEIVATAMO OUTPATIEN 1 1 ENT TAR T VISIT CLINIC 25 PSC MINUTES EMERGENCY [address]3691 [place] [facility] [place] [facility], DEPARTMEN ATTN: T VISIT DENE MODERATE SEVERITY [facility] [place] [facility], OUTPATIEN ATTN: T DENE EMERGENCY 86484 KASIE NANCIE 1 1 R[facility] HBP G [facility] T VISIT LOW/MODER SEVERITY EM[place] [address]25 [place] 0 [place] [facility], DEPARTMEN ATTN: T VISIT DENE MODERATE SEVERITY [facility] [place] [facility], OUTPATIEN ATTN: T DENE EMERGENCY 29788 [place] 0 0 R[facility] HBP G [facility] T VISIT LOW/MODER SEVERITY OFFICE 86269 KJ MARIN OUTPATIEN 0 0 ENT TAR T VISIT CLINIC 25 PSC MINUTES OFFICE 09504 KJ MARIN CONSULTAT 0 0 ENT TAR ION CLINIC NEW/ESTAB PSC PATIENT 60 MIN EMERGENCY [address]92 [place] [facility] DEPARTMEN T VISIT HIGH/URGE NT SEVERITY [facility] [place] [facility] OUTPATIEN T EMERGENCY 42595 [place] 0 0 [facility] G [facility] T VISIT LOW/MODER SEVERITY [facility] [place] [facility] OUTPATIEN T EMERGENCY 42391 [place] 0 0 [facility] HBP G [facility] T VISIT LOW/MODER SEVERITY EMERGENCY 19082 [place] [facility] DEPARTMEN T VISIT MODERATE SEVERITY [facility] [place] [facility] OUTPATIEN T EMERGENCY 43216 [place] 0 [facility] DEPARTMEN T VISIT MODERATE SEVERITY EMERGENCY 64935 [place] 0 0 R[facility] HBP G [facility] T VISIT LOW/MODER SEVERITY EMERGENCY 43451 [place] [facility] DEPARTMEN T VISIT MODERATE SEVERITY [facility] [place] [facility] [place] [facility] OUTPATIEN T EMERGENCY 93969 [place] 0 0 R[facility] HBP [facility] T VISIT LOW/MODER SEVERITY EMERGENCY 08080 [place] 0 [facility] DEPARTMEN T VISIT MODERATE SEVERITY EMERGENCY 98627 [facility] R[place], 0 0 R[facility] H[facility] ARIF M [facility] T VISIT LOW/MODER SEVERITY EMERGENCY 79957 [place] 0 [facility] DEPARTMEN T VISIT MODERATE SEVERITY [facility] [place] [facility] OUTPAT[facility]EN T EMERGENCY 12282 [place] [facility] DE[facility]MEN T VISIT MODERATE SEVERITY [facility] [place] [facility] OUTPATIEN T EMERGENCY 08151 KASIE PETRONA, 0 0 RIVER HBP KAMALA W [facility] T VISIT LOW/MODER SEVERITY EMERGENCY 41055 [facility] [place] [place], 0 0 R[facility] HBP G E [facility] T VISIT LOW/MODER SEVERITY EM[place]GENC[place] 52774 [place] 0 0 [facility] DEPARTMEN T VISIT MODERATE SEVERITY [facility] [place] [facility] OUTPATIEN T EMERGENCY 04693 [place], 0 0 [facility] T VISIT LLC HIGH/URGE NT SEVERITY OFFICE 06908 ELENA JEMISON OUTPATIEN 0 0 NEUMANNS PAB T VISIT EXTENDED 15 H MINUTES [facility] [place] [facility] OUTPATIEN T EMERGENCY 03480 [facility] REFFNER, 0 0 R[facility] H[facility] LIANNE S [facility] T VISIT LOW/MODER SEVERITY EMERGENCY 88421 [place] 0 0 [facility] DEPARTMEN T VISIT MODERATE SEVERITY OFFICE 84449 MAURILIO PINA, OUTPATIEN 0 0 JIMENEZ III MAURILIO R T VISIT PSC N0 3 10 MINUTES [facility] [place] [facility] OUTPATIEN T EMERGENCY 95115 KASIE TAYLER, 0 0 RIVER HBP SAMANTHA J [facility] T VISIT MODERATE SEVERITY
--- OUTSIDE RECORDS SUMMARY | 2016-12-16 12:32 | External Medical Summary Rpt | CCD ---
Demographics Preferred Language Persian Marital Status Unknown Tenriism Affiliation Unknown Race Unknown Ethnic Group Unknown Author Author , ASHWIN CHRISTOPHER Address Unknown Phone Immunization No patient found.
--- OUTSIDE RECORDS SUMMARY | 2016-12-16 12:32 | External Medical Summary Rpt ---
Author Author SANGITAJOSE CARLOS De La Cruz, [employer] Organization [employer] Address Unknown Phone Unavailable Results CBC W Auto Differential panel in Blood Observa Value Referen Units Interpr Notes Date tion ce etation Range Basophils 0 - 0.2 K/MM3 Normal No Aug 24 informati 2017 6:45 [#/volume on in AM ] in source Blood by data Automated count Basophils 0.1 - 2.0 % Normal No Aug 24 /100 informati 2017 6:45 leukocyte on in AM s in source Blood by data Automated count Eosinophi 0.0 - 0.4 K/mm3 Normal No Aug 24 ls informati 2017 6:45 [#/volume on in AM ] in source Blood by data Automated count Eosinophi 0.1 - % Normal No Aug 24 ls/100 12.0 informati 2017 6:45 leukocyte on in AM s in source Blood by data Automated count Granulocy 1.3 - 8.0 K/mm3 Normal No Aug 24 emir informati 2017 6:45 [#/volume on in AM ] in source Blood by data Automated count Granulocy 37.0 - % Normal No Aug 24 emir/100 80.0 informati 2017 6:45 leukocyte on in AM s in source Blood by data Automated count Hematocri 42.0 - % Normal No Aug 24 t [Volume 52.0 informati 2017 6:45 on in AM Fraction] source of Blood data Hemoglobi 14.1 - g/dL Normal No Aug 24 n 18.0 informati 2017 6:45 [Mass/vol on in AM ume] in source Blood data Lymphocyt 0.7 - 4.5 K/mm3 Normal No Aug 24 es informati 2017 6:45 [#/volume on in AM ] in source Unspecifi data ed specimen by Automated count Lymphocyt 10 - 50 % Normal No Aug 24 es informati 2017 6:45 [#/volume on in AM ] in source Unspecifi data ed specimen by Automated count Erythrocy 27 - 31.2 pg High No Aug 24 te mean informati 2017 6:45 corpuscul on in AM ar source hemoglobi data n [Entitic mass] Erythrocy 31.8 - g/dl Normal No Aug 24 te mean 35.4 informati 2017 6:45 corpuscul on in AM ar source hemoglobi data n concentra tion [Mass/vol ume] by Automated count Erythrocy 82.2 - fl Normal No Aug 24 te mean 97.8 informati 2017 6:45 corpuscul on in AM ar volume source [Entitic data volume] by Automated count Monocytes 0.1 - 1.0 K/mm3 Normal No Aug 24 informati 2017 6:45 [#/volume on in AM ] in source Blood by data Automated count Monocytes 1.7 - 9.3 % Normal No Aug 24 /100 informati 2017 6:45 leukocyte on in AM s in source Blood by data Automated count Platelet 7.4 - fl Normal No Aug 24 mean 10.4 informati 2017 6:45 volume on in AM [Entitic source volume] data in Blood by Automated count Platelets 142 - 424 K/mm3 Normal No Aug 24 informati 2017 6:45 [#/volume on in AM ] in source Blood data Erythrocy 4.6 - 6.2 M/mm3 Normal No Aug 24 emir informati 2017 6:45 [#/volume on in AM ] in source Amniotic data fluid Erythrocy 11.5 - % Normal No Aug 24 te 17.5 informati 2017 6:45 distribut on in AM ion width source [Entitic data volume] by Automated count Leukocyte 4.8 - K/MM3 Normal No Aug 24 s 10.8 informati 2017 6:45 [#/volume on in AM ] in source Blood data Comprehensive metabolic 2000 panel in Serum or Plasma Observa Value Referen Units Interpr Notes Date tion ce etation Range Albumin/G 1.1 - 1.8 No Normal No Aug 24 lobulin informati informati 2017 6:45 [Mass on in on in AM ratio] in source source Serum or data data Plasma Albumin 3.4 - 5.0 gm/dL Normal No Aug 24 [Mass/vol informati 2016 6:45 ume] in on in AM Serum or source Plasma data Alkaline 46 - 116 U/L Normal No Aug 24 phosphata informati 2017 6:45 se on in AM [Enzymati source c data activity/ volume] in Serum or Plasma Bilirubin 0.2 - 1.0 mg/dL Normal No Aug 24 .total informati 2017 6:45 [Mass/vol on in AM ume] in source Serum or data Plasma Urea 7 - 18 mg/dL Normal No Aug 24 nitrogen informati 2017 6:45 [Mass/vol on in AM ume] in source Serum or data Plasma Calcium 8.5 - mg/dL Normal No Aug 24 [Mass/vol 10.1 informati 2017 6:45 ume] in on in AM Serum or source Plasma data Chloride 98 - 107 mmoL/L Normal No Aug 24 [Moles/vo informati 2017 6:45 lume] in on in AM Serum or source Plasma data Carbon 21.0 - mmoL/L Normal No Aug 24 dioxide, 32.0 informati 2017 6:45 total on in AM [Moles/vo source lume] in data Serum or Plasma Creatinin 0.70 - mg/dL Normal No Aug 24 e 1.30 informati 2017 6:45 [Mass/vol on in AM ume] in source Serum or data Plasma Creatinin 50 - 200 ML/MIN Normal No Aug 24 e renal informati 2017 6:45 clearance on in AM source predicted data by Cockcroft -Gault formula Estimated >60 ML/MIN No REFERENCE Aug 24 informati RANGE: 2017 6:45 glomerula on in >60 AM r source ML/MIN/1. filtratio data 73 SQUARE n rate METERSIf (GF this patient is -A merican, then multiply theresult by 1.210. Globulin 1.3 - 3.2 gm/dL High No Aug 24 [Mass/vol informati 2016 6:45 ume] in on in AM Serum source data Glucose 74 - 106 mg/dL Normal No Aug 24 [Mass/vol informati 2017 6:45 ume] in on in AM Serum or source Plasma data Potassium 3.5 - 5.1 mmoL/L Normal No Aug 24 informati 2016 6:45 [Moles/vo on in AM lume] in source Serum or data Plasma Sodium 136 - 145 mmoL/L Normal No Aug 24 [Moles/vo informati 2017 6:45 lume] in on in AM Serum or source Plasma data Aspartate 15 - 37 U/L Normal No Aug 24 informati 2017 6:45 aminotran on in AM sferase source [Enzymati data c activity/ volume] in Serum or Plasma Alanine 12 - 78 U/L Normal No Aug 24 aminotran informati 2016 6:45 sferase on in AM [Enzymati source c data activity/ volume] in Serum or Plasma Protein 6.4 - 8.2 gm/dL Normal No Aug 24 [Mass/vol informati 2017 6:45 ume] in on in AM Serum or source Plasma data XR SHOULDER RIGHT 4 VIEWS Observa Value Referen Units Interpr Notes Date tion ce etation Range TEXT RIGHT No No No No Oct 24 DIAGNOS SHOULDE informa informa informa informa 2011 IS R, 5 tion in tion in tion in tion in 3:14 PM BATTERY VIEWS, source source source source 10/25/19 data data data data 12:HIST ORY: Pain. Fell.FI NDINGS: AC joint osteoar thritis within fairly project ing spur noted.T his is associa lisbeth withinc reased inciden ce of rotator cuff patholo gy, includi ng acute and chronic tears. [place] ohumera l joint and AC joint are otherwi se normal. IMPRESS ION: AC joint osteoar thritis . Negativ e study otherwi se. XR CERVICAL SPINE AP LATERAL ODONTOID AND OBLIQUE Observa Value Referen Units Interpr Notes Date tion ce etation Range TEXT XR No No No No Oct 24 DIAGNOS CERVICA informa informa informa informa 2011 IS L SPINE tion in tion in tion in tion in 3:13 PM BATTERY AP source source source source LATERAL data data data data ODONTOI D AND OBLIQUE Oct 25, 2011 03:14:1 2PMHIST ORY: TraumaS ix views were taken.A there is mild straigh tening the cervica l spine which may be positio nalor may be due tomuscl e spasm. No fractur e or other more signifi cant abnorma lity is seen.Th ere is no disc spacena rrowing . No signifi cant neural foramin al comprom ise is seen.IM PRESSIO N: Possibl e muscle spasm. No fractur e.
--- OUTSIDE RECORDS SUMMARY | 2016-12-16 12:32 | External Medical Summary Rpt | CCD ---
Demographics Preferred Language Luxembourgish Marital Status Unknown Nondenominational Affiliation Unknown Race Unknown Ethnic Group Unknown Author Author , ASHWIN CHRISTOPHER Address Unknown Phone Immunization No patient found.
== END 2016-12-13 16:11 | disposition home or self-care (01) ==
LOC: UTC 15:08
DX: S83.92XA Sprain of unspecified site of left knee, initial encounter (principal); I10 Essential (primary) hypertension; J44.9 Chronic obstructive pulmonary disease, unspecified; F17.210 Nicotine dependence, cigarettes, uncomplicated

== ENCOUNTER 2016-12-20 12:04 | Emergency (ER) | payer OTHER ==
[~2016-12-20] VITALS: Ht 190.5 cm; Wt 86.2 kg
[~2016-12-20 12:04] MED LIST changes: +IBUPROFEN800 MG PO
--- OUTSIDE RECORDS SUMMARY | 2016-12-20 12:17 | External Medical Summary Rpt | CCD ---
Author Author , ASHWIN Organization ASHWIN Address Unknown Phone [email or web address] Care Team Providers Care Grip Wrapper Name Role Phone AYOS, EMELITA A, Unavailable [...] E CHANDARANA JYO, Unavailable Unavailable CHANDARANA JYO [facility], Unavailable Unavailable [facility] MAURILIO PINA, Unavailable Unavailable MAURILIO PINA, Unavailable Unavailable DEXTER [facility] Unavailable Unavailable [facility] [place] [facility] NASSAR Unavailable Unavailable LEO PABLO SRIRAM, PABLO Unavailable Unavailable SRIRAM JIMENEZ III VALERIE, JIMENEZ Unavailable Unavailable III VALERIE [facility] Unavailable Unavailable INC, [facility] Unavailable Unavailable SRV AR, [facility] SRV AR [facility], Unavailable Unavailable [facility] Unavailable Unavailable [place], [facility] [place] [facility] # Unavailable Unavailable 007, [facility] 007 [facility] Unavailable Unavailable PSC, [facility] MAURILIO I JIMENEZ III [facility] Unavailable Unavailable N0 3, MAURILIO I JIMENEZ III [facility] N0 3 PETRONA LUNA Unavailable Unavailable KAMALA MADRIGAL, Unavailable Unavailable KAMALA RUSS [facility] Unavailable Unavailable IMAGING ASS, [facility] Unavailable Unavailable LLC, [facility] Ivis Parra MD, Unavailable Unavailable Ivis Parra MD [place] [facility] [place] [facility], Unavailable Unavailable ATTN: [place], [place] [facility], ATTN: [facility] NATHEN PAB, NATHEN Unavailable Unavailable PAB [facility] Unavailable Unavailable ACTION P, [facility] ACTION P [facility], [facility] [...] RADIOLOGY SERVICES REFFLIANNE JEAN BAPTISTE, Unavailable Unavailable REFFNER LIANNE S [facility] Unavailable Unavailable [id number] # [id number], [facility] [id number] # [id number] SAKOW NOL, SAKOW NOL Unavailable Unavailable SARTAWI TAR, SARTAWI Unavailable Unavailable TAR RENO COTE, Unavailable Unavailable RENO COTE MARINELLI, III ROSA MARIA, Unavailable Unavailable MARINELLI, III ROSA MARIA SOTINGEANU FANNIE, Unavailable Unavailable SOTINGEANU FANNIE [facility] Unavailable Unavailable [facility] Unavailable Unavailable [facility], [facility] MARA SHARMA, Unavailable Unavailable MARA SHARMA [facility] # Unavailable Unavailable [id number], [facility] # [id number] NISHI LINO Unavailable Unavailable SAMMIE MCCONNELL, Unavailable Unavailable [place] JAYESH Purpose Continuity of Care Document - 05-25-2009 through 2016 Problems Code Diagnosis DOS Provider Status K922 GASTROINTES 04-02-2015 [facility] TINAL PHYSICIANS HEMORRHAGE GROUP UNSPECIFIED I10 ESSENTIAL 03-09-2015 [facility] HYPERTENSIO INC N J0100 ACUTE 03-09-2015 [facility] MAX[facility]ARY [facility], SINUSITIS PLLC UNSPECIFIED 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 CHRONIC 03-09-2015 [facility]CTIVE [facility] PULMONARY INC DISEASE UNS K5289 OTH SPEC 03-09-2015 [facility] NONINFECTIV PHYSICIANS, E PLLC GASTROENTER ITIS & COLITIS K529 NONINFECTIV 03-09-2015 [facility] GASTROENTER INC ITIS & COLITIS UNS Z720 TOBACCO USE 03-09-2015 [facility] INC B349 VIRAL 02-21-2015 [facility] INFECTION PHYSICIANS, UNSPECIFIED PLLC R1111 VOMITING 02-21-2015 [facility] WITHOUT PHYSICIANS, NAUSEA PLL R197 DIARRHEA 02-21-2015 [facility] UNSPECIFIED PHYSICIANS, [facility] 7231 CERVICALGIA 09-20-2014 [place] [facility] 89116 INJURY OF 09-20-2014 [place] [facility] N[facility]K OTHER IMAGING ASS AND UNSPECIFIED 7245 UNSPECIFIED 07-04-2014 [place] BACK[facility]HE [facility] 98792 OSTEOARTHRO 07-01-2014 [place] S UNSPEC MEDICAL WHETHER IMAGING ASS GEN/LOC SHLDR REGION 89452 PAIN IN 07-01-2014 [place] JOINT, MEDICAL SHOULDER IMAGING ASS REGION 7241 PAIN IN 07-01-2014 [facility] THORACIC PHYSICIANS SPINE GROUP 7248 OTHER 07-01-2014 [facility] SYMPTOMS PHYSICIANS REFERABLE GROUP TO BACK 4739 UNSPECIFIED 03-30-2014 [facility] SINUSITIS PHYSICIANS GROUP 4659 ACUTE URIS 02-27-2014 [place] OF [facility]IVER [facility] UNSPECIFIED LLC SITE 4871 INFLUENZA 02-27-2014 [place] WITH OTHER [facility] RESPIRATORY LLC MANIFESTATI ONS 496 CHRONIC 02-27-2014 [place] AIRWAY [facility] OBSTRUCTION LLC NEC 95142 SHORTNESS 02-27-2014 [place] OF BREATH [facility] 7862 COUGH 02-27-2014 [facility] 305.1 305.1 10-29-2012 [place] TOBACCO USE [facility] DISORDER Hospital 401.9 401.9 10-29-2012 [facility] N NOS [facility] 719.46 719.46 10-29-2012 [place] JOINT [facility] PAIN-L/LEG Hospital 465.9 465.9 ACUTE 09-08-2012 [place] URI NOS [facility] [place] 11312 CIRCADIAN 02-12-2011 NAN[place]E G RHYTHM SLEEP DISORDER UNSPECIFIED 69131 UNSPECIFIED 02-12-2011 [place] [facility], CONJUNCTIVI ATTN: DENE TIS 4019 UNSPECIFIED 02-12-2011 [place] [facility], HYPERTENSIO ATTN: DOUGIE N 37982 LOC 02-07-2011 [place] [facility] OSTEO[facility], S NOT SPEC ATTN: DENE PRIM/SEC SHLDR REGION 8409 SPRAIN&STRA 02-07-2011 [place] [facility] IN UNSPEC MED [facility], SITE ATTN: DENE SHOULDER&UP PER ARM 20529 UNSPECIFIED 01-26-2011 [place] [facility] CELLULITIS [facility], AND ATTN: DENE ABSCESS OF FINGER 6824 CELLULITIS& 01-26-2011 [place] ABSCESS [place] HAND [place] [address] OTHER 01-10-2011 [facility] CHRONIC MED CTR, PAIN ATTN: DENE 7242 LUMBAGO 01-10-2011 [facility] MED CTR, ATTN: DENE 2724 OTHER AND 12-26-2010 [place] UNSPECIFIED CLINIC HYPERLIPIDE MARCOS 4011 ESSENTIAL 12-26-2010 [facility] HYPERTENSIO CLINIC N, BENIGN 07873 PAIN IN 11-24-2010 [place] JOINT, CLINIC ANKLE AND FOOT V5869 LONG-TERM 11-24-2010 [place] (CURRENT) CLINIC USE OF OTHER MEDICATIONS 34377 SPRAIN AND 11-19-2010 [place] STRAIN OF MED CTR, UNSPECIFIED ATTN: DENE SITE OF FOOT V1581 PERS HX 11-19-2010 [facility] NONCOMPLIAN MED CTR, CE W/MED TX ATTN: DENE PRS HAZARDS HLTH 7295 PAIN IN 11-16-2010 [place] SOFT [facility] TISSUES OF LLC LIMB 9597 INJURY 11-16-2010 [place] OTHER&UNSPE [facility] CIFIED [employer] LEG ANKLE&FOOT 20124 PAIN IN 10-30-2010 [facility] JOINT MED CTR, PELVIC ATTN: DENE REGION AND THIGH 8439 SPRAIN&STRA 10-22-2010 [facility] IN OF MED CTR, UNSPECIFIED ATTN: DENE SITE OF HIP&THIGH 5259 UNSPECIFIED 10-17-2010 [facility] DISORDER MED CTR, TEETH&SUPPO ATTN: DENE RTING STRUCTURES 3551 MERALGIA 10-13-2010 [facility] [place] 8488 OTHER 10-09-2010 [facility] SPECIFIED MED CTR, SITES OF ATTN: DENE SPRAINS AND STRAINS 7831 ABNORMAL 10-07-2010 [facility] 34744 OTHER ACUTE 10-02-2010 [facility] MED CTR, POSTOPERATI ATTN: DENE VE PAIN 33299 HYPOCALCEMI 09-23-2010 [facility] 25452 UNSPECIFIED 09-17-2010 [facility] INFECTIVE MED CTR, OTITIS ATTN: DENE EXTERNA 3829 UNSPECIFIED 09-17-2010 [facility] OTITIS MED CTR, MEDIA ATTN: DENE 2749 GOUT, 08-27-2010 [facility] UNSPECIFIED MED CTR, ATTN: DENE 41915 ASTHMA, 08-27-2010 [facility] UNSPECIFIED MED CTR, , ATTN: DENE UNSPECIFIED STATUS 45157 OTHER ACUTE 08-24-2010 [facility] EXTERNA 3804 IMPACTED 08-24-2010 [facility] 12957 OTOGENIC 08-24-2010 [facility] 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 5220 PULPITIS 08-05-2010 MAURILIO I JIMENEZ III P[facility] N0 3 490 BRONCHITIS 07-27-2010 [facility] NOT MED CTR, SPECIFIED ATTN: DENE ACUTE OR CHRONIC 44177 PAINFUL 07-27-2010 [facility] RESPIRATION MED CTR, ATTN: DENEber 2761 HYPOSMOLALI 07-05-2010 [facility] AND/OR CLINIC HYPONATREMI A 57001 OSTEOARTHRO 07-02-2010 [facility] S UNSPEC MED CTR, WHETHER ATTN: DENE GEN/LOC UNSPEC SITE 01516 UNSPECIFIED 07-02-2010 [facility] MED CTR, ARTHROPATHY ATTN: DENE SITE UNSPECIFIED 25508 OTHER 07-02-2010 [facility] MALAISE AND MED CTR, FATIGUE ATTN: DENEber 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 85117 SPINAL STEN 06-06-2010 [facility] LUMB 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 N 49138 OTHER 05-28-2010 [facility] INJURY OF MED CTR, OTHER SITES ATTN: DENE OF TRUNK 8472 LUMBAR 05-21-2010 [facility] SPRAIN AND MED CTR, STRAIN ATTN: DENEber 514 PULMONARY 03-13-2010 [place] [facility] HYPOSTASIS 38541 CHEST PAIN 02-22-2010 [place] UNSPECIFIED [facility] 20100 ABDOMINAL 02-22-2010 [place] PAIN, [facility] UNSPECIFIED LLC SITE 9592 INJURY 02-22-2010 [facility] OTHER&UNSPE AMBULANCESV CIFIED C SHOULDER&UP PER ARM 9598 INJURY 02-22-2010 [place] [facility] OTH&UNSPEC MED CTR, OTH SPEC ATTN: DENEber SITES INCL MULTIPLE 9599 INJURY 02-22-2010 [place] OTHER AND [facility] UNSPECIFIED LLC UNSPECIFIED SITE E8889 UNSPECIFIED 02-22-2010 [place] [facility] 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 ME 35 AN ti OP 80 3- 3- 00 TO 17 TA ve RA 60 20 20 0 WN 8 ZO 70 15 15 RA LE 1 PH ME AR SH SO MA D CY DR OF 40 CY MG NT HI TA AN B A GA 53 01 01 0 90 30 HO 60 GH Ac BA 74 -1 -1 0. ME 35 AN ti PE 60 3- 3- 00 TO 17 TA ve NT 10 20 20 0 WN 2 IN 20 15 15 RA 5 PH ME 30 AR SH 0 MA MG CY CA OF PS UL CY E NT HI AN A BU 00 01 01 0 90 30 HO 60 GH Ac SP 59 -1 -1 0. ME 35 AN ti IR 10 3- 3- 00 TO 17 TA ve ON 65 20 20 0 WN 5 E 81 15 15 RA HC 0 PH ME L AR SH 10 MA CY MG OF TA BL CY ET NT HI AN A BU 10 01 01 0 30 30 HO 60 GH Ac LA 37 -1 -1 0. ME 35 AN ti OP 00 3- 3- 00 TO 17 TA ve IO 10 20 20 0 WN 6 N 10 15 15 RA HC 3 PH ME L AR SH XL MA CY 15 0 OF MG CY TA NT BL HI ET AN A HY [address] 40 -2 OM 91 7- Lo OR 31 20 ng PH 23 13 er ON 0 E Ac 2 ti MG ve /M L CA RP UJ CT LA 00 08 0 No OM 64 -2 [...] 3( ve 2. 5) MG /3 ML LA 00 07 0 No ED 05 -0 [...] -2 -2 .0 CK 68 RA ti LA 30 4- 4- 00 SO 54 D [...] 4- 4- 00 SO 58 D ve LA 76 20 20 N UM IL 17 [...] 8- 3- 00 SO 20 D ve LA 76 20 20 N UM IL 17 11 11 AP AR 0 OT M 40 HE CA MG RY # TA BL 00 ET 7 CY 00 08 08 15 5 RI 89 MARIAELENA Ac CL 37 -2 -2 .0 TE 58 WM ti OB 80 9- 9- 00 97 AN ve EN 75 20 20 AI ZA 11 11 11 D KE LA 0 PH NN IN AR Y E MA L 10 CY MG 03 21 TA 6 BL # ET 03 21 00 08 08 0 10 3 FA 41 NHAN Ac 40 -1 -1 .0 PA 83 HN ti 60 5- 5- 00 [...] 10 2- 4- 00 17 D ve LA 40 20 20 AI IL 90 11 [...] 0 14 7 FA 67 BU Ac LA 11 -1 -1 .0 PA 89 RN ti OF 10 6- 6- 00 LY 74 ET ve LO 12 20 20 9 TE XA 70 11 11 PH CI 1 AR GE N MA OR HC CY GE L E 50 OF 0 MG JA CK TA SO B N NE 61 07 07 0 10 10 FA 67 BU Ac OM 31 -1 -1 .0 PA 89 RN ti YC 40 6- 6- [...] -0 -0 .0 CK 92 RA ti LA 30 8- 8- 00 SO 19 D [...] 00 7- 6- 00 95 D ve LA 51 20 20 AI IL 70 11 11 D MA 1 PH H 40 AR MA MG CY TA 03 BL 21 ET 6 # 03 21 00 06 06 0 20 5 FA 41 BU Ac 59 -2 -2 .0 PA 80 RN ti 10 5- 5- 00 LY 55 ET ve 50 20 20 4 TE 20 11 11 PH 5 AR GE MA OR CY GE E OF JA CK SO N NE 61 06 06 0 10 3 FA 67 BU Ac OM 31 -2 -2 .0 PA 85 RN ti YC 40 5- 5- 00 LY 88 ET ve IN 64 20 20 5 TE -P 51 11 11 PH OL 1 AR GE YM MA OR YX CY GE IN E -H OF C EA JA R CK HERNDON SO SP N CI 55 06 06 0 10 5 FA 67 BU Ac LA 11 -2 -2 .0 PA 85 RN ti OF 10 5- 5- [...] RA ti NO 00 60 D ve LA 51 20 20 AI IL 50 11 11 D MA 1 PH H 20 AR MA MG CY TA 03 BL 21 ET 6 # 03 21 00 06 06 0 24 5 FA 41 GR Ac 59 -0 -0 .0 PA 79 AY ti 10 3- 3- 00 LY 39 , ve 54 20 20 0 II 00 11 11 PH I 5 AR NHAN MA HN CY I OF JA CK SO N IB 55 06 06 0 30 6 FA 67 GR Ac UP 11 -0 -0 .0 PA 81 AY ti RO 10 3- 3- 00 LY 44 , ve FE 68 20 20 0 II N 20 11 11 PH I 40 5 AR NHAN 0 MA HN MG CY I TA OF BL ET JA CK SO N 00 06 06 0 24 5 FA 41 GR Ac 59 -0 -0 .0 PA 79 AY ti 10 3- 3- 00 LY 39 ve 54 20 20 0 II 00 11 11 PH I 5 AR NHAN MA HN CY I OF JA CK SO N LI 00 05 05 0 30 30 JA 56 MU Ac SI 59 -3 -3 .0 CK 68 RA ti NO 10 1- 1- 00 SO 08 D ve LA 40 20 20 N UM IL 71 11 11 AP AR 0 OT M 10 HE CA MG RY # TA BL 00 ET 7 00 05 05 0 12 4 FA 41 CA Ac 59 -2 -2 .0 PA 79 MP ti 10 LY 09 BE ve 34 20 20 6 LL 90 11 11 PH 5 AR RO MA GE CY R D OF JA CK SO N 00 05 05 0 12 4 FA 41 CA Ac 59 -2 -2 .0 PA 79 MP ti 10 7- 7 LY 09 BE ve 34 20 20 6 LL 90 11 11 PH 5 AR RO MA GE CY R D OF JA CK SO N AM 00 05 05 0 30 10 FA 67 CA Ac OX 78 -2 -2 .0 PA 80 MP ti IC 12 7 7 LY 30 BE ve IL 61 20 20 6 LL LI 30 11 11 PH N 5 AR RO 50 MA GE 0 CY R MG D OF CA PS JA UL CK E SO N BE 57 05 05 0 30 10 FA 67 WA Ac NZ 66 -2 -2 .0 PA 80 RR ti ON 40 6 LY 13 EN ve AT 13 20 20 4 AT 48 11 11 PH LA E 8 AR RR 20 MA Y 0 CY E MG OF CA PS JA UL CK E SO N AZ 00 05 05 0 6. 5 FA 67 WA Ac IT 78 -2 -2 00 PA 80 RR ti HR 11 6- 6- 0 LY 13 EN ve OM 49 20 20 5 YC 66 11 11 PH LA IN 8 AR RR MA Y 25 CY E 0 MG OF TA JA BL CK ET SO N LO 45 05 05 12 30 30 FA 67 MU Ac RA 80 -0 -0 .0 PA 75 RA ti TA 20 3- 3- 00 LY 02 D ve DI 65 20 20 4 NE 08 11 11 PH MA 7 AR H 10 MA CY MG OF TA BL JA ET CK SO N LI 00 04 04 0 30 30 FA 67 MU Ac SI 18 -1 -1 .0 PA 71 RA ti NO 55 9- 9- 00 LY 92 D ve LA 40 20 20 7 UM IL 00 [...] N ZA 11 11 11 D AA LA 0 PH RO IN AR N E MA W 10 CY MG 03 21 TA 6 BL # ET 03 21 NA 00 02 02 30 15 RI 87 NHAN Ac LA 09 -2 -2 .0 TE 55 HN ti OX 30 8- 8- 00 90 SO ve EN 14 20 20 AI N 90 11 11 D AA 50 1 PH RO 0 AR N MG MA W CY TA BL 03 ET 21 6 # 03 21 CI 00 01 01 1 7. 10 FA 67 SA Ac LA 06 -2 -2 50 PA 51 RT ti OD 58 8- 8- [...] BU Ac TH 60 -2 -2 .0 PA 43 RN ti OC 34 1- 1- 00 LY 54 ET ve AR 48 20 20 3 TE BA 62 10 10 PH MO 8 AR GE L MA OR 75 CY GE 0 E MG OF TA JA BL CK ET SO N AZ 59 12 12 0 6. 5 FA 67 SA Ac IT 76 -0 -0 00 PA 40 RT ti HR 23 8- 8- 0 LY 79 AW ve OM 06 20 20 0 I YC 00 10 10 PH TA IN 1 AR RI MA Q 25 CY 0 MG OF TA JA BL CK ET SO N MU 45 11 11 0 22 14 FA 67 SA Ac PI 80 -0 -0 .0 PA 32 RT ti RO 20 2- 2- 00 LY 33 AW ve CI 11 20 20 6 I N 22 10 10 PH TA 2% 2 AR RI MA Q OI CY NT ME OF NT JA CK SO N 59 11 11 0 14 7 FA 67 SA Ac 76 -0 -0 .0 PA 32 RT ti 22 2- 2- 00 LY 33 AW ve 18 20 20 7 I 00 10 10 PH TA 1 AR RI MA Q CY OF JA CK SO N CI 16 10 10 0 10 5 FA 67 BU Ac LA 25 -3 -3 .0 PA 31 RN ti OF 20 0- 0- 00 LY 71 ET ve LO 51 20 20 7 TE XA 50 10 10 PH CI 1 AR GE N MA OR HC CY GE L E 50 OF 0 MG JA CK TA SO B N LA 10 10 10 0 10 2 FA 67 BU Ac OM 70 -3 -3 .0 PA 31 RN ti ET 20 0- 0- 00 LY 71 ET ve RESENDIZ 00 20 20 8 TE ZI 31 10 10 PH NE 0 AR GE MA OR 25 CY GE E MG OF TA JA BL CK ET SO N CI 65 10 10 14 7 RI 86 BU Ac LA 86 -1 -1 .0 TE 15 RN ti OF 20 7- 7- 00 09 ET ve LO 07 20 20 AI TE XA 70 10 10 D CI 1 PH GE N AR OR HC MA GE L CY E 50 0 03 MG 21 6 TA # B 03 21 CI 00 09 09 0 14 7 WA 71 BU Ac LA 37 -2 -2 .0 L- 67 RN [...] 41 GR Ac 59 -1 -1 .0 PA 65 AY ti 10 7- 7- 00 LY 56 , ve 54 20 20 8 II 00 10 10 PH I 5 AR NHAN MA HN CY I OF CK SO N IB 55 09 09 0 30 6 FA 67 GR Ac UP 11 -1 -1 .0 PA 22 AY ti RO 10 7- 7- 00 LY 08 , ve FE 68 20 20 9 II N 20 10 10 PH I 40 5 AR NHAN 0 MA HN MG CY I TA OF BL ET CK SO N 00 09 09 0 24 5 FA 41 GR Ac 59 -1 -1 .0 PA 65 AY ti 10 7- 7- 00 LY 56 ve 54 20 20 8 II 00 10 10 PH I 5 AR NHAN MA HN CY I OF [facility] SO N 00 09 09 0 10 2 FA 41 CA Ac 59 -1 -1 .0 PA 65 MP ti 10 4- 4- 00 LY 38 BE ve 34 20 20 1 LL 90 10 10 PH 5 AR RO MA GE CY R D OF [facility] SO N 00 09 09 0 10 2 FA 41 CA Ac 59 -1 -1 .0 PA 65 MP ti 10 4- 4- 00 LY 38 BE ve 34 20 20 1 LL 90 10 10 PH 5 AR RO MA GE CY R D OF [facility] SO N 00 09 09 20 3 RI 85 BU Ac 60 -0 -0 .0 TE 71 RN ti 33 5- 5- 00 50 ET ve 88 20 20 AI TE 42 10 10 D 1 PH GE AR OR MA GE CY E 03 21 6 # 03 21 CI 65 09 09 14 7 RI 85 BU Ac LA 86 -0 -0 .0 TE 71 RN [...] 0 14 7 WA 71 BU Ac LA 37 -0 -0 .0 L- 60 RN [...] EG ZA 11 10 10 D OR LA 0 PH Y IN AR J E [...] Procedure DOS Code Location Performer Comment THERAPEUT 15719 [facility] IC [facility] PROPHYLAC INC INC TIC/DX INJECTION SUBQ/[place] [address] [place] DEXTER CERVICAL 5 MEDICAL ALVINA SPINE W/O IMAGING CONTRAST ASS MATERIAL RADEX 87469 [facility] SPINE 5 MEDICAL FANNIE CERVICAL IMAGING 4 OR 5 ASS VIEWS RADEX 68743 [facility] SPINE 5 MEDICAL FANNIE THORACIC IMAGING 2 VIEWS ASS RADEX 01115 [place] D[facility]TER SHOULDER 5 MEDICAL [place] COMPLETE IMAGING MINIMUM 2 ASS VIEWS RADEX 82760 [place] [facility]TER SPINE 5 MEDICAL [place] LUMBOSACR IMAGING AL ASS MINIMUM 4 VIEWS RADIOLOGI 89293 [place] KESHIA C 4 [facility]IVER [facility] ON CHEST SINGLE VIEW FRONTAL RADEX 38516 [facility] SHOULDER 1 MED CTR, MED CTR, COMPLETE ATTN: ATTN: MINIMUM 2 DENE DENE VIEWS IM ADM 83779 [facility] PRQ ID 1 MED CTR, MED CTR, SUBQ/IM ATTN: ATTN: NJXS 1 DENE DENE VACCINE NONEMERG A0120 [facility] TRNSPRT: 1 [facility] [employer] [facility] MTN ACTION P AREA/OTH SYS THERAPEUT 54465 [facility] IC 1 MED CTR, MED CTR, PROPHYLAC ATTN: ATTN: TIC/DX DENE DENE INJECTION SUBQ/IM RADIOLOGI 24930 [facility] C 1 MED CTR, MED CTR, EXAMINATI ATTN: ATTN: ON FOOT 2 DENE DENE VIEWS RADEX HIP 36265 [facility] 1 MED CTR, MED CTR, UNILATERA ATTN: ATTN: L DENE DENE COMPLETE MINIMUM 2 VIEWS NONEMERG A0120 [facility] TRNSPRT: 1 [facility] [employer] [facility] MTN ACTION P AREA/OTH SYS NONEMERG A0120 [facility] TRNSPRT: 1 [facility] MTN ACTION P AREA/OTH SYS NONEMERG A0120 [facility] TRNSPRT: 1 [facility] MTN ACTION P AREA/OTH SYS INJECTION J0735 [facility] PEREZ ASM 1 CLINIC CLONIDINE HYDROCHLO RIDE 1 MG NONEMERG A0120 [facility] TRNSPRT: 1 [facility] [employer] [facility] MTN ACTION P AREA/OTH SYS NONEMERG A0120 [facility] TRNSPRT: 1 [facility] MTN ACTION P AREA/OTH SYS NONEMERG A0120 [facility] TRNSPRT: 1 [facility] [employer] [facility] MTN ACTION P AREA/OTH SYS RADEX 93003 RADIOLOGY JOH[place]ON A HIPS 1 SERVICES BILATERAL 2 VIEWS ANTEROPOS T PELVIS NONEMERG A0120 [facility] TRNSPRT: 1 [facility] [employer] [facility] MTN ACTION P AREA/OTH SYS NONEMERG A0120 [facility] TRNSPRT: 1 [facility] [employer] [facility] MTN ACTION P AREA/OTH SYS NONEMERG A0120 [facility] TRNSPRT: 1 [facility] [employer] [facility] MTN ACTION P AREA/OTH SYS NONEMERG A0120 [facility] TRNSPRT: 1 [facility] [employer] [facility] MTN ACTION P AREA/OTH SYS COLLECTIO 56535 [facility] N VENOUS 1 MED CTR, MED CTR, BLOOD ATTN: ATTN: VENIPUNCT DOUGIE CONSTANTINO URE CULTURE 96672 [facility] BACTERIAL 1 MED CTR, MED CTR, BLOOD ATTN: ATTN: AEROBIC DOUGIE CONSTANTINO W/ID ISOLATES BASIC 12510 [facility] METABOLIC 1 MED CTR, MED CTR, PANEL ATTN: ATTN: CALCIUM DOUGIE CONSTANTINO TOTAL CREATINE 09475 [facility] KINASE MB 1 MED CTR, MED CTR, FRACTION ATTN: ATTN: ONLY DOUGIE DENE CREATINE 28052 [facility] KINASE 1 MED CTR, MED CTR, TOTAL ATTN: ATTN: [place] [address] [facility] MAGNESIUM 1 MED CTR, MED CTR, ATTN: ATTN: DOUGIE GOMEZE ECG 06162 [facility] ROUTINE 1 MED CTR, MED CTR, ECG ATTN: ATTN: W/LEAST DOUGIE CONSTANTINO 12 LDS TRCG ONLY W/O I&R RADIOLOGI 79274 [facility] C EXAM 1 MED CTR, MED CTR, CHEST 2 ATTN: ATTN: VIEWS DOUGIE CONSTANTINO FRONTAL&L ATERAL NATRIURET 02519 [place] IC 1 [facility], MED CTR, PEPTIDE ATTN: ATTN: [place] [address] [place] TROPONIN 1 [facility], MED CTR, QUANTITAT ATTN: ATTN: BLANQUITA DENE DEN[place] BLOOD 91239 [place] COUNT 1 [facility], MED CTR, COMPLETE ATTN: ATTN: AUTO&AUTO DENE DENE DIFRNTL WBC NONEMERG [id number] [facility] [place] TRNSPRT: 1 [facility] ACTION COMMUNITY MTN ACTION P AREA/OTH SYS COLLECTIO 50424 [place] N VENOUS 1 [facility], MED CTR, BLOOD ATTN: ATTN: VENIPUNCT DENE DENE URE C-REACTIV 82004 [place] E PROTEIN 1 [facility] CTR, MED CTR, ATTN: ATTN: DENE [place] BASIC 65940 [place] METABOLIC 1 MED CTR, MED CTR, PANEL ATTN: ATTN: CALCIUM DENE DEN[place] TOTAL ANTINUCLE 85193 [place] AR 1 [facility], MED CTR, ANTIBODIE ATTN: ATTN: S YOHAN DENE DENE RHEUMATOI 99204 [place] D FACTOR 1 [facility] CTR, MED CTR, QUALITATI ATTN: ATTN: VE DENE DENE SEDIMENTA 47972 [place] TION RATE 1 MED CTR, MED CTR, RBC ATTN: ATTN: NON-AUTOM DENE DEN[place] ATED COMPLEMEN 01539 [place] T ANTIGEN 1 MED CTR, MED CTR, EACH ATTN: ATTN: COMPONENT DENE [place] CYCLIC 55601 [place] CITRULLIN 1 MED CTR, MED CTR, ATED ATTN: ATTN: PEPTIDE DENE DENE ANTIBODY LIPID 19638 [place] PANEL 1 [facility], MED CTR, ATTN: ATTN: DENE DENE HLA 79836 [place] TYPING 1 [facility] CTR, MED CTR, A/B/C ATTN: ATTN: SINGLE DENE DENE ANTIGEN BLOOD 03736 [place] COUNT 1 [facility], MED CTR, COMPLETE ATTN: ATTN: AUTO&AUTO [place] [address] [facility] THYROID 1 MED CTR, MED CTR, STIMULATI ATTN: ATTN: NG DOU[place] [address] [facility] BLOOD/URI 1 MED CTR, MED CTR, C ACID ATTN: ATTN: PATRICIAE DENE NONEMERG A0120 [facility] TRNSPRT: 1 [facility] [employer] [facility] MTN ACTION P AREA/OTH SYS MRI 05805 [facility] A SPINAL 1 MALL CANAL IMAGING LUMBAR CENTER W/O CONTRAST MATERIAL NONEMERG A0120 [facility] TRNSPRT: 1 [facility] [employer] [facility] MTN ACTION P AREA/OTH SYS RADEX 23994 [facility] SPINE 1 MED CTR, MED CTR, LUMBOSACR ATTN: ATTN: AL 2/3 DOUGIE CONSTANTINO VIEWS REMOVAL 61881 [facility] 1 ENT TAR CERUMEN CLINIC INSTRUMEN PSC TATION UNILAT COLLECTIO 34291 [facility] N 1 MED CTR, MED CTR, CAPILLARY ATTN: ATTN: BLOOD DENE DENE SPECIMEN BLOOD 53844 [facility] COUNT 1 MED CTR, MED CTR, COMPLETE ATTN: ATTN: AUTO&AUTO DENE DENE DIFRNTL WBC RADIOLOGI 75092 [facility] C EXAM 1 RIVER HBP CHEST 2 LLC VIEWS FRONTAL&L ATERAL IAADI NOT 22852 [facility] RIVER 1 MED CTR, MED CTR, OTHERWISE ATTN: ATTN: DOUGIE CONSTANTINO SPECIFIED EACH ORGANISM IAADIADOO 98243 [facility] RIVER 1 MED CTR, MED CTR, STREPTOCO ATTN: ATTN: CCUS DOUGIE DENEber GROUP A AMB [id number] TRANS TRANS SERVICE 0 STAR STAR ALS AMBULANCE AMBULANCE EMERGENCY SVC SVC TRANSPORT LEVEL 1 RADIOLOGI 69865 [facility] C EXAM 0 MED CTR, MED CTR, CHEST 2 ATTN: ATTN: VIEWS DENE DENE FRONTAL&L ATERAL RADIOLOGI 19422 [facility] RIVER C 0 MED CTR, MED CTR, EXAMINATI ATTN: ATTN: ON PELVIS DENE DENE 1/2 VIEWS GROUND A0425 TRANS TRANS MILEAGE 0 STAR STAR PER AMBULANCE AMBULANCE STATUTE SVC SV MILE RADEX 03592 [facility] RIVER SHOULDER 0 MED CTR, MED CTR, COMPLETE ATTN: ATTN: MINIMUM 2 DENE DENE VIEWS REMOVAL 87742 KJ ABBIETAWI IMPACTED 0 ENT TAR CERUMEN CLINIC INSTRUMEN PSC TATION UNILAT INCISION 62076 MAURILIO I JIMENEZ III & 0 JIMENEZ III VALERIE DRAINAGE PSC N0 3 COMPLEX PO WOUND INFECTION NONEMERG A0120 [facility] TRNSPRT: 0 [facility] ProprietárioDireto [facility] MTN ACTION P AREA/OTH SYS NONEMERG A0120 [facility] TRNSPRT: 0 [facility] ProprietárioDireto [facility] MTN ACTION P AREA/OTH SYS NONEMERG A0120 [facility] TRNSPRT: 0 [facility] ProprietárioDireto [facility] MTN ACTION P AREA/OTH SYS DEEP D9220 MAURILIO I JIMENEZ III SEDATION/ 0 JIMENEZ III VALERIE GENERAL PSC N0 3 ANESTHESI A-1ST 30 MINUTES BLOOD 59201 [facility] COUNT 0 MED CTR MED CTR COMPLETE AUTO&AUTO DIFRNTL WBC COLLECTIO 33582 [facility] N VENOUS 0 MED CTR MED CTR BLOOD VENIPUNCT URE IAADIADOO 78837 [facility] RIVER 0 MED CTR MED CTR STREPTOCO CCUS GROUP A RADEX 42958 BREATHIT AYOS, SPINE 0 [facility] A LUMBOSACR IMAGING AL CENTER MINIMUM 4 VIEWS RADEX 88314 RADIOLOGY ZACHARY, SPINE 0 SERVICES MARA C LUMBOSACR AL MINIMUM 4 VIEWS RADEX 62730 RADIOLOGY ZACHARY, SPINE 0 SERVICES MARA C THORACIC 3 VIEWS RADEX 83108 [facility] RIVER SPINE 0 MED CTR MED CTR THORACIC 3 VIEWS ORTHOPANT 42827 MAURILIO PINA OGRAM 0 JIMENEZ III MAURILIO R PSC N0 3 DEEP D9220 MAURILIO PINA, SEDATION/ 0 JIMENEZ III MAURILIO R GENERAL PSC N0 3 ANESTHESI A-1ST 30 MINUTES Encounters Encounter Start End Date Code Location Performer Type Date OFFICE 15177 [facility] PABLO OUTPATIEN 6 6 PHYSICIAN SRIRAM T VISIT S GROUP 15 MINUTES EMERGENCY 91263 ADELA COLLADO 6 6 PHYSICIAN U FANNIE DEPARTMEN S, [facility] T VISIT HIGH/URGE NT SEVERITY HOSPITAL [facility] - 6 6 [facility] INC T EMERGENCY 57718 STEVEN 6 6 [facility] T VISIT LOW/MODER SEVERITY EMERGENCY 81013 ADELA ONOFRE 5 5 PHYSICIAN JAYESH DEPARTMEN S, [facility] T VISIT MODERATE SEVERITY EMERGENCY 35646 STEVEN 5 5 [facility] T VISIT LOW/MODER SEVERITY HOSPITAL STEVEN - 5 5 [facility] OUTPATIEN INC T EMERGENCY 49993 GRANT BURNS 5 5 LEO LEO DEPARTMEN T VISIT HIGH/URGE NT SEVERITY OFFICE 07413 [facility] PABLO OUTPATIEN 5 5 PHYSICIAN SRIRAM T VISIT S GROUP 25 MINUTES OFFICE 33613 [facility] PABLO OUTPATIEN 5 5 PHYSICIAN SRIRAM T VISIT S GROUP 15 MINUTES EMERGENCY 94537 KASIE MARINELLI, 4 4 RIVER HBP III [facility] T VISIT MODERATE SEVERITY Emergency JENNIFER Villaseñor MD (ER) 3 14:19 3 14:45 [facility] Emergency JENNIFER Parra MD (ER) 3 10:46 3 12:10 [facility] [place]Y [address]29 [place] 1 1 MED CTR, DEPARTMEN ATTN: T VISIT DENE LOW/MODER SEVERITY EMERGENCY 58788 NANCIE NANCIE 1 1 G G DEPARTMEN T VISIT MODERATE SEVERITY [facility]OSP[facility] [place] - 1 1 MED CTR, OUTPATIEN ATTN: T DENE [facility] [place] - 1 1 MED CTR, OUTPATIEN ATTN: T DENE EMERGENCY 78849 [place] 1 1 MED CTR, DEPARTMEN ATTN: T VISIT DENE MODERATE SEVERITY EMERGENCY 97724 [place] 1 1 [facility] CTR, DEPARTMEN ATTN: T VISIT DENE MODERATE SEVERITY EMERGENCY 20473 NANCIE NANCIE 1 1 G G DEPARTMEN T VISIT LIMITED/M [facility]OR PROB [facility] [place] - 1 1 MED CTR, OUTPATIEN ATTN: T DENE EMERGENCY 56662 NANCIE NANCIE 1 1 G G DEPARTMEN T VISIT LOW/MODER SEVERITY EMERGENCY 66863 [place] 1 1 MED CTR, DEPARTMEN ATTN: T VISIT DENE MODERATE SEVERITY [facility]OSP[facility] [place] - 1 1 MED CTR, OUTPATIEN ATTN: T DENE EMERGENCY 71407 NANCIE NANCIE 1 1 G G DEPARTMEN T VISIT MODERATE SEVERITY [facility]OSP[facility] [place] - 1 1 MED CTR, OUTPATIEN ATTN: T DENE OFFICE 79227 CHRISTOPHERKERLINE PEREZ LORENA OUTPATIEN 1 1 CLINIC T VISIT 25 MINUTES OFFICE 13792 CHAVIES MURAD ASM OUTPATIEN 1 1 CLINIC T VISIT 15 MINUTES EMERGENCY 27174 [place] 1 1 MED CTR, DEPARTMEN ATTN: T VISIT DENE MODERATE SEVERITY EMERGENCY 17724 KASIE MARINELLI, 1 1 RIVER HBP III [facility] T VISIT LOW/MODER SEVERITY [facility] [place] - 1 1 MED CTR, OUTPATIEN ATTN: T DENE EMERGENCY 79980 [place] 1 1 MED CTR, DEPARTMEN ATTN: T VISIT DENE MODERATE SEVERITY EMERGENCY 07418 KASIE RUSS 1 1 RIVER HBP AAR [facility] T VISIT HIGH/URGE NT SEVERITY [facility] - 1 1 MED CTR, OUTPATIEN ATTN: T DENE HOSP[facility] - 1 1 MED CTR, OUTPATIEN ATTN: T DENE EMERGENCY 66439 KASIE GIMENEZ 1 1 RIVER HBP WENDY [facility] T VISIT LOW/MODER SEVERITY EMERGENCY 44438 [facility] 1 1 MED CTR, DEPARTMEN ATTN: T VISIT DENE MODERATE SEVERITY EMERGENCY 86330 KASIE MARINELLI, 1 1 RIVER HBP III [facility] T VISIT MODERATE SEVERITY HOSPITAL [facility] - 1 1 MED CTR, OUTPATIEN ATTN: T DENE OFFICE 23876 CHAVIES MURAD ASM OUTPATIEN 1 1 CLINIC T VISIT 15 MINUTES [facility]OSPITAL [facility] - 1 1 MED CTR, OUTPATIEN ATTN: T DENE EMERGENCY 64997 KASIE RUSS 1 1 RIVER HBP [facility] T VISIT MODERATE SEVERITY OFFICE 01326 [facility] 1 FAMILY A [facility] NEW/ESTAB SRV AR PATIENT 40 MIN [facility] - 1 1 MED CTR, OUTPATIEN ATTN: T DENE EMERGENCY 13230 IRINEO [facility] 1 1 MED CTR, DEPARTMEN ATTN: T VISIT DENE MODERATE SEVERITY OFFICE 62029 [facility]AVIES [facility] OUTPATIEN 1 1 CLINIC T VISIT 15 MINUTES EMERGENCY 46747 KASIE CANADA 1 1 RIVER HBP G [facility] T VISIT LOW/MODER SEVERITY [facility]OSP[facility] - 1 1 MED CTR, OUTPATIEN ATTN: T DENE EMERGENCY 60173 [place] 1 1 MED CTR, DEPARTMEN ATTN: T VISIT DENE MODERATE SEVERITY OFFICE 31711 CAS PEREZ ASM OUTPATIEN 1 1 CLINIC T VISIT 15 MINUTES OFFICE 48523 CAS SHELLEYAD ASM OUTPATIEN 1 1 CLINIC T VISIT 15 MINUTES [facility] [place] 1 1 MED CTR, OUTPATIEN ATTN: T DENE EMERGENCY 00824 [place] 1 1 [facility] CTR, DEPARTMEN ATTN: T VISIT DENE MODERATE SEVERITY EMERGENCY 49924 [place] NISHI 1 RIVER HBP LAR [facility] T VISIT LOW/MODER SEVERITY EMERGENCY 13269 [place] 1 1 [facility] CTR, DEPARTMEN ATTN: T VISIT DENE MODERATE SEVERITY [facility] [place] - 1 1 MED CTR, OUTPATIEN ATTN: T DENE OFFICE 55590 CAS PEREZ LORENA OUTPATIEN 1 1 CLINIC T VISIT 15 MINUTES EMERGENCY 23750 [place] 1 1 MED CTR, DEPARTMEN ATTN: T VISIT DENE MODERATE SEVERITY [facility] [place] - 1 1 MED CTR, OUTPATIEN ATTN: T DENE EMERGENCY 14842 [place] NANCIE 1 RIVER HBP G [facility] T VISIT LOW/MODER SEVERITY OFFICE 60744 KJ LEIVATAWI OUTPATIEN 1 1 ENT TAR T VISIT CLINIC 25 PSC MINUTES EMERGENCY 05140 [place] RICH NATALIIA 1 RIVER HBP [facility] T VISIT LOW/MODER SEVERITY [facility] [place] - 1 1 MED CTR, OUTPATIEN ATTN: T DENE EMERGENCY 81773 [place] 1 1 MED CTR, DEPARTMEN ATTN: T VISIT DENE MODERATE SEVERITY OFFICE 25283 MAURILIO I JIMENEZ III OUTPATIEN 1 1 JIMENEZ III VALERIE T VISIT PSC N0 3 10 MINUTES EMERGENCY 78604 [facility] 1 1 MED CTR, DEPARTMEN ATTN: T VISIT DENE HIGH/URGE NT SEVERITY [facility]OSPITAL [facility] - 1 1 MED CTR, OUTPATIEN ATTN: T DENE EMERGENCY 94404 KASIE GIMENEZ 1 1 RIVER HBP [facility] T VISIT MODERATE SEVERITY OFFICE 78510 CHAVIES MURAD LORENA OUTPATIEN 1 1 CLINIC T VISIT 25 MINUTES [facility]OSPITAL [facility] - 1 1 MED CTR, OUTPATIEN ATTN: T DENE EMERGENCY 30013 [facility] 1 1 MED CTR, DEPARTMEN ATTN: T VISIT DENE LIMITED/M INOR PROB [facility]OSP[facility] - 1 1 MED CTR, OUTPATIEN ATTN: T DENE OFFICE 35756 [facility] MELENDE[facility] J CONSULTAT 1 1 ICAL ION ASSOCIATE NEW/ESTAB S PATIENT 40 MIN OFFICE 68677 CHALENARDS MURAD [facility]ORENA OUTPATIEN 1 1 CLINIC T VISIT 15 MINUTES OFFICE 14827 [facility] OUTPATIEN 1 1 CLINIC T VISIT 15 MINUTES [facility]OSPITAL [facility] - 1 1 MED CTR, OUTPATIEN ATTN: T DENE OFFICE 47832 CHALENARDS [facility] OUTPATIEN 1 1 CLINIC T NEW 45 MINUTES EMERGENCY 32425 KASIE HAINESADINO 1 1 RIVER HBP [facility] T VISIT LOW/MODER SEVERITY EMERGENCY 85770 [facility] 1 1 MED CTR, DEPARTMEN ATTN: T VISIT DENE MODERATE SEVERITY [facility]OSPITAL [facility] - 1 1 MED CTR, OUTPATIEN ATTN: T DENE EMERGENCY 84197 [place] 1 1 [facility] CTR, DEPARTMEN ATTN: T VISIT DENE MODERATE SEVERITY [facility] [place] - 1 1 MED CTR, OUTPATIEN ATTN: T DENE OFFICE 88861 KJ LEIVAMAYUR OUTPATIEN 1 1 ENT TAR T VISIT CLINIC 15 PSC MINUTES OFFICE 08632 [facility] OUT[facility]IEN 1 1 ENT TAR T VISIT CLINIC 25 PSC MINUTES EMERGENCY 61826 [place] N[place]CI[place] 1 1 RIVER HBP G [facility] T VISIT LOW/MODER SEVERITY EMERGENCY 06465 [place] 1 1 [facility] CTR, DEPARTMEN ATTN: T VISIT DENE MODERATE SEVERITY [facility] [place] 1 1 MED CTR, OUTPATIEN ATTN: T DENE [facility] [place] - 0 0 MED CTR, OUTPATIEN ATTN: T DENE EMERGENCY 90443 [place] 0 0 MED CTR, DEPARTMEN ATTN: T VISIT DENE MODERATE SEVERITY EMERGENCY 94480 [place] 0 0 RIVER HBP G [facility] T VISIT LOW/MODER SEVERITY OFFICE 28937 [facility] 0 ENT TAR T VISIT CLINIC 25 PSC MINUTES OFFICE 99780 [facility] CONSULTAT 0 0 ENT TAR ION CLINIC NEW/ESTAB PSC PATIENT 60 MIN EMERGENCY 27049 [place] 0 0 MED CTR DEPARTMEN T VISIT HIGH/URGE NT SEVERITY [facility]OSP[facility] [place] - 0 0 MED CTR OUTPATIEN T EMERGENCY 25776 [place] 0 0 RIVER HBP G [facility] T VISIT LOW/MODER SEVERITY EMERGENCY 25517 [place] 0 0 RIVER HBP G [facility] T VISIT LOW/MODER SEVERITY [facility] [place] - 0 0 MED CTR OUTPATIEN T EMERGENCY 31494 [place] 0 0 [facility] CTR DEPARTMEN T VISIT MODERATE SEVERITY EMERGENCY 47066 [place] 0 0 [facility] CTR DEPARTMEN T VISIT MODERATE SEVERITY [facility] [place] 0 0 MED CTR OUTPATIEN T EMERGENCY 82647 [facility] NANCIE 0 0 RIVER HBP G [facility] T VISIT LOW/MODER SEVERITY [facility] [place] - 0 0 MED CTR OUTPATIEN T EMERGENCY 06037 [place] 0 0 [facility] CTR DEPARTMEN T VISIT MODERATE SEVERITY [facility] [place] 0 0 MED CTR OUTPATIEN T EMERGENCY 77503 [place] 0 0 MED CTR DEPARTMEN T VISIT MODERATE SEVERITY EMERGENCY 83328 [facility] NANCIE 0 0 RIVER HBP G [facility] T VISIT LOW/MODER SEVERITY EMERGENCY 03499 [facility], 0 0 RIVER HBP ARIF M [facility] T VISIT LOW/MODER SEVERITY [facility] [place] - 0 0 MED CTR OUTPATIEN T EMERGENCY 36749 [place] 0 0 MED CTR DEPARTMEN T VISIT MODERATE SEVERITY EMERGENCY 36858 [facility] [place], 0 0 RIVER HBP KAMALA W [facility] T VISIT LOW/MODER SEVERITY EMERGENCY 48188 [place] 0 0 MED CTR DEPARTMEN T VISIT MODERATE SEVERITY [facility] [place] - 0 0 MED CTR OUTPATIEN T EMERGENCY 82854 [place] 0 0 MED CTR DEPARTMEN T VISIT MODERATE SEVERITY [facility] [place] - 0 0 MED CTR OUTPATIEN T EMERGENCY 23301 [facility] NANCIE, 0 0 RIVER HBP G E [facility] T VISIT LOW/MODER SEVERITY EMERGENCY 79840 [facility], 0 0 MEDICAL [facility] DEPART[facility] PART[facility]ERS T VISIT LLC HIGH/URGE NT SEVERITY OFFICE 54336 [facility]. MAURILIO GASTONED OUTPATIEN 0 0 RUKHSANADUKERossy PAB T VISIT EXTENDED 15 H MINUTES [facility]OSP[facility] [place] [facility] 0 0 MED CTR OUTPATIEN T EMERGENCY 60437 [place] 0 0 MED CTR DEPARTMEN T VISIT MODERATE SEVERITY EMERGENCY 73566 [place] REFFNER, 0 0 RIVER HBP LIANNE S [facility] T VISIT LOW/MODER SEVERITY OFFICE 00524 MAURILIO PINA OUTPATIEN 0 0 JIMENEZ III MAURILIO Hough T VISIT [facility] N0 3 10 MINUTES EMERGENCY 24218 [place] 0 0 MED CTR DEPARTMEN T VISIT MODERATE SEVERITY [facility]OSPITAL [place] - 0 0 MED CTR OUTPATIEN T
--- OUTSIDE RECORDS SUMMARY | 2016-12-20 12:17 | External Medical Summary Rpt | CCD ---
Author Author , [facility] Organization [facility] Address Unknown Phone Care Team Providers Care [facility] Administrator Name Role Phone AYOS, EMELITA A, Unavailable [...] CHANDARANA JYO, Unavailable Unavailable CHANDARANA JYO [facility], Unavailable Unavailable [facility] MAURILIO PINA, Unavailable Unavailable MAURILIO PINA, Unavailable Unavailable [facility] Unavailable Unavailable [facility] Unavailable Unavailable LEO PABLO SRIRAM, PABLO Unavailable Unavailable SRIRAM JIMENEZ III VALERIE, JIMENEZ Unavailable Unavailable III [facility] Un[facility] Unavailable [facility], [facility] Unavailable Unavailable SRV [place], [facility] SRV AR [facility], Unavailable Unavailable [facility] Unavailable Unavailable [place], [facility] [place] [facility] # Unavailable Unavailable 007, [facility] Unavailable Unavailable [facility], [facility] MAURILIO I JIMENEZ III [facility] Unavailable Unavailable N0 3, MAURILIO I JIMENEZ III [facility] N0 3 PETRONA LUNA Unavailable Unavailable KAMALA MADRIGAL, Unavailable Unavailable KAMALA RUSS [facility] Unavailable Unavailable IMAGING ASS, [facility] Unavailable Unavailable LLC, [facility] Ivis Parra MD, Unavailable Unavailable Ivis Parra MD [place] [facility] [place] [facility], Unavailable Unavailable ATTN: [place], [place] [facility], ATTN: [facility] NATHEN PAB, NATHEN Unavailable Unavailable PAB [facility] Unavailable Unavailable ACTION P, [facility] MURAD ASM, MURAD [...] LIANNE S [facility] Unavailable Unavailable [id number] # [id number], [facility] [id number] # [id number] SAKOW NOL, SAKOW NOL Unavailable Unavailable SARTAWI TAR, SARTAWI Unavailable Unavailable TAR [facility], Unavailable Unavailable RENO COTE MARINELLI, III ROSA MARIA, Unavailable Unavailable MARINELLI, III ROSA MARIA SOTINGEANU FANNIE, Unavailable Unavailable SOTINGEANU FANNIE [facility] Unavailable [facility]available [facility] Unavailable [facility]available [facility] MARA SHARMA, Unavailable Unavailable MARA SHARMA [facility] # Unavailable Unavailable [id number], [facility] # [id number] NISHI LINO Unavailable Unavailable SAMMIE MCCONNELL, Unavailable Unavailable [place] JAYESH Purpose Continuity of Care Document - 05-25-2009 through 2016 Problems Code Diagnosis DOS Provider Status K922 GASTROINTES 04-02-2015 [facility]EM[facility]RH[facility] GROUP UNSPECIFIED I10 ESSENTIAL 03-09-2015 [facility] HYPERTENSIO INC N J0100 ACUTE 03-09-2015 [facility]ARY [facility], SINUSITIS PLLC UNSPECIFIED J449 CHRONIC 03-09-2015 [facility] OBSTRUCTIVE [facility] PULMONARY INC DISEASE UNS K5289 OTH SPEC 03-09-2015 [facility] NONINFECTIV PH[facility]ICIANS, E PLLC GASTROENTER ITIS & COLITIS K529 NONINFECTIV 03-09-2015 [facility] GASTROENTER INC ITIS & COLITIS UNS Z720 TOBACCO USE 03-09-2015 [facility] INC B349 VIRAL 02-21-2015 [facility] INFECTION PHYSICIANS, UNSPECIFIED PLLC R1111 VOMITING 02-21-2015 [facility] WITHOUT PHYSICIANS, NAUSEA PLL R197 DIARRHEA 02-21-2015 [facility] UNSPECIFIED PHYSICIANS, [facility] 7231 CERVICALGIA 09-20-2014 [facility] 68761 INJURY OF 09-20-2014 [place] [facility] OTHER IMAGING ASS AND UNSPECIFIED 7245 UNSPECIFIED 07-04-2014 [place] 43940 OSTEOARTHRO 07-01-2014 [place] S UNSPEC MEDICAL WHETHER IMAGING ASS GEN/LOC SHLDR REGION 57685 PAIN IN 07-01-2014 [place] JOINT, MEDICAL SHOULDER IMAGING ASS REGION 7241 PAIN IN 07-01-2014 [facility] THORACIC PHYSICIANS SPINE GROUP 7248 OTHER 07-01-2014 [facility] SYMPTOMS PHYSICIANS REFERABLE GROUP TO BACK 4739 UNSPECIFIED 03-30-2014 [facility] SINUSITIS [facility]YSIC[facility]ANS GROUP 4659 ACUTE URIS 02-27-2014 [place] [facility] UNSPECIFIED LLC SITE 4871 INFLUENZA 02-27-2014 [place] WITH OTHER [facility] RESPIRATORY LLC MANIFESTATI ONS 496 CHRONIC 02-27-2014 [place] AIRWAY [facility] OBSTRUCTION LLC NEC 67702 SHORTNESS 02-27-2014 [place] OF [facility]ATH [facility] 7862 COUGH 02-27-2014 [facility] 305.1 305.1 10-29-2012 [place] TOBACCO USE [facility] DISORDER Hospital 401.9 401.9 [facility]-29[facility]2012 [facility] N NOS [facility] 719.46 719.46 10-29-2012 [place] JOINT [facility] PAIN-L/LEG Hospital 465.9 465.9 ACUTE 09-08-2012 [place] URI NOS [facility] 93641 CIRCADIAN 02-12-2011 N[facility] G RHYTHM SLEEP DISORDER UNSPECIFIED 36594 UNSPECIFIED 02-12-2011 [facility], CONJUNCTIVI ATTN: DENE TIS 4019 UNSPECIFIED 02-12-2011 [place] [facility], HYPERTENSIO ATTN: [place] N 47622 LOC 02-07-2011 [place] [facility] OSTEOARTHRO [facility], S NOT SPEC ATTN: DENE PRIM/SEC SHLDR REGION 8409 SPRAIN&STRA 02-07-2011 [place] [facility] IN UNSPEC MED CTR, SITE ATTN: DENE SHOULDER&UP PER ARM 59729 UNSPECIFIED 01-26-2011 [place] [facility] CELLULITIS [facility], AND ATTN: DENE ABSCESS OF FINGER 6824 CELLULITIS& 01-26-2011 [place] G ABSCESS [place] HAND [place] FINGERS&[place] [address] OTHER 01-10-2011 [facility] CHRONIC MED CTR, PAIN ATTN: DENE 7242 LUMBAGO 01-10-2011 [facility] MED CTR, ATTN: DENE 2724 OTHER AND 12-26-2010 [place] UNSPECIFIED [facility]INIC HYPERLIPIDE MARCOS 4011 ESSENTIAL 12-26-2010 [facility] HYPERTENSIO CLINIC N, BENIGN 45269 PAIN IN 11-24-2010 [place] JOINT, CLINIC ANKLE AND FOOT V5869 LONG-TERM 11-24-2010 [facility] (CURRENT) CLINIC USE OF OTHER MEDICATIONS 61154 SPRAIN AND 11-19-2010 [place] STRAIN OF MED CTR, UNSPECIFIED ATTN: DENE SITE OF FOOT V1581 PERS HX 11-19-2010 [facility] NONCOMPLIAN MED CTR, CE W/MED TX ATTN: DENE PRS [facility] 7295 PAIN IN 11-16-2010 [place] [facility] TISSUES OF LLC LIMB 9597 INJURY 11-16-2010 [place] OTHER&UNSPE [facility] CIFIED [employer] [facility] LEG ANKLE&FOOT 61770 PAIN IN 10-30-2010 [facility] JOINT MED CTR, PELVIC ATTN: DENE REGION AND THIGH 8439 SPRAIN&STRA 10-22-2010 [facility] IN OF MED CTR, UNSPECIFIED ATTN: DENE SITE OF HIP&THIGH 5259 UNSPECIFIED 10-17-2010 [facility] DISORDER MED CTR, TEETH&SUPPO ATTN: DENE RTING STRUCTURES 3551 MERALGIA 10-13-2010 [facility] [place] 8488 OTHER 10-09-2010 [facility] SPECIFIED MED CTR, SITES OF ATTN: DENE SPRAINS AND STRAINS 7831 ABNORMAL 10-07-2010 [facility] 01974 OTHER ACUTE 10-02-2010 [facility] MED CTR, POSTOPERATI ATTN: DENE VE PAIN 48957 HYPOCALCEMI 09-23-2010 [facility] 58306 UNSPECIFIED 09-17-2010 [facility] INFECTIVE MED CTR, OTITIS ATTN: DENE EXTERNA 3829 UNSPECIFIED 09-17-2010 [facility] OTITIS MED CTR, MEDIA ATTN: DENE 2749 GOUT, 08-27-2010 [facility] UNSPECIFIED MED CTR, ATTN: DENE 97662 ASTHMA, 08-27-2010 [facility] UNSPECIFIED MED CTR, , ATTN: DENE UNSPECIFIED STATUS 46089 OTHER ACUTE 08-24-2010 [facility] EXTERNA 3804 IMPACTED 08-24-2010 [facility] 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 08-24-2010 [facility] 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 5220 PULPITIS 08-05-2010 MAURILIO I JIMENEZ III PSC N0 3 490 BRONCHITIS 07-27-2010 [facility] NOT MED CTR, SPECIFIED ATTN: DENE ACUTE OR CHRONIC 26262 PAINFUL 07-27-2010 [facility] RESPIRATION MED CTR, ATTN: DENEber 2761 HYPOSMOLALI 07-05-2010 [facility]/OR [facility]INIC HYPONATREMI A 60583 OSTEOARTHRO 07-02-2010 [facility] S UNSPEC MED CTR, WHETHER ATTN: DENE GEN/LOC UNSPEC SITE 49627 UNSPECIFIED 07-02-2010 [facility] MED CTR, ARTHROPATHY ATTN: DENE SITE UNSPECIFIED 78300 OTHER 07-02-2010 [facility] MALAISE AND MED CTR, FATIGUE ATTN: DENEber 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 06-06-2010 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 N 36828 OTHER 05-28-2010 [facility] INJURY OF MED CTR, OTHER SITES ATTN: DENE OF TRUNK 8472 LUMBAR 05-21-2010 [facility] SPRAIN AND MED CTR, STRAIN ATTN: DENEber 514 PULMONARY 03-13-2010 [place] [facility] HYPOSTASIS 27364 CHEST PAIN 02-22-2010 [place] [facility]NSPECIFIED [facility] 24499 ABDOMINAL 02-22-2010 [place] PAIN, [facility] UNSPECIFIED LLC SITE 9592 INJURY 02-22-2010 [facility] OTHER&UNSPE AMBULANCESV CIFIED C SHOULDER&UP PER ARM 9598 INJURY 02-22-2010 [place] [facility] OTH&UNSPEC MED CTR, OTH SPEC ATTN: DENEber SITES INCL MULTIPLE 9599 INJURY 02-22-2010 [place] OTHER AND [facility] UNSPECIFIED LLC UNSPECIFIED SITE E8889 UNSPECIFIED 02-22-2010 [place] [facility] [facility] 87580 CONDUCTIVE 01-07-2010 [facility] LOSS UNILATERAL 71191 UNSPECIFIED 01-01-2010 [facility] VIRAL [facility] CTR INFECTION IN CCE & UNS SITE 9983 DISRUPTION 12-14-2009 MAURILOI JIMENEZ OF WOUND III PSC N0 3 462 ACUTE 10-10-2009 [facility] PHARYNGITIS MED CTR 8471 THORACIC 07-19-2009 [facility] E9278 OTH 07-19-2009 [facility] OVEREXERT&S MEDICAL TRENUOUS&RE PARTNERS [...] 0 30 30 HO 60 GH Ac PA 37 -1 -1 0. ME 35 AN [...] ve /M L CA RP UJ CT PA 00 08 0 No OM 64 -2 [...] 3( ve 2. 5) MG /3 ML PA 00 07 0 No ED 05 -0 [...] -2 -2 .0 CK 68 RA ti PA 30 4- 4- 00 SO 54 D [...] 4- 4- 00 SO 58 D ve PA 76 20 20 N UM IL 17 [...] 8- 3- 00 SO 20 D ve PA 76 20 20 N UM IL 17 11 11 AP AR 0 OT M 40 HE CA MG RY # TA BL 00 ET 7 CY 00 08 08 15 5 RI 89 MARIAELENA Ac CL 37 -2 -2 .0 TE 58 WM ti OB 80 9- 9- 00 97 AN ve EN 75 20 20 AI ZA 11 11 11 D KE PA 0 PH NN IN AR Y E MA L 10 CY MG 03 21 TA 6 BL # ET 03 21 00 08 08 0 10 3 FA 41 NHAN Ac 40 -1 -1 .0 MS 83 HN ti 60 5- 5- 00 [...] 10 2- 4- 00 17 D ve PA 40 20 20 AI IL 90 11 [...] 0 14 7 FA 67 BU Ac PA 11 -1 -1 .0 MS 89 RN ti OF 10 6- 6- 00 LY 74 ET ve LO 12 20 20 9 TE XA 70 11 11 PH CI 1 AR GE N MA OR HC CY GE L E 50 OF 0 MG JA CK TA SO B N NE 61 07 07 0 10 10 FA 67 BU Ac OM 31 -1 -1 .0 MS 89 RN ti YC 40 6- 6- [...] -0 -0 .0 CK 92 RA ti PA 30 8- 8- 00 SO 19 D [...] 00 7- 6- 00 95 D ve PA 51 20 20 AI IL 70 11 11 D MA 1 PH H 40 AR MA MG CY TA 03 BL 21 ET 6 # 03 21 00 06 06 0 20 5 FA 41 BU Ac 59 -2 -2 .0 MS 80 RN ti 10 5- 5- 00 LY 55 ET ve 50 20 20 4 TE 20 11 11 PH 5 AR GE MA OR CY GE E OF JA CK SO N NE 61 06 06 0 10 3 FA 67 BU Ac OM 31 -2 -2 .0 MS 85 RN ti YC 40 5- 5- 00 LY 88 ET ve IN 64 20 20 5 TE -P 51 11 11 PH OL 1 AR GE YM MA OR YX CY GE IN E -H OF C EA JA R CK HERNDON SO SP N CI 55 06 06 0 10 5 FA 67 BU Ac PA 11 -2 -2 .0 MS 85 RN ti OF 10 5- 5- [...] RA ti NO 00 60 D ve PA 51 20 20 AI IL 50 11 11 D MA 1 PH H 20 AR MA MG CY TA 03 BL 21 ET 6 # 03 21 00 06 06 0 24 5 FA 41 GR Ac 59 -0 -0 .0 MS 79 AY ti 10 3- 3- 00 LY 39 , ve 54 20 20 0 II 00 11 11 PH I 5 AR NHAN MA HN CY I OF JA CK SO N IB 55 06 06 0 30 6 FA 67 GR Ac UP 11 -0 -0 .0 MS 81 AY ti RO 10 3- 3- 00 LY 44 , ve FE 68 20 20 0 II N 20 11 11 PH I 40 5 AR NHAN 0 MA HN MG CY I TA OF BL ET JA CK SO N 00 06 06 0 24 5 FA 41 GR Ac 59 -0 -0 .0 MS 79 AY ti 10 3- 3- 00 LY 39 ve 54 20 20 0 II 00 11 11 PH I 5 AR NHAN MA HN CY I OF JA CK SO N LI 00 05 05 0 30 30 JA 56 MU Ac SI 59 -3 -3 .0 CK 68 RA ti NO 10 1- 1- 00 SO 08 D ve PA 40 20 20 N UM IL 71 11 11 AP AR 0 OT M 10 HE CA MG RY # TA BL 00 ET 7 00 05 05 0 12 4 FA 41 CA Ac 59 -2 -2 .0 MS 79 MP ti 10 LY 09 BE ve 34 20 20 6 LL 90 11 11 PH 5 AR RO MA GE CY R D OF JA CK SO N 00 05 05 0 12 4 FA 41 CA Ac 59 -2 -2 .0 MS 79 MP ti 10 7- 7 LY 09 BE ve 34 20 20 6 LL 90 11 11 PH 5 AR RO MA GE CY R D OF JA CK SO N AM 00 05 05 0 30 10 FA 67 CA Ac OX 78 -2 -2 .0 MS 80 MP ti IC 12 7 7 LY 30 BE ve IL 61 20 20 6 LL LI 30 11 11 PH N 5 AR RO 50 MA GE 0 CY R MG D OF CA PS JA UL CK E SO N BE 57 05 05 0 30 10 FA 67 WA Ac NZ 66 -2 -2 .0 MS 80 RR ti ON 40 6 LY 13 EN ve AT 13 20 20 4 AT 48 11 11 PH LA E 8 AR RR 20 MA Y 0 CY E MG OF CA PS JA UL CK E SO N AZ 00 05 05 0 6. 5 FA 67 WA Ac IT 78 -2 -2 00 MS 80 RR ti HR 11 6- 6- 0 LY 13 EN ve OM 49 20 20 5 YC 66 11 11 PH LA IN 8 AR RR MA Y 25 CY E 0 MG OF TA JA BL CK ET SO N LO 45 05 05 12 30 30 FA 67 MU Ac RA 80 -0 -0 .0 MS 75 RA ti TA 20 3- 3- 00 LY 02 D ve DI 65 20 20 4 NE 08 11 11 PH MA 7 AR H 10 MA CY MG OF TA BL JA ET CK SO N LI 00 04 04 0 30 30 FA 67 MU Ac SI 18 -1 -1 .0 MS 71 RA ti NO 55 9- 9- 00 LY 92 D ve PA 40 20 20 7 UM IL 00 [...] N ZA 11 11 11 D AA PA 0 PH RO IN AR N E MA W 10 CY MG 03 21 TA 6 BL # ET 03 21 NA 00 02 02 30 15 RI 87 NHAN Ac PA 09 -2 -2 .0 TE 55 HN ti OX 30 8- 8- 00 90 SO ve EN 14 20 20 AI N 90 11 11 D AA 50 1 PH RO 0 AR N MG MA W CY TA BL 03 ET 21 6 # 03 21 CI 00 01 01 1 7. 10 FA 67 SA Ac PA 06 -2 -2 50 MS 51 RT ti OD 58 8- 8- [...] BU Ac TH 60 -2 -2 .0 MS 43 RN ti OC 34 1- 1- 00 LY 54 ET ve AR 48 20 20 3 TE BA 62 10 10 PH MO 8 AR GE L MA OR 75 CY GE 0 E MG OF TA JA BL CK ET SO N AZ 59 12 12 0 6. 5 FA 67 SA Ac IT 76 -0 -0 00 MS 40 RT ti HR 23 8- 8- 0 LY 79 AW ve OM 06 20 20 0 I YC 00 10 10 PH TA IN 1 AR RI MA Q 25 CY 0 MG OF TA JA BL CK ET SO N MU 45 11 11 0 22 14 FA 67 SA Ac PI 80 -0 -0 .0 MS 32 RT ti RO 20 2- 2- 00 LY 33 AW ve CI 11 20 20 6 I N 22 10 10 PH TA 2% 2 AR RI MA Q OI CY NT ME OF NT JA CK SO N 59 11 11 0 14 7 FA 67 SA Ac 76 -0 -0 .0 MS 32 RT ti 22 2- 2- 00 LY 33 AW ve 18 20 20 7 I 00 10 10 PH TA 1 AR RI MA Q CY OF JA CK SO N CI 16 10 10 0 10 5 FA 67 BU Ac PA 25 -3 -3 .0 MS 31 RN ti OF 20 0- 0- 00 LY 71 ET ve LO 51 20 20 7 TE XA 50 10 10 PH CI 1 AR GE N MA OR HC CY GE L E 50 OF 0 MG JA CK TA SO B N PA 10 10 10 0 10 2 FA 67 BU Ac OM 70 -3 -3 .0 MS 31 RN ti ET 20 0- 0- 00 LY 71 ET ve RESENDIZ 00 20 20 8 TE ZI 31 10 10 PH NE 0 AR GE MA OR 25 CY GE E MG OF TA JA BL CK ET SO N CI 65 10 10 14 7 RI 86 BU Ac PA 86 -1 -1 .0 TE 15 RN ti OF 20 7- 7- 00 09 ET ve LO 07 20 20 AI TE XA 70 10 10 D CI 1 PH GE N AR OR HC MA GE L CY E 50 0 03 MG 21 6 TA # B 03 21 CI 00 09 09 0 14 7 WA 71 BU Ac PA 37 -2 -2 .0 L- 67 RN [...] 41 GR Ac 59 -1 -1 .0 MS 65 AY ti 10 7- 7- 00 LY 56 , ve 54 20 20 8 II 00 10 10 PH I 5 AR NHAN MA HN CY I OF CK SO N IB 55 09 09 0 30 6 FA 67 GR Ac UP 11 -1 -1 .0 MS 22 AY ti RO 10 7- 7- 00 LY 08 , ve FE 68 20 20 9 II N 20 10 10 PH I 40 5 AR NHAN 0 MA HN MG CY I TA OF BL ET CK SO N 00 09 09 0 24 5 FA 41 GR Ac 59 -1 -1 .0 MS 65 AY ti 10 7- 7- 00 LY 56 ve 54 20 20 8 II 00 10 10 PH I 5 AR NHAN MA HN CY I OF [facility] SO N 00 09 09 0 10 2 FA 41 CA Ac 59 -1 -1 .0 MS 65 MP ti 10 4- 4- 00 LY 38 BE ve 34 20 20 1 LL 90 10 10 PH 5 AR RO MA GE CY R D OF [facility] SO N 00 09 09 0 10 2 FA 41 CA Ac 59 -1 -1 .0 MS 65 MP ti 10 4- 4- 00 LY 38 BE ve 34 20 20 1 LL 90 10 10 PH 5 AR RO MA GE CY R D OF [facility] SO N 00 09 09 20 3 RI 85 BU Ac 60 -0 -0 .0 TE 71 RN ti 33 5- 5- 00 50 ET ve 88 20 20 AI TE 42 10 10 D 1 PH GE AR OR MA GE CY E 03 21 6 # 03 21 CI 65 09 09 14 7 RI 85 BU Ac PA 86 -0 -0 .0 TE 71 RN [...] 0 14 7 WA 71 BU Ac PA 37 -0 -0 .0 L- 60 RN [...] EG ZA 11 10 10 D OR PA 0 PH Y IN AR J E [...] Procedure DOS Code Location Performer Comment THERAPEUT 73426 [facility] IC [facility] PROPHYLAC INC INC TIC/DX INJECTION SUBQ/[place] [address] [place] [facility]EXTER CERVICAL 5 MEDICAL [place]VINA SPINE W/O IMAGING CONTRAST ASS MATERIAL RADEX 57843 [facility] SPINE 5 MEDICAL FANNIE CERVICAL IMAGING 4 OR 5 ASS VIEWS RADEX 44891 [facility] SPINE 5 MEDICAL FANNIE THORACIC IMAGING 2 VIEWS ASS RADEX 92455 [place] [facility] SHOULDER 5 MEDICAL [place] COMPLETE IMAGING MINIMUM 2 ASS VIEWS RADEX 29860 [place] [facility] SPINE 5 MEDICAL [place] LUMBOSACR IMAGING AL ASS MINIMUM 4 VIEWS RADIOLOGI 02939 [place] [facility] C 4 [facility] EXAM[facility] LLC ON CHEST SINGLE VIEW FRONTAL RADEX 06420 [facility] SHOULDER 1 MED CTR, MED CTR, COMPLETE ATTN: ATTN: MINIMUM 2 DENE DENE VIEWS IM ADM 85418 [facility] PRQ ID 1 MED CTR, MED CTR, SUBQ/IM ATTN: ATTN: NJXS 1 DENE DENE VACCINE NONEMERG A0120 [facility] TRNSPRT: 1 [facility] Birdi [facility] MTN ACTION P AREA/OTH SYS THERAPEUT 22563 [facility] IC 1 MED CTR, MED CTR, PROPHYLAC ATTN: ATTN: TIC/DX DENE DENE INJECTION SUBQ/IM RADIOLOGI 93562 [facility] C 1 MED CTR, MED CTR, EXAMINATI ATTN: ATTN: ON FOOT 2 DENE DENE VIEWS RADEX HIP 54400 [facility] 1 MED CTR, MED CTR, UNILATERA ATTN: ATTN: L DENE DENE COMPLETE MINIMUM 2 VIEWS NONEMERG A0120 [facility] TRNSPRT: 1 [facility] Birdi [facility] MTN ACTION P AREA/OTH SYS NONEMERG A0120 [facility] TRNSPRT: 1 [facility] MTN ACTION P AREA/OTH SYS NONEMERG A0120 [facility] TRNSPRT: 1 [facility] [facility] MTN ACTION P AREA/OTH SYS INJECTION J0735 [facility] PEREZ ASM 1 CLINIC CLONIDINE HYDROCHLO RIDE 1 MG NONEMERG A0120 [facility] TRNSPRT: 1 [facility] Birdi [facility] MTN ACTION P AREA/OTH SYS NONEMERG A0120 [facility] TRNSPRT: 1 [facility] [facility] MTN ACTION P AREA/OTH SYS NONEMERG A0120 [facility] TRNSPRT: 1 [facility] [employer] [facility] MTN ACTION P AREA/OTH SYS RADEX 99247 RADIOLOG[facility] [place]ON A HIPS 1 SERVICES BILATERAL 2 VIEWS ANTEROPOS T PELVIS NONEMERG A0120 [facility] TRNSPRT: 1 [facility] [employer] [facility] MTN ACTION P AREA/OTH SYS NONEMERG A0120 [facility] TRNSPRT: 1 [facility] [employer] [facility] MTN ACTION P AREA/OTH SYS NONEMERG A0120 [facility] TRNSPRT: 1 [facility] [employer] [facility] MTN ACTION P AREA/OTH SYS NONEMERG A0120 [facility] TRNSPRT: 1 [facility] [employer] [facility] MTN ACTION P AREA/OTH SYS COLLECTIO 94451 [facility] N VENOUS 1 MED CTR, MED CTR, BLOOD ATTN: ATTN: VENIPUNCT DOUGIE CONSTANTINO URE CULTURE 89972 [facility] BACTERIAL 1 MED CTR, MED CTR, BLOOD ATTN: ATTN: AEROBIC DOUGIE CONSTANTINO W/ID ISOLATES BASIC 90199 [facility] METABOLIC 1 MED CTR, MED CTR, PANEL ATTN: ATTN: CALCIUM DOUGIE CONSTANTINO TOTAL CREATINE 34371 [facility] KINASE MB 1 MED CTR, MED CTR, FRACTION ATTN: ATTN: ONLY DOUGIE DENE CREATINE 95074 [facility] KINASE 1 MED CTR, MED CTR, TOTAL ATTN: ATTN: [place] [address] [facility] MAGNESIUM 1 MED CTR, MED CTR, ATTN: ATTN: DOUGIE GOMEZE ECG 50428 [facility] ROUTINE 1 MED CTR, MED CTR, ECG ATTN: ATTN: W/LEAST DOUGIE CONSTANTINO 12 LDS TRCG ONLY W/O I&R RADIOLOGI 18845 [facility] C EXAM 1 MED CTR, MED CTR, CHEST 2 ATTN: ATTN: VIEWS DOUGIE CONSTANTINO FRONTAL&L ATERAL NATRIURET 82402 [place] [facility] [place] IC 1 [facility] CTR, MED CTR, PEPTIDE ATTN: ATTN: [place] [address] [place] TROPONIN 1 MED CTR, MED CTR, QUANTITAT ATTN: ATTN: BLANQUITA [place] BLOOD 03740 [place] [facility] [place] COUNT 1 [facility] CTR, MED CTR, COMPLETE ATTN: ATTN: AUTO&AUTO DENE DENE DIFRNTL WBC NONEMERG A0120 [facility] [place] TRNSPRT: 1 [facility] ACTION COMMUNITY MTN ACTION P AREA/OTH SYS COLLECTIO 01707 [place] [facility] [place] N VENOUS 1 MED CTR, MED CTR, BLOOD ATTN: ATTN: VENIPUNCT DENE DENE URE C-REACTIV 22738 [place] E PROTEIN 1 MED CTR, MED CTR, ATTN: ATTN: DENE [place] BASIC 40811 [place] [facility] [place] METABOLIC 1 MED CTR, MED CTR, PANEL ATTN: ATTN: CALCIUM DENE DENE TOTAL ANTINUCLE 43737 [place] AR 1 [facility], MED CTR, ANTIBODIE ATTN: ATTN: S YOHAN DENE DENE RHEUMATOI 76976 [place] FACTOR 1 [facility] CTR, MED CTR, QUALITATI ATTN: ATTN: VE DENE DENE SEDIMENTA 77602 [place] TION RATE 1 [facility] CTR, MED CTR, RBC ATTN: ATTN: NON-AUTOM DENE DENE ATED COMPLEMEN 26449 [place] ANTIGEN 1 [facility], MED CTR, EACH ATTN: ATTN: COMPONENT DENE DENE CYCLIC 73426 [place] CITRULLIN 1 MED CTR, MED CTR, ATED ATTN: ATTN: PEPTIDE DENE DENE ANTIBODY LIPID 73360 [place] PANEL 1 [facility], MED CTR, ATTN: ATTN: DENE DENE HLA 45207 [place] TYPING 1 [facility] CTR, MED CTR, A/B/C ATTN: ATTN: SINGLE DENE DENE ANTIGEN BLOOD 18742 [place] COUNT 1 [facility], MED CTR, COMPLETE ATTN: ATTN: AUTO&AUTO [place] [address] [facility] THYROID 1 MED CTR, MED CTR, STIMULATI ATTN: ATTN: NG DOU[place] [address] [facility] R[facility] BLOOD/URI 1 MED CTR, MED CTR, C ACID ATTN: ATTN: PATRICIAE DENE NONEMERG [id number] [facility] TRNSPRT: 1 [facility] Birdi [facility] MTN ACTION P AREA/OTH SYS MRI [id number] [facility] [place] A SPINAL 1 MALL CANAL IMAGING LUMBAR CENTER W/O CONTRAST MATERIAL NONEMERG A0120 [facility] TRNSPRT: 1 [facility] Birdi [facility] MTN ACTION P AREA/OTH SYS RADEX 76337 [facility] SPINE 1 MED CTR, MED CTR, LUMBOSACR ATTN: ATTN: AL 2/3 DOUGIE CONSTANTINO VIEWS REMOVAL 71597 [facility] 1 ENT TAR CERUMEN CLINIC INSTRUMEN PSC TATION UNILAT COLLECTIO 12488 [facility] N 1 MED CTR, MED CTR, CAPILLARY ATTN: ATTN: BLOOD DENE DENE SPECIMEN BLOOD 89268 [facility] R[facility] COUNT 1 MED CTR, MED CTR, COMPLETE ATTN: ATTN: AUTO&AUTO DENE DENE DIFRNTL WBC RADIOLOGI 11279 [facility] C EXAM 1 RIVER HBP CHEST 2 LLC VIEWS FRONTAL&L ATERAL IAADI NOT 95148 [facility] R[facility] 1 MED CTR, MED CTR, OTHERWISE ATTN: ATTN: DOUGIE CONSTANTINO SPECIFIED EACH ORGANISM IAADIADOO 09387 [facility] RIVER 1 MED CTR, MED CTR, STREPTOCO ATTN: ATTN: CCUS DOUGIE DENEber GROUP A AMB A0427 TRANS TRANS SERVICE 0 STAR STAR ALS AMBULANCE AMBULANCE EMERGENCY SVC SVC TRANSPORT LEVEL 1 RADIOLOGI 45262 [facility] C EXAM 0 MED CTR, MED CTR, CHEST 2 ATTN: ATTN: VIEWS DENE DENE FRONTAL&L ATERAL RADIOLOGI 34377 [facility] C 0 MED CTR, MED CTR, EXAMINATI ATTN: ATTN: ON PELVIS DENE DENE 1/2 VIEWS GROUND A0425 TRANS TRANS MILEAGE 0 STAR STAR PER AMBULANCE AMBULANCE STATUTE SVC SV MILE RADEX 03971 [facility] SHOULDER 0 MED CTR, MED CTR, COMPLETE ATTN: ATTN: MINIMUM 2 DENE DENE VIEWS REMOVAL 73680 [facility] ABBIETAWI IMPACTED 0 ENT TAR CERUMEN CLINIC INSTRUMEN PSC TATION UNILAT INCISION [id number] MAURILIO I JIMENEZ III & 0 JIMENEZ III VALERIE DRAINAGE PSC N0 3 COMPLEX PO WOUND INFECTION NONEMERG A0120 [facility] TRNSPRT: 0 [facility] [employer] [facility] MTN ACTION P AREA/OTH SYS NONEMERG A0120 [facility] TRNSPRT[facility] 0 [facility] [employer] [facility] MTN ACTION P AREA/OTH SYS NONEMERG A0120 [facility] TRNSPRT: 0 [facility] [employer] [facility] MTN ACTION P AREA/OTH SYS DEEP D9220 MAURILIO I JIMENEZ III SEDATION/ 0 JIMENEZ III VALERIE GENERAL PSC N0 3 ANESTHESI A-1ST 30 MINUTES BLOOD 84276 [facility] COUNT 0 MED CTR MED CTR COMPLETE AUTO&AUTO DIFRNTL WBC COLLECTIO 59463 [facility] N VENOUS 0 MED CTR MED CTR BLOOD VENIPUNCT URE IAADIADOO 59580 [facility] 0 MED CTR MED CTR STREPTOCO CCUS GROUP A RADEX 32677 BREATHIT AYOS, SPINE 0 [facility] MINIMUM 4 VIEWS RADEX 23364 RADIOLOGY ZACHARY, SPINE 0 SERVICES MARA C LUMBOSACR AL MINIMUM 4 VIEWS RADEX 32807 RADIOLOGY ZACHARY, SPINE 0 SERVICES MARA C THORACIC 3 VIEWS RADEX 65531 [facility] SPINE 0 MED CTR MED CTR THORACIC 3 VIEWS ORTHOPANT 26985 MAURILIO PINA OGRAM 0 JIMENEZ III MAURILIO R PSC N0 3 DEEP D9220 MAURILIO PINA, SEDATION/ 0 JIMENEZ III MAURILIO R GENERAL PSC N0 3 ANESTHESI A-1ST 30 MINUTES Encounters Encounter Start End Date Code Location Performer Type Date OFFICE 88592 [facility] PABLO OUTPATIEN 6 6 PHYSICIAN SRIRAM T VISIT S GROUP 15 MINUTES EMERGENCY 01762 ADELA COLLADO 6 6 PHYSICIAN U FANNIE DEPARTMEN S, [facility] T VISIT HIGH/URGE NT SEVERITY HOSPITAL STEVEN - 6 6 [facility] T EMERGENCY 69492 STEVEN 6 6 [facility] T VISIT LOW/MODER SEVERITY EMERGENCY 48143 ADELA ONOFRE 5 5 PHYSICIAN JAYESH DEPARTMEN S, [facility] T VISIT MODERATE SEVERITY EMERGENCY 54940 STEVEN 5 5 [facility] T VISIT LOW/MODER SEVERITY HOSPITAL STEVEN - 5 5 [facility]IEN INC T EMERGENCY 32090 GRANT BURNS 5 5 LEO LEO DEPARTMEN T VISIT HIGH/URGE NT SEVERITY OFFICE 15650 [facility] PABLO OUTPATIEN 5 5 PHYSICIAN SRIRAM T VISIT S GROUP 25 MINUTES OFFICE 52946 [facility] PABLO OUTPATIEN 5 5 PHYSICIAN SRIRAM T VISIT S GROUP 15 MINUTES EMERGENCY 86693 KASIE MARINELLI, 4 4 RIVER HBP III [facility] T VISIT MODERATE SEVERITY Emergency JENNIFER Villaseñor MD (ER) 3 14:19 3 14:45 [facility] Emergency JENNIFER Parra MD (ER) 3 10:46 3 12:10 [facility] [place]ENCY [address]155 [place] 1 1 [facility] CTR, DEPARTMEN ATTN: T VISIT DENE LOW/MODER SEVERITY EMERGENCY 34034 NANCIE NANCIE 1 1 G G DEPARTMEN T VISIT MODERATE SEVERITY [facility] [place] - 1 1 [facility] CTR, OUTPATIEN ATTN: T [facility] [place] - 1 1 [facility] CTR, OUTPATIEN ATTN: T DENE EMERGENCY 65908 [place] 1 1 [facility], DEPARTMEN ATTN: T VISIT DENE MODERATE SEVERITY EMERGENCY 87482 [place] 1 1 [facility], DEPARTMEN ATTN: T VISIT DENE MODERATE SEVERITY EMERGENCY 57114 NANCIE NANCIE 1 1 G G DEPARTMEN T VISIT LIMITED/M [facility] [place] - 1 1 [facility] CTR, OUTPATIEN ATTN: T DENE EMERGENCY 49995 NANCIE NANCIE 1 1 G G DEPARTMEN T VISIT LOW/MODER SEVERITY EMERGENCY 46876 [place] 1 1 [facility] CTR, DEPARTMEN ATTN: T VISIT DENE MODERATE SEVERITY [facility] [place] - 1 1 MED CTR, OUTPATIEN ATTN: T DENE EMERGENCY 67474 NANCIE NANCIE 1 1 G G DEPARTMEN T VISIT MODERATE SEVERITY [facility] [place] - 1 1 [facility] CTR, OUTPATIEN ATTN: T DENE OFFICE 52586 CHRISTOPHERKERLINE PEREZ LORENA OUTPATIEN 1 1 CLINIC T VISIT 25 MINUTES OFFICE 88599 CHAVIES MURAD ASM OUTPATIEN 1 1 CLINIC T VISIT 15 MINUTES EMERGENCY 00681 [place] 1 1 [facility] CTR, DEPARTMEN ATTN: T VISIT DENE MODERATE SEVERITY EMERGENCY 52551 KASIE MARINELLI, 1 1 RIVER HBP III [facility] T VISIT LOW/MODER SEVERITY [facility] [place] - 1 1 [facility] CTR, OUTPATIEN ATTN: T DENE EMERGENCY 55408 [place] 1 1 [facility] CTR, DEPARTMEN ATTN: T VISIT DENE MODERATE SEVERITY EMERGENCY 72632 KASIE RUSS 1 1 RIVER HBP [facility] T VISIT HIGH/URGE NT SEVERITY HOSPITAL [facility] - 1 1 MED CTR, OUTPATIEN ATTN: T DENE [facility] - 1 1 MED CTR, OUTPATIEN ATTN: T DENE EMERGENCY 83997 KASIE GIMENEZ 1 1 RIVER HBP [facility]ENDY [facility] T VISIT LOW/MODER SEVERITY EMERGENCY 46507 [facility] 1 1 MED CTR, DEPARTMEN ATTN: T VISIT DENE MODERATE SEVERITY EMERGENCY 33103 KASIE MARINELLI, 1 1 RIVER HBP III [facility] T VISIT MODERATE SEVERITY HOSPITAL [facility] - 1 1 MED CTR, OUTPATIEN ATTN: T DENE OFFICE 03523 CHAVIES MURAD ASM OUTPATIEN 1 1 CLINIC T VISIT 15 MINUTES [facility]OSPITAL [facility] - 1 1 MED CTR, OUTPATIEN ATTN: T DENE EMERGENCY 10679 KASIE RUSS 1 1 RIVER HBP [facility] T VISIT MODERATE [facility]VERITY OFFICE 02521 [facility] 1 FAM[facility] A [facility] NEW/ESTAB SRV AR PATIENT 40 MIN [facility]OSP[facility] - 1 1 MED CTR, OUTPATIEN ATTN: T DENE EMERGENCY 47584 IRINEO COCHRAN 1 1 MED CTR, DEPARTMEN ATTN: T VISIT DENE MODERATE SEVERITY OFFICE 29629 CHAVIES [facility]AD ASM OUTPATIEN 1 1 CLINIC T VISIT 15 MINUTES EMERGENCY 55239 KASIE CANADA 1 1 RIVER HBP G [facility] T VISIT LOW/MODER SEVERITY HOSPITAL [facility] - 1 1 MED CTR, OUTPATIEN ATTN: T DENE EMERGENCY 56372 [place] 1 1 [facility] CTR, DEPARTMEN ATTN: T VISIT DENE MODERATE SEVERITY OFFICE 08228 CAS PEREZ ASM OUTPATIEN 1 1 CLINIC T VISIT 15 MINUTES OFFICE 17286 CAS SHELLEYAD ASM OUTPATIEN 1 1 CLINIC T VISIT 15 MINUTES [facility] [place] 1 1 [facility] CTR, OUTPATIEN ATTN: T DENE EMERGENCY 57074 [place] 1 1 [facility] CTR, DEPARTMEN ATTN: T VISIT DENE MODERATE SEVERITY EMERGENCY 83973 [place] NISHI 1 RIVER HBP [facility] T VISIT LOW/MODER SEVERITY EMERGENCY 66502 [place] 1 1 [facility] CTR, DEPARTMEN ATTN: T VISIT DENE MODERATE SEVERITY [facility] [place] 1 1 [facility] CTR, OUTPATIEN ATTN: T DENE OFFICE 75459 CAS PEREZ LORENA OUTPATIEN 1 1 CLINIC T VISIT 15 MINUTES EMERGENCY 21683 [place] 1 1 [facility] CTR, DEPARTMEN ATTN: T VISIT DENE MODERATE SEVERITY [facility] [place] 1 1 [facility] CTR, OUTPATIEN ATTN: T DENE EMERGENCY 67580 [place] NANCIE 1 RIVER HBP G [facility] T VISIT LOW/MODER SEVERITY OFFICE 96676 KJ LEIVATAWI OUTPATIEN 1 1 ENT TAR T VISIT CLINIC 25 PSC MINUTES EMERGENCY 76657 [place] RICH NATALIIA 1 RIVER HBP [facility] T VISIT LOW/MODER SEVERITY [facility] [place] - 1 1 [facility] CTR, OUTPATIEN ATTN: T DENE EMERGENCY 97905 [place] 1 1 [facility], DEPARTMEN ATTN: T VISIT DENE MODERATE SEVERITY OFFICE 00467 MAURILIO I JIMENEZ III OUTPATIEN 1 1 JIMENEZ III VALERIE T VISIT PSC N0 3 10 MINUTES EMERGENCY 71606 [facility] 1 1 MED CTR, DEPARTMEN ATTN: T VISIT DENE HIGH/URGE NT SEVERITY HOSPITAL [facility] - 1 1 MED CTR, OUTPATIEN ATTN: T DENE EMERGENCY 10222 KASIE GIMENEZ [address] [facility] T VISIT MODERATE SEVERITY OFFICE 60288 CHAVIES MURAD LORENA OUTPATIEN 1 1 CLINIC T VISIT 25 MINUTES [facility] - 1 1 MED CTR, OUTPATIEN ATTN: T DENE EMERGENCY 47393 [facility] 1 1 MED CTR, DEPARTMEN ATTN: T VISIT DENE LIMITED/M [facility]OB [facility] - 1 1 MED CTR, OUTPATIEN ATTN: T DENE OFFICE 43897 [facility] MELENDEZ J CONSULTAT 1 1 ICAL ION ASSOCIATE NEW/ESTAB S PATIENT 40 MIN OFFICE 69816 CHALENARDS MURAD [facility]ORENA OUTPATIEN 1 1 CLINIC T VISIT 15 MINUTES OFFICE 30372 CHALENARDS [facility] OUTPATIEN 1 1 CLINIC T VISIT 15 MINUTES [facility] - 1 1 MED CTR, OUTPATIEN ATTN: T DENE OFFICE 55952 CHALENARDS MURAD [facility]NA OUTPATIEN 1 1 CLINIC T NEW 45 MINUTES EMERGENCY 03709 KASIE HAINESADINO 1 1 RIVER HBP [facility] T VISIT LOW/MODER SEVERITY EMERGENCY 84853 [facility] 1 1 MED CTR, DEPARTMEN ATTN: T VISIT DENE MODERATE SEVERITY HOSPITAL [facility] - 1 1 MED CTR, OUTPATIEN ATTN: T DENE EMERGENCY 79251 [place] 1 1 [facility] CTR, DEPARTMEN ATTN: T VISIT DENE MODERATE SEVERITY [facility] [place] 1 1 [facility] CTR, OUTPATIEN ATTN: T DENE OFFICE 83857 KJ LEIVAMAYUR OUTPATIEN 1 1 ENT TAR T VISIT CLINIC 15 PSC MINUTES OFFICE 97019 [facility] E[facility] TAR T VISIT CLINIC 25 PSC MINUTES EMERGENCY 70925 [place]CI[place] 1 1 RIVER HBP G [facility] T VISIT LOW/MODER SEVERITY EMERGENCY 47065 [place] 1 1 [facility], DEPARTMEN ATTN: T VISIT DENE MODERATE SEVERITY [facility] [place] 1 1 [facility], OUTPATIEN ATTN: T [facility]E [facility] [place] 0 0 [facility], OUTPATIEN ATTN: T DENE EMERGENCY 74378 [place] 0 0 [facility], DEPARTMEN ATTN: T VISIT DENE MODERATE SEVERITY EMERGENCY 27750 [place]CI[place] 0 0 RIVER HBP [facility] T VISIT LOW/MODER SEVERITY OFFICE 85835 [facility] E[facility] TAR T VISIT CLINIC 25 PSC MINUTES OFFICE 35238 [facility] CONSULTAT 0 0 ENT TAR ION CLINIC NEW/ESTAB PSC PATIENT 60 MIN EMERGENCY 91963 [place] 0 0 [facility] CTR DEPARTMEN T VISIT HIGH/URGE NT SEVERITY [facility] [place] - 0 0 [facility] CTR OUTPATIEN T EMERGENCY 86943 [place] 0 0 RIVER HBP [facility] T VISIT LOW/MODER SEVERITY EMERGENCY 10728 [place] 0 0 RIVER HBP G [facility] T VISIT LOW/MODER SEVERITY [facility] [place] [facility] 0 0 [facility] CTR OUTPATIEN T EMERGENCY 47717 [place] 0 0 [facility] CTR DEPARTMEN T VISIT MODERATE SEVERITY EMERGENCY 62653 [place] 0 0 [facility] DEPARTMEN T VISIT MODERATE SEVERITY [facility] [place] [facility] 0 [facility] CTR OUTPATIEN T EMERGENCY 20382 [facility] NANCIE 0 0 RIVER HBP [facility] T VISIT LOW/MODER SEVERITY [facility] [place] [facility] 0 0 [facility] CTR OUTPATIEN T EMERGENCY 48803 [place] 0 0 [facility] CTR DEPARTMEN T VISIT MODERATE [facility]VERITY [facility] [place] 0 0 MED CTR OUTPATIEN T EMERGENCY 12487 [place] 0 0 MED CTR DEPARTMEN T VISIT MODERATE SEVERITY EMERGENCY 27141 [facility] NANCIE 0 0 RIVER HBP G [facility] T VISIT LOW/MODER SEVERITY EMERGENCY 70952 [facility] 0 0 RIVER HBP ARIF M [facility] T VISIT LOW/MODER SEVERITY [facility] [place] - 0 0 MED CTR OUTPATIEN T EMERGENCY 32820 [place] 0 0 [facility] CTR DEPARTMEN T VISIT MODERATE SEVERITY EMERGENCY 34699 [facility] [place], 0 0 RIVER HBP KAMALA W [facility] T VISIT LOW/MODER SEVERITY EMERGENCY 63864 [place] 0 0 MED CTR DEPARTMEN T VISIT MODERATE SEVERITY [facility] [place] 0 0 [facility] CTR OUTPATIEN T EMERGENCY 26841 [place] 0 0 [facility] CTR DEPARTMEN T VISIT MODERATE SEVERITY [facility] [place] 0 0 MED CTR OUTPATIEN T EMERGENCY 85436 [facility] NANCIE, 0 0 RIVER HBP G E [facility] T VISIT LOW/MODER SEVERITY EMERGENCY 98968 [facility] [place], 0 0 MEDICAL [facility] T VISIT LLC HIGH/URGE NT SEVERITY OFFICE 10710 [facility] MAURILIO GASTONED OUTPATIEN 0 0 RUKHSANADUKERossy PAB T VISIT EXTENDED 15 H MINUTES [facility] [place] - 0 0 MED CTR OUTPATIEN T EMERGENCY 99921 [place] 0 0 [facility] CTR DEPARTMEN T VISIT MODERATE SEVERITY EMERGENCY 29304 [place] REFF[place], 0 0 RIVER HBP LIANNE S [facility] T VISIT LOW/MODER SEVERITY OFFICE 79724 MAURILIO PINA OUTPATIEN 0 0 JIMENEZ III MAURILIO Hough T VISIT [facility] N0 3 10 MINUTES EMERGENCY 98595 [place] 0 0 [facility] CTR DEPARTMEN T VISIT MODERATE SEVERITY [facility] [place] 0 0 MED CTR OUTPATIEN T
--- OUTSIDE RECORDS SUMMARY | 2016-12-20 12:22 | External Medical Summary Rpt | CCD ---
Author Author , [facility] Organization [facility] Address Unknown Phone .Web Performance Care Team Providers Care Sql Dba Name Role Phone AYOS, EMELITA A, Unavailable Unavailable AYOS, EMELITA A MELENDEZ J, MELNEDEZ J Unavailable Unavailable BEINEKE FANNIE, BEINEKE Unavailable Unavailable FANNIE KESHIA TRINIDDA, KESHIA Unavailable Unavailable TRINIDAD GIMENEZ WENDY, GIMENEZ [...] [facility] Unavailable Unavailable [facility] [place] [facility] NASSAR Unavailable Unavailable LEO PABLO SRIRAM, PABLO Unavailable Unavailable SRIRAM JIMENEZ III VALERIE, JIMENEZ Unavailable Unavailable III [facility] Un[facility], [facility] Unavailable Unavailable [place], [facility] [place] [facility], Unavailable Unavailable [facility] Unavailable Unavailable [place], [facility] # Unavailable Unavailable 007, [facility] 00[facility] Unavailable Unavailable [facility], [facility] MAURILIO I TONY III [facility] Unavailable Unavailable N0 3, MAURILIO I JIMENEZ III [facility] N0 3 PETRONA GAR, PETRONA Unavailable Unavailable KAMALA MADRIGAL, Unavailable Unavailable KAMALA RUSS [facility] Unavailable Unavailable IMAGING ASS, [facility] Unavailable Unavailable LLC, [facility] [place] Un[facility] Un[facility], Unavailable Unavailable ATTN: DOUGIE, IRINEO [facility], ATTN: SAMANTHA ANTONIO LEE, Unavailable Unavailable SAMANTHA SENA PAB, NATHEN Unavailable Unavailable PAB [facility] Unavailable Unavailable ACTION P, [facility] MURAD ASM, MURAD [...] LIANNE S [facility] Unavailable Unavailable [id number] # [id number], [facility] [id number] # [id number] SAKOW NOL, SAKOW NOL Unavailable [...] MARA C, Unavailable Unavailable ZACHARY MARA C [facility] # Unavailable Unavailable [id number], [facility] # [id number] NISHI COCHRAN, NISHI Unavailable Unavailable LAR KINGSTON MCCONNELL, Unavailable Unavailable KINGSTON JAYESH Purpose Continuity of Care Document - 05-25-2009 through 2016 Problems Code Diagnosis DOS Provider Status K922 GASTROINTES 04-02-2015 [facility] HEMORRHAGE GROUP UNSPECIFIED I10 ESSENTIAL 03-09-2015 [place] [facility] HYPERTENSIO INC N J0100 ACUTE 03-09-2015 [facility] MAX[facility]ARY [facility], SINUSITIS PLLC UNSPECIFIED J449 CHRONIC 03-09-2015 [place] [facility]STRUCTIVE [facility] PULMONARY INC DISEASE UNS K5289 OTH SPEC 03-09-2015 [facility] NONINFECTIV PHYSICIANS, E PLLC GASTROENTER ITIS & COLITIS K529 NONINFECTIV 03-09-2015 [place] E [facility] GASTROENTER INC ITIS & COLITIS UNS Z720 TOBACCO USE 03-09-2015 [facility] INC B349 VIRAL 02-21-2015 [facility] INFECTION PHYSICIANS, UNSPECIFIED PLLC R1111 VOMITING 02-21-2015 [facility] WITHOUT PHYSICIANS, NAUSEA PLLC R197 DIARRHEA 02-21-2015 [facility] UNSPECIFIED PHYSICIANS, PLLC 7231 CERVICALGIA 07-19-2015 [facility] 73027 INJURY OF 09-20-2014 [place] [facility] OTHER IMAGING ASS AND UNSPECIFIED 7245 UNSPECIFIED 07-04-2014 [place] [facility]HE [facility] 01882 OSTEOARTHRO 07-01-2014 [place] S UNSPEC MEDICAL WHETHER IMAGING ASS GEN/LOC SHLDR REGION 89424 PAIN IN 07-01-2014 [place] JOINT, MEDICAL SHOULDER IMAGING ASS REGION 7241 PAIN IN 07-01-2014 [facility] THORACIC PHYSICIANS SPINE GROUP 7248 OTHER 07-01-2014 [facility] SYMPTOMS PHYSICIANS REFERABLE GROUP TO BACK 9909 UNSPECIFIED 03-30-2014 [facility] SINUSITIS [facility]YSICIANS GROUP 4659 ACUTE URIS 02-27-2014 [place] [facility] UNSPECIFIED LLC SITE 4871 INFLUENZA 02-27-2014 [place] WITH OTHER [facility] RESPIRATORY LLC MANIFESTATI ONS 496 CHRONIC 02-27-2014 [place] AIRWAY [facility] OBSTRUCTION LLC NEC 91479 SHORTNESS 02-27-2014 [place] OF BREATH [facility] 7862 COUGH 02-27-2014 [facility] 06327 CIRCADIAN 02-12-2011 NANCIE G RHYTHM SLEEP DISORDER UNSPECIFIED 50077 UNSPECIFIED 02-12-2011 [facility], CONJUNCTIVI ATTN: DOUGIE TIS 4019 UNSPECIFIED 02-12-2011 [place] [facility], HYPERTENSIO ATTN: DUOGIE N 14755 LOC 02-07-2011 [place] [facility] OSTEO[facility]THRO [facility], S NOT SPEC ATTN: DENE PRIM/SEC SHLDR REGION 8409 SPRAIN&STRA 02-07-2011 [facility] IN UNSPEC MED CTR, SITE ATTN: DOUGIE SHOULDER&UP PER ARM 64197 UNSPECIFIED 01-26-2011 [place] [facility] CELLULITIS [facility], AND ATTN: DOUGIE ABSCESS OF FINGER 6824 CELLULITIS& 01-26-2011 [facility] G ABSCESS [place] HAND [place] F[place] [address] OTHER 01-10-2011 [facility] CHRONIC [facility], PAIN ATTN: PATRICIAE 7242 LUMBAGO 01-10-2011 [place] [facility], ATTN: DOUGIE 2724 OTHER AND 12-26-2010 [facility] UNSPECIFIED CLINIC HYPERLIPIDE MARCOS 4011 ESSENTIAL 12-26-2010 [facility] HYPERTENSIO CLINIC N, BENIGN 59807 PAIN IN 11-24-2010 [place] JOINT, CLINIC ANKLE AND FOOT V5869 LONG-TERM 11-24-2010 [facility] (CURRENT) CLINIC USE OF OTHER MEDICATIONS 43564 SPRAIN AND 11-19-2010 [place] [facility] STRAIN OF [facility], UNSPECIFIED ATTN: DENE SITE OF FOOT V1581 PERS HX 11-19-2010 [facility] NONCOMPLIAN MED CTR, CE W/MED TX ATTN: DENE PRS HAZARDS HLTH 7295 PAIN IN 11-16-2010 [place] SOFT [facility] TISSUES OF LLC LIMB 9597 INJURY 11-16-2010 [place] OTHER&UNSPE [facility] CIFIED [facility] LEG ANKLE&FOOT 97578 PAIN IN 10-30-2010 [facility] JOINT MED CTR, PELVIC ATTN: DENE REGION AND THIGH 8439 SPRAIN&STRA 10-22-2010 [place] [facility] IN OF MED CTR, UNSPECIFIED ATTN: DENE SITE OF HIP&THIGH 5259 UNSPECIFIED 10-17-2010 [facility] DISORDER MED CTR, TEETH&SUPPO ATTN: DENE RTING STRUCTURES 3551 MERALGIA 10-13-2010 [facility] [place] [place] 8488 OTHER 10-09-2010 [facility] SPECIFIED MED CTR, SITES OF ATTN: DENE SPRAINS AND STRAINS 7831 ABNORMAL 10-07-2010 [facility] 68004 OTHER ACUTE 10-02-2010 [facility] MED CTR, POSTOPERATI ATTN: DENE VE PAIN 13468 HYPOCALCEMI 09-23-2010 [facility] 89039 UNSPECIFIED 09-17-2010 [facility] INFECTIVE MED CTR, OTITIS ATTN: DENE EXTERNA 3829 UNSPECIFIED 09-17-2010 [facility] OTITIS MED CTR, MEDIA ATTN: DENE 2749 GOUT, 08-27-2010 [facility] UNSPECIFIED MED CTR, ATTN: DENE 30346 ASTHMA, 08-27-2010 [facility] UNSPECIFIED MED CTR, , ATTN: DENE UNSPECIFIED STATUS 56822 OTHER ACUTE 08-24-2010 [facility] EXTERNA 3804 IMPACTED 08-24-2010 [facility] 58095 OTOGENIC 08-24-2010 [facility] 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 5220 PULPITIS 08-05-2010 MAURILIO I JIMENEZ III PSC N0 3 490 BRONCHITIS 07-27-2010 [facility] NOT MED CTR, SPECIFIED ATTN: DENE ACUTE OR CHRONIC 10017 PAINFUL 07-27-2010 [place] [facility], ATTN: DENE 2761 HYPOSMOLALI 07-05-2010 [facility] AND/OR [facility]INIC HYPONATREMI A 19807 OSTEOARTHRO 07-02-2010 [place] [facility] UNSPEC [facility], WHETHER ATTN: DOUGIE GEN/LOC UNSPEC SITE 80101 UNSPECIFIED 07-02-2010 [place] [facility], ARTHROPATHY ATTN: DENE SITE UNSPECIFIED 87234 OTHER 07-02-2010 [place] [facility] MALAISE [facility], FATIGUE ATTN: DENE 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 82700 SPINAL STEN 06-06-2010 RAD[facility] LUMB 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 N 23155 OTHER 05-28-2010 [place] [facility] INJURY OF [facility], OTHER SITES ATTN: DENE OF TRUNK 8472 LUMBAR 05-21-2010 [place] [facility] SPRAIN [facility], STRAIN ATTN: DENEber 514 PULMONARY 03-13-2010 [place] [facility] HYPOSTASIS 77540 CHEST PAIN 02-22-2010 [place] [facility]NSPECIFIED [facility] 59637 ABDOMINAL 02-22-2010 [place] PAIN, [facility] UNSPECIFIED LLC SITE 9592 INJURY 02-22-2010 [facility] OTHER&UNSPE AMBULANCESV CIFIED C SHOULDER&UP PER ARM 9598 INJURY 02-22-2010 [place] [facility] OTH&UNSPEC [facility], OTH SPEC ATTN: DENE SITES INCL MULTIPLE 9599 INJURY 02-22-2010 [place] OTHER AND [facility] UNSPECIFIED LLC UNSPECIFIED SITE E8889 UNSPECIFIED 02-22-2010 [place] [facility] 73726 CONDUCTIVE 01-07-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 ME 35 AN [...] -2 -2 .0 CK 68 RA ti WY 30 4- 4- 00 SO 54 D [...] 4- 4- 00 SO 58 D ve WY 76 20 20 N UM IL 17 [...] 8- 3- 00 SO 20 D ve WY 76 20 20 N UM IL 17 11 11 AP AR 0 OT M 40 HE CA MG RY # TA BL 00 ET 7 CY 00 08 08 15 5 RI 89 MARIAELENA Ac CL 37 -2 -2 .0 TE 58 WM ti OB 80 9- 9- 00 97 AN ve EN 75 20 20 AI ZA 11 11 11 D KE WY 0 PH NN IN AR Y E MA L 10 CY MG 03 21 TA 6 BL # ET 03 21 00 08 08 0 10 3 FA 41 NHAN Ac 40 -1 -1 .0 AZ 83 HN ti 60 5- 5- 00 [...] 10 2- 4- 00 17 D ve WY 40 20 20 AI IL 90 11 [...] 0 14 7 FA 67 BU Ac WY 11 -1 -1 .0 AZ 89 RN ti OF 10 6- 6- 00 LY 74 ET ve LO 12 20 20 9 TE XA 70 11 11 PH CI 1 AR GE N MA OR HC CY GE L E 50 OF 0 MG JA CK TA SO B N NE 61 07 07 0 10 10 FA 67 BU Ac OM 31 -1 -1 .0 AZ 89 RN ti YC 40 6- 6- [...] -0 -0 .0 CK 92 RA ti WY 30 8- 8- 00 SO 19 D [...] 00 7- 6- 00 95 D ve WY 51 20 20 AI IL 70 11 11 D MA 1 PH H 40 AR MA MG CY TA 03 BL 21 ET 6 # 03 21 00 06 06 0 20 5 FA 41 BU Ac 59 -2 -2 .0 AZ 80 RN ti 10 5- 5- 00 LY 55 ET ve 50 20 20 4 TE 20 11 11 PH 5 AR GE MA OR CY GE E OF JA CK SO N NE 61 06 06 0 10 3 FA 67 BU Ac OM 31 -2 -2 .0 AZ 85 RN ti YC 40 5- 5- 00 LY 88 ET ve IN 64 20 20 5 TE -P 51 11 11 PH OL 1 AR GE YM MA OR YX CY GE IN E -H OF C EA JA R CK HERNDON SO SP N CI 55 06 06 0 10 5 FA 67 BU Ac WY 11 -2 -2 .0 AZ 85 RN ti OF 10 5- 5- [...] 00 9- 9- 00 60 D ve WY 51 20 20 AI IL 50 11 11 D MA 1 PH H 20 AR MA MG CY TA 03 BL 21 ET 6 # 03 21 00 06 06 0 24 5 FA 41 GR Ac 59 -0 -0 .0 AZ 79 AY ti 10 3- 3- 00 LY 39 , ve 54 20 20 0 II 00 11 11 PH I 5 AR NHAN MA HN CY I OF JA CK SO N IB 55 06 06 0 30 6 FA 67 GR Ac UP 11 -0 -0 .0 AZ 81 AY ti RO 10 3- 3- 00 LY 44 , ve FE 68 20 20 0 II N 20 11 11 PH I 40 5 AR NHAN 0 MA HN MG CY I TA OF BL ET JA CK SO N 00 06 06 0 24 5 FA 41 GR Ac 59 -0 -0 .0 AZ 79 AY ti 10 3- 3- 00 LY 39 ve 54 20 20 0 II 00 11 11 PH I 5 AR NHAN MA HN CY I OF JA CK SO N LI 00 05 05 0 30 30 JA 56 MU Ac SI 59 -3 -3 .0 CK 68 RA ti NO 10 00 SO 08 D ve WY 40 20 20 N UM IL 71 11 11 AP AR 0 OT M 10 HE CA MG RY # TA BL 00 ET 7 00 05 05 0 12 4 FA 41 CA Ac 59 -2 -2 .0 AZ 79 MP ti 10 7- 7- 00 LY 09 BE ve 34 20 20 6 LL 90 11 11 PH 5 AR RO MA GE CY R D OF JA CK SO N AM 00 05 05 0 30 10 FA 67 CA Ac OX 78 -2 -2 .0 AZ 80 MP ti IC 12 7- 7- 00 LY 30 BE ve IL 61 20 20 6 LL LI 30 11 11 PH N 5 AR RO 50 MA GE 0 CY R MG D OF CA PS JA UL CK E SO N 00 05 05 0 12 4 FA 41 CA Ac 59 -2 -2 .0 AZ 79 MP ti 10 7- 7- 00 LY 09 BE ve 34 20 20 6 LL 90 11 11 PH 5 AR RO MA GE CY R D OF JA CK SO N BE 57 05 05 0 30 10 FA 67 WA Ac NZ 66 -2 -2 .0 AZ 80 RR ti ON 40 6- 6- 00 LY 13 EN ve AT 13 20 20 4 AT 48 11 11 PH LA E 8 AR RR 20 MA Y 0 CY E MG OF CA PS JA UL CK E SO N AZ 00 05 05 0 6. 5 FA 67 WA Ac IT 78 -2 -2 00 AZ 80 RR ti HR 11 6- 6- 0 LY 13 EN ve OM 49 20 20 5 YC 66 11 11 PH LA IN 8 AR RR MA Y 25 CY E 0 MG OF TA JA BL CK ET SO N LO 45 05 05 12 30 30 FA 67 MU Ac RA 80 -0 -0 .0 AZ 75 RA ti TA 20 3- 3- 00 LY 02 D ve DI 65 20 20 4 NE 08 11 11 PH MA 7 AR H 10 MA CY MG OF TA BL JA ET CK SO N LI 00 04 04 0 30 30 FA 67 MU Ac SI 18 -1 -1 .0 AZ 71 RA ti NO 55 9- 9- 00 LY 92 D ve WY 40 20 20 7 UM IL 00 [...] N ZA 11 11 11 D AA WY 0 PH RO IN AR N E MA W 10 CY MG 03 21 TA 6 BL # ET 03 21 NA 00 02 02 30 15 RI 87 NHAN Ac WY 09 -2 -2 .0 TE 55 HN ti OX 30 8- 8- 00 90 SO ve EN 14 20 20 AI N 90 11 11 D AA 50 1 PH RO 0 AR N MG MA W CY TA BL 03 ET 21 6 # 03 21 CI 00 01 01 1 7. 10 FA 67 SA Ac WY 06 -2 -2 50 AZ 51 RT ti OD 58 8- 8- [...] BU Ac TH 60 -2 -2 .0 AZ 43 RN ti OC 34 1- 1- 00 LY 54 ET ve AR 48 20 20 3 TE BA 62 10 10 PH MO 8 AR GE L MA OR 75 CY GE 0 E MG OF TA JA BL CK ET SO N AZ 59 12 12 0 6. 5 FA 67 SA Ac IT 76 -0 -0 00 AZ 40 RT ti HR 23 8- 8- 0 LY 79 AW ve OM 06 20 20 0 I YC 00 10 10 PH TA IN 1 AR RI MA Q 25 CY 0 MG OF TA JA BL CK ET SO N MU 45 11 11 0 22 14 FA 67 SA Ac PI 80 -0 -0 .0 AZ 32 RT ti RO 20 2- 2- 00 LY 33 AW ve CI 11 20 20 6 I N 22 10 10 PH TA 2% 2 AR RI MA Q OI CY NT ME OF NT JA CK SO N 59 11 11 0 14 7 FA 67 SA Ac 76 -0 -0 .0 AZ 32 RT ti 22 2- 2- 00 LY 33 AW ve 18 20 20 7 I 00 10 10 PH TA 1 AR RI MA Q CY OF JA CK SO N CI 16 10 10 0 10 5 FA 67 BU Ac WY 25 -3 -3 .0 AZ 31 RN ti OF 20 0- 0- 00 LY 71 ET ve LO 51 20 20 7 TE XA 50 10 10 PH CI 1 AR GE N MA OR HC CY GE L E 50 OF 0 MG JA CK TA SO B N WY 10 10 10 0 10 2 FA 67 BU Ac OM 70 -3 -3 .0 AZ 31 RN ti ET 20 0- 0- 00 LY 71 ET ve RESENDIZ 00 20 20 8 TE ZI 31 10 10 PH NE 0 AR GE MA OR 25 CY GE E MG OF TA JA BL CK ET SO N CI 65 10 10 14 7 RI 86 BU Ac WY 86 -1 -1 .0 TE 15 RN ti OF 20 7- 7- 00 09 ET ve LO 07 20 20 AI TE XA 70 10 10 D CI 1 PH GE N AR OR HC MA GE L CY E 50 0 03 MG 21 6 TA # B 03 21 CI 00 09 09 0 14 7 WA 71 BU Ac WY 37 -2 -2 .0 L- 67 RN [...] 41 GR Ac 59 -1 -1 .0 AZ 65 AY ti 10 7- 7- 00 LY 56 ve 54 20 20 8 II 00 10 10 PH I 5 AR NHAN MA HN CY I OF JA CK SO N 00 09 09 0 24 5 FA 41 GR Ac 59 -1 -1 .0 AZ 65 AY ti 10 7- 7- 00 LY 56 , ve 54 20 20 8 II 00 10 10 PH I 5 AR NHAN MA HN CY I OF JA CK SO N IB 55 09 09 0 30 6 FA 67 GR Ac UP 11 -1 -1 .0 AZ 22 AY ti RO 10 7- 7- 00 LY 08 , ve FE 68 20 20 9 II N 20 10 10 PH I 40 5 AR NHAN 0 MA HN MG CY I TA OF BL ET JA CK SO N 00 09 09 0 10 2 FA 41 CA Ac 59 -1 -1 .0 AZ 65 MP ti 10 4- 4- 00 LY 38 BE ve 34 20 20 1 LL 90 10 10 PH 5 AR RO MA GE CY R D OF JA CK SO N 00 09 09 0 10 2 FA 41 CA Ac 59 -1 -1 .0 AZ 65 MP ti 10 4- 4- 00 LY 38 BE ve 34 20 20 1 LL 90 10 10 PH 5 AR RO MA GE CY R D OF JA CK SO N 00 09 09 20 3 RI 85 BU Ac 60 -0 -0 .0 TE 71 RN ti 33 5- 5- 00 50 ET ve 88 20 20 AI TE 42 10 10 D 1 PH GE AR OR MA GE CY E 03 21 6 # 03 21 CI 65 09 09 14 7 RI 85 BU Ac WY 86 -0 -0 .0 TE 71 RN [...] 0 14 7 WA 71 BU Ac WY 37 -0 -0 .0 L- 60 RN [...] -2 .0 TE 79 RN ti 60 9- 9- 00 08 ET ve 35 20 [...] -0 .0 CK 77 AM ti 10 00 SO 34 ER ve 38 20 20 N 50 10 10 AP NHAN 5 OT HN HE R CA RY # 00 7 00 03 03 0 24 6 JA 53 GR Ac 59 -2 -2 .0 CK 73 AY ti 10 00 SO 69 ve 54 20 20 N II 00 10 10 AP I 5 OT NAHN HE HN CA I RY # 00 [...] EG ZA 11 10 10 D OR WY 0 PH Y IN AR J E [...] Procedure DOS Code Location Performer Comment THERAPEUT 04924 [facility] IC [facility] PROPHYLAC INC INC TIC/DX INJECTION SUBQ/[place] [address] [place] [facility] CERVICAL 5 MEDICAL ALVINA SPINE W/O IMAGING CONTRAST ASS MATERIAL RADEX 99164 [facility] SPINE 5 MEDICAL FANNIE THORACIC IMAGING 2 VIEWS ASS RADEX 67886 [facility] SPINE 5 MEDICAL FANNIE CERVICAL IMAGING 4 OR 5 ASS VIEWS RADEX 44544 [place] [facility] SHOULDER 5 MEDICAL [place] COMPLETE IMAGING MINIMUM 2 ASS VIEWS RADEX 92950 [place] [facility] SPINE 5 MEDICAL [place] LUMBOSACR IMAGING AL ASS MINIMUM 4 VIEWS RADIOLOGI 28671 [place] [facility] C 4 [facility] TRINIDAD EXAMINATI LLC ON CHEST SINGLE VIEW FRONTAL RADEX 61388 K[facility]IA KESHIA SHOULDER 1 TRINIDAD TRINIDAD COMPLETE MINIMUM 2 VIEWS IM ADM 51712 [place] [facility] [place] [facility] PRQ ID 1 MED CTR, MED CTR, SUBQ/IM ATTN: ATTN: NJXS 1 DENE DEN[facility] VACCINE NONEMERG A0120 [facility] TRNSPRT: 1 [facility] [employer] [facility] MTN ACTION P AREA/OTH SYS THERAPEUT 20298 [facility] RIVER IC 1 MED CTR, MED CTR, PROPHYLAC ATTN: ATTN: TIC/DX DENE DENE INJECTION SUBQ/IM RADIOLOGI 48533 [facility] C 1 [facility] N NOR EXAMINATI LLC ON FOOT 2 VIEWS RADEX HIP 00458 [place] 1 [facility], MED CTR, UNILATERA ATTN: ATTN: L DENE DENE COMPLETE MINIMUM 2 VIEWS NONEMERG A0120 [facility] TRNSPRT: 1 [facility] Wantr [facility] MTN ACTION P AREA/OTH SYS NONEMERG A0120 [facility] TRNSPRT[facility] 1 [facility] Wantr [facility] MTN ACTION P AREA/OTH SYS NONEMERG A0120 [facility] TRNSPRT: 1 [facility] [employer] [facility] MTN ACTION P AREA/OTH SYS INJECTION J0735 CAS PEREZ ASM 1 CLINIC CLONIDINE HYDROCHLO RIDE 1 MG NONEMERG A0120 [facility] TRNSPRT: 1 [facility] [employer] [facility] MTN ACTION P AREA/OTH SYS NONEMERG A0120 [facility] TRNSPRT: 1 [facility] [employer] [facility] MTN ACTION P AREA/OTH SYS NONEMERG A0120 [facility] TRNSPRT: 1 [facility] Wantr [facility] MTN ACTION P AREA/OTH SYS RADEX 28594 [facility] A HIPS 1 MALL BILATERAL IMAGING 2 VIEWS CENTER ANTEROPOS T PELVIS NONEMERG A0120 [facility] TRNSPRT: 1 [facility] Wantr [facility] MTN ACTION P AREA/OTH SYS NONEMERG A0120 [facility] TRNSPRT: 1 [facility] Wantr [facility] MTN ACTION P AREA/OTH SYS NONEMERG A0120 [facility] [place] TRNSPRT: 1 [facility] [employer] [facility] ACTION P AREA/OTH SYS NONEMERG A0120 [facility] TRNSPRT: 1 [facility] [employer] [facility] ACTION P AREA/OTH SYS CREATINE 79808 [place] [place] KINASE MB 1 MED CTR, MED CTR, FRACTION ATTN: ATTN: ONLY D[facility]IE CONSTANTINO COLLECTIO 20153 [place] N VENOUS 1 MED CTR, MED CTR, BLOOD ATTN: ATTN: VENIPUNCT DOUGIE CONSTANTINO URE NATRIURET 11212 [place] IC 1 [facility] CTR, MED CTR, PEPTIDE ATTN: ATTN: [place] [address] [place] TROPONIN 1 MED CTR, MED CTR, QUANTITAT ATTN: ATTN: BLANQUITA D[place] BLOOD 54170 [place] COUNT 1 [facility] CTR, MED CTR, COMPLETE ATTN: ATTN: AUTO&AUTO DENE PATRICIAE DIFRNTL WBC CULTURE 55440 [place] [facility] BACTERIAL 1 MED CTR, MED CTR, BLOOD ATTN: ATTN: AEROBIC PATRICIAE DOUGIE W/ID ISOLATES ECG 22659 [place] ROUTINE 1 MED CTR, MED CTR, ECG ATTN: ATTN: W/LEAST DENE DENE 12 LDS TRCG ONLY W/O I&R CREATINE 31264 [place] KINASE 1 MED CTR, MED CTR, TOTAL ATTN: ATTN: [place] [address] [place] MAGNESIUM 1 MED CTR, MED CTR, ATTN: ATTN: DENE [place] BASIC 85920 [place] METABOLIC 1 MED CTR, MED CTR, PANEL ATTN: ATTN: CALCIUM PATRICIAE PATRICIAE TOTAL RADIOLOGI 34999 [place] [facility] C EXAM 1 [facility] TRINIDAD CHEST 2 LLC VIEWS FRONTAL&L ATERAL NONEMERG A0120 [facility] TRNSPRT: 1 [facility] Wantr [facility] MTN ACTION P AREA/OTH SYS LIPID 45741 [place] PANEL 1 MED CTR, MED CTR, ATTN: ATTN: DENE DEN[place] BASIC 76079 [place] METABOLIC 1 MED CTR, MED CTR, PANEL ATTN: ATTN: [place] [address] [place] BLOOD/URI 1 MED CTR, MED CTR, C ACID ATTN: ATTN: DENE [place] ANTINUCLE 90458 [place] [facility] [place] AR 1 MED CTR, MED CTR, ANTIBODIE ATTN: ATTN: S YOHAN [place] RHEUMATOI 56132 [place] D FACTOR 1 MED CTR, MED CTR, QUALITATI ATTN: ATTN: VE [place] SEDIMENTA 17521 [place] TION RATE 1 MED CTR, MED CTR, RBC ATTN: ATTN: NON-AUTOM [place] ATED COMPLEMEN 20190 [place] T ANTIGEN 1 MED CTR, MED CTR, EACH ATTN: ATTN: COMPONENT [place] CYCLIC 54979 [place] CITRULLIN 1 MED CTR, MED CTR, ATED ATTN: ATTN: PEPTIDE [place]TIB[place] HLA [address]135 [place] TYPING 1 MED CTR, MED CTR, A/B/C ATTN: ATTN: SINGLE [place]E [place] ANTIGEN BLOOD 62142 [place] COUNT 1 [facility] CTR, MED CTR, COMPLETE ATTN: ATTN: AUTO&AUTO DENE DEN[place] DIFRNTL WBC C-REACTIV 66792 [place] E PROTEIN 1 MED CTR, MED CTR, ATTN: ATTN: [place] [address] [place] [facility] THYROID 1 MED CTR, MED CTR, STIMULATI ATTN: ATTN: NG DENE DEN[place] HORMONE TSH COLLECTIO 13634 [place] [facility] N VENOUS 1 MED CTR, MED CTR, BLOOD ATTN: ATTN: VENIPUNCT DENE DENE URE NONEMERG A0120 [facility] TRNSPRT: 1 [facility] ACTION COMMUNITY MTN ACTION P AREA/OTH SYS MRI 22631 RADIOLOGY [place] A SPINAL 1 SERVICES CANAL LUMBAR W/O CONTRAST MATERIAL NONEMERG A0120 [facility] TRNSPRT: 1 [employer]Cision ACTION [facility] MTN ACTION P AREA/OTH SYS RADEX 62935 [place] SPINE 1 RIVER [facility] TRINIDAD LUMBOSACR LLC AL 2/3 VIEWS REMOVAL 95169 KJ LEIVATAMAYUR IMPACTED 1 ENT TAR CERUMEN CLINIC INSTRUMEN PSC TATION UNILAT IAADI NOT 74458 IRINEO AYLETT [place] R[facility] 1 MED CTR, MED CTR, OTHERWISE ATTN: ATTN: DOUGIE CONSTANTINO SPECIFIED EACH ORGANISM IAADIADOO 39287 IRINEO [facility] RIVER 1 MED CTR, MED CTR, STREPTOCO ATTN: ATTN: CCUS DUOGIE CONSTANTINO GROUP A BLOOD 12810 IRINEO AYLETT [place] R[place] COUNT 1 MED CTR, MED CTR, COMPLETE ATTN: ATTN: AUTO&AUTO DENE DENE DIFRNTL WBC COLLECTIO 22873 IRINEO AYLETT [place] N 1 MED CTR, MED CTR, CAPILLARY ATTN: ATTN: BLOOD DOUGIE CONSTANTINO SPECIMEN RADIOLOGI 07635 [place] C EXAM 1 RIVER HBP CHEST 2 LLC VIEWS FRONTAL&L ATERAL RADIOLOGI 27642 [place] C 0 RIVER [facility]BP TRINIDAD EXAMINATI LLC ON PELVIS 1/2 VIEWS RADEX 65069 [place] SHOULDER 0 RIVER [facility]BP TRINIDAD COMPLETE LLC MINIMUM 2 VIEWS GROUND A0425 TRANS TRANS MILEAGE 0 STAR STAR PER AMBULANCE AMBULANCE STATUTE SV SV MILE RADIOLOGI 84181 [place] C EXAM 0 RIVER HBP TRINIDAD CHEST 2 LLC VIEWS FRONTAL&L ATERAL AMB A0427 TRANS TRANS SERVICE 0 STAR STAR ALS AMBULANCE AMBULANCE EMERGENCY [facility] TRANSPORT LEVEL 1 REMOVAL 38151 KJ MARIN IMPACTED 0 ENT TAR CERUMEN CLINIC INSTRUMEN PSC TATION UNILAT INCISION 06185 MAURILIO I JIMENEZ III & 0 JIMENEZ III VALERIE DRAINAGE PSC N0 3 COMPLEX PO WOUND INFECTION NONEMERG A0120 [facility] TRNSPRT: 0 BioCision ACTION [facility] MTN ACTION P AREA/OTH SYS NONEMERG A0120 [facility] [place] TRNSPRT: 0 [facility] ACTION [facility] MTN ACTION P AREA/OTH SYS NONEMERG A0120 [facility] [place] TRNSPRT: 0 [facility] DEEP D9220 MAURILIO JIMENEZ III SEDATION/ 0 JIMENEZ III VALERIE GENERAL PSC N0 3 ANESTHESI A- 30 MINUTES COLLECTIO 44118 [facility] N VENOUS 0 MED CTR MED CTR BLOOD VENIPUNCT URE IAADIADOO 34110 [facility] RIVER 0 MED CTR MED CTR STREPTOCO CCUS GROUP A BLOOD 89060 [facility] COUNT 0 MED CTR MED CTR COMPLETE AUTO&AUTO DIFRNTL WBC RADEX 99097 [facility] A[facility]OS, SPINE 0 [facility] MINIMUM 4 VIEWS RADEX 35093 [facility], SPINE 0 SERVICES MARA C LUMBOSACR AL MINIMUM 4 VIEWS RADEX 95840 [facility], SPINE 0 SERVICES MARA C THORACIC 3 VIEWS RADEX 99499 [facility], SPINE 0 RIVER HBP YANETH K [facility] 3 VIEWS DEEP D9220 MAURILIO PINA SEDATION/ 0 JIMENEZ III MAURILIO Hough GENERAL PSC N0 3 ANESTHESI A- 30 MINUTES ORTHOPANT 09147 MAURILIO PINA OGRAM 0 JIMENEZ III MAURILIO Hough PSC N0 3 Encounters Encounter Start End Date Code Location Performer Type Date OFFICE 59154 [facility] OUTPATIEN 6 6 PHYSICIAN SRIRAM T VISIT S GROUP 15 MINUTES EMERGENCY 85822 ADELA COLLADO 6 6 [facility] H[facility]URGE NT SEVERITY [facility] STEVEN - 6 6 [facility] T EMERGENCY 83628 STEVEN 6 6 [facility] DEPARTMEN INC T VISIT LOW/MODER SEVERITY HOSPITAL STEVEN - 5 5 [facility] T EMERGENCY 22944 STEVEN 5 5 [facility] T VISIT LOW/MODER SEVERITY EMERGENCY 92204 ADELA ONOFRE 5 5 PHYSICIAN JAYESH DEPARTMEN S, [facility] T VISIT MODERATE SEVERITY EMERGENCY 29243 GRANT BURNS 5 5 LEO LEO DEPARTMEN T VISIT HIGH/URGE NT SEVERITY OFFICE 63072 [facility] OUT[facility]IEN 5 5 PHYSICIAN SRIRAM T VISIT S GROUP 25 MINUTES OFFICE 06929 [facility] OUT[facility]IEN 5 5 PHYSICIAN SRIRAM T VISIT S GROUP 15 MINUTES EMERGENCY 49284 KASIE MARINELLI, 4 4 RIVER HBP III [facility] T VISIT MODERATE SE[place] [facility] [place] [facility], OUTPATIEN ATTN: T DENE EMERGENCY 96095 NANCIE NANCIE 1 1 G G DEPARTMEN T VISIT MODERATE SEVERITY [place]ERGENCY 55986 [place] [facility], DEPARTMEN ATTN: T VISIT DENE LOW/MODER SEVER[facility] [place] [facility], OUTPATIEN ATTN: T [facility] EM[place]Y 27521 [place] 1 [facility], DEPARTMEN ATTN: T VISIT [facility] MODERATE SE[facility] [place] [facility], OUTPATIEN ATTN: T DENE EMERGENCY 91373 NANCIE NANCIE 1 1 G G DEPARTMEN T VISIT LIMITED/M INOR PROB EMERGENCY 23518 [place] 1 1 [facility], DEPARTMEN ATTN: T VISIT [place] MODERATE SEVERITY EMERGENCY 58316 [place] 1 1 [facility], DEPARTMEN ATTN: T VISIT [place] MODERATE SE[place] [facility] [place] [facility], OUTPATIEN ATTN: T DENE EMERGENCY 49792 NANCIE NANCIE 1 1 G G DEPARTMEN T VISIT LOW/MODER SEVERITY [facility] [place] [facility], OUTPATIEN ATTN: T [place] EM[place]ENCY 15714 [place] 1 [facility], DEPARTMEN ATTN: T VISIT DENE MODERATE SEVERITY OFFICE 44080 KARYNS CHRIS LORENA OUTPATIEN 1 1 CLINIC T VISIT 25 MINUTES OFFICE 40946 KARYNS MURAD ASM OUTPATIEN 1 1 CLINIC T VISIT 15 MINUTES EMERGENCY 71928 KASIE MARINELLI, 1 1 RIVER HBP III [facility] T VISIT LOW/MODER SEVERITY HOSPITAL [facility] - 1 1 MED CTR, OUTPATIEN ATTN: T DENE EMERGENCY 51700 [facility] 1 1 MED CTR, DEPARTMEN ATTN: T VISIT DENE MODERATE SEVERITY EMERGENCY 39157 KASIE RUSS 1 1 RIVER HBP [facility] T VISIT HIGH/URGE NT SEVERITY EMERGENCY 10211 [facility] 1 1 MED CTR, DEPARTMEN ATTN: T VISIT DENE MODERATE SEVERITY HOSPITAL [facility] - 1 1 MED CTR, OUTPATIEN ATTN: T DENE EMERGENCY 65365 KASIE GIMENEZ 1 1 RIVER HBP [facility] T VISIT LOW/MODER SEVERITY EMERGENCY 74217 [facility] 1 1 MED CTR, DEPARTMEN ATTN: T VISIT [facility] MODERATE SEVERITY [facility] [place] [facility], OUTPATIEN ATTN: T DENE HOSPITAL [facility] - 1 1 MED CTR, OUTPATIEN ATTN: T DENE EMERGENCY 42754 [facility] 1 1 MED CTR, DEPARTMEN ATTN: T VISIT DENE MODERATE SEVERITY OFFICE 99040 KARYNS MURAD [facility] OUTPATIEN 1 1 CLINIC T VISIT 15 MINUTES [facility] [place] [facility], OUTPATIEN ATTN: T [place] EM[place]ENCY 11010 [place] 1 [facility], DEPARTMEN ATTN: T VISIT DENE MODERATE SEVERITY OFFICE 90715 [facility] 1 1 FAMILY A [facility] NEW/ESTAB SRV AR PATIENT 40 MIN HOSPITAL [facility] - 1 1 MED CTR, OUTPATIEN ATTN: T DENE EMERGENCY 20930 [facility] 1 1 MED CTR, DEPARTMEN ATTN: T VISIT DENE MODERATE SEVERITY OFFICE 85576 KARYNS DAPHNEYAD ASM OUTPATIEN 1 1 CLINIC T VISIT 15 MINUTES EMERGENCY 58076 [facility] 1 1 MED CTR, DEPARTMEN ATTN: T VISIT DENE MODERATE SEVERITY HOSPITAL [facility] - 1 1 MED CTR, OUTPATIEN ATTN: T DENE EMERGENCY 14464 [facility] NANCIE 1 1 RIVER HBP G [facility] T VISIT LOW/MODER SEVERITY OFFICE 50728 CHALENARDS MURAD ASM OUTPATIEN 1 1 CLINIC T VISIT 15 MINUTES OFFICE 84443 CHAVIES MURAD ASM OUTPATIEN 1 1 CLINIC T VISIT 15 MINUTES HOSPITAL [facility] - 1 1 MED CTR, OUTPATIEN ATTN: T DENE EMERGENCY 12837 [facility] NISHI 1 1 RIVER HBP LAR [facility] T VISIT LOW/MODER SEVERITY EMERGENCY 82211 [facility] 1 1 MED CTR, DEPARTMEN ATTN: T VISIT [place] MODERATE SEVERITY [facility] [place] [facility], OUTPATIEN ATTN: T DENE EMERGENCY 51451 [place] 1 1 RIVER HBP G [facility] T VISIT MODERATE SEVERITY OFFICE 10608 CAS CARRILLO OUTPATIEN 1 1 CLINIC T VISIT 15 MINUTES [facility] [place] [facility], OUTPATIEN ATTN: T DENE EMERGENCY 99544 [facility] NANCIE 1 1 RIVER HBP G [facility] T VISIT LOW/MODER SEVERITY EMERGENCY 21401 [place] 1 1 [facility], DEPARTMEN ATTN: T VISIT DENE MODERATE SEVERITY OFFICE 28911 KJ MARIN OUTPATIEN 1 1 ENT TAR T VISIT CLINIC 25 PSC MINUTES EMERGENCY 83243 [place] NATALIIA 1 1 RIVER HBP [facility] T VISIT LOW/MODER SEVERITY EMERGENCY 79831 [place] 1 1 [facility], DEPARTMEN ATTN: T VISIT DENE MODERATE SEVERITY HOSPITAL [facility] - 1 1 MED CTR, OUTPATIEN ATTN: T DENE OFFICE 33903 MAURILIO I JIMENEZ III OUTPATIEN 1 1 JIMENEZ III VALERIE T VISIT PSC N0 [address]ES [address] G[facility] 1 1 RIVER HBP WENDY [facility] T VISIT MODERATE SEVERITY EMERGENCY 71276 [place] 1 1 [facility], DEPARTMEN ATTN: T VISIT DENE HIGH/URGE NT SEVERITY HOSPITAL [facility] - 1 1 MED CTR, OUTPATIEN ATTN: T DENE OFFICE 28064 CAS CARRILLO OUTPATIEN 1 1 CLINIC T VISIT 25 MINUTES [facility] [place] [facility], OUTPATIEN ATTN: T [facility] [place] [facility], OUTPATIEN ATTN: T [place] EM[place]ENCY 60482 [place] [facility], DEPARTMEN ATTN: T VISIT DENE LIMITED/M INOR PROB OFFICE 44518 [facility] MELENDEZ J CONSULTAT 1 1 ICAL ION ASSOCIATE NEW/ESTAB S PATIENT 40 MIN OFFICE 61617 CAS PEREZ LORENA OUTPATIEN 1 1 CLINIC T VISIT 15 MINUTES OFFICE 96899 CAS PEREZ LORENA OUTPATIEN 1 1 CLINIC T VISIT 15 MINUTES [facility] [place] [facility], OUTPATIEN ATTN: T DENE OFFICE 94744 CAS PEREZ LORENA OUTPATIEN 1 1 CLINIC T NEW 45 MINUTES EMERGENCY 73536 KASIE MARLEN 1 1 RIVER HBP ABDULLAHI [facility] T VISIT LOW/MODER SEVERITY [facility] [place] [facility], OUTPATIEN ATTN: T [place] EM[place]ENCY 90191 [place] 1 1 [facility], DEPARTMEN ATTN: T VISIT DENE MODERATE SEVERITY EMERGENCY 21106 [place] 1 1 RIVER HBP [facility] T VISIT MODERATE SEVERITY [facility] [place] [facility], OUTPATIEN ATTN: T DENE OFFICE 27030 KJ LEIVATAKY OUTPATIEN 1 1 ENT TAR T VISIT CLINIC 15 PSC MINUTES OFFICE 65306 KJ ABBIETAKY OUTPATIEN 1 1 ENT TAR T VISIT CLINIC 25 PSC MINUTES [facility] [place] [facility], OUTPATIEN ATTN: T [place] EMERGENCY 67938 [place] 1 1 [facility], DEPARTMEN ATTN: T VISIT DENE MODERATE SEVERITY EMERGENCY 78897 [place] NANCI[place] 1 1 RIVER HBP G [facility] T VISIT LOW/MODER SEVERITY EMERGENCY 73630 [place] 0 0 RIVER HBP G [facility] T VISIT LOW/MODER SE[facility]ITY [facility] [place] [facility], OUTPATIEN ATTN: T [place] EMERGENCY 77302 [place] 0 0 [facility], DEPARTMEN ATTN: T VISIT DENE MODERATE SEVERITY OFFICE 35883 KJ MARIN OUTPATIEN 0 0 ENT TAR T VISIT CLINIC 25 PSC MINUTES OFFICE 01504 KJ MARIN CONSULTAT 0 0 ENT TAR ION CLINIC NEW/ESTAB PSC PATIENT 60 MIN EMERGENCY 31292 [place] 0 0 [facility] DEPARTMEN T VISIT HIGH/URGE NT SEVERITY [facility] [place] [facility] OUTPATIEN T EMERGENCY 24401 [place]CI[place] 0 0 RIVER HBP G [facility] T VISIT LOW/MODER SEVERITY EMERGENCY 91936 [place] 0 0 RIVER HBP G [facility] T VISIT LOW/MODER SEVERITY [facility] [place] [facility] OUTPATIEN T [place]ERGENCY 60668 [place] [facility] DEPARTMEN T VISIT MODERATE SEVERITY [facility] [place] [facility] OUTPATIEN T EMERGENCY 21327 [place] [facility] DEPARTMEN T VISIT MODERATE SEVERITY EMERGENCY 29805 [place] 0 0 [facility] DEPARTMEN T VISIT MODERATE SEVERITY EMERGENCY 26204 [place] 0 0 RIVER HBP G [facility] T VISIT LOW/MODER SEVERITY [facility] [place] [facility] OUTPATIEN T EMERGENCY 93293 [place] 0 0 [facility] DEPARTMEN T VISIT MODERATE SEVERITY EMERGENCY 60178 [place]CI[place] 0 0 RIVER HBP G [facility] T VISIT LOW/MODER SEVERITY [facility] [place] [facility] OUTPATIEN T EMERGENCY 13329 [place] 0 0 [facility] DEPARTMEN T VISIT MODERATE SEVERITY [facility] [place] [facility] OUTPATIEN T EMERGENCY 60367 [place], 0 0 RIVER HBP ARIF M [facility] T VISIT LOW/MODER SE[facility]ITY [facility] [place] [facility] OUTPATIEN T EMERGENCY 25804 [facility], 0 0 RIVER HBP KAMALA W [facility] T VISIT LOW/MODER SEVERITY EMERGENCY 49044 [place] 0 0 [facility] CTR DEPARTMEN T VISIT MODERATE SEVERITY EMERGENCY 61917 [place] NANCI[place], 0 0 RIVER HBP G E [facility] T VISIT LOW/MODER SEVERITY EMERGENCY 06692 [place] 0 0 [facility] DEPARTMEN T VISIT MODERATE SEVERITY [facility] [place] [facility] OUTPATIEN T EMERGENCY 54513 [facility], 0 0 MEDICAL SUNILJIT DEPART[facility] PART[facility]ERS T VISIT LLC HIGH/URGE NT SEVERITY OFFICE 92542 [facility] SIPPI OUTPATIEN 0 0 NEUMANNS PAB T VISIT EXTENDED 15 H MINUTES EMERGENCY 97689 [place] 0 0 [facility] DEPARTMEN T VISIT MODERATE SEVERITY EMERGENCY 44083 [place] REFFNER, 0 0 RIVER HBP LIANNE S [facility] T VISIT LOW/MODER SEVERITY [facility] [place] [facility] OUTPATIEN T OFFICE 86687 MAURILIO PINA, OUTPATIEN 0 0 JIMENEZ III MAURILIO R T VISIT PSC N0 3 10 MINUTES EMERGENCY 05536 KASIE TAYLER, 0 0 RIVER HBP SAMANTHA J [facility] T VISIT MODERATE SEVERITY [facility] [place] [facility] OUTPATIEN T
--- OUTSIDE RECORDS SUMMARY | 2016-12-20 12:22 | External Medical Summary Rpt | CCD ---
Author Author , ASHWIN Organization ASHWIN Address Unknown Phone [email or web address] Care Team Providers Care Recording Engineer Name Role Phone AYOS, EMELITA A, Unavailable Unavailable AYOS, EMELITA A MELENDEZ J, MELENDEZ J Unavailable Unavailable BEINEKE FANNIE, BEINEKE Unavailable Unavailable FANNIE KESHIA TRINIDAD, KESHIA Unavailable Unavailable TRINIDAD GIMENEZ WENDY, GIMENEZ Unavailable Unavailable WENDY NANCIE G, NANCIE Unavailable Unavailable G NANCIE G, NANCIE Unavailable Unavailable G NANCIE, G E, Unavailable Unavailable NANCIE, G E CHANDARANA JYO, Unavailable Unavailable CHANDARANA JYO [facility], Unavailable Unavailable [facility] MAURILIO PINA, Unavailable Unavailable MAURILIO PINA DOU, Unavailable Unavailable [facility] Unavailable Unavailable [facility] [place] GRANT NASSAR Unavailable Unavailable LEO PABLO SRIRAM, PABLO Unavailable Unavailable SRIRAM JIMENEZ III VALERIE, JIMENEZ Unavailable Unavailable III VALERIE [facility] Un[facility] Un[facility], [facility] Unavailable Unavailable SRV [place], [facility] SRV [facility], [facility]available [facility]available [facility] Unavailable Unavailable [place], [facility] # Unavailable Unavailable 007, [facility] 00[facility] Unavailable Unavailable [facility], [facility] MAURILIO I TONY III [facility] Unavailable Unavailable N0 3, MAURILIO I JIMENEZ III [facility] N0 3 PETRONA GAR, PETRONA Unavailable Unavailable KAMALA MADRIGAL, Unavailable Unavailable KAMALA RUSS [facility] Unavailable Unavailable IMAGING ASS, [facility] Unavailable Unavailable LLC, [facility] [place] Unavailable Un[facility], Unavailable Unavailable ATTN: DOUGIE, IRINEO [facility], ATTN: SAMANTHA ANTONIO LEE, Unavailable Unavailable SAMANTHA SENA PAB, NATHEN Unavailable Unavailable PAB [facility] Unavailable Unavailable ACTION P, [facility] MURAD ASM, MURAD [...] LIANNE S [facility] Unavailable Unavailable [id number] # [id number], [facility] [id number] # [phone] SAKOW NOL, SAKOW NOL Unavailable [...] MARA C, Unavailable Unavailable ZACHARY MARA C [facility] # Unavailable Unavailable [id number], [facility] # [id number] NISHI COCHRAN, NISHI Unavailable Unavailable LAR KINGSTON MCCONNELL, Unavailable Unavailable KINGSTON JAYESH Purpose Continuity of Care Document - 05-25-2009 through 2016 Problems Code Diagnosis DOS Provider Status K922 GASTROINTES 04-02-2015 [facility] UNSPECIFIED I10 ESSENTIAL 03-09-2015 [place] [facility] HYPERTENSIO INC N J0100 ACUTE 03-09-2015 [facility] MAXILLARY [facility], SINUSITIS PLLC UNSPECIFIED J449 CHRONIC 03-09-2015 [place] [facility] PULMONARY INC DISEASE UNS K5289 OTH SPEC 03-09-2015 [facility] NONINFECTIV PHYSICIANS, E PLLC GASTROENTER ITIS & COLITIS K529 NONINFECTIV 03-09-2015 [place] [facility] GASTROENTER INC ITIS & COLITIS UNS Z720 TOBACCO USE 03-09-2015 [facility] INC B349 VIRAL 02-21-2015 [facility] INFECTION PHYSICIANS, UNSPECIFIED PLLC R1111 VOMITING 02-21-2015 [facility] WITHOUT PHYSICIANS, NAUSEA PLLC R197 DIARRHEA 02-21-2015 [facility] UNSPECIFIED PHYSICIANS, PLLC 7231 CERVICALGIA 07-19-2015 [facility] 23773 INJURY OF 09-20-2014 [place] F[facility] AND [facility]ICAL NECK OTHER IMAGING ASS AND UNSPECIFIED 7245 UNSPECIFIED 07-04-2014 [place] BACKACHE [facility] 07712 OSTEOARTHRO 07-01-2014 [place] S UNSPEC MEDICAL WHETHER IMAGING ASS GEN/LOC SHLDR REGION 92063 PAIN IN 07-01-2014 [place] JOINT, MEDICAL SHOULDER IMAGING ASS REGION 7241 PAIN IN 07-01-2014 [facility] THORACIC PHYSICIANS SPINE GROUP 7248 OTHER 07-01-2014 [facility] SYMPTOMS PHYSICIANS REFERABLE GROUP TO BACK 4605 UNSPECIFIED 03-30-2014 [facility] SINUSITIS [facility]YSICIANS GROUP 4659 ACUTE URIS 02-27-2014 [place] OF [facility] UNSPECIFIED LLC SITE 4871 INFLUENZA 02-27-2014 [place] WITH OTHER [facility] RESPIRATORY LLC MANIFESTATI ONS 496 CHRONIC 02-27-2014 [place] AIRWAY [facility] OBSTRUCTION LLC NEC 96333 SHORTNESS 02-27-2014 [place] OF BREATH [facility] 7862 COUGH 02-27-2014 [facility] 00882 CIRCADIAN 02-12-2011 NANCIE G RHYTHM SLEEP DISORDER UNSPECIFIED 63309 UNSPECIFIED 02-12-2011 [facility], CONJUNCTIVI ATTN: DOUGIE TIS 4019 UNSPECIFIED 02-12-2011 [place] [facility], HYPERTENSIO ATTN: DOUGIE N 96193 LOC 02-07-2011 [place] [facility] OSTEOARTHRO MED [facility], S NOT SPEC ATTN: DENE PRIM/SEC SHLDR REGION 8409 SPRAIN&STRA 02-07-2011 [facility] [place] IN UNSPEC MED CTR, SITE ATTN: DOUGIE SHOULDER&UP PER ARM 44436 UNSPECIFIED 01-26-2011 [place] [facility] CELLULITIS [facility], AND ATTN: DOUGIE ABSCESS OF FINGER 6824 CELLULITIS& 01-26-2011 NANCIE G ABSCESS [place] HAND [place] F[place] [address] OTHER 01-10-2011 [facility] CHRONIC [facility], PAIN ATTN: PATRICIAE 7242 LUMBAGO 01-10-2011 [place] [facility], ATTN: DOUGIE 2724 OTHER AND 12-26-2010 [facility]NSPEC[facility]IED [facility] HYPERLIPIDE MARCOS 4011 ESSENTIAL 12-26-2010 [facility] HYPERTENSIO CLINIC N, BENIGN 24261 PAIN IN 11-24-2010 [facility] JOINT, CLINIC ANKLE AND FOOT V5869 LONG-TERM 11-24-2010 [facility] (CURRENT) CLINIC USE OF OTHER MEDICATIONS 33355 SPRAIN AND 11-19-2010 [place] [facility] STRAIN OF MED CTR, UNSPECIFIED ATTN: DENE SITE OF FOOT V1581 PERS HX 11-19-2010 [facility] NONCOMPLIAN MED CTR, CE W/MED TX ATTN: DENE PRS HAZARDS HLTH 7295 PAIN IN 11-16-2010 [place] SOFT [facility] TISSUES OF LLC LIMB 9597 INJURY 11-16-2010 [place] OTHER&UNSPE [facility] CIFIED [facility] LEG ANKLE&FOOT 69806 PAIN IN 10-30-2010 [facility] JOINT MED CTR, PELVIC ATTN: DENE REGION AND THIGH 8439 SPRAIN&STRA 10-22-2010 [facility] IN OF MED CTR, UNSPECIFIED ATTN: DENE SITE OF HIP&THIGH 5259 UNSPECIFIED 10-17-2010 [facility] DISORDER MED CTR, TEETH&SUPPO ATTN: DENE RTING STRUCTURES 3551 MERALGIA 10-13-2010 [facility] [place] 8488 OTHER 10-09-2010 [facility] SPECIFIED MED CTR, SITES OF ATTN: DENE SPRAINS AND STRAINS 7831 ABNORMAL 10-07-2010 [facility] 42168 OTHER ACUTE 10-02-2010 [facility] MED CTR, POSTOPERATI ATTN: DENE VE PAIN 71372 HYPOCALCEMI 09-23-2010 [facility] 47844 UNSPECIFIED 09-17-2010 [facility] INFECTIVE MED CTR, OTITIS ATTN: DENE EXTERNA 3829 UNSPECIFIED 09-17-2010 [facility] OTITIS MED CTR, MEDIA ATTN: DENE 2749 GOUT, 08-27-2010 [facility] UNSPECIFIED MED CTR, ATTN: DENE 55753 ASTHMA, 08-27-2010 [facility] UNSPECIFIED MED CTR, , ATTN: DENE UNSPECIFIED STATUS 63868 OTHER ACUTE 08-24-2010 [facility] EXTERNA 3804 IMPACTED 08-24-2010 [facility] 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 08-24-2010 [facility] 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 5220 PULPITIS 08-05-2010 MAURILIO I JIMENEZ III PSC N0 3 490 BRONCHITIS 07-27-2010 [facility] NOT MED CTR, SPECIFIED ATTN: DENE ACUTE OR CHRONIC 93099 PAINFUL 07-27-2010 [place] [facility], ATTN: DENE 2761 HYPOSMOLALI 07-05-2010 [facility] AND/OR CLINIC HYPONATREMI A 74260 OSTEOARTHRO 07-02-2010 [place] [facility] UNSPEC MED [facility], WHETHER ATTN: DOUGIE GEN/LOC UNSPEC SITE 11957 UNSPECIFIED 07-02-2010 [place] [facility], ARTHROPATHY ATTN: DENE SITE UNSPECIFIED 54898 OTHER 07-02-2010 [place] [facility] MALAISE [facility], FATIGUE ATTN: DENE 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 WITHOUT MYELOPATHY 19178 SPINAL STEN 06-06-2010 [facility] L[facility]B 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 N 78457 OTHER 05-28-2010 [place] [facility] INJURY OF [facility], OTHER SITES ATTN: DENE OF TRUNK 8472 LUMBAR 05-21-2010 [place] [facility] SPRAIN [facility], STRAIN ATTN: DENEber 514 PULMONARY 03-13-2010 [place] [facility] HYPOSTASIS 02548 CHEST PAIN 02-22-2010 [place] UNSPECIFIED [facility] 80521 ABDOMINAL 02-22-2010 [place] PAIN, [facility] UNSPECIFIED LLC SITE 9592 INJURY 02-22-2010 [facility] OTHER&UNSPE AMBULANCESV CIFIED C SHOULDER&UP PER ARM 9598 INJURY 02-22-2010 [place] [facility] OTH&UNSPEC [facility], OTH SPEC ATTN: DENE SITES INCL MULTIPLE 9599 INJURY 02-22-2010 [place] OTHER AND [facility] UNSPECIFIED LLC UNSPECIFIED SITE E8889 UNSPECIFIED 02-22-2010 [place] [facility] 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 ME 35 AN [...] -2 -2 .0 CK 68 RA ti NE 30 4- 4- 00 SO 54 D [...] 4- 4- 00 SO 58 D ve NE 76 20 20 N UM IL 17 [...] 8- 3- 00 SO 20 D ve NE 76 20 20 N UM IL 17 11 11 AP AR 0 OT M 40 HE CA MG RY # TA BL 00 ET 7 CY 00 08 08 15 5 RI 89 MARIAELENA Ac CL 37 -2 -2 .0 TE 58 WM ti OB 80 9- 9- 00 97 AN ve EN 75 20 20 AI ZA 11 11 11 D KE NE 0 PH NN IN AR Y E MA L 10 CY MG 03 21 TA 6 BL # ET 03 21 00 08 08 0 10 3 FA 41 NHAN Ac 40 -1 -1 .0 MO 83 HN ti 60 5- 5- 00 [...] 10 2- 4- 00 17 D ve NE 40 20 20 AI IL 90 11 [...] 0 14 7 FA 67 BU Ac NE 11 -1 -1 .0 MO 89 RN ti OF 10 6- 6- 00 LY 74 ET ve LO 12 20 20 9 TE XA 70 11 11 PH CI 1 AR GE N MA OR HC CY GE L E 50 OF 0 MG JA CK TA SO B N NE 61 07 07 0 10 10 FA 67 BU Ac OM 31 -1 -1 .0 MO 89 RN ti YC 40 6- 6- [...] -0 -0 .0 CK 92 RA ti NE 30 8- 8- 00 SO 19 D [...] 00 7- 6- 00 95 D ve NE 51 20 20 AI IL 70 11 11 D MA 1 PH H 40 AR MA MG CY TA 03 BL 21 ET 6 # 03 21 00 06 06 0 20 5 FA 41 BU Ac 59 -2 -2 .0 MO 80 RN ti 10 5- 5- 00 LY 55 ET ve 50 20 20 4 TE 20 11 11 PH 5 AR GE MA OR CY GE E OF JA CK SO N NE 61 06 06 0 10 3 FA 67 BU Ac OM 31 -2 -2 .0 MO 85 RN ti YC 40 5- 5- 00 LY 88 ET ve IN 64 20 20 5 TE -P 51 11 11 PH OL 1 AR GE YM MA OR YX CY GE IN E -H OF C EA JA R CK HERNDON SO SP N CI 55 06 06 0 10 5 FA 67 BU Ac NE 11 -2 -2 .0 MO 85 RN ti OF 10 5- 5- [...] 00 9- 9- 00 60 D ve NE 51 20 20 AI IL 50 11 11 D MA 1 PH H 20 AR MA MG CY TA 03 BL 21 ET 6 # 03 21 00 06 06 0 24 5 FA 41 GR Ac 59 -0 -0 .0 MO 79 AY ti 10 3- 3- 00 LY 39 , ve 54 20 20 0 II 00 11 11 PH I 5 AR NHAN MA HN CY I OF JA CK SO N IB 55 06 06 0 30 6 FA 67 GR Ac UP 11 -0 -0 .0 MO 81 AY ti RO 10 3- 3- 00 LY 44 , ve FE 68 20 20 0 II N 20 11 11 PH I 40 5 AR NHAN 0 MA HN MG CY I TA OF BL ET JA CK SO N 00 06 06 0 24 5 FA 41 GR Ac 59 -0 -0 .0 MO 79 AY ti 10 3- 3- 00 LY 39 ve 54 20 20 0 II 00 11 11 PH I 5 AR NHAN MA HN CY I OF JA CK SO N LI 00 05 05 0 30 30 JA 56 MU Ac SI 59 -3 -3 .0 CK 68 RA ti NO 10 00 SO 08 D ve NE 40 20 20 N UM IL 71 11 11 AP AR 0 OT M 10 HE CA MG RY # TA BL 00 ET 7 00 05 05 0 12 4 FA 41 CA Ac 59 -2 -2 .0 MO 79 MP ti 10 7- 7- 00 LY 09 BE ve 34 20 20 6 LL 90 11 11 PH 5 AR RO MA GE CY R D OF JA CK SO N AM 00 05 05 0 30 10 FA 67 CA Ac OX 78 -2 -2 .0 MO 80 MP ti IC 12 7- 7- 00 LY 30 BE ve IL 61 20 20 6 LL LI 30 11 11 PH N 5 AR RO 50 MA GE 0 CY R MG D OF CA PS JA UL CK E SO N 00 05 05 0 12 4 FA 41 CA Ac 59 -2 -2 .0 MO 79 MP ti 10 7- 7- 00 LY 09 BE ve 34 20 20 6 LL 90 11 11 PH 5 AR RO MA GE CY R D OF JA CK SO N BE 57 05 05 0 30 10 FA 67 WA Ac NZ 66 -2 -2 .0 MO 80 RR ti ON 40 6- 6- 00 LY 13 EN ve AT 13 20 20 4 AT 48 11 11 PH LA E 8 AR RR 20 MA Y 0 CY E MG OF CA PS JA UL CK E SO N AZ 00 05 05 0 6. 5 FA 67 WA Ac IT 78 -2 -2 00 MO 80 RR ti HR 11 6- 6- 0 LY 13 EN ve OM 49 20 20 5 YC 66 11 11 PH LA IN 8 AR RR MA Y 25 CY E 0 MG OF TA JA BL CK ET SO N LO 45 05 05 12 30 30 FA 67 MU Ac RA 80 -0 -0 .0 MO 75 RA ti TA 20 3- 3- 00 LY 02 D ve DI 65 20 20 4 NE 08 11 11 PH MA 7 AR H 10 MA CY MG OF TA BL JA ET CK SO N LI 00 04 04 0 30 30 FA 67 MU Ac SI 18 -1 -1 .0 MO 71 RA ti NO 55 9- 9- 00 LY 92 D ve NE 40 20 20 7 UM IL 00 [...] N ZA 11 11 11 D AA NE 0 PH RO IN AR N E MA W 10 CY MG 03 21 TA 6 BL # ET 03 21 NA 00 02 02 30 15 RI 87 NHAN Ac NE 09 -2 -2 .0 TE 55 HN ti OX 30 8- 8- 00 90 SO ve EN 14 20 20 AI N 90 11 11 D AA 50 1 PH RO 0 AR N MG MA W CY TA BL 03 ET 21 6 # 03 21 CI 00 01 01 1 7. 10 FA 67 SA Ac NE 06 -2 -2 50 MO 51 RT ti OD 58 8- 8- [...] BU Ac TH 60 -2 -2 .0 MO 43 RN ti OC 34 1- 1- 00 LY 54 ET ve AR 48 20 20 3 TE BA 62 10 10 PH MO 8 AR GE L MA OR 75 CY GE 0 E MG OF TA JA BL CK ET SO N AZ 59 12 12 0 6. 5 FA 67 SA Ac IT 76 -0 -0 00 MO 40 RT ti HR 23 8- 8- 0 LY 79 AW ve OM 06 20 20 0 I YC 00 10 10 PH TA IN 1 AR RI MA Q 25 CY 0 MG OF TA JA BL CK ET SO N MU 45 11 11 0 22 14 FA 67 SA Ac PI 80 -0 -0 .0 MO 32 RT ti RO 20 2- 2- 00 LY 33 AW ve CI 11 20 20 6 I N 22 10 10 PH TA 2% 2 AR RI MA Q OI CY NT ME OF NT JA CK SO N 59 11 11 0 14 7 FA 67 SA Ac 76 -0 -0 .0 MO 32 RT ti 22 2- 2- 00 LY 33 AW ve 18 20 20 7 I 00 10 10 PH TA 1 AR RI MA Q CY OF JA CK SO N CI 16 10 10 0 10 5 FA 67 BU Ac NE 25 -3 -3 .0 MO 31 RN ti OF 20 0- 0- 00 LY 71 ET ve LO 51 20 20 7 TE XA 50 10 10 PH CI 1 AR GE N MA OR HC CY GE L E 50 OF 0 MG JA CK TA SO B N NE 10 10 10 0 10 2 FA 67 BU Ac OM 70 -3 -3 .0 MO 31 RN ti ET 20 0- 0- 00 LY 71 ET ve RESENDIZ 00 20 20 8 TE ZI 31 10 10 PH NE 0 AR GE MA OR 25 CY GE E MG OF TA JA BL CK ET SO N CI 65 10 10 14 7 RI 86 BU Ac NE 86 -1 -1 .0 TE 15 RN ti OF 20 7- 7- 00 09 ET ve LO 07 20 20 AI TE XA 70 10 10 D CI 1 PH GE N AR OR HC MA GE L CY E 50 0 03 MG 21 6 TA # B 03 21 CI 00 09 09 0 14 7 WA 71 BU Ac NE 37 -2 -2 .0 L- 67 RN [...] 41 GR Ac 59 -1 -1 .0 MO 65 AY ti 10 7- 7- 00 LY 56 ve 54 20 20 8 II 00 10 10 PH I 5 AR NHAN MA HN CY I OF JA CK SO N 00 09 09 0 24 5 FA 41 GR Ac 59 -1 -1 .0 MO 65 AY ti 10 7- 7- 00 LY 56 , ve 54 20 20 8 II 00 10 10 PH I 5 AR NHAN MA HN CY I OF JA CK SO N IB 55 09 09 0 30 6 FA 67 GR Ac UP 11 -1 -1 .0 MO 22 AY ti RO 10 7- 7- 00 LY 08 , ve FE 68 20 20 9 II N 20 10 10 PH I 40 5 AR NHAN 0 MA HN MG CY I TA OF BL ET JA CK SO N 00 09 09 0 10 2 FA 41 CA Ac 59 -1 -1 .0 MO 65 MP ti 10 4- 4- 00 LY 38 BE ve 34 20 20 1 LL 90 10 10 PH 5 AR RO MA GE CY R D OF JA CK SO N 00 09 09 0 10 2 FA 41 CA Ac 59 -1 -1 .0 MO 65 MP ti 10 4- 4- 00 [...] 09 14 7 RI 85 BU Ac NE 86 -0 -0 .0 TE 71 RN [...] 0 14 7 WA 71 BU Ac NE 37 -0 -0 .0 L- 60 RN [...] EG ZA 11 10 10 D OR NE 0 PH Y IN AR J E [...] Procedure DOS Code Location Performer Comment THERAPEUT 71718 [facility] IC 6 [facility] PROPHYLAC INC INC TIC/DX INJECTION SUBQ/[place] [address] [place] DEXTER CERVICAL 5 MEDICAL ALVINA SPINE W/O IMAGING CONTRAST ASS MATERIAL RADEX 70252 [facility] SPINE 5 MEDICAL FANNIE THORACIC IMAGING 2 VIEWS ASS RADEX 93232 [facility] SPINE 5 MEDICAL FANNIE CERVICAL IMAGING 4 OR 5 ASS VIEWS RADEX 29863 [place] DEXTER SHOULDER 5 MEDICAL ALV[place] COMPLETE IMAGING MINIMUM 2 ASS VIEWS RADEX 82870 [place] DEXTER SPINE 5 MEDICAL ALVINA LUMBOSACR IMAGING AL ASS MINIMUM 4 VIEWS RADIOLOGI 75299 [place] KESHIA C 4 [facility]IVER [facility] TRINIDAD EXAMINATI LLC ON CHEST SINGLE VIEW FRONTAL RADEX 05826 [facility] KESHIA SHOULDER 1 TRINIDAD TRINIDAD COMPLETE MINIMUM 2 VIEWS IM ADM 43534 [place] [facility] [place] [facility] PRQ ID 1 [facility] CTR, MED CTR, SUBQ/IM ATTN: ATTN: NJXS 1 DENE DEN[facility] VACCINE NONEMERG A0120 [facility] TRNSPRT: 1 [facility] [employer] [facility] MTN ACTION P AREA/OTH SYS THERAPEUT 36152 [facility] RIVER IC 1 MED CTR, MED CTR, PROPHYLAC ATTN: ATTN: TIC/DX DENE DENE INJECTION SUBQ/IM RADIOLOGI 16831 [facility] C 1 [facility] N NOR EXAMINATI LLC ON FOOT 2 VIEWS RADEX HIP 33149 [place] 1 [facility] CTR, MED CTR, UNILATERA ATTN: ATTN: L DENE DENE COMPLETE MINIMUM 2 VIEWS NONEMERG A0120 [facility] TRNSPRT: 1 [facility] [email or web address] [facility] MTN ACTION P AREA/OTH SYS NONEMERG A0120 [facility] TRNSPRT: 1 [facility] [email or web address] [facility] MTN ACTION P AREA/OTH SYS NONEMERG A0120 [facility] TRNSPRT: 1 [facility] [employer] [facility] MTN ACTION P AREA/OTH SYS INJECTION J0735 [facility] PEREZ ASM 1 CLINIC CLONIDINE HYDROCHLO RIDE 1 MG NONEMERG A0120 [facility] TRNSPRT: 1 [facility] [employer] [facility] MTN ACTION P AREA/OTH SYS NONEMERG A0120 [facility] TRNSPRT: 1 [facility] [employer] [facility] MTN ACTION P AREA/OTH SYS NONEMERG A0120 [facility] TRNSPRT: 1 [facility] [email or web address] [facility] MTN ACTION P AREA/OTH SYS RADEX 96036 [facility] A HIPS 1 MALL BILATERAL IMAGING 2 VIEWS CENTER ANTEROPOS T PELVIS NONEMERG A0120 [facility] TRNSPRT: 1 [facility] [email or web address] [facility] MTN ACTION P AREA/OTH SYS NONEMERG A0120 [facility] TRNSPRT: 1 [facility] [employer] [facility] MTN ACTION P AREA/OTH SYS NONEMERG A0120 [facility] [place] TRNSPRT: 1 [facility] [employer] [facility]OTH SYS NONEMERG A0120 [facility] TRNSPRT: 1 [facility] [employer] [facility] AREA/OTH SYS CREATINE 78225 [place] [facility] [place] KINASE MB 1 MED CTR, MED CTR, FRACTION ATTN: ATTN: ONLY DOUGIE CONSTANTINO COLLECTIO 79416 [place] N VENOUS 1 MED CTR, MED CTR, BLOOD ATTN: ATTN: VENIPUNCT DOUGIE CONSTANTINO URE NATRIURET 43509 [place] IC 1 [facility] CTR, MED CTR, PEPTIDE ATTN: ATTN: [place] [address] [place] TROPONIN 1 MED CTR, MED CTR, QUANTITAT ATTN: ATTN: BLANQUITA DOU[place]IE [place] BLOOD 52368 [place] [facility] [place] COUNT 1 [facility], MED CTR, COMPLETE ATTN: ATTN: AUTO&AUTO DENE PATRICIAE DIFRNTL WBC CULTURE 07899 [place] [facility] [place] BACTERIAL 1 MED CTR, MED CTR, BLOOD ATTN: ATTN: AEROBIC PATRICIAE DOUGIE W/ID ISOLATES ECG 17779 [place] ROUTINE 1 MED CTR, MED CTR, ECG ATTN: ATTN: W/LEAST DENE DENE 12 LDS TRCG ONLY W/O I&R CREATINE 03666 [place] KINASE 1 MED CTR, MED CTR, TOTAL ATTN: ATTN: [place] [address] [place] MAGNESIUM 1 MED CTR, MED CTR, ATTN: ATTN: [place]E [place] BASIC 26341 [place] METABOLIC 1 MED CTR, MED CTR, PANEL ATTN: ATTN: CALCIUM PATRICIAE PATRICIAE TOTAL RADIOLOGI 28772 [place] K[facility]IA C EXAM 1 RIVER HBP TRINIDAD CHEST 2 LLC VIEWS FRONTAL&L ATERAL NONEMERG A0120 [facility] [place] TRNSPRT: 1 [facility] [email or web address] [facility] MTN ACTION P AREA/OTH SYS LIPID 49396 [place] PANEL 1 MED CTR, MED CTR, ATTN: ATTN: DENE [place] BASIC 74124 [place] METABOLIC 1 MED CTR, MED CTR, PANEL ATTN: ATTN: [place] [address] [place] BLOOD/URI 1 MED CTR, MED CTR, C ACID ATTN: ATTN: [place]E [place] ANTINUCLE 83590 [place] AR 1 [facility] CTR, MED CTR, ANTIBODIE ATTN: ATTN: S YOHAN [place]E [place] RHEUMATOI 73368 [place] D FACTOR 1 MED CTR, MED CTR, QUALITATI ATTN: ATTN: VE DENE DEN[place] SEDIMENTA 02210 [place] TION RATE 1 MED CTR, MED CTR, RBC ATTN: ATTN: NON-AUTOM [place] ATED COMPLEMEN 35189 [place] T ANTIGEN 1 MED CTR, MED CTR, EACH ATTN: ATTN: COMPONENT [place] CYCLIC 41961 [place] CITRULLIN 1 MED CTR, MED CTR, ATED ATTN: ATTN: PEPTIDE DENE [place] ANTIBODY HLA 39874 [place] TYPING 1 MED CTR, MED CTR, A/B/C ATTN: ATTN: SINGLE [place]E [place] ANTIGEN BLOOD 57459 [place] COUNT 1 [facility], MED CTR, COMPLETE ATTN: ATTN: AUTO&AUTO DENE [place] DIFRNTL WBC C-REACTIV 12127 [place] E PROTEIN 1 MED CTR, MED CTR, ATTN: ATTN: [place] [address] [place] THYROID 1 MED CTR, MED CTR, STIMULATI ATTN: ATTN: NG DENE DENE HORMONE TSH COLLECTIO 91243 [place] N VENOUS 1 MED CTR, MED CTR, BLOOD ATTN: ATTN: VENIPUNCT DENE DENE URE NONEMERG A0120 [facility] [place] TRNSPRT: 1 [facility] ACTION COMMUNITY MTN ACTION P AREA/OTH SYS MRI 45674 RADIOLOGY [place] A SPINAL 1 SERVICES CANAL LUMBAR W/O CONTRAST MATERIAL NONEMERG A0120 [facility] TRNSPRT: 1 [employer] ACTION [facility] MTN ACTION P AREA/OTH SYS RADEX 59435 [place] K[facility] SPINE 1 RIVER HBP TRINIDAD LUMBOSACR LLC AL 2/3 VIEWS REMOVAL 92527 KJ LEIVATAMAYUR IMPACTED 1 ENT TAR CERUMEN CLINIC INSTRUMEN PSC TATION UNILAT IAADI NOT 6[address] [facility] [place] R[facility] 1 MED CTR, MED CTR, OTHERWISE ATTN: ATTN: DOUGIE CONSTANTINO SPECIFIED EACH ORGANISM IAADIADOO 75275 [facility] RIVER 1 MED CTR, MED CTR, STREPTOCO ATTN: ATTN: CCUS DOUGIE CONSTANTINO GROUP A BLOOD 94804 [facility] COUNT 1 MED CTR, MED CTR, COMPLETE ATTN: ATTN: AUTO&AUTO DENE DENE DIFRNTL WBC COLLECTIO 05889 [facility] [place] N 1 MED CTR, MED CTR, CAPILLARY ATTN: ATTN: BLOOD DOUGIE CONSTANTINO SPECIMEN RADIOLOGI 81016 [place] C EXAM 1 RIVER HBP CHEST 2 LLC VIEWS FRONTAL&L ATERAL RADIOLOGI 61098 [place] C 0 RIVER HBP TRINIDAD EXAMINATI LLC ON PELVIS 1/2 VIEWS RADEX 88327 [place] SHOULDER 0 R[facility] TRINIDAD COMPLETE LLC MINIMUM 2 VIEWS GROUND A0425 TRANS TRANS MILEAGE 0 STAR STAR PER AMBULANCE AMBULANCE STATUTE SV SV MILE RADIOLOGI 98823 [place] C EXAM 0 RIVER HBP TRINIDAD CHEST 2 LLC VIEWS FRONTAL&L ATERAL AMB A0427 TRANS TRANS SERVICE 0 STAR STAR ALS AMBULANCE AMBULANCE EMERGENCY [facility] TRANSPORT LEVEL 1 REMOVAL 25868 KJ MARIN IMPACTED 0 ENT TAR CERUMEN CLINIC INSTRUMEN PSC TATION UNILAT INCISION 83660 MAURILIO I JIMENEZ III & 0 JIMENEZ III VALERIE DRAINAGE PSC N0 3 COMPLEX PO WOUND INFECTION NONEMERG A0120 [facility] TRNSPRT: 0 [employer] ACTION [facility] MTN ACTION P AREA/OTH SYS NONEMERG A0120 [facility] [place] TRNSPRT: 0 [facility] ACTION [facility] MTN ACTION P AREA/OTH SYS NONEMERG A0120 [facility] [place] TRNSPRT: 0 [facility] ACTION [facility] ACTION [facility] AREA/OTH SYS DEEP D9220 MAURILIO JIMENEZ III SEDATION/ 0 JIMENEZ III VALERIE GENERAL PSC N0 3 ANESTHESI A- 30 MINUTES COLLECTIO 50880 [facility] N VENOUS 0 MED CTR MED CTR BLOOD VENIPUNCT URE IAADIADOO 00067 [facility] RIVER 0 MED CTR MED CTR STREPTOCO CCUS GROUP A BLOOD 85138 [facility] COUNT 0 MED CTR MED CTR COMPLETE AUTO&AUTO DIFRNTL WBC RADEX 42127 BREATHIT AYOS, SPINE 0 [facility] A LUMBOSACR IMAGING AL CENTER MINIMUM 4 VIEWS RADEX 22704 RADIOLOGY [facility], SPINE 0 SERVICES MARA C LUMBOSACR AL MINIMUM 4 VIEWS RADEX 83332 RADIOLOGY [facility], SPINE 0 SERVICES MARA C THORACIC 3 VIEWS RADEX 08256 [facility], SPINE 0 RIVER HBP [facility] 3 VIEWS DEEP D9220 MAURILIO PINA SEDATION/ 0 JIMENEZ III MAURILIO Hough GENERAL PSC N0 3 ANESTHESI A- 30 MINUTES ORTHOPANT 51307 MAURILIO PINA OGRAM 0 JIMENEZ III MAURILIO Hough PSC N0 3 Encounters Encounter Start End Date Code Location Performer Type Date OFFICE 07245 [facility] OUTPATIEN 6 6 PHYSICIAN SRIRAM T VISIT S GROUP 15 MINUTES EMERGENCY 46336 ADELA COLLADO 6 6 [facility] H[facility]VERITY [facility] STEVEN - 6 6 [facility] T EMERGENCY 34235 STEVEN 6 6 [facility] T VISIT LOW/MODER SEVERITY HOSPITAL STEVEN - 5 5 [facility] INC T EMERGENCY 66971 STEVEN 5 5 [facility] T VISIT LOW/MODER SEVERITY EMERGENCY 07948 ADELA ONOFRE 5 5 PHYSICIAN JAYESH DEPARTMEN S, [facility] T VISIT MODERATE SEVERITY EMERGENCY 97892 GRANT BURNS 5 5 LEO LEO DEPARTMEN T VISIT HIGH/URGE NT SEVERITY OFFICE 11045 [facility] OUTPATIEN 5 5 PHYSICIAN SRIRAM T VISIT S GROUP 25 MINUTES OFFICE 13546 [facility] OUTPATIEN 5 5 PHYSICIAN SIRRAM T VISIT S GROUP 15 MINUTES EMERGENCY 25422 KASIE MARINELLI, 4 4 RIVER HBP III [facility] T VISIT MODERATE SEVERITY [facility] [place] [facility], OUTPATIEN ATTN: T DENE EMERGENCY 48151 NANCIE NANCIE 1 1 G G DEPARTMEN T VISIT MODERATE SEVERITY EMERGENCY 89916 [place] [facility], DEPARTMEN ATTN: T VISIT DENE LOW/MODER SEVERITY [facility]PITAL [place] [facility] 1 [facility], OUTPATIEN ATTN: T [facility]E EMERGENCY 90058 [place] 1 1 [facility], DEPARTMEN ATTN: T VISIT DENE MODERATE SE[facility]PITAL [place] [facility] 1 [facility], OUTPATIEN ATTN: T DENE EMERGENCY 72000 NANCIE NANCIE 1 1 G G DEPARTMEN T VISIT LIMITED/M INOR PROB EMERGENCY 38370 [place] 1 1 [facility], DEPARTMEN ATTN: T VISIT DENE MODERATE SEVERITY EMER[place]ENCY 04399 [place] 1 1 [facility], DEPARTMEN ATTN: T VISIT [facility] [facility] [place] [facility], OUTPATIEN ATTN: T DENE EMERGENCY 26206 NANCIE NANCIE 1 1 G G DEPARTMEN T VISIT LOW/MODER SEVERITY [facility]PITAL [place] [facility] 1 [facility], OUTPATIEN ATTN: T [facility]E EMERGENCY 41041 [place] 1 1 [facility], DEPARTMEN ATTN: T VISIT DENE MODERATE SEVERITY OFFICE 54629 KARYNS CHRIS LORENA OUTPATIEN 1 1 CLINIC T VISIT 25 MINUTES OFFICE 78120 KARYNS MURAD ASM OUTPATIEN 1 1 CLINIC T VISIT 15 MINUTES EMERGENCY 59817 KASIE MARINELLI, 1 1 RIVER HBP III [facility] T VISIT LOW/MODER SEVERITY HOSPITAL [facility] - 1 1 MED CTR, OUTPATIEN ATTN: T DENE EMERGENCY 87693 [facility] 1 1 MED CTR, DEPARTMEN ATTN: T VISIT DENE MODERATE SEVERITY EMERGENCY 20740 KASIE RUSS 1 1 RIVER HBP [facility] T VISIT HIGH/URGE NT SEVERITY EMERGENCY 56620 [facility] 1 1 MED CTR, DEPARTMEN ATTN: T VISIT DENE MODERATE SEVERITY HOSPITAL [facility] - 1 1 MED CTR, OUTPATIEN ATTN: T DENE EMERGENCY 82464 KASIE GIMENEZ 1 1 RIVER HBP [facility]ENDY [facility] T VISIT LOW/MODER SEVERITY EMERGENCY 62830 [facility] 1 1 MED CTR, DEPARTMEN ATTN: T VISIT DENE MODERATE SEVERITY [facility]PITAL [place] [facility], OUTPATIEN ATTN: T DENE HOSPITAL [facility] - 1 1 MED CTR, OUTPATIEN ATTN: T DENE EMERGENCY 54867 [facility] 1 1 MED CTR, DEPARTMEN ATTN: T VISIT DENE MODERATE SEVERITY OFFICE 48474 KARYNS MURAD [facility] OUTPATIEN 1 1 CLINIC T VISIT 15 MINUTES HOSPITAL [place] [facility] 1 [facility], OUTPATIEN ATTN: T DENE EMERGENCY 21328 [place] [facility] 1 [facility], DEPARTMEN ATTN: T VISIT DENE MODERATE SEVERITY OFFICE 37690 [facility] 1 1 FAMILY A [facility] NEW/ESTAB SRV AR PATIENT 40 MIN HOSPITAL [facility] - 1 1 MED CTR, OUTPATIEN ATTN: T DENE EMERGENCY 25073 [facility] 1 1 MED CTR, DEPARTMEN ATTN: T VISIT DENE MODERATE SEVERITY OFFICE 41478 KARYNS DAPHNEYAD ASM OUTPATIEN 1 1 CLINIC T VISIT 15 MINUTES EMERGENCY 88994 [facility] 1 1 MED CTR, DEPARTMEN ATTN: T VISIT DENE MODERATE SEVERITY HOSPITAL [facility] - 1 1 MED CTR, OUTPATIEN ATTN: T DENE EMERGENCY 40284 [facility] [place] 1 1 R[facility] HBP G [facility] T VISIT LOW/MODER SEVERITY OFFICE 34699 CHALENARDS MURAD ASM OUTPATIEN 1 1 CLINIC T VISIT 15 MINUTES OFFICE 00508 CHAVIES MURAD ASM OUTPATIEN 1 1 CLINIC T VISIT 15 MINUTES HOSPITAL [facility] - 1 1 MED CTR, OUTPATIEN ATTN: T DENE EMERGENCY 43046 [facility] NISH[place] 1 1 RIVER HBP LAR [facility] T VISIT LOW/MODER SEVERITY EMERGENCY 49507 [facility] 1 1 MED CTR, DEPARTMEN ATTN: T VISIT DENE MODERATE SEVERITY [facility]PITAL [place] [facility], OUTPATIEN ATTN: T DENE EMERGENCY 62783 [place] NANCIE 1 1 RIVER HBP G [facility] T VISIT MODERATE SEVERITY OFFICE 11805 CAS CARRILLO OUTPATIEN 1 1 CLINIC T VISIT 15 MINUTES [facility]OSPITAL [place] [facility], OUTPATIEN ATTN: T DENE EMERGENCY 38776 [facility] [place] 1 1 RIVER HBP G [facility] T VISIT LOW/MODER SEVERITY EMERGENCY 21639 [place] [facility] 1 [facility], DEPARTMEN ATTN: T VISIT DENE MODERATE SEVERITY OFFICE 00728 KJ MARIN OUTPATIEN 1 1 ENT TAR T VISIT CLINIC 25 PSC MINUTES EMERGENCY 55184 [place] NATALIIA 1 1 RIVER HBP [facility] T VISIT LOW/MODER SEVERITY EMERGENCY 26776 [place] 1 1 [facility], DEPARTMEN ATTN: T VISIT DENE MODERATE SEVERITY HOSPITAL [facility] - 1 1 MED CTR, OUTPATIEN ATTN: T DENE OFFICE 39534 MAURILIO I JIMENEZ III OUTPATIEN 1 1 JIMENEZ III VALERIE T VISIT PSC N0 3 10 MINUTES EMERGENCY 61908 [facility] GIMENE[facility] 1 1 RIVER HBP [facility]Y [facility] T VISIT MODERATE SEVERITY EMERGENCY 74374 [place] 1 1 [facility], DEPARTMEN ATTN: T VISIT DENE HIGH/URGE NT SEVERITY HOSPITAL [facility] - 1 1 MED CTR, OUTPATIEN ATTN: T DENE OFFICE 35990 [facility] CARRILLO OUTPATIEN 1 1 CLINIC T VISIT 25 MINUTES [facility]OSPITAL [place] [facility], OUTPATIEN ATTN: T [facility] [place] [facility], OUTPATIEN ATTN: T [place] EM[place]ENCY 27771 [place] 1 1 [facility], DEPARTMEN ATTN: T VISIT DENE LIMITED/M INOR PROB OFFICE 27222 [facility] MELENDE[facility] J CONSULTAT 1 1 ICAL ION ASSOCIATE NEW/ESTAB S PATIENT 40 MIN OFFICE 86112 CAS PEREZ LORENA OUTPATIEN 1 1 CLINIC T VISIT 15 MINUTES OFFICE 46661 CAS PEREZ LORENA OUTPATIEN 1 1 CLINIC T VISIT 15 [facility]UTES [facility] [place] [facility], OUTPATIEN ATTN: T DENE OFFICE 70484 CAS PEREZ LORENA OUTPATIEN 1 1 CLINIC T NEW 45 MINUTES EMERGENCY 42305 KASIE MARLEN 1 1 RIVER HBP ABDULLAHI [facility] T VISIT LOW/MODER SEVERITY [facility] [place] [facility], OUTPATIEN ATTN: T DENE EMERGENCY 40267 [place] 1 1 [facility], DEPARTMEN ATTN: T VISIT DENE MODERATE SEVERITY EMERGENCY 07485 [place] 1 1 RIVER HBP [facility] T VISIT MODERATE SEVERITY [facility] [place] [facility], OUTPATIEN ATTN: T DENE OFFICE 29014 KJ LEIVATAND OUTPATIEN 1 1 ENT TAR T VISIT CLINIC 15 PSC MINUTES OFFICE 32028 KJ ABBIETAND OUTPATIEN 1 1 ENT TAR T VISIT CLINIC 25 PSC MINUTES [facility]OSPITAL [place] [facility], OUTPATIEN ATTN: T [place]E EMER[place]ENCY 80581 [place] 1 1 [facility], DEPARTMEN ATTN: T VISIT DENE MODERATE SEVERITY EMERGENCY 19491 [place] NANCIE 1 1 RIVER HBP G [facility] T VISIT LOW/MODER SEVERITY EMERGENCY 79552 [place] N[place]CI[place] 0 0 RIVER HBP G [facility] T VISIT LOW/MODER SE[facility]ITY [facility] [place] [facility], OUTPATIEN ATTN: T DENE EMERGENCY 77457 [place] 0 0 [facility], DEPARTMEN ATTN: T VISIT DENE MODERATE SEVERITY OFFICE 70573 KJ MARIN OUTPATIEN 0 0 ENT TAR T VISIT CLINIC 25 PSC MINUTES OFFICE 73993 KJ MARIN CONSULTAT 0 0 ENT TAR ION CLINIC NEW/ESTAB PSC PATIENT 60 MIN EMERGENCY 71174 [place] 0 0 [facility] DEPARTMEN T VISIT HIGH/URGE NT SEVERITY [facility] [place] [facility] OUTPATIEN T EMERGENCY 07552 [place] NANCIE 0 0 RIVER HBP G [facility] T VISIT LOW/MODER SEVERITY EMERGENCY 72510 [place]CI[place] 0 0 RIVER HBP G [facility] T VISIT LOW/MODER SE[facility]ITY [facility] [place] [facility] OUTPATIEN T EMER[place]ENCY 27341 [place] 0 [facility] DEPARTMEN T VISIT MODERATE [facility]ITY [facility] [place] [facility] OUT[facility]IEN T EMER[place]ENCY 78234 [place] 0 0 [facility] DEPARTMEN T VISIT MODERATE SEVERITY EMERGENCY 68472 [place] 0 0 [facility] DEPARTMEN T VISIT MODERATE SEVERITY EMERGENCY 46637 [place] N[place]CIE 0 0 RIVER HBP G [facility] T VISIT LOW/MODER SE[facility]ITY [facility] [place] [facility] OUTPATIEN T [place]ERGENCY 12064 [place] 0 0 [facility] DEPARTMEN T VISIT MODERATE SEVERITY EMERGENCY 59062 [place] N[place]CIE 0 0 RIVER HBP G [facility] T VISIT LOW/MODER [facility]ITY [facility] [place] [facility] OUTPATIEN T [place]ENCY 55950 [place] 0 0 [facility] DEPARTMEN T VISIT MODERATE SEVERITY [facility] [place] [facility] OUTPATIEN T EMERGENCY 16941 [place], 0 0 RIVER HBP ARIF M [facility] T VISIT LOW/MODER SE[facility]ITY [facility] [place] [facility] OUTPATIEN T EMERGENCY 12056 [facility], 0 0 RIVER HBP KAMALA W [facility] T VISIT LOW/MODER SEVERITY EMERGENCY 65248 [place] 0 0 MED CTR DEPARTMEN T VISIT MODERATE SEVERITY EMERGENCY 48271 [place] NANCIE, 0 0 RIVER HBP G E [facility] T VISIT LOW/MODER SEVERITY EMERGENCY 29505 [place] 0 0 [facility] DEPARTMEN T VISIT MODERATE [facility]ITY [facility] [place] [facility] 0 [facility] CTR OUTPATIEN T EMERGENCY 04891 [facility], 0 0 [facility] T VISIT LLC HIGH/URGE NT SEVERITY OFFICE 16[address] [facility] OUTPATIEN 0 0 NEUMANNS PAB T VISIT EXTENDED 15 H MINUTES EMERGENCY 69344 [place] 0 0 [facility] CTR DEPARTMEN T VISIT MODERATE SEVERITY EMERGENCY 48029 [place] RE[place], 0 0 RIVER HBP LIANNE S [facility] T VISIT LOW/MODER SE[facility]ITY [facility] [place] [facility] 0 [facility] CTR OUTPATIEN T OFFICE 44286 MAURILIO PINA, OUTPATIEN 0 0 JIMENEZ III MAURILIO R T VISIT PSC N0 3 10 MINUTES EMERGENCY 38832 KASIE TAYLER, 0 0 RIVER HBP SAMANTHA J [facility] T VISIT MODERATE SE[facility]ITY [facility] [place] [facility] OUTPATIEN T
--- OUTSIDE RECORDS SUMMARY | 2016-12-20 12:24 | External Medical Summary Rpt | CCD ---
Demographics Preferred Language Lao Marital Status Unknown Cheondoism Affiliation Unknown Race Unknown Ethnic Group Unknown Author Author , ASHWIN CHRISTOPHER Address Unknown Phone Immunization No patient found.
--- OUTSIDE RECORDS SUMMARY | 2016-12-20 12:24 | External Medical Summary Rpt | CCD ---
Demographics Preferred Language Macedonian Marital Status Unknown Uatsdin Affiliation Unknown Race Unknown Ethnic Group Unknown Author Author , ASHWIN CHRISTOPHER Address Unknown Phone Immunization No patient found.
--- NOTE | 2016-12-20 13:26 | Urgent Treatment Center Report ---
History of Present Issue Date/Time Seen by Provider 12/20/16 1306 Visit Reason Pt arrived:Walked Presenting Problem:LT KNEE PAIN, WAS SEEN ON 12/13/16 AT [facility] AND REFERRED TO ORTHO. PT NEEDS WORK RESTRICTION NOTE. Location if Accident: Onset of symptoms date/time:/ or onset unknown for:MEDICAL HX UNKNOWN Have you (or family members/close friends) recently traveled outside the [place]? N If Yes, where/when: Have you had exposure to infectious disease within the past month? TB? Other? Specify: Patient state that he was seen here in the [facility] on the and advised to follow up with Ortho State that he has been unable to get in with Orthopedics so he came back to see if we could get him in quicker or get a note for restrictions at work ALLERGIES Coded Allergies: No Known Allergies (08/24/16) Home Medications Active Scripts Ibuprofen (Ibuprofen 800MG) 800 MG PO QIDP PRN pAIN #30 TAB Prov: 12/13/16 History Medical History General CAD? No Angina: No MT: No Hypertension? Yes Hyperlipidemia? No CHF? No DVT? No PE? No COPD? Yes Asthma? No Anemia? No GERD? No Gastric ulcers? No GI Bleed? No Hernia? No Thyroid Problems? No Hypothyroidism? No CVA? No Seizures? No Diabetes? No Renal Insuffiency? No UTI? No Stones? No BPH? No GB Disease: No Nephritic Syndrome? No Asplenia? No Hepatitis? No Sickle Cell Disease? No Arthritis? No Migraines? No Cataracts? No Glaucoma? No MRSA? No HIV? No TB? No Anxiety? No Depression? No Cancer? No Immunization HX DT/Tetanus 12/06/13 Surgical Hx Previous Surgery?Y SINUS Social History Smoking Hx Smoker: Current Every Day Smoker Tobacco: Yes Type Cigarettes Packs/day 1 1/2 - 2 Packs Alcohol Alcohol: No Review of Systems All Other Systems Reviewed and Negative Comment Pain and swelling in left knee Physical Exam Vital Signs Vital Signs Date Time Temp Pulse Resp B/P Pulse O2 O2 Flow FiO2 Ox Delivery Rate 12/20 1238 98.5 60 20 149/103 95 General Appearance normal appearance, WD/WN, no apparent distress Respiratory Status Yes: trachea midline, chest symmetrical, non tender chest. No: respiratory distress. Cardiovascular normal exam, regular rate/rhythm, no peripheral edema Extremities Pain and swelling in left knee no further injuries since seen on here for note putting him off work Neurologic alert, normal exam, oriented x 3 Medical Decision Making LABS/Meds/Orders Pt receiving controlled substance in ED? No Results/Orders Orders Procedure Date/time Status UTC STABILIZE JOINT/AREA 12/20 1322 Active Departure Departure Time of Disposition 1321 Disposition DC Home or Self Care(routine) Clinical Impression Primary Impression: Knee pain Qualifiers: Chronicity: unspecified Laterality: left Qualified Code: M25.562 - Pain in left knee Condition STABLE Referrals Ted MEJIA,Robert DANG MD, GUSTAVO YANEZ Patient Instructions DI for Knee Pain Additional Instructions *weight bearing as tolerated *RICE, Rest the extremity, Ice 15-20 minutes 3-4 times daily, Compress- wear the eladio wrap as discussed as much as possible to help reduce swelling and pain, Elevate the extremity when at rest *Eladio wrap is for support and help control swelling, use it except in the shower. Be sure that is not to tight but not to loose either *Elevate when resting *Ibuprofen 600-800mg every 6-8 hours as needed for pain an inflammation. If need something more can take Tylenol in between doses of Ibuprofen to help Immediately follow up for new or worsening of symptoms, or no noticeable improvement over the next 3-5 days Follow up with Orthopedics as advised in previous visit and family doctor for further treatment Discharge Counseling Counseled pt/family regarding diagnosis, home care, follow up needs at 1324
[2016-12-20 13:28] VITALS: BP 149/103
== END 2016-12-20 13:33 | disposition home or self-care (01) ==
LOC: UTC 12:04
DX: M25.562 Pain in left knee (principal); I10 Essential (primary) hypertension; J44.9 Chronic obstructive pulmonary disease, unspecified; F17.210 Nicotine dependence, cigarettes, uncomplicated

== ENCOUNTER → 2017-01-09 | Outpatient (CLI) | payer OTHER ==
--- NOTE | 2017-01-10 09:32 | RADIOLOGY REPORT PS360 ---
MRI-LOW EXT ANY JOINT W/O-LT HISTORY: Left knee pain and swelling and popping with instability. Pain along medial side PAIN IN LEFT KNEE ORDERING PHYSICIAN: MARGIE PATEL PATIENT AGE: 41 years COMPARISON: Radiograph obtained 12/13/2016 TECHNIQUE: Standard multiplanar multiecho sequences are performed without contrast. FINDINGS: The cruciate ligaments, collateral ligaments, patellar tendon, and quadriceps tendon appear intact. There is a complex tear involving the posterior horn of the medial meniscus. Both longitudinal and horizontal tear involves posterior horn of the medial meniscus. The lateral meniscus has an unremarkable appearance. There is a moderate sized knee joint effusion in the suprapatellar region. A small Cesar's cyst is present. The patellar cartilage is well preserved. There is no fracture or dislocation. There is some minimal osteophyte formation along the medial compartment with slight decrease in the joint space. IMPRESSION: 1. Complex nondisplaced tear involves posterior horn of the medial meniscus. 2. Moderate sized knee joint effusion. 3. Mild osteoarthritic change
== END ==
LOC: RAD 08:45
DX: M25.562 Pain in left knee (principal)